=== PATIENT | male | born 1960 | race Caucasian/White ===

== ENCOUNTER 2020-09-14 08:10 | Emergency (ER) | payer MEDICARE, MEDICAID, SELFPAY ==
--- NOTE | ~2020-09-14 | CT_ITS ---
EXAMINATION: CT abdomen pelvis w con DATE: 09/14/2020 09:24 INDICATION: Abdominal pain TECHNIQUE: Computed tomography (CT) of the abdomen and pelvis was performed with 100 mL Omnipaque-350 intravenous contrast. Automated exposure control and iterative reconstruction technique were employe d. The dose-length product was 327.48 mGy-cm. COMPARISON: 10/12/2018 FINDINGS: Dependent atelectasis in the bilateral lower lobes and mild discoid atelectasis in the right middle l obe. Heart size is normal. No pericardial or pleural effusion. Small amount of fluid and debris in th e distal esophagus which could be related to reflux. Diffuse hepatic steatosis with focal sparing jessica ng the gallbladder fossa. Gallbladder, spleen, pancreas, bilateral adrenal glands and kidneys are nor mal. There is asymmetric wall thickening at the gastric antrum which could be related to peristalsis or gastritis. No abnormal bowel wall thickening or obstruction. There is linear soft tissue density m aterial within the distal small bowel likely representing incompletely digested material with similar appearance as seen in the stomach. The appendix is not visualized. No pericecal inflammatory change to suggest acute appendicitis. Decompressed bladder is normal. Prostatic calcifications. No interval change in a lenticular soft tissue density with peripheral calcification measuring approximately 3.4 x 0.8 cm along the posterolateral margin of the spleen which is likely sequela of old trauma. No free intraperitoneal gas or fluid. No pathologically enlarged abdominal or pelvic lymphadenopathy. Mild s cattered degenerative skeletal changes. IMPRESSION: 1. Mild wall thickening at the gastric antrum which could be related to gastritis or peristalsis. 2. Greater than typical amount of likely incompletely digested material within the distal small bowel with similar appearance to material within the stomach. Correlate with clinical history. Differentia l would include less likely parasitic infection. Reviewed, dictated and finalized at location A. IMPRESSION: 1. Mild wall thickening at the gastric antrum which could be related to gastrit is or peristalsis. 2. Greater than typical amount of likely incompletely digested material within the distal small bowel with similar appearance to material within the stomach. Correlate with clinical history. Differential would include less likely parasit ic infection.
[2020-09-14 08:21] VITALS: BP 141/84; PULSE 72; RESP 18; TEMP 36; O2SAT 99
--- NOTE | 2020-09-14 08:44 | ED.ABDPAIN ---
HPI - Abdominal Pain General Chief Complaint: Abdominal Pain Stated Complaint: abd pain Time Seen by Provider: 09/14/20 08:29 Source: patient Mode of arrival: ambulatory Limitations: no limitations History of Present Illness HPI narrative: Patient is a 59-year-old male complaining of mid abdominal pain, 4 out of 10, dull ache, nonradiating started today. Patient denies any nausea, vomiting, diarrhea or fever. Patient denies any chest pain or shortness of breath. Related Data Home Medications Medication Instructions Recorded Confirmed amlodipine 5 mg tablet mg PO 11/05/19 aspirin 81 mg chewable tablet 81 mg PO DAILY 11/05/19 ascorbic acid (vitamin C) mg PO 09/14/20 cetirizine mg 09/14/20 cholecalciferol (vitamin D3) 25 mcg PO DAILY 09/14/20 [Vitamin D3] gabapentin 09/14/20 ginkgo biloba 60 mg PO DAILY 09/14/20 losartan 09/14/20 meclizine mg PO 09/14/20 meloxicam 09/14/20 trazodone 100 mg PO HS PRN 09/14/20 Allergies Allergy/AdvReac Type Severity Reaction Status Date / Time No Known Allergies Allergy Verified 09/14/20 08:26 Review of Systems Review of Systems: All systems reviewed & are unremarkable except as noted in HPI and below Constitutional: Constitutional: Denies body ache(s), Denies chills, Denies excessive sweating, Denies fatigue, Denies fever(s), Denies headache(s), Denies lethargy, Denies malaise, Denies weakness and Denies weight loss Eyes: Eyes: Denies blurry vision, Denies change in vision and Denies loss of vision ENT: Denies dizziness, Denies ear discharge, Denies headache(s), Denies lip swelling, Denies epistaxis, Denies nasal congestion, Denies neck pain, Denies throat swelling and Denies tongue swelling Cardiovascular: Cardiovascular: Denies chest pain, Denies chest pain at rest, Denies chest pain with activity, Denies diaphoresis, Denies rapid heart rate, Denies edema, Denies irregular heart rhythm, Denies lightheadedness, Denies palpitations, Denies dyspnea and Denies dyspnea on exertion Respiratory: Respiratory: Denies chest congestion, Denies cough, Denies hemoptysis, Denies dyspnea and Denies dyspnea on exertion Gastrointestinal: Gastrointestinal: Denies melena, Denies hematochezia, Denies diarrhea, Denies nausea, Denies vomiting and Denies hematemesis Musculoskeletal: Musculoskeletal: Denies abnormal gait, Denies deformity, Denies joint swelling, Denies limited range of motion, Denies neck pain and Denies numbness Neurologic: Denies Abnormal speech present, Denies abnormal gait, Denies confusion, Denies dizziness, Denies headache(s), Denies focal weakness, Denies loss of vision, Denies numbness, Denies Other visual disturbances, Denies Sensory deficit (Neuro) and Denies weakness Psychiatric: Psychiatric: Denies confusion, Denies depression, Denies auditory hallucinations, Denies homicidal ideation and Denies suicidal ideation Endocrine: Endocrine: Denies cold intolerance, Denies excessive sweating, Denies fatigue, Denies heat intolerance and Denies palpitations Hematologic/Lymphatic: Hematologic/Lymphatic: Denies easy bleeding and Denies easy bruising Allergic/Immunologic: Allergic/Immunologic: Denies lip swelling, Denies throat swelling and Denies tongue swelling PMFSH Family History Family History (System 10/29/19 @ 15:15 by Wanda Cruz) Sibling Family history of thyroid disease Mother Family history of osteoporosis Hypertension Family history of chronic obstructive pulmonary disease Father Hypertension Cerebrovascular accident Social History Social History (System 10/29/19 @ 15:15 by Wanda Cruz) Gender identity (if verbalized by the patient): Male Exam Const: General: cooperative, healthy appearing, comfortable, no acute distress, well developed, alert and awake; No confusion Orientation/consciousness: oriented to person, oriented to place, oriented to time, patient oriented x3 and No confusion Limitations: no limitations HENMT:
[2020-09-14 08:53] LABS: Basophils Absolute Auto 0.1 K/mm3 (0.0-0.1); Basophils Percent Auto 0.5 % (0.2-1.2); Eosinophils Absolute Auto 0.5 K/mm3 (0-0.3); Eosinophils Percent Auto 4.6 % (0-4.4); Hematocrit 49.1 % (42.0-52.0); Hemoglobin 16.7 g/dL (14.0-18.0); Immature Granulocyte Absolute 0.02 K/mm3 (0.00-0.031); Immature Granulocyte Percent A 0.2 % (0-0.5); Lymphocytes Absolute Auto 2.32 K/mm3 (0.9-3.2); Lymphocytes Percent Auto 21.3 % (18.3-44.2); Mean Corpuscular Hemoglobin 30.5 pg (26-34); Mean Corpuscular Volume 89.8 fl (80-100); Monocytes Absolute Auto 0.8 K/mm3 (0.1-0.6); Neutrophils Absolute Auto 7.2 K/mm3 (1.3-6.7); Neutrophils Percent Auto 66.4 % (45.5-73.1); Platelet Count Result 285 k/mm3 (150-375); Red Blood Count 5.47 M/mm3 (4.6-6.20); Red Cell Distribution Width 12.7 % (11.5-14.5); White Blood Count 10.9 K/mm3 (4.5-10.0)
[2020-09-14 09:00] LABS: Add Urine Microscopic? YES; Appearance Urine Cloudy (Clear); Bacteria Urine Trace /hpf; Bilirubin Urine Negative (Negative); Blood Urine Negative (Negative); Color Urine Yellow (Yellow); Glucose Urine UA Negative (Negative); Ketones Urine Negative (Negative); Leukocyte Esterase Ur Negative LEU/UL (Negative); Mucus Urine Heavy /lpf; Nitrate Urine Negative (Negative); Protein Urine 2+ mg/dL (Negative); RBC Urine 0-2 /hpf (0-2); Specific Grav Ur 1.025 (1.001-1.035); Squamous Epithelial Cell Urine Rare /hpf (Few); WBC Urine 0-3 /hpf
[2020-09-14 09:04] LABS: Alanine Aminotransferase 32 U/L (4-50); Albumin Level 4.8 g/dL (3.5-5.1); Alkaline Phosphatase 104 U/L (38-126); Anion Gap 8 mmol/L (8-16); Aspartate Amino Transferase 34 U/L (17-59); Bilirubin,Total 0.7 mg/dL (0.2-1.3); Blood Urea Nitrogen 15 mg/dL (9-20); Calcium 9.8 mg/dL (8.4-10.2); Carbon Dioxide 33 mmol/L (22-30); Chloride 103 mmol/L (98-107); Estimated CRCL calculation 89 ml/min; Estimated Glomerular Filt Rate > 60; Glucose 111 mg/dL (75-110); Lipase 41 U/L (23-300); Potassium 3.8 mmol/L (3.4-5.0); Sodium 144 mmol/L (137-145)
[2020-09-14 09:20] VITALS: BP 138/80; PULSE 68; RESP 20; O2SAT 100
[2020-09-14 10:34] VITALS: BP 126/79; PULSE 66; RESP 18; O2SAT 96
--- NOTE | 2020-09-14 11:04 | ECG_ITS ---
Measurements Intervals [place] Rate: 63 P: 58 MI: 156 QRS: -8 QRSD: 96 T: 30 QT: 397 QTc: 407 Interpretive Statements SINUS RHYTHM INCOMPLETE RIGHT BUNDLE BRANCH BLOCK BASELINE ARTIFACT- I, III, AVL BORDERLINE ECG Electronically Signed On 09-14-2020 11:29:16 CDT by Isidro Echavarria D.O.
[2020-09-14] MEDS: FAMOTIDINE 20 MG TABLET 40 MG PO (11:48)
[2020-09-14 11:51] VITALS: BP 125/87; PULSE 68; RESP 18; O2SAT 98
== END 2020-09-14 11:52 | disposition home or self-care (01) ==
PROVIDERS: Emergency Provider Emergency Medicine; PCP Internal Medicine
DX: K29.00 Acute gastritis without bleeding (principal); Z79.82 Long term (current) use of aspirin; I45.10 Unspecified right bundle-branch block
CPT/HCPCS: 36415; 74177; 80053; 81001; 83690; 85025; 93005; 99284; A9270; Q9967

== ENCOUNTER 2023-02-11 17:00 | Emergency (ER) | payer MEDICARE, MEDICAID, SELFPAY ==
[2023-02-11 17:12] VITALS: BP 127/78; PULSE 68; RESP 16; TEMP 37.1; O2SAT 97
[2023-02-11 17:46] LABS: Basophils Percent Auto 0.6 % (0.2-1.2); Eosinophils Absolute Auto 0.4 K/mm3 (0-0.3); Hematocrit 46.1 % (42.0-52.0); Hemoglobin 15.8 g/dL (14.0-18.0); Immature Granulocyte Absolute 0.02 K/mm3 (0.00-0.031); Immature Granulocyte Percent A 0.3 % (0-0.5); Lymphocytes Absolute Auto 2.33 K/mm3 (0.9-3.2); Lymphocytes Percent Auto 35.7 % (18.3-44.2); Mean Corpuscular HGB Conc 34.3 g/dl (32-36); Mean Corpuscular Hemoglobin 30.2 pg (26-34); Mean Platelet Volume 8.7 fl (7.4-10.4); Monocytes Absolute Auto 0.6 K/mm3 (0.1-0.6); Monocytes Percent Auto 9.2 % (2.6-8.5); Neutrophils Absolute Auto 3.2 K/mm3 (1.3-6.7); Neutrophils Percent Auto 48.2 % (45.5-73.1); Platelet Count Result 197 k/mm3 (150-375); Red Blood Count 5.24 M/mm3 (4.6-6.20); Red Cell Distribution Width 12.7 % (11.5-14.5); White Blood Count 6.5 K/mm3 (4.5-10.0)
[2023-02-11 18:11] LABS: Alanine Aminotransferase 25 U/L (6-50); Albumin Level 4.6 g/dL (3.5-5.1); Alkaline Phosphatase 96 U/L (38-126); Anion Gap 6 mmol/L (8-16); Aspartate Amino Transferase 23 U/L (17-59); Bilirubin,Total 0.4 mg/dL (0.2-1.3); Blood Urea Nitrogen 12 mg/dL (9-20); Calcium 9.1 mg/dL (8.4-10.2); Carbon Dioxide 28 mmol/L (22-30); Chloride 107 mmol/L (98-107); Estimated CRCL calculation 111 ml/min; Estimated Glomerular Filt Rate > 60; Glucose 96 mg/dL (65-110); Sodium 141 mmol/L (137-145)
--- NOTE | 2023-02-11 18:35 | ED.HA ---
HPI - Headache General Chief Complaint: Headache Stated Complaint: ESTEBAN after lumbar puncture on 02/09 Time Seen by Provider: 02/11/23 18:16 Source: patient and family Mode of arrival: ambulatory Limitations: no limitations History of Present Illness HPI Narrative: 62-year-old was brought in by family with a complaint occipital headache and neck pain for the past 2 days. Patient family reports that he had spinal tap done at [facility] 2 days ago for memory loss ,since then been having headaches. Family reports that they called the facility and they have no openings to evaluate him. He denies any fever or chills. No history of nausea or vomiting. MD elicited complaint: headache Pertinent past history: other (Recent spinal tap done 2 days ago) Onset (ago): day(s) (2) Onset description: gradually Location: occipital Severity: moderate Quality & Timing: aching Exacerbating factors: none Relieving factors: nothing Context: other (spinal tap) Associated symptoms: none Treatments prior to arrival: none Related Data Home Medications Medication Instructions Recorded Confirmed amlodipine 5 mg tablet mg PO 11/05/19 aspirin 81 mg chewable tablet 81 mg PO DAILY 11/05/19 ascorbic acid (vitamin C) 500 mg mg PO 09/14/20 capsule cetirizine 10 mg tablet mg 09/14/20 cholecalciferol (vitamin D3) 25 25 mcg PO DAILY 09/14/20 mcg (1,000 unit) capsule (Vitamin D3) gabapentin 300 mg capsule 09/14/20 ginkgo biloba 60 mg capsule 60 mg PO DAILY 09/14/20 losartan 50 mg tablet 09/14/20 meclizine 25 mg capsule mg PO 09/14/20 meloxicam 15 mg tablet 09/14/20 trazodone 100 mg tablet 100 mg PO HS PRN Sleep 09/14/20 Allergies Allergy/AdvReac Type Severity Reaction Status Date / Time No Known Allergies Allergy Verified 02/11/23 17:01 Review of Systems Review of Systems: All systems reviewed & are unremarkable except as noted in HPI and below Constitutional: Constitutional: Reports no additional constitutional complaints Eyes: Eyes: Reports no additional eye complaints ENT: Reports system reviewed and no additional complaints, except as documented Cardiovascular: Cardiovascular: Reports no additional cardiovascular complaints Respiratory: Respiratory: Reports no additional respiratory complaints Musculoskeletal: Musculoskeletal: Reports no additional musculoskeletal complaints Integumentary/Breasts: Skin/Breast: Reports system reviewed and no additional complaints, except as docu Neurologic: Reports system reviewed and no additional complaints, except as documented Psychiatric: Psychiatric: Reports no additional psychiatric complaints Endocrine: Endocrine: Reports no additional endocrine complaints PMFSH Family History Family History Sibling Family history of thyroid disease Mother Family history of osteoporosis Hypertension Family history of chronic obstructive pulmonary disease Father Hypertension Cerebrovascular accident Social History Social History Gender identity (if verbalized by the patient): Male Course Course Emergency Course: GENERAL: Well-appearing, well-nourished, and in no acute distress. HEAD: Normocephalic, atraumatic. EYES: PERRLA and EOMI. NECK: Supple. CHEST: Clear to auscultation. No respiratory distress. HEART: Regular rate and rhythm. No murmur heard. Normal peripheral pulses. ABDOMEN: Soft, nontender, nondistended, normal active bowel sounds. EXTREMITIES: Normal range of motion. No edema. SKIN: Warm, dry, no rash. NEURO: No focal deficits. Alert and oriented x3. PSYCH: Normal mood and affect. Vital Signs Vital signs: Vital Signs Temperature 37.1 C 02/11/23 17:12 Pulse Rate 68 02/11/23 17:12 Respiratory Rate 16 02/11/23 17:12 Blood Pressure 127/78 02/11/23 17:12 Pulse Oximetry 97 02/11/23 17:12 Oxygen Delivery Room Air 02/11
[2023-02-11] MEDS: SODIUM CHLORIDE 0.9% IV 1,000 ML 999 ML IV CONT (19:06)
[2023-02-11] MEDS: KETOROLAC 15 MG/ML VIAL (*BKC) IV PUSH (19:06)
[2023-02-11] MEDS: diphenhydrAMINE HCl INJ 50 MG/ML VIAL IV PUSH (19:21)
[2023-02-11] MEDS: CAFFEINE 200 MG TABLET PO (19:21)
[2023-02-11] MEDS: PROCHLORPERAZINE EDISYLATE 10 MG/2 ML VIAL IV PUSH (19:21)
[2023-02-11 19:28] VITALS: BP 144/84; PULSE 72; RESP 15; O2SAT 99
--- NOTE | 2023-02-11 19:29 | PC.NURSE ---
1904 Assumed pt care from FAYE Geronimo and FAYE Spears
[2023-02-11 19:31] VITALS: BP 149/93; PULSE 69; RESP 15; O2SAT 99
[2023-02-11 19:46] VITALS: BP 158/89; PULSE 72; RESP 16; O2SAT 98
[2023-02-11 20:01] VITALS: BP 150/83; PULSE 65; RESP 14; O2SAT 99
[2023-02-11 21:00] VITALS: BP 135/80; PULSE 60; RESP 12; O2SAT 97
== END 2023-02-11 21:04 | disposition home or self-care (01) ==
PROVIDERS: Family Medicine; Emergency Provider Emergency Medicine; PCP Nurse Practitioner
DX: T88.59XA Other complications of anesthesia, initial encounter (principal); G44.40 Drug-induced headache, not elsewhere classified, not intractable; Y84.8 Other medical procedures as the cause of abnormal reaction of the patient, or of later complication, without mention of misadventure at the time of the procedure; Z79.82 Long term (current) use of aspirin
CPT/HCPCS: 36415; 80053; 85025; 96360; 96361; 96374; 96375; 99284; A9270; J0780; J1200; J1885; J7030

== ENCOUNTER 2023-04-12 10:47 | Outpatient (CLI) | payer MEDICARE, MEDICAID, SELFPAY ==
--- NOTE | ~2023-04-12 | XR_ITS ---
EXAMINATION: XR chest 2V 04/12/2023 11:06 INDICATION: Chronic cough PROCEDURE: 2 view chest COMPARISON: 05/22/2028 FINDINGS: The lungs are clear. The cardiomediastinal silhouette is within normal limits. There are no pleural effusions. There is no pneumothorax suspected. IMPRESSION: 1: NO ACUTE CARDIOPULMONARY DISEASE. Reviewed, dictated and finalized at location L.
== END 2023-04-12 10:48 | disposition home or self-care (01) ==
LOC: ANHIMG 10:55
PROVIDERS: PCP Nurse Practitioner; Visit Provider Nurse Practitioner
DX: R05.3 Chronic cough (principal)
CPT/HCPCS: 71046

== ENCOUNTER 2023-06-20 18:02 | Emergency (ER) | payer MEDICARE, MEDICAID, SELFPAY ==
[2023-06-20] VITALS (13 sets, daily range): BP systolic 134–147; BP diastolic 81–90; PULSE 48–64; RESP 11–18; TEMP 36.5–37.1; O2SAT 97–100
--- NOTE | ~2023-06-20 | XR_ITS ---
EXAMINATION: XR chest 2V Exam Date/Time: 06/20/2023 18:22 CDT HISTORY: cp, COUGH Comparison: 04/12/2023. RESULT: Lines, tubes, and devices: None. Lungs and pleura: Clear. Cardiomediastinal silhouette: Stable. Other: No acute osseous or upper abdominal finding. IMPRESSION: No acute cardiopulmonary process. Reviewed, dictated and finalized at location K.
--- NOTE | 2023-06-20 18:03 | ECG_ITS ---
Measurements Intervals [place] Rate: 61 P: 54 MI: 161 QRS: 7 QRSD: 97 T: 58 QT: 398 QTc: 402 Interpretive Statements SINUS RHYTHM INCOMPLETE RIGHT BUNDLE BRANCH BLOCK BASELINE ARTIFACT- I, III, AVL BORDERLINE ECG NO PREVIOUS ECG AVAILABLE FOR COMPARISON Electronically Signed On 06-20-2023 21:21:39 CDT by Isidro Ehcavarria D.O.
[2023-06-20 18:19] LABS: Basophils Percent Auto 0.3 % (0.2-1.2); Eosinophils Absolute Auto 0.5 K/mm3 (0-0.3); Eosinophils Percent Auto 8.7 % (0-4.4); Hematocrit 43.8 % (42.0-52.0); Hemoglobin 15.2 g/dL (14.0-18.0); Immature Granulocyte Absolute 0.02 K/mm3 (0.00-0.031); Immature Granulocyte Percent A 0.3 % (0-0.5); Lymphocytes Absolute Auto 2.32 K/mm3 (0.9-3.2); Lymphocytes Percent Auto 37.4 % (18.3-44.2); Mean Corpuscular HGB Conc 34.7 g/dl (32-36); Mean Corpuscular Hemoglobin 30.3 pg (26-34); Mean Corpuscular Volume 87.3 fl (80-100); Mean Platelet Volume 8.9 fl (7.4-10.4); Monocytes Absolute Auto 0.6 K/mm3 (0.1-0.6); Monocytes Percent Auto 10.3 % (2.6-8.5); Neutrophils Absolute Auto 2.7 K/mm3 (1.3-6.7); Platelet Count Result 179 k/mm3 (150-375); Red Blood Count 5.02 M/mm3 (4.6-6.20); Red Cell Distribution Width 12.2 % (11.5-14.5); White Blood Count 6.2 K/mm3 (4.5-10.0)
[2023-06-20 18:29] LABS: Alanine Aminotransferase 24 U/L (6-50); Albumin Level 4.5 g/dL (3.5-5.1); Alkaline Phosphatase 99 U/L (38-126); Anion Gap 8 mmol/L (8-16); Aspartate Amino Transferase 28 U/L (17-59); Bilirubin,Total 0.6 mg/dL (0.2-1.3); Blood Urea Nitrogen 9 mg/dL (9-20); Calcium 8.8 mg/dL (8.4-10.2); Carbon Dioxide 25 mmol/L (22-30); Chloride 106 mmol/L (98-107); Estimated CRCL calculation 97 ml/min; Estimated Glomerular Filt Rate > 60; Glucose 98 mg/dL (65-110); Lipase 43 U/L (23-300); Potassium 3.6 mmol/L (3.4-5.0); Sodium 139 mmol/L (137-145)
[2023-06-20 18:32] LABS: Prothrombin Time 13.3 Seconds (11.1-14.7)
[2023-06-20 18:33] LABS: Partial Thromboplastin Time 29.8 SECONDS (22.3-36.8)
[2023-06-20 18:41] LABS: Troponin I < 0.012 ng/mL (0.000-0.034)
[2023-06-20] MEDS: KETOROLAC 30 MG/ML VIAL (*BKC) 15 MG IV PUSH (20:17)
[2023-06-20] MEDS: ASPIRIN 81 MG CHEWABLE TABLET 324 MG PO (20:17)
--- NOTE | 2023-06-20 20:45 | ED.GENADULT ---
HPI - General Adult General Chief complaint: Chest Pain Stated complaint: CHEST PAIN X5 DAYS Time Seen by Provider: 06/20/23 20:01 History of Present Illness HPI narrative: Patient is a 62-year-old gentleman who presents emerged department with chief complaint of chest pain. Patient reports that he has been having discomfort for the last several days reports that it starts in his back and then goes into his chest. Patient reports that the pain is a sharp but also squeezing type pain patient reports no new trauma reports that he does have history of chronic back pain reports no prior history of cardiac disease but does have a history of hypertension and high cholesterol. Related Data Home Medications Medication Instructions Recorded Confirmed amlodipine 5 mg tablet mg PO 11/05/19 aspirin 81 mg chewable tablet 81 mg PO DAILY 11/05/19 ascorbic acid (vitamin C) 500 mg mg PO 09/14/20 capsule cetirizine 10 mg tablet mg 09/14/20 cholecalciferol (vitamin D3) 25 25 mcg PO DAILY 09/14/20 mcg (1,000 unit) capsule (Vitamin D3) gabapentin 300 mg capsule 09/14/20 ginkgo biloba 60 mg capsule 60 mg PO DAILY 09/14/20 losartan 50 mg tablet 09/14/20 meclizine 25 mg capsule mg PO 09/14/20 meloxicam 15 mg tablet 09/14/20 trazodone 100 mg tablet 100 mg PO HS PRN Sleep 09/14/20 Allergies Allergy/AdvReac Type Severity Reaction Status Date / Time No Known Allergies Allergy Verified 02/11/23 17:01 Review of Systems Review of Systems: A 10 system review of systems was completed on the patient and is negative except for what is stated in the HPI. Nursing and ancillary documentation was reviewed. [facility] Family History Family History Sibling Family history of thyroid disease Mother Family history of osteoporosis Hypertension Family history of chronic obstructive pulmonary disease Father Hypertension Cerebrovascular accident Social History Social History Gender identity (if verbalized by the patient): Male Exam Narrative: GENERAL: Well-appearing, well-nourished, and in no acute distress. HEAD: Normocephalic, atraumatic. EYES: PERRLA and EOMI. ENT: Nares clear, no rhinorrhea or epistaxis. Mucous membranes moist. NECK: Supple. CHEST: Clear to auscultation. No respiratory distress. HEART: Regular rate and rhythm. No murmur heard. Normal peripheral pulses. ABDOMEN: Soft, nontender, nondistended, normal active bowel sounds. EXTREMITIES: Normal range of motion. No edema. SKIN: Warm, dry, no rash. NEURO: No focal deficits. Alert and oriented x3. PSYCH: Normal mood and affect. Course Vital Signs Vital signs: Vital Signs Temperature 37.1 C 06/20/23 18:05 Pulse Rate 64 06/20/23 18:05 Respiratory Rate 18 06/20/23 18:05 Blood Pressure 144/90 H 06/20/23 18:05 Pulse Oximetry 99 06/20/23 18:05 Temperature 36.5 C 06/20/23 20:12 Pulse Rate 54 L 06/20/23 20:15 Respiratory Rate 17 06/20/23 20:12 Blood Pressure 147/83 H 06/20/23 20:12 Pulse Oximetry 99 06/20/23 20:12 Oxygen Delivery Room Air 06/20/23 20:12 Medical Decision Making [facility] Narrative Medical decision making narrative: Differential diagnosis includes ACS, musculoskeletal chest pain, electrolyte abnormality, pneumonia, pneumothorax Laboratory studies were obtained and the patient which showed a normal CBC electrolytes are within normal limits troponin was negative with 0-hour and 3-hour liver enzymes are normal lipase was normal chest x-ray showed no focal infiltrate EKG was sinus rhythm rate of 61 with incomplete right bundle branch block no ST elevation or ST depression Patient symptoms been ongoing for several days this time the likelihood of ACS is extremely low. Patient is feeling better after receiving Toradol in the emergency department. Vital Signs Vital Signs:
[2023-06-20 21:45] LABS: Troponin I < 0.012 ng/mL (0.000-0.034)
== END 2023-06-20 22:24 | disposition home or self-care (01) ==
PROVIDERS: Emergency Medicine; Emergency Provider Emergency Medicine; PCP Nurse Practitioner
DX: R07.89 Other chest pain (principal); I10 Essential (primary) hypertension; Z79.82 Long term (current) use of aspirin; I45.10 Unspecified right bundle-branch block
CPT/HCPCS: 36415; 71046; 80053; 83690; 84484; 85025; 85610; 85730; 93005; 96374; 99284; A9270; J1885

== ENCOUNTER 2023-11-22 17:12 | Outpatient (CLI) | payer MEDICARE, MEDICAID, SELFPAY ==
--- NOTE | ~2023-11-22 | XR_ITS ---
XR knee LT 3V DATE: 11/22/2023 17:42 INDICATION: Left knee pain TECHNIQUE: 3 views COMPARISON: None FINDINGS: There is mild periarticular spurring of the patella. No fracture or dislocation or joint ef fusion, periosteal reaction or bone destruction, radiopaque intra-articular loose body or chondrocalc inosis. Joint spaces are well preserved. IMPRESSION: Mild patellofemoral osteoarthritis Reviewed, dictated and finalized at location L. EL LINER
--- NOTE | ~2023-11-22 | XR_ITS ---
XR lumbar spine 2-3V DATE: 11/22/2023 17:42 INDICATION: Chronic back pain, radiculopathy. TECHNIQUE: AP, lateral, coned lateral lumbosacral views COMPARISON: None FINDINGS: Mild degenerative spurring at T11-T12 and L1-2. The lumbar pedicles are intact. No fracture or bone destruction, spondylolisthesis. Lumbar and lumbosacral interspaces appear relatively well pr eserved. The sacroiliac joints are intact. IMPRESSION: Mild degenerative change at the lower thoracic and upper lumbar spine Reviewed, dictated and finalized at location L. [employer] TECHNICIAN IMPRESSION: Mild degenerative change at the lower thoracic and upper lumbar spi ne
--- NOTE | ~2023-11-22 | XR_ITS ---
XR_CERV2-3V_CR DATE: 11/22/2023 17:42 INDICATION: Chronic neck pain, radiculopathy. TECHNIQUE: AP, open-mouth, lateral, swimmer views COMPARISON: None FINDINGS: C1 and C2 are normally aligned and the odontoid process is intact. No fracture or dislocati on or locked facet, prevertebral soft tissue swelling. Cervical interspaces are well preserved. IMPRESSION: Negative Reviewed, dictated and finalized at Location A. Reviewed, dictated and finalized at location L. [employer] OFFICER IMPRESSION: Negative
== END 2023-11-22 17:13 | disposition home or self-care (01) ==
LOC: ANHIMG 17:14
PROVIDERS: PCP Nurse Practitioner; Visit Provider Pain Medicine Interventional Pain Medicine
DX: M47.22 Other spondylosis with radiculopathy, cervical region (principal); M47.23 Other spondylosis with radiculopathy, cervicothoracic region; M17.12 Unilateral primary osteoarthritis, left knee
CPT/HCPCS: 72040; 72100; 73562

== ENCOUNTER 2024-01-16 16:50 | Emergency (ER) | payer MEDICARE, MEDICAID, SELFPAY ==
[2024-01-16 17:15] VITALS: BP 131/64; PULSE 90; RESP 16; TEMP 36.8; O2SAT 97
--- NOTE | 2024-01-16 19:59 | ED.GENADULT ---
HPI - General Adult General Chief complaint: Back Pain/Injury Stated complaint: back pain Time Seen by Provider: 01/16/24 19:34 Source: patient Mode of arrival: ambulatory Limitations: no limitations History of Present Illness HPI narrative: This is a 63-year-old male who presents to the ED with chief complaint of right lower back pain for the past 2 weeks. Reports that he has had chronic low back pain treated by pain management with last injection 4 months ago. Reports this gave about 2 days of improvement but feels it has never really subsided fully. Denies fevers, chills, nausea, vomiting, numbness, weakness, loss of bowel or bladder control. Related Data Home Medications Medication Instructions Recorded Confirmed amlodipine 5 mg tablet mg PO 11/05/19 aspirin 81 mg chewable tablet 81 mg PO DAILY 11/05/19 ascorbic acid (vitamin C) 500 mg mg PO 09/14/20 capsule cetirizine 10 mg tablet mg 09/14/20 cholecalciferol (vitamin D3) 25 25 mcg PO DAILY 09/14/20 mcg (1,000 unit) capsule (Vitamin D3) gabapentin 300 mg capsule 09/14/20 ginkgo biloba 60 mg capsule 60 mg PO DAILY 09/14/20 losartan 50 mg tablet 09/14/20 meclizine 25 mg capsule mg PO 09/14/20 meloxicam 15 mg tablet 09/14/20 trazodone 100 mg tablet 100 mg PO HS PRN Sleep 09/14/20 Allergies Allergy/AdvReac Type Severity Reaction Status Date / Time No Known Allergies Allergy Verified 01/16/24 19:27 Review of Systems Review of Systems: All systems as dictated in HPI [facility] Family History Family History Sibling Family history of thyroid disease Mother Family history of osteoporosis Hypertension Family history of chronic obstructive pulmonary disease Father Hypertension Cerebrovascular accident Social History Social History Gender identity (if verbalized by the patient): Male Exam Narrative: GENERAL: Well-appearing, well-nourished, and in no acute distress. HEAD: Normocephalic, atraumatic. EYES: PERRLA and EOMI. ENT: Nares clear, no rhinorrhea or epistaxis. Mucous membranes moist. Oropharynx without tonsillar hypertrophy exudate or other lesions. NECK: Supple. No adenopathy or masses. CHEST: No respiratory distress. Clear to auscultation. No wheezes rales or rhonchi HEART: Regular rate and rhythm. No murmur heard. Normal peripheral pulses. ABDOMEN: Soft, nontender, nondistended, normal active bowel sounds. MSK: Normal range of motion. No edema. No midline spinal tenderness. Negative straight leg raise bilaterally. 5/5 strength and sensation in the lower extremities. Ambulatory without difficulty SKIN: Warm, dry, no rash. NEURO: Alert and oriented x3. No focal deficits. PSYCH: Normal mood and affect. Course Vital Signs Vital signs: Vital Signs Temperature 98.2 F 01/16/24 17:15 Pulse Rate 90 01/16/24 17:15 Respiratory Rate 16 01/16/24 17:15 Blood Pressure 131/64 01/16/24 17:15 Pulse Oximetry 97 01/16/24 17:15 Temperature 98.2 F 01/16/24 17:15 Pulse Rate 90 01/16/24 17:15 Respiratory Rate 16 01/16/24 17:15 Blood Pressure 131/64 01/16/24 17:15 Pulse Oximetry 97 01/16/24 17:15 Medical Decision Making MDM Narrative Medical decision making narrative: This patient presents with back pain most consistent with lumbar strain. Differential diagnoses includes lumbago versus musculoskeletal spasm / strain versus sciatica. No back pain red flags on history or physical. Presentation not consistent with malignancy (lack of history of malignancy, lack of B symptoms), fracture (no trauma, no bony tenderness to palpation), cauda equina (no bowel or urinary incontinence/retention, no saddle anesthesia, no distal weakness), AAA, viscus perforation , pulmonary embolism, renal colic, pyelonephritis (afebrile, no CVAT, no urinary symptoms). Given the clinical pi
[2024-01-16] MEDS: ORPHENADRINE CITRATE 100 MG TABLET.ER PO (20:04)
== END 2024-01-16 20:32 | disposition home or self-care (01) ==
LOC: ANHED 20:07
PROVIDERS: Emergency Provider Physician Assistant; PCP Nurse Practitioner
DX: S39.012A Strain of muscle, fascia and tendon of lower back, initial encounter (principal); Z79.82 Long term (current) use of aspirin; X58.XXXA Exposure to other specified factors, initial encounter
CPT/HCPCS: 99283; A9270

== ENCOUNTER 2024-05-08 17:07 | Emergency (ER) | payer MEDICARE, MEDICAID, SELFPAY ==
--- NOTE | ~2024-05-08 | XR_ITS ---
EXAM: XR lumbar spine 2-3V DATE: 05/08/2024 18:36 HISTORY: left leg pain, RADIATES FROM HIP . COMPARISON: 11/22/2023. FINDINGS: 5 nonrib-bearing lumbar-type vertebral bodies. Pedicles intact. Normal vertebral body alig nment. Vertebral body heights preserved. Mild multilevel degenerative disc disease. Mild lower lumbar facet arthropathy. No fracture or dislocation. IMPRESSION: No acute fracture or traumatic malalignment detected in the lumbar spine. Reviewed, dictated and finalized at location K.
--- NOTE | ~2024-05-08 | XR_ITS ---
XR knee LT min 4V Ordering provider: Gladys Webb PA-C History: . left posterior knee pain, NKI . Comparison: November 22, 2023 FINDINGS: BONES: No acute fracture or dislocation. JOINT SPACES: Normal. SOFT TISSUES: Normal. IMPRESSION: No acute osseous abnormality left knee. Reviewed, dictated and finalized at location A.
[2024-05-08 17:09] VITALS: BP 128/72; PULSE 63; RESP 20; TEMP 36.6; O2SAT 99
--- NOTE | 2024-05-08 18:21 | ED.LOWEXIN ---
HPI - Extremity Injury (Lower) General Chief Complaint: Extremity Injury, Lower Stated Complaint: left leg pain Time Seen by Provider: 05/08/24 18:11 Source: patient Mode of arrival: ambulatory Limitations: no limitations History of Present Illness HPI Narrative: This is a 63 year old male that presents to the ER for left lower extremity pain. Ongoing over the last couple of days. No known injury or trauma. Reports pain is worse with ambulation. He took his prescribed pain medication that he takes for his back with little relief. Reports pain in the left posterior thigh. Denies fever, erythema, edema, decreased ROM or numbness. Related Data Home Medications Medication Instructions Recorded Confirmed amlodipine 5 mg tablet mg PO 11/05/19 aspirin 81 mg chewable tablet 81 mg PO DAILY 11/05/19 ascorbic acid (vitamin C) 500 mg mg PO 09/14/20 capsule cetirizine 10 mg tablet mg 09/14/20 cholecalciferol (vitamin D3) 25 25 mcg PO DAILY 09/14/20 mcg (1,000 unit) capsule (Vitamin D3) gabapentin 300 mg capsule 09/14/20 ginkgo biloba 60 mg capsule 60 mg PO DAILY 09/14/20 losartan 50 mg tablet 09/14/20 meclizine 25 mg capsule mg PO 09/14/20 meloxicam 15 mg tablet 09/14/20 trazodone 100 mg tablet 100 mg PO HS PRN Sleep 09/14/20 Allergies Allergy/AdvReac Type Severity Reaction Status Date / Time No Known Allergies Allergy Verified 05/08/24 17:12 Review of Systems Review of Systems: CONSTITUTIONAL: Denies fever SKIN: Denies rash MUSCULOSKELETAL: Reports back pain, joint pain, and myalgia. NEUROLOGIC: Denies numbness, or weakness. All systems reviewed & are unremarkable except as noted in HPI and below PMFSH Past Medical History Medical History (Updated 05/08/24 @ 19:49 by Gladys Webb PA-C) Hyperlipidemia Hypertension Family History Family History Sibling Family history of thyroid disease Mother Family history of osteoporosis Hypertension Family history of chronic obstructive pulmonary disease Father Hypertension Cerebrovascular accident Social History Social History (Updated 05/08/24 @ 18:26 by Gladys Webb PA-C) Smoking status: Current every day smoker Gender identity (if verbalized by the patient): Male Exam Narrative: GENERAL: Well-appearing, well-nourished, and in no acute distress. HEAD: Normocephalic, atraumatic. EYES: EOMI. EXTREMITIES: Normal range of motion. No edema or erythema. Normal DP pulse. Normal sensation. Tender to palpation of the left hamstring medially SKIN: Warm, dry, no rash. NEURO: No focal deficits. Alert and oriented x3. PSYCH: Normal mood and affect Course Course Emergency Course: patient updated on his workup and agrees with plan of care Vital Signs Vital signs: Vital Signs Temperature 97.9 F 05/08/24 17:09 Pulse Rate 63 05/08/24 17:09 Respiratory Rate 20 05/08/24 17:09 Blood Pressure 128/72 05/08/24 17:09 Pulse Oximetry 99 05/08/24 17:09 Oxygen Delivery Room Air 05/08/24 17:09 Temperature 97.9 F 05/08/24 17:09 Pulse Rate 63 05/08/24 17:09 Respiratory Rate 20 05/08/24 17:09 Blood Pressure 128/72 05/08/24 17:09 Pulse Oximetry 99 05/08/24 17:09 Oxygen Delivery Room Air 05/08/24 17:09 MDM - Extremity Injury (Lower) MDM Narrative Medical decision making narrative: Patient presents to the emergency department for left posterior thigh pain. No recent injury or trauma. Does report history of lumbar radiculopathy for which he takes pain medication chronically. patient is neurovascularly intact. No edema or erythema of the leg. He is afebrile and nontoxic appearing. His vitals are stable. Cbc without leukocytosis. Metabolic panel without concerning findings. Dimer is not elevated. Lumbar spine x-rays without acute findings. Left knee x-ray is also without acute findings. Patient was updated on his workup
[2024-05-08] MEDS: ACETAMINOPHEN 500 MG TABLET 1000 MG PO (18:23)
[2024-05-08] MEDS: diazePAM INJ (*CRX) 10 MG/2 ML SYRINGE 5 MG IM (18:24)
[2024-05-08 18:47] LABS: Basophils Percent Auto 0.5 % (0.2-1.2); Eosinophils Absolute Auto 0.2 K/mm3 (0-0.3); Eosinophils Percent Auto 2.7 % (0-4.4); Hematocrit 45.9 % (42.0-52.0); Hemoglobin 15.3 g/dL (14.0-18.0); Immature Granulocyte Absolute 0.01 K/mm3 (0.00-0.031); Immature Granulocyte Percent A 0.2 % (0-0.5); Lymphocytes Absolute Auto 1.95 K/mm3 (0.9-3.2); Lymphocytes Percent Auto 32.6 % (18.3-44.2); Mean Corpuscular HGB Conc 33.3 g/dl (32-36); Mean Corpuscular Volume 92.9 fl (80-100); Mean Platelet Volume 8.9 fl (7.4-10.4); Monocytes Absolute Auto 0.6 K/mm3 (0.1-0.6); Monocytes Percent Auto 9.7 % (2.6-8.5); Neutrophils Absolute Auto 3.3 K/mm3 (1.3-6.7); Neutrophils Percent Auto 54.3 % (45.5-73.1); Platelet Count Result 163 k/mm3 (150-375); Red Blood Count 4.94 M/mm3 (4.6-6.20); Red Cell Distribution Width 12.3 % (11.5-14.5)
[2024-05-08 18:56] LABS: Anion Gap 6 mmol/L (4-12); Blood Urea Nitrogen 11 mg/dL (9-20); Calcium 9.2 mg/dL (8.4-10.2); Carbon Dioxide 29 mmol/L (22-30); Chloride 106 mmol/L (98-107); Estimated CRCL calculation 69 ml/min; Estimated Glomerular Filt Rate > 60; Glucose 95 mg/dL (65-110); Potassium 3.6 mmol/L (3.4-5.0); Sodium 141 mmol/L (137-145)
[2024-05-08 19:04] LABS: D Dimer 0.33 ug/mL (<0.48)
== END 2024-05-08 19:59 | disposition home or self-care (01) ==
PROVIDERS: Emergency Provider Physician Assistant; PCP Nurse Practitioner
DX: M79.652 Pain in left thigh (principal); E78.5 Hyperlipidemia, unspecified; I10 Essential (primary) hypertension; F17.200 Nicotine dependence, unspecified, uncomplicated; Z79.899 Other long term (current) drug therapy; Z79.82 Long term (current) use of aspirin
CPT/HCPCS: 36415; 72100; 73564; 80048; 85025; 85380; 96372; 99284; A9270; J3360

== ENCOUNTER 2024-05-17 23:34 | Emergency (ER) | payer MEDICARE, MEDICAID, SELFPAY ==
--- NOTE | ~2024-05-17 | CT_ITS ---
CT of the Abdomen and Pelvis: Indication: Abdominal pain, GI bleed Technique: 2.5 mm axial scans were obtained through the abdomen and pelvis following intravenous adm inistration of 100 cc of Omnipaque 350. Dose reduction technique was used on this scan by utilizing a utomated exposure control and iterative reconstruction technique. The dose-length product (DLP) was 3 72.67 mGy-cm. COMPARISON: 09/14/2020 Findings: Scans through the lung bases are unremarkable. The liver, spleen, pancreas, gallbladder, adrenals and right kidney are within normal limits. 4 mm no nobstructing left renal stone present. No evidence of aortic aneurysm. No lymphadenopathy. No bowel obstruction or bowel wall thickening. There is no evidence to suggest acute appendicitis. Images through the pelvis were performed. Urinary bladder unremarkable. No pelvic mass seen. No ascit es. Impression: No acute abnormality seen. 4 mm nonobstructing left renal stone. Reviewed, dictated and finalized at [facility]. Impression: No acute abnormality seen. 4 mm nonobstructing left renal stone.
[2024-05-17 23:37] VITALS: BP 126/72; PULSE 88; RESP 20; TEMP 36.9; O2SAT 97
[2024-05-18 02:04] VITALS: BP 107/74; PULSE 80; RESP 18; O2SAT 96
[2024-05-18 02:42] LABS: Basophils Percent Auto 0.3 % (0.2-1.2); Eosinophils Absolute Auto 0.2 K/mm3 (0-0.3); Eosinophils Percent Auto 1.7 % (0-4.4); Hematocrit 44.9 % (42.0-52.0); Hemoglobin 15.2 g/dL (14.0-18.0); Immature Granulocyte Absolute 0.02 K/mm3 (0.00-0.031); Immature Granulocyte Percent A 0.2 % (0-0.5); Lymphocytes Absolute Auto 0.97 K/mm3 (0.9-3.2); Lymphocytes Percent Auto 10.8 % (18.3-44.2); Mean Corpuscular HGB Conc 33.9 g/dl (32-36); Mean Corpuscular Hemoglobin 30.8 pg (26-34); Mean Corpuscular Volume 91.1 fl (80-100); Mean Platelet Volume 9.4 fl (7.4-10.4); Monocytes Absolute Auto 0.7 K/mm3 (0.1-0.6); Monocytes Percent Auto 8.2 % (2.6-8.5); Neutrophils Absolute Auto 7.1 K/mm3 (1.3-6.7); Neutrophils Percent Auto 78.8 % (45.5-73.1); Platelet Count Result 144 k/mm3 (150-375); Red Blood Count 4.93 M/mm3 (4.6-6.20); Red Cell Distribution Width 11.9 % (11.5-14.5)
[2024-05-18 02:52] LABS: Alanine Aminotransferase 19 U/L (6-50); Albumin Level 4.6 g/dL (3.5-5.1); Alkaline Phosphatase 74 U/L (38-126); Anion Gap 8 mmol/L (4-12); Aspartate Amino Transferase 24 U/L (17-59); Bilirubin,Total 0.6 mg/dL (0.2-1.3); Blood Urea Nitrogen 17 mg/dL (9-20); Carbon Dioxide 26 mmol/L (22-30); Chloride 108 mmol/L (98-107); Estimated CRCL calculation 84 ml/min; Estimated Glomerular Filt Rate > 60; Glucose 141 mg/dL (65-110); Lipase 46 U/L (23-300); Potassium 4.1 mmol/L (3.4-5.0); Sodium 142 mmol/L (137-145)
[2024-05-18] MEDS: SODIUM CHLORIDE 0.9% IV 1,000 ML 999 ML IV CONT (02:57)
[2024-05-18 04:09] LABS: Appearance Urine Clear (Clear); Bilirubin Urine Negative (Negative); Blood Urine Negative (Negative); Color Urine Yellow (Yellow); Glucose Urine UA Negative (Negative); Ketones Urine Negative (Negative); Leukocyte Esterase Ur Negative LEU/UL (Negative); Nitrate Urine Negative (Negative); Protein Urine Negative (Negative)
[2024-05-18 04:10] LABS: Add Urine Microscopic? NO
[2024-05-18 04:20] VITALS: BP 120/67; PULSE 71; O2SAT 96
--- NOTE | 2024-05-18 04:29 | ED.GENADULT ---
HPI - General Adult General Chief complaint: Abdominal Pain Stated complaint: abd pain Time Seen by Provider: 05/18/24 02:27 History of Present Illness HPI narrative: Patient is 63-year-old gentleman who presents emergency department with chief complaint of abdominal pain. Patient reports he has been having pain around his umbilicus for about 30 minutes prior to arrival the patient states he had a burning sensation in his abdomen the patient reports that symptoms are not improved by anything nor they worsened by anything. Related Data Home Medications Medication Instructions Recorded Confirmed amlodipine 5 mg tablet mg PO 11/05/19 aspirin 81 mg chewable tablet 81 mg PO DAILY 11/05/19 ascorbic acid (vitamin C) 500 mg mg PO 09/14/20 capsule cetirizine 10 mg tablet mg 09/14/20 cholecalciferol (vitamin D3) 25 25 mcg PO DAILY 09/14/20 mcg (1,000 unit) capsule (Vitamin D3) gabapentin 300 mg capsule 09/14/20 ginkgo biloba 60 mg capsule 60 mg PO DAILY 09/14/20 losartan 50 mg tablet 09/14/20 meclizine 25 mg capsule mg PO 09/14/20 meloxicam 15 mg tablet 09/14/20 trazodone 100 mg tablet 100 mg PO HS PRN Sleep 09/14/20 Allergies Allergy/AdvReac Type Severity Reaction Status Date / Time No Known Allergies Allergy Verified 05/08/24 17:12 Review of Systems Review of Systems: A 10 system review of systems was completed on the patient and is negative except for what is stated in the HPI. Nursing and ancillary documentation was reviewed. PMFSH Past Medical History Medical History Hyperlipidemia Hypertension Family History Family History Sibling Family history of thyroid disease Mother Family history of osteoporosis Hypertension Family history of chronic obstructive pulmonary disease Father Hypertension Cerebrovascular accident Social History Social History Smoking status: Current every day smoker Gender identity (if verbalized by the patient): Male Exam Narrative: GENERAL: Well-appearing, well-nourished, and in no acute distress. HEAD: Normocephalic, atraumatic. EYES: PERRLA and EOMI. ENT: Nares clear, no rhinorrhea or epistaxis. Mucous membranes moist. NECK: Supple. CHEST: Clear to auscultation. No respiratory distress. HEART: Regular rate and rhythm. No murmur heard. Normal peripheral pulses. ABDOMEN: Soft, Tenderness to palpation around the periumbilical region, nondistended, normal active bowel sounds. EXTREMITIES: Normal range of motion. No edema. SKIN: Warm, dry, no rash. NEURO: No focal deficits. Alert and oriented x3. PSYCH: Normal mood and affect. Course Vital Signs Vital signs: Vital Signs Temperature 36.9 C 05/17/24 23:37 Pulse Rate 88 05/17/24 23:37 Respiratory Rate 20 05/17/24 23:37 Blood Pressure 126/72 05/17/24 23:37 Pulse Oximetry 97 05/17/24 23:37 Oxygen Delivery Room Air 05/17/24 23:37 Temperature 36.9 C 05/17/24 23:37 Pulse Rate 69 05/18/24 06:26 Respiratory Rate 17 05/18/24 06:26 Blood Pressure 120/81 05/18/24 06:26 Pulse Oximetry 97 05/18/24 06:26 Oxygen Delivery Room Air 05/17/24 23:37 Medical Decision Making MDM Narrative Medical decision making narrative: differential diagnosis includes bowel obstruction, diverticulitis, colitis, hemorrhoids, lower GI bleed laboratory studies were obtained on the patient showed a hemoglobin of 15.2 electrolytes are within normal limits liver enzymes within normal limits lactate was 2.0 urinalysis showed no evidence UTI CT scan of the abdomen pelvis showed no acute abnormality patient had a very small amount of stool that was only trace guaiac positive. It was discussed with the patient inpatient versus outpatient follow-up patient will be referred to GI a
[2024-05-18 06:26] VITALS: BP 120/81; PULSE 69; RESP 17; O2SAT 97
[2024-05-18 06:43] VITALS: BP 124/76; PULSE 81; RESP 15; O2SAT 98
== END 2024-05-18 06:44 | disposition home or self-care (01) ==
PROVIDERS: Emergency Provider Emergency Medicine; PCP Nurse Practitioner
DX: K92.2 Gastrointestinal hemorrhage, unspecified (principal); E78.5 Hyperlipidemia, unspecified; I10 Essential (primary) hypertension; F17.210 Nicotine dependence, cigarettes, uncomplicated
CPT/HCPCS: 36415; 74177; 80053; 81003; 83605; 83690; 85025; 86850; 86900; 86901; 96360; 99284; J7030; Q9967

== ENCOUNTER 2024-06-20 06:01 | Day surgery (SDC) | payer MEDICARE, MEDICAID, SELFPAY ==
[2024-06-01 11:06] VITALS: BMI 23.6
[2024-06-04 11:10] VITALS: BMI 25.0
--- NOTE | 2024-06-19 13:04 | P.PNAN_ITS ---
Anes - Initial Pre Proc Eval Procedure: Operation Date: 06/20/24 08:00 Proposed Procedures p Esophagogastroduodenoscopy - Pito Geller MD Date/Time: 06/19/24 13:04 Surgeon: Pito Geller MD Pre Op Diagnosis: Dysphagia unspec. Foreign body sensation, throat Patient Data Age: 63 Gender: M Height: 1.75 m Weight: 77 kg Allergies Allergy/AdvReac Type Severity Reaction Status Date / Time No Known Allergies Allergy Verified 06/20/24 06:36 Home Medications Medication Instructions Recorded Confirmed Type amlodipine 5 mg tablet 5 mg PO DAILY 11/05/19 06/20/24 History aspirin 81 mg chewable tablet 81 mg PO DAILY 11/05/19 06/20/24 History ascorbic acid (vitamin C) 500 mg 500 mg PO DAILY 09/14/20 06/20/24 History capsule cetirizine 10 mg tablet 10 mg PO DAILY 09/14/20 06/20/24 History cholecalciferol (vitamin D3) 25 25 mcg PO DAILY 09/14/20 06/20/24 History mcg (1,000 unit) capsule (Vitamin D3) losartan 50 mg tablet 50 mg PO DAILY 09/14/20 06/20/24 History Patient hx anesthesia problems: none Family hx anesthesia problems: none Results Review: All pre-operative results and documents have been reviewed as part of the pre- operative evaluation. [facility] Past Medical History Medical History (Updated 05/29/24 @ 14:10 by Nuria Hargrove, LIZZ) Acquired scoliosis Hyperlipidemia Hypertension Family History Family History Sibling Family history of thyroid disease Mother Family history of osteoporosis Hypertension Family history of chronic obstructive pulmonary disease Father Hypertension Cerebrovascular accident Social History Social History Smoking status: Former smoker Tobacco type: cigarettes Alcohol intake: never Substance use: never Substance use type: does not use Living arrangements: alone Gender identity (if verbalized by the patient): Male Spiritual care concerns: No Anes - Eval Final PreProcedure Day of Procedure 06/19/24 13:04 Patient weight: normal Heart: regular rate and rhythm Lungs: clear to auscultation and normal air movement Airway: Mallampati scale class II Neurological: alert and oriented Last oral intake: >/= 8 hours ASA classification: II Emergent: no Anesthetic plan: proceed Anesthesia type and monitoring: general GIVS and standard monitoring Results Review: All pre-operative results and documents have been reviewed as part of the pre- operative evaluation. Informed Consent: The patient's anesthetic plan and its attendant risks and benefits were discussed with the patient/family/POA. Questions were solicited and answers provided to the satisfaction of the patient/family/POA.
[2024-06-20 06:42] VITALS: BP 143/90; PULSE 97; RESP 14; TEMP 37.3; O2SAT 99; BMI 23.4
[2024-06-20] MEDS: LACTATED RINGERS 1,000 ML 150 ML IV CONT (06:52)
--- NOTE | 2024-06-20 07:24 | WPDHPUPDATE1 ---
History and Physical Update Update Date/Time: 06/20/24 07:24 History and Physical has been reviewed, including an updated exam of the patient. There are NO changes in the patient's condition. Risks, benefits, and alternatives have been discussed and questions answered. Patient agrees to proceed with procedure.
[2024-06-20 08:15] VITALS: BP 108/68; PULSE 73; RESP 15; O2SAT 95
[2024-06-20 08:25] VITALS: BP 105/71; PULSE 84; RESP 15; O2SAT 96
[2024-06-20 08:35] VITALS: BP 100/65; PULSE 74; RESP 15; O2SAT 97
--- NOTE | 2024-06-20 09:30 | WPDANESPN ---
Anes - Prog Note Post-Op Date/Time: 06/20/24 09:30 Cardiovascular status: normal Respiratory status: normal Airway patency: baseline Mental status: baseline Post-Op hydration status: normal Vital Signs: Last Vital Signs Temp 37.3 C 06/20/24 06:42 Pulse 74 06/20/24 08:35 Resp 15 06/20/24 08:35 BP 100/65 06/20/24 08:35 Pulse Ox 97 06/20/24 08:35 O2 Del Method Room Air 06/20/24 08:35 Pain Score (VAS): 0 I/O: Intake & Output 06/19/24 06/20/24 06/20/24 23:59 07:59 15:59 Intake Total 100 Balance 100 Post-procedural complaints: none Patient Feedback: Patient satisfied with anesthetic care. Other Findings: Patient vital signs back to baseline. Patient denies nausea and vomiting. Patient's pain under control. Patient OK for discharge.
== END 2024-06-20 08:50 | disposition home or self-care (01) ==
PROVIDERS: PCP Nurse Practitioner; Visit Provider Internal Medicine Gastroenterology
PROC: 0DJ08ZZ Inspection of Upper Intestinal Tract, Via Natural or Artificial Opening Endoscopic (ICD-10-PCS; CPT 43235; principal; 2024-06-20 08:00)
DX: R13.19 Other dysphagia (principal)
CPT/HCPCS: 43450

== ENCOUNTER 2024-07-18 09:03 | Outpatient (CLI) | payer MEDICARE, MEDICAID, SELFPAY ==
--- NOTE | ~2024-07-18 | MR_ITS ---
EXAMINATION: MR lumbar spine wo con DATE: 07/18/2024 09:51 INDICATION: Lumbar radiculopathy TECHNIQUE: Magnetic resonance imaging (MRI) of the lumbar spine was performed without intravenous con trast. Sequences included sagittal T2-weighted FSE, sagittal T2-weighted FS FSE, sagittal T1-weighted FSE, and axial T2-weighted FSE. COMPARISON: None FINDINGS: Alignment is normal. Vertebral body heights are normal. Normal marrow signal. Mild disc height loss and annular fissures at both L4-L5 and L5-S1. The conus medullaris terminates at T12-L1. There is nor mal signal in the caudal spinal cord. Paravertebral soft tissues are unremarkable. The following disc levels are specifically discussed: T12-L1: Disc is mildly bulging with tiny left paracentral annular fissure. There is mild bilateral fa cet joint osteoarthritis. There is no neural foraminal stenosis. There is no central canal stenosis. L1-L2: Disc is minimally bulging. There is mild bilateral facet joint osteoarthritis. There is no nick ral foraminal stenosis. There is no central canal stenosis. L2-L3: Disc is minimally bulging with superimposed small right paracentral disc protrusion. There is moderate bilateral facet joint osteoarthritis. There is moderate bilateral neural foraminal stenosis. There is mild right central canal stenosis. L3-L4: Disc is minimally bulging. There is moderate bilateral facet joint osteoarthritis. There is mi ld bilateral neural foraminal stenosis. There is no central canal stenosis. L4-L5: Disc is mildly bulging with right foraminal zone annular fissure. There is mild to moderate bi lateral facet joint osteoarthritis. There is mild bilateral mild neural foraminal stenosis. There is no central canal stenosis. L5-S1: Disc is mildly bulging with right foraminal zone annular fissure. There is mild to moderate bi lateral facet joint osteoarthritis. There is mild bilateral, right greater than left neural foraminal stenosis. There is no central canal stenosis. IMPRESSION: 1. Mild lumbar spondylosis. Reviewed, dictated and finalized at location A. IMPRESSION: 1. Mild lumbar spondylosis.
== END 2024-07-18 09:04 | disposition home or self-care (01) ==
PROVIDERS: PCP Nurse Practitioner; Visit Provider Physical Medicine & Rehabilitation Pain Medicine
DX: M47.816 Spondylosis without myelopathy or radiculopathy, lumbar region (principal)
CPT/HCPCS: 72148

== ENCOUNTER 2024-08-07 12:50 | Outpatient (CLI) | payer MEDICARE, MEDICAID, SELFPAY ==
--- NOTE | ~2024-08-07 | XR_ITS ---
[id number] Ordering provider: Jazmyn Rizzo MD History: . OSTEOARTHRITIS OF KNEE . Comparison: None. FINDINGS: BONES: No acute fracture or dislocation. JOINT SPACES: Normal. SOFT TISSUES: Normal. IMPRESSION: No acute osseous abnormality left knee. Reviewed, dictated and finalized at location A.
== END 2024-08-07 12:51 | disposition home or self-care (01) ==
PROVIDERS: PCP Nurse Practitioner; Visit Provider Physical Medicine & Rehabilitation Pain Medicine
DX: M17.9 Osteoarthritis of knee, unspecified (principal)
CPT/HCPCS: 73560

== ENCOUNTER 2024-10-08 12:48 | Outpatient (CLI) | payer MEDICARE, MEDICAID, SELFPAY ==
--- NOTE | ~2024-10-08 | XR_ITS ---
XR shoulder LT min 2V Ordering provider: Jazmyn Rizzo MD History: . lateral shoulder pain x 2wks, no injury . Comparison: None. FINDINGS: BONES: No acute fracture or dislocation. JOINT SPACES: The acromioclavicular joint is normal. The glenohumeral joint is normal. SOFT TISSUES: Normal. IMPRESSION: No acute osseous abnormality left shoulder. Reviewed, dictated and finalized at location A. ACE FITTER
== END 2024-10-08 12:49 | disposition home or self-care (01) ==
PROVIDERS: PCP Nurse Practitioner; Visit Provider Physical Medicine & Rehabilitation Pain Medicine
DX: M25.512 Pain in left shoulder (principal)
CPT/HCPCS: 73030

== ENCOUNTER 2025-01-02 15:49 | Outpatient (CLI) | payer MEDICARE, MEDICAID, SELFPAY ==
--- NOTE | ~2025-01-02 | US_ITS ---
EXAMINATION: US retroperitoneal comp DATE: 01/02/2025 16:28 INDICATION: Calcium renal stone TECHNIQUE: Multiple ultrasound grayscale images of the kidneys were obtained. COMPARISON: None. FINDINGS: The right kidney measures 9.8 x 5.2 x 5.0 cm. The left kidney measures 10.4 x 5.3 x 5.2 cm. The kidne ys demonstrate normal echogenicity. 2 mm echogenic focus without posterior acoustic shadowing equivoc al for small renal stone. There is no hydronephrosis in either kidney. No stones identified. The monty dder appears normal but is partially decompressed which limits evaluation. IMPRESSION: 1. Possible 2 mm left renal stone. Otherwise normal kidneys with no hydronephrosis. Reviewed, dictated and finalized at location A. D NUTRITION ASSISTANT IMPRESSION: 1. Possible 2 mm left renal stone. Otherwise normal kidneys with no hydronephr osis.
--- NOTE | ~2025-01-02 | XR_ITS ---
Exam: Abdomen 1V HISTORY: calcium renal calculus COMPARISON: Reference is made to a CT examination of the abdomen and pelvis dated 05/18/2024, which de monstrated a 6 mm calculus lower pole of the left kidney. TECHNIQUE: Supine images of the abdomen FINDINGS: Bowel gas pattern is non-obstructive. There is no free air or deep sulci. No calcified stones are identified projecting over the expected regions of the bilateral kidneys or a long the expected region of the bilateral ureters. Lung bases are unremarkable. IMPRESSION: Nonspecific, nonobstructive bowel gas pattern. No calcified stones visualized on plain film evaluation. Reviewed, dictated and finalized at location A. S CUTTER
--- OUTSIDE RECORDS SUMMARY | 2025-01-02 15:56 | XMS_ITS | Encounter Summary ---
Author Organization [facility] Address [address] [place] [address] Care Team Providers Care Dancer Or Choreographer Name Role Phone Cierra Barnes NP Primary Care Provider [phone] Chana Mann RN Unavailable [phone] Encounter Details Date Type Department Care Team (Late st Contact Info) Description 03/08/2023 Stack[employer] Message Enc [facility] Family Medicine [facility] [address] [place] [id number] Cierra Barnes NP [address] [place] [id number] tejas mustafa Social History Tobacco Use Types Packs/Day Years Used Date Smoking Tobacco: Former Cigarettes 0.5 2 2 020 - 2021 Cigars Passive Smoke Exposure: Past Smokeless Tobacco: Never Comments:Once in a while smo kes cigars Alcohol Use Standard Drinks/Week Comments Not Currently 0 (1 standard drink = 0.6 oz pur e alcohol) AUDIT-C Answer Date Recorded Frequency of Alcohol Consumption Never 10/06/2018 Average Number of Drinks Not on file 018 Frequency of Binge Drinking Not on file 09/21 PHQ-2 Answer Date Recorded Patient Health Questionnaire-2 Score 0 03/03/2023 Sex and Gender Information Value Date Recorded Sex Assigned at Male 06/29/2019 11:55 AM CDT Legal Sex Male 5:32 PM CDT Gender Identity Male 06/29/2019 11:55 AM CDT Sexual Orientation Straight 08/03/2019 9: 19 AM CDT COVID-19 Exposure Response Date Recorded In the last 10 days, have yo u been in contact with someone who was confirmed or suspected to have Coronavirus/COVID-19? No / Unsure 03/03/2023 12:37 PM CDT documented as of this encounter Plan of Treatment Upcoming Encounters Date Type Department Care Team (Late st Contact Info) Description 05/16/2025 1:20 PM CDT Office Visit [facility] Family Medicine - [place] [address] [place] [address] Cierra Barnes NP [address] [place], [place] [id number] documented as of this encounter Visit Diagnoses Not on filedocumented in this encounter Additional Health Concerns Assessment Noted Time PHQ-9 Depression Total Score: 13 021 12:48 PM CDT documented as of this encounter Care Teams Dancer Or Choreographer Relationship Specialty Start Date End Date Cierra Barnes NP [address] [place], [place] [id number] PCP - General NURSE PRACTITIONER 02/16/23 Chana Mann, RN [address] [place] [address] Bung Driver (Ambulatory) REGISTERED NURSE 10/23/24 11/07/24 documented as of this encounter
--- OUTSIDE RECORDS SUMMARY | 2025-01-02 15:56 | XMS_ITS | Encounter Summary ---
Author Organization [facility] Address [address] [place] [address] Care Team Providers Care Performance Instructor Name Role Phone Cierra Barnes NP Primary Care Provider [phone] Encounter Details Date Type Department Care Team (Late st Contact Info) Description 12/28/2024 Microsta[employer] Message Enc [facility] Family Medicine [facility] [address] [place] [id number] Cierra Barnes, COLLEGE ARCHIVIST [address] [place] [id number] ashwin matthews Social History Tobacco Use Types Packs/Day Years Used Date Smoking Tobacco: Former Cigars Passive Smoke Exposure: Past Smokeless Tobacco: Never Comments:Stop Alcohol Use Standard Drinks/Week Comments Not Currently 0 (1 standard drink = 0.6 oz pur e alcohol) AUDIT-C Answer Date Recorded Frequency of Alcohol Consumption Never 10/06/2018 Average Number of Drinks Not on file 018 Frequency of Binge Drinking Not on file 09/21 PHQ-2 Answer Date Recorded Patient Health Questionnaire-2 Score 0 05/01/2024 Sex and Gender Information Value Date Recorded Sex Assigned at Male 06/29/2019 11:55 AM CDT Legal Sex Male 5:32 PM CDT Gender Identity Male 06/29/2019 11:55 AM CDT Sexual Orientation Straight 08/03/2019 9: 19 AM CDT documented as of this encounter Plan of Treatment Upcoming Encounters Date Type Department Care Team (Late st Contact Info) Description 05/16/2025 1:20 PM CDT Office Visit [facility] Family Medicine - [place] [address] [place] [address] Cierra Barnes NP [address] [place] [address] documented as of this encounter Visit Diagnoses Not on filedocumented in this encounter Additional Health Concerns Assessment Noted Time PHQ-9 Depression Total Score: 13 021 12:48 PM CDT documented as of this encounter Care Teams Performance Instructor Relationship Specialty Start Date End Date Cierra Barnes NP [address] [place] [address] PCP - General NURSE PRACTITIONER 02/16/23 documented as of this encounter
--- OUTSIDE RECORDS SUMMARY | 2025-01-02 15:56 | XMS_ITS | Encounter Summary ---
Author Organization [facility] Address [address] [place] [address] Care Team Providers Care Child Care Associate Teacher Name Role Phone Rosalba Mancilla APNP Unavailable [phone] Kayli Berry MD Primary Care Provider [phone] Cierra Barnes NP Primary Care Provider [phone] Chana Mann RN Unavailable [phone] Encounter Details Date Type Department Care Team (Late st Contact Info) Description 07/23/2020 [employer] Message Enc [facility] Family & Internal Medicine [address] [id number] [facility], [facility] Provider Lab Results Social History Tobacco Use Types Packs/Day Years Used Date Smoking Tobacco: Some Days Cigarettes Cigars Smokeless Tobacco: Never Alcohol Use Standard Drinks/Week Comments No 0 (1 standard drink = 0.6 oz pur e alcohol) AUDIT-C Answer Date Recorded Frequency of Alcohol Consumption Never 10/06/2018 Average Number of Drinks Not on file 018 Frequency of Binge Drinking Not on file 09/21 PHQ-2 Answer Date Recorded PHQ-2 Score 0 07/21/2020 Sex and Gender Information Value Date Recorded Sex Assigned at Male 06/29/2019 11:55 AM CDT Legal Sex Male 5:32 PM CDT Gender Identity Male 06/29/2019 11:55 AM CDT Sexual Orientation Straight 08/03/2019 9: 19 AM CDT COVID-19 Exposure Response Date Recorded In the last month, have you been in contact with someone who was confirmed or suspected to have Coronavirus / COVID-19? No / Unsure 07/25/2020 3:18 PM CDT documented as of this encounter Plan of Treatment Upcoming Encounters Date Type Department Care Team (Late st Contact Info) Description 05/16/2025 1:20 PM CDT Office Visit [facility] Family Medicine - [place] [address] [place], [place] [address] Cierra Barnes NP [address] [place], [place] [address] documented as of this encounter Visit Diagnoses Not on filedocumented in this encounter Additional Health Concerns Infection Onset Date Last Indicated Resolved Time COVID-19 Rule Out 12/09/2020 12/09/2020 12/10/2020 12:16 PM STAFFING RN COVID-19 Rule Out 12/27/2020 12/27/2020 12/28/2020 4:56 PM STAFFING RN COVID-19 Rule Out 03/03/2021 03/03/2021 03/03/2021 3:11 PM CDT documented as of this encounter Care Teams Child Care Associate Teacher Relationship Specialty Start Date End Date Rosalba Mancilla APNP [address] [place] [id number] PCP - Med Group - MSSP Attributed Provider 08/21/17 11/20/22 Kayli Berry MD [address] [place] [id number] PCP - General INTERNAL MEDICINE 07/21/20 01/18/22 Cierra Barnes NP [address] [place] [address] PCP - General NURSE PRACTITIONER 02/16/23 Chana Mann RN [address] [place] [address] Residence Counselor (Ambulatory) REGISTERED NURSE 10/23/24 11/07/24 documented as of this encounter
--- OUTSIDE RECORDS SUMMARY | 2025-01-02 15:56 | XMS_ITS | Encounter Summary ---
Author Organization [facility] Address [address] [place] [address] Care Team Providers Care Compliance Auditor Name Role Phone Cierra Barnes NP Primary Care Provider [phone] Chana Mann RN Unavailable [phone] Encounter Details Date Type Department Care Team (Late st Contact Info) Description 04/19/2023 [employer] Message Enc [facility] Family Medicine - [place] [address] [facility] [address] [place] [phone] Cierra Barnes NP [address] [place] [address] tejas mustafa Social History Tobacco Use Types Packs/Day Years Used Date Smoking Tobacco: Former Cigarettes 0.5 2 0 11/21/2019 - 11/21/2021 Cigars Passive Smoke Exposure: Past Smokeless Tobacco: [...] suspected to have Coronavirus/COVID-19? No / Unsure 04/04/2023 9:28 AM CDT documented as of this encounter Plan of Treatment Upcoming Encounters Date Type Department Care Team (Late st Contact Info) Description 05/16/2025 1:20 PM CDT Office Visit [facility] Family Medicine - [place] [address] [facility] [address] [place] [address] Cierra Barnes NP [address] [place], [place] [id number] documented as of this encounter Visit Diagnoses Not on filedocumented in this encounter Additional Health Concerns Assessment Noted Time PHQ-9 Depression Total Score: 13 021 12:48 PM CDT documented as of this encounter Care Teams Compliance Auditor Relationship Specialty Start Date End Date Cierra Barnes NP [address] [place], [place] [id number] PCP - General NURSE PRACTITIONER 02/16/23 Chana Mann RN [address] [place] [address] Blasting Coal Miner (Ambulatory) REGISTERED NURSE 10/23/24 11/07/24 documented as of this encounter
--- OUTSIDE RECORDS SUMMARY | 2025-01-02 15:56 | XMS_ITS | Referral Summary ---
Author Organization [facility] [employer] Address [address] [place] [address] Care Team Providers Care Hydraulic Lift Driver Name Role Phone Chioma Arias BERTO Primary Care Provider [phone] Source Comments [facility] [employer],non-owned Affiliates and Associated Physician Practices is amultiple site organization consisting of ambulatory clinics and hospital sitesin [place], [place], [place] and [place]. This disclosure is being madepursuant to the Care Everywhere program and may not contain all information available regarding this patient. Last updated 18.[facility] [employer] Allergies No known active allergies Medications * Be aware that medications may not be up to date on this document. Alwaysverify current medications with the patient. Medication Sig Dispensed Refills Start Date End Date Status naproxen (Naprosyn) 500 MG tablet Take 1 (one) tablet by mouth 2 times daily 60 tablet 09/13/2022 Active Social History Tobacco Use Types Packs/Day Years Used Date Smoking Tobacco: Never Smokeless Tobacco: Never Tobacco Cessation:Counseling Given: Not Answered Alcohol Use Standard Drinks/Week Comments Never 0 (1 standard drink = 0.6 oz pur e alcohol) AUDIT-C Answer Date Recorded Q1: How often do you have a drink containing alc ohol? Never 09/12/2022 Average Number of Drinks Not on file 022 Frequency of Binge Drinking Not on file 08/22 Sex and Gender Information Value Date Recorded Sex Assigned at Male 09/12/2022 10:54 PM CDT Gender Identity Male 09/12/2022 10:54 PM CDT Sexual Orientation Not on file Last Filed Vital Signs Vital Sign Reading Time Taken Comments Blood Pressure 115/64 09/12/2022 7:39 PM CDT Pulse 88 09/12/2022 7:39 PM CDT Temperature 36.4 C (97.5 F) 09/12/2022 7:39 PM CDT Respiratory Rate 18 09/12/2022 7:39 PM CDT Oxygen Saturation 99% 09/12/2022 7:39 PM CDT Inhaled Oxygen Concentration - - Weight 75.3 kg (166 lb) 09/23/2022 1:57 PM CDT Height 175.3 cm (5' 9 ) 09/23/2022 1:57 PM CDT Body Mass Index 24.51 09/23/2022 1:57 PM CDT Plan of Treatment Not on file Care Teams Hydraulic Lift Driver Relationship Specialty Start Date End Date Chioma Arias APRN-CHRISTINA [address] [phone] PCP - General Nurse Practitioner Family 09/12/22
--- OUTSIDE RECORDS SUMMARY | 2025-01-02 15:56 | XMS_ITS | Encounter Summary ---
Author Organization [facility] Address [address] [place] [address] Care Team Providers Care Wholesale Account Manager Name Role Phone Cierra Barnes NP Primary Care Provider [phone] Chana Mann RN Unavailable [phone] Encounter Details Date Type Department Care Team (Late st Contact Info) Description 04/12/2023 [employer] Message Enc [facility] Family Medicine - [place] [address] [facility] [address] [place] [address] Cierra Barnes NP [address] [place] [address] tejas mustafa Social History Tobacco Use Types [...] Description 05/16/2025 1:20 PM CDT Office Visit [facility] Family Medicine - [place] [address] [facility] [address] [place] [address] Cierra Barnes NP [address] [place], [place] [address] documented as of this encounter Visit Diagnoses Not on filedocumented in this encounter Additional Health Concerns Assessment Noted Time PHQ-9 Depression Total Score: 13 021 12:48 PM CDT documented as of this encounter Care Teams Wholesale Account Manager Relationship Specialty Start Date End Date Cierra Barnes NP [address] [place], [place] [phone] PCP - General NURSE PRACTITIONER 02/16/23 Chana Mann RN [address] [place] [address] Bonding Machine Setter (Ambulatory) REGISTERED NURSE 10/23/24 11/07/24 documented as of this encounter
--- OUTSIDE RECORDS SUMMARY | 2025-01-02 15:56 | XMS_ITS | Clinical Summary ---
Author Organization [facility] [employer] Address [address] [place] [address] Care Team Providers Care Analysis Engineer Name Role Phone Chioma Arias BERTO Primary Care Provider [phone] Source Comments [facility] [employer],non-owned Affiliates and Associated Physician Practices is amultiple site organization consisting of ambulatory clinics and hospital sitesin [place], [place], [place] and [place]. This disclosure is being madepursuant to the Care Everywhere program and may not contain all information available regarding this patient. Last updated 18.[facility] [employer] Allergies No known active allergies Medications * [...] 09/23/2022 1:57 PM CDT Plan of Treatment Health Maintenance Due Date Last Done Comments COLOGUARD (AGES 45-75) - COLON CA SCREENING 1962 COLON MONITORING 1962 COLONOSCOPY - COLON CA SCREENING 1962 CT COLONOGRAPHY - COLON CA SCREENING 1962 Colorectal Cancer Screening 1962 FIT - COLON CA SCREENING 1962 FLEX SIG - COLON CA SCREENING 1962 LIPID TESTING 1962 HIV SCREENING 1977 HEPATITIS C SCREENING 12/01/1980 DTAP/TDAP/TD VACCINES (1 - Tdap) 1981 PNEUMOCOCCAL VACCINE 50+ (1 of 1 - PCV) 2012 ZOSTER VACCINE (1 of 2) 2012 COVID-19 VACCINE (3 - season) 2024 04/08/2021, 03/03/2021 INFLUENZA VACCINE (#1) 2024 2, 10/01/2021, 08/25/2020, Additional history exists DEPRESSION SCREENING 11/21/2024 Respiratory Syncytial Virus (RSV) Vaccine Pt: or over 60 yrs (1 - 1-dose 75+ series) 2037 HEPATITIS B VACCINE Aged Out No longe r eligible based on patient's age to complete this topic HIB VACCINE Aged Out No longer eligi ble based on patient's age to complete this topic HPV VACCINE Aged Out No longer eligi ble based on patient's age to complete this topic MENINGOCOCCAL (Group B) VACCINE Aged Out No longer eligible based on patient's age to complete this topic MENINGOCOCCAL VACCINE Aged Out No theresa delma eligible based on patient's age to complete this topic Care Teams Analysis Engineer Relationship Specialty Start Date End Date Chioma Arias APRN-CHRISTINA [address] [phone] PCP - General Nurse Practitioner Family 09/12/22
--- OUTSIDE RECORDS SUMMARY | 2025-01-02 15:56 | XMS_ITS | Encounter Summary ---
Author Organization [facility] Address [address] [place] [address] Care Team Providers Care Mark Up Designer Name Role Phone Ghada Enamorado PATIENT COORDINATOR FRONT DESK Primary Care Provider Ghada Joseph NP Primary Care Provider Rosalba CallesNP Unavailable [phone] Kayli Berry MD Primary Care Provider [phone] Cierra Barnes NP Primary Care Provider [phone] Chana Mann RN Unavailable [phone] Encounter Details Date Type Department Care Team (Late st Contact Info) Description 01/26/2019 MyChart Message Enc [employer] [facility] [address] [place] [phone] Nitin, [facility] Provider Lab Work Social History Tobacco Use Types Packs/Day Years Used Date Smoking Tobacco: Former Cigarettes Cigars Smokeless Tobacco: Never Alcohol Use Standard Drinks/Week Comments No 0 (1 standard drink = 0.6 oz pur e alcohol) AUDIT-C Answer Date Recorded Frequency of Alcohol Consumption Never 10/06/2018 Average Number of Drinks Not on file 018 Frequency of Binge Drinking Not on file 09/21 Sex and Gender Information Value Date Recorded Sex Assigned at Male 06/29/2019 11:55 AM CDT Legal Sex Male 5:32 PM CDT Gender Identity Male 06/29/2019 11:55 AM CDT Sexual Orientation Straight 08/03/2019 9: 19 AM CDT documented as of this encounter Plan of Treatment Upcoming Encounters Date Type Department Care Team (Late st Contact Info) Description 05/16/2025 1:20 PM CDT Office Visit [facility] Family Medicine - [place] [address] [facility] [address] [place] [address] Cierra Barnes, PATIENT COORDINATOR FRONT DESK [address] [place], [place] [address] documented as of this encounter Visit Diagnoses Not on filedocumented in this encounter Additional Health Concerns Infection Onset Date Last Indicated Resolved Time COVID-19 Rule Out 12/09/2020 12/09/2020 12/10/2020 12:16 PM PRINTED CIRCUIT BOARD PANELS DEVELOPER COVID-19 Rule Out 12/27/2020 12/27/2020 12/28/2020 4:56 PM PRINTED CIRCUIT BOARD PANELS DEVELOPER COVID-19 Rule Out 03/03/2021 03/03/2021 03/03/2021 3:11 PM CDT documented as of this encounter Care Teams Mark Up Designer Relationship Specialty Start Date End Date Ghada Enamorado NP PCP - General Nurse Practitioner Family 07/05/19 07/08/19 Ghada Enamorado NP PCP - General Nurse Practitioner Family 07/09/19 07/20/20 Rosalba Mancilla APNP [address] [place] [address] PCP - Med Group - [facility] Attributed Provider 08/21/17 11/20/22 Kayli Berry MD [address] [place] [address] PCP - General INTERNAL MEDICINE 07/21/20 01/18/22 Cierra Barnes, NEO [address] [place] [address] PCP - General NURSE PRACTITIONER 02/16/23 Chana Mann, RN [address] [place] [address] Landcare Facilitator (Ambulatory) REGISTERED NURSE 10/23/24 11/07/24 documented as of this encounter
--- OUTSIDE RECORDS SUMMARY | 2025-01-02 15:56 | XMS_ITS | Encounter Summary ---
Author Organization [facility] Address [address] [place] [address] Care Team Providers Care Animal Control Officer Name Role Phone Cierra Barnes NP Primary Care Provider [phone] Encounter Details Date Type Department Care Team (Late st Contact Info) Description 11/30/2024 [employer] Message Enc [facility] Family Medicine [facility] [address] [facility] [address] [place] [address] Cierra Barnes NP [address] [place] [address] [place] [address] Tejas Matthews Social History Tobacco Use Types Packs/Day Years [...] AM CDT documented as of this encounter Progress Notes * Cierra Barnes NP - 11/30/2024 12:52 PM CST Yes that is fine [employer] * Annelise Son MA - 11/30/2024 12:26 PM CST Ok to order blood pressure monitor? [employer] documented in this encounter Plan of Treatment Upcoming Encounters Date Type Department Care Team (Late st Contact Info) Description 05/16/2025 1:20 PM CDT Office Visit [facility] Family Medicine - [place] [address] [facility] [address] [place] [address] Cierra Barnes NP [address] [place] [address] documented as of this encounter Visit Diagnoses Not on filedocumented in this encounter Additional Health Concerns Assessment Noted Time PHQ-9 Depression Total Score: 13 021 12:48 PM CDT documented as of this encounter Care Teams Animal Control Officer Relationship Specialty Start Date End Date Cierra Barnes NP [address] [place] [address] PCP - General NURSE PRACTITIONER 02/16/23 documented as of this encounter
--- OUTSIDE RECORDS SUMMARY | 2025-01-02 15:56 | XMS_ITS | Patient Health Record ---
Author Organization [facility] Address [address] [place] [address] Care Team Providers Care Hub Cutter Apprentice Name Role Phone Cierra Barnes Primary Care Provider Unavailab ceballos MirianMerlyn melgar Unavailable [phone] Allergies No Known Allergies Results Component Value Reference Range Notes C1 INHIBITOR, FUNCTIONAL Reviewed date:12/10/2024 09:57:26 AM Interpretation:Normal Performing Lab:AMD, [facility], [address], [place], [place], Michael Patterson M.D.,PhD Notes/Report: NON-FASTING; NON-FASTING C1 ESTERASE INHIBITOR, FUNCTIONAL 98 >=68 % Reference Range: > or = 68%: Normal 41-67%: Equivocal < or = 40%: Abnormal Less than 40% of the reference functional activity indicates a likely diagnosis of hereditary angioedema or acquired C1 Inhibitor deficiency. For additional information, please refer to: http://education.eegoes/faq/FAQ54 (This link is being provided for informational/ educational purposes only.) C1 INHIBITOR, PROTEIN Reviewed date:12/10/2024 09:57:02 AM Interpretation:Normal Performing Lab:AMD, [facility] [employer] [facility], [address], [place], [place], Michael Patterson M.D.,PhD Notes/Report: NON-FASTING; NON-FASTING C1 ESTERASE INHIBITOR, PROTEIN 30 21-39 mg/dL A normal C1 esterase inhibitor protein level does not rule out the possibility of a functional C1 esterase inhibitor deficiency. Consider further testing of C1 esterase inhibitor functional activity, if clinically indicated. COMPLEMENT COMPONENT C4C Reviewed date:12/10/2024 09:57:38 AM Interpretation:Normal Performing Lab:FRANK [facility], [address], [place], [address] Nathan Nuñez MD Notes/Report: NON-FASTING; NON-FASTING COMPLEMENT COMPONENT C4C 28 15-53 mg/dL COMPLEMENT, TOTAL (CH50) Reviewed date:12/10/2024 09:57:13 AM Interpretation:Normal Performing Lab:[facility]ANK [facility], [address], [place], [address] Nathan Nuñez MD Notes/Report: NON-FASTING; NON-FASTING COMPLEMENT, TOTAL (CH50) 57 31-60 U/mL TRYPTASE Reviewed date:10/02/2024 05:09:14 PM Interpretation:Normal Performing Lab:YAN [facility], [address] [facility] , [place], [address] Michael Patterson M.D.,PhD Notes/Report: NON-FASTING TRYPTASE 1.2 <11.0 mcg/L The Tryptase test, fluorescent enzyme immunoassay (FEIA), measures both the Alpha and Beta forms of Tryptase. Measuring both forms of Tryptase increases sensitivity for the diagnosis of mastocytosis, and mast cell degranulation as a cause of anaphylaxis. ANTINUCLEAR ANTIBODIES TITER AND PATTERN Reviewed date:08/21/2024 02:40:20 PM Interpretation:Abnormal Performing Lab:FRANK [facility], [address], [place], [address] Nathan Nuñez MD Notes/Report: NON-FASTING; NON-FASTING; NON-FASTING; NON-FASTING FASTING:YES FASTING: YES BINU TITER 1:40 A low level BINU titer may be present in pre-clinical autoimmune diseases and normal individuals. Reference Range <1:40 Negative 1:40-1:80 Low Antibody Level >1:80 Elevated Antibody Level BINU PATTERN Mitotic, NuMA-like Nuclear-Mitotic Apparatus-like pattern. Nuclear speckled staining with spindle fibers. Pattern associated with Sjogren's syndrome, systemic lupus erythematosus (SLE) and possibly other connective tissue disorders. AC-26: NuMA-like International Consensus on BINU Patterns (https://doi.org/10.1515 /bnfl-5617-2429) BINU IFA SCREEN W/REFL TO TIT ER/PATTERN,IFA(REFL) Reviewed date:08/21/2024 02:41:50 PM Interpretation:Abnormal Performing Lab:[facility], [address] [place], [address] Nathan Nuñez MD Notes/Report: NON-FASTING; NON-FASTING; NON-FASTING; NON-FASTING FASTING:YES FASTING: YES BINU SCREEN, IFA POSITIVE NEGATIVE BINU IFA is a first line screen for detecting the presence of up to approximately 150 autoantibodies in various autoimmune diseases. A positive BINU IFA result is suggestive of autoimmune disease and reflexes to titer and pattern. Further laboratory testing may be considered if clinically indicated. For additional information, please refer to http://education.ProspX/faq/WJY045 (This link is being provided for informational/ educational purposes only.) SM AND SM/PIANO ASSEMBLER ANTIBODIES Reviewed date:08/21/2024 02:38:13 PM Interpretation:Normal Performing Lab:FRANK [facility], [address] [place], [address] Nathan Nuñez MD Notes/Report: NON-FASTING; NON-FASTING; NON-FASTING; NON-FASTING FASTING:YES FASTING: YES SM ANTIBODY <1.0 NEG <1.0 NEG AI SM/PIANO ASSEMBLER ANTIBODY <1.0 NEG <1.0 NEG AI CBC (INCLUDES DIFF/PLT) Reviewed date:08/21/2024 02:37:13 PM Interpretation:Abnormal Performing Lab:, [facility], [address], [place], [address] Nathan Nuñez Notes/Report: NON-FASTING; NON-FASTING; NON-FASTING; NON-FASTING FASTING:YES FASTING: YES WHITE BLOOD CELL COUNT 9.6 3.8-10.8 Thousand/uL RED BLOOD CELL COUNT 5.20 4.20-5.80 Million/uL HEMOGLOBIN 15.7 13.2-17.1 g/dL HEMATOCRIT 49.6 38.5-50.0 % MCV 95.4 80.0-100.0 fL MCH 30.2 27.0-33.0 pg MCHC 31.7 32.0-36.0 g/dL RDW 13.2 11.0-15.0 % PLATELET COUNT 189 140-400 Thousand/uL MPV 9.6 7.5-12.5 fL ABSOLUTE NEUTROPHILS 7085 0200-7226 cells/uL ABSOLUTE LYMPHOCYTES 1649 653-1383 cells/uL ABSOLUTE MONOCYTES 739 200-950 cells/uL ABSOLUTE EOSINOPHILS 58 15-500 cells/uL ABSOLUTE BASOPHILS 48 0-200 cells/uL NEUTROPHILS 73.8 LYMPHOCYTES 17.4 MONOCYTES 7.7 EOSINOPHILS 0.6 BASOPHILS 0.5 TSH W/REFLEX TO FT4 Reviewed date:08/21/2024 02:37:31 PM Interpretation:Normal Performing Lab:[facility], [address] [place], [address] [facility] Notes/Report: NON-FASTING; NON-FASTING; NON-FASTING; NON-FASTING FASTING:YES FASTING: YES TSH W/REFLEX TO FT4 2.49 0.40-4.50 mIU/L TRYPTASE Reviewed date:08/21/2024 02:37:21 PM Interpretation:Normal Performing Lab:Kailey [facility], [address], [place], [address] Michael Patterson M.D.,PhD Notes/Report: NON-FASTING; NON-FASTING; NON-FASTING; NON-FASTING FASTING:YES FASTING: YES TRYPTASE 1.4 <11.0 mcg/L The Tryptase test, fluorescent enzyme immunoassay (FEIA), measures both the Alpha and Beta forms of Tryptase. Measuring both forms of Tryptase increases sensitivity for the diagnosis of mastocytosis, and mast cell degranulation as a cause of anaphylaxis. COMPREHENSIVE METABOLIC PANE L Reviewed date:08/21/2024 02:36:49 PM Interpretation:Normal Performing Lab:[facility], [address] [place], [address] [facility] Notes/Report: NON-FASTING; NON-FASTING; NON-FASTING; NON-FASTING FASTING:YES FASTING: YES GLUCOSE 90 65-99 mg/dL Fasting reference interval UREA NITROGEN (BUN) 8 7-25 mg/dL CREATININE 0.75 0.70-1.35 mg/dL EGFR 103 > OR = 60 mL/min/1.73m2 BUN/CREATININE RATIO SEE NOTE: 05-12 (calc) Not Reported: BUN and Creatinine are within reference range. SODIUM 141 135-146 mmol/L POTASSIUM 3.8 3.5-5.3 mmol/L CHLORIDE 105 98-110 mmol/L CARBON DIOXIDE 30 20-32 mmol/L CALCIUM 9.7 8.6-10.3 mg/dL PROTEIN, TOTAL 7.1 6.1-8.1 g/dL ALBUMIN 4.8 3.6-5.1 g/dL GLOBULIN 2.3 1.9-3.7 g/dL (calc) ALBUMIN/GLOBULIN RATIO 2.1 1.0-2.5 (calc) BILIRUBIN, TOTAL 0.5 0.2-1.2 mg/dL ALKALINE PHOSPHATASE 90 35-144 U/L AST 18 10-35 U/L ALT 17 9-46 U/L Reason For Referral No Information Medications Medication SIG (Take, Route, Frequency, Duration) Notes Start Date End Date Status Cetirizine HCl 10 MG 1 tablet Orally Twi ce a day for 30 days Active Albuterol Sulfate HFA 108 (90 Base) MCG/ACT 1 puff as needed Inhalation every 4 hrs Active Vanicream - as directed Externally Active Famotidine 20 MG 1 tablet Orally Twic e a day for 30 days Active Montelukast Sodium 10 MG 1 tablet Orally Once a day for 30 days Active Vitamin B12 1000 MCG 1 tablet Orally Onc e a day Active EPINEPHrine 0.3 MG/0.3ML as directed Inj ection as directed for 30 days Active Iron (Ferrous Sulfate) 325 (65 Fe) MG 1 tablet Orally Three times a Week Active Aspirin 81 MG 1 tablet Orally Once a day Active amLODIPine Besylate 5 MG 1 tablet Orally Once a day Active Losartan Potassium 25 MG 1 tablet Orally Once a day Active Calcitriol 0.25 MCG 1 capsule Orally [address] ee times a Week Active Acetaminophen 500 MG 1 capsule as needed Orally every 6 hrs Active Donepezil HCl 10 MG 1 tablet at bedtime Orally Once a day Active Memantine HCl 10 MG 1 tablet Orally Once a day Active Vitamin C 500 MG as directed Orally Active Immunizations Vaccine Route Administration Date Status Comme nts Influenza Unknown 01/02/2023 [facility] NOC Tdap Unknown 05/22/2018 [facility] tok Social History Tobacco Use: Social History Observation Description Date Details (start date - stop date) Former Smoker NA - NA Tobacco Control (Standard) Question Answer Notes Tobacco use: Former smoker How long has it been since you last smoked? 1-5 years Problems Problem Type SNOMED Code ICD Code Onset Dates Problem Status W/U Status Risk Notes Problem Chronic allergic conjunctivitis (44250340) Other chronic allergic conjunctivitis (H10.45) Active confirmed Problem Essential hypertension (88878855) Essential (primary) hypertension (I10) Active confirmed Problem Allergic rhinitis caused by pollen (disorder) (24020413) Allergic rhinitis due to pollen (J30.1) Active confirmed Problem Allergic rhinitis (32700002) Other allergic rhinitis (J30.89) Active confirmed Problem Pruritus (863981599) Pruritus, unspecified (L29.9) Active confirmed Problem Allergic rhinitis caused by animal hair and dander (271272278142518) Allergic rhinitis due to animal (cat) (dog) hair and dander (J30.81) Active confirmed Vital Signs Blood pressure diastolic 89 mm Hg 12/04/2024 Oximetry 97 % 12/04/2024 Height 69 in 12/04/2024 Blood pressure systolic 170 mm Hg 12/04/2024 Weight 161 lbs 12/04/2024 BMI 23.77 kg/m2 12/04/2024 Encounters Encounter Location Date Provider Diagnosis [facility] [address] [place] [address] 08/06/2024 Merlyn Hodgse Allergic rhinitis du e to pollen J30.1 ; Pruritus, unspecified L29.9 ; Allergic rhinitis due to animal (cat) (dog) hair and dander J30.81 ; Other allergic rhinitis J30.89 ; Shortness of breath R06.02 and Essential (primary) hypertension I10 [facility] [address] [place] [address] 09/11/2024 Merlyn Hodges Pruritus, unspecifie d L29.9 ; Localized swelling, mass and lump, head R22.0 ; Allergic rhinitis due to pollen J30.1 ; Allergic rhinitis due to animal (cat) (dog) hair and dander J30.81 ; Other allergic rhinitis J30.89 ; Shortness of breath R06.02 and Essential (primary) hypertension I10 [facility] [address] [place] [address] 12/04/2024 Merlyn Hodges Pruritus, unspecifie d L29.9 ; Localized swelling, mass and lump, head R22.0 ; Allergic rhinitis due to pollen J30.1 ; Allergic rhinitis due to animal (cat) (dog) hair and dander J30.81 ; Other allergic rhinitis J30.89 ; Shortness of breath R06.02 and Essential (primary) hypertension I10 [facility] [address] [place] [address] 08/07/2024 Merlyn Hodges [facility] [address] [place] [address] 12/02/2024 Merlyn Hodges Assessments Encounter Date Diagnosis (ICD Code) Assessment Notes Treatment Notes Treatment Clinical Notes Section Notes 08/06/2024 Allergic rhinitis due to pollen (ICD-10 - J30.1) Frankie presents with complaints of upper airway symptoms concerning for uncontrolled atopic disease. He has two dogs in his home. - ImmunoCaps ordered by PCP show positive results to multiple seasonal and perennial allergens. - Discussed SPT to full aeroallergen testing, which we performed however histamine controls did not show significant wheal or flare, indicating pharmaceutical blockade of the receptor. - Plan to discussed avoidance measures and medicaiton reigmen next visit, unable to discuss today due to time constraints. - Consider SPT in the future, plan to discuss next visit 08/06/2024 Pruritus, unspecified (ICD-10 - L29.9) Frankie presents with complaints of pruritus that has been ongoing for many years. The location of the pruritus varies between his face, trunk and extremities. He takes daily Zyrtec which he finds minimally beneficial. He denies skin changes or other associated symptoms. - Consider dry skin vs atopic disease vs other. - Will order laboratory work as above for evaluation of underlying systemic diseases. - Consider obtaining a CT scan of the chest, abdomen, and pelvis, or an abdominal ultrasound to rule out malignancy. Of note, the patient is not currently reporting B symptoms suggestive of malignancy. - Skin care education was provided. He was encouraged to soak in the bathtub daily for 20 minutes in lukewarm water, followed immediately by Vanicream application to his whole body. Avoid products with fragrance, dyes and preservatives. He was educated on the use of free and clear laundry detergent, advised to avoid all fabric softeners and dryer sheets. - Increase Zyrtec to BID, consider adding Pepcid and LTRA, however work on skin care regimen first. - Follow-up in 4 weeks for laboratory review and interval evaluation and management . 09/11/2024 Pruritus, unspecified (ICD-10 - L29.9) Frankie presents with complaints of pruritus that has been ongoing for many years. The location of the pruritus varies between his face, trunk and extremities. He takes daily Zyrtec which he finds minimally beneficial. He denies skin changes or other associated symptoms. - Consider dry skin vs atopic disease vs other. - Last visit ordered various laboratory orders, that returned unremarkable except a positive BINU screening. Recommend consult with Rheumatology, appreciate PCP arranging. Labs faxed to PCP on file. - Consider obtaining a CT scan of the chest, abdomen, and pelvis, or an abdominal ultrasound to rule out malignancy. Of note, the patient is not currently reporting B symptoms suggestive of malignancy. - Skin care education was provided. He was encouraged to soak in the bathtub daily for 20 minutes in lukewarm water, followed immediately by Vanicream application to his whole body. Avoid products with fragrance, dyes and preservatives. He was educated on the use of free and clear laundry detergent, advised to avoid all fabric softeners and dryer sheets. - Increase Zyrtec to BID, will also add Pepcid and LTRA. BBW discussed. - Follow-up in 4 weeks for further evaluation and management 09/11/2024 Localized swelling, mass and lump, head (ICD-10 - R22.0) Today Tejas reports a handful of episodes of knot in my throat with pruritus. He did not previously report this. He states this occurs once in a blue guardado. He states he previously discussed this with his PCP, who thought it was related to his thyroid. No family history of swelling, no photos to review. - Consider angioedema work-up, however Tejas would like to wait one month for further labs. - Instructed Tejas to carry an AIE as a precaution, thoroughly discussed indications of use. If Tejas experiences this sensation he is to go immediately to the ER for evaluation, he voiced understanding 12/04/2024 Pruritus, unspecified (ICD-10 - L29.9) Frankie presents with complaints of pruritus that has been ongoing for many years. The location of the pruritus varies between his face, trunk and extremities. He denies skin changes or other associated symptoms. - Consider dry skin vs atopic disease vs other. - We previously ordered various laboratory orders, that returned unremarkable except a positive BINU screening. Recommend consult with Rheumatology, appreciate PCP arranging. Labs faxed to PCP on file. Tejas reports he has not discussed this with his PCP. As his pruritus has been resistant to skin care regimen and high-dose antihistamines, highly recommend consult with Rheumatology. Tejas voiced understanding. He was given written instructions to discuss with his PCP, he reports visit scheduled for later this week. Discussed having a caregiver come with Tejas for his next visit due to his history of memory loss. - Consider obtaining a CT scan of the chest, abdomen, and pelvis, or an abdominal ultrasound to rule out malignancy. Of note, the patient is not currently reporting B symptoms suggestive of malignancy. - Skin care education was provided. He was encouraged to soak in the bathtub daily for 20 minutes in lukewarm water, followed immediately by Vanicream application to his whole body. Avoid products with fragrance, dyes and preservatives. He was educated on the use of free and clear laundry detergent, advised to avoid all fabric softeners and dryer sheets. - Continue Zyrtec BID, will hold Pepcid and LTRA as Tejas denies benefit. - Consider consult with dermatology, which Tejas is interested in. Appreciate PCP arranging. - Follow-up in 4 weeks for further evaluation and management 12/04/2024 Localized swelling, mass and lump, head (ICD-10 - R22.0) Last visit Tejas reported a handful of episodes of knot in my throat with pruritus. He did not previously report this. He states this occurs once in a blue guardado. He states he previously discussed this with his PCP, who thought it was related to his thyroid. No family history of swelling, no photos to review. - Consider angioedema work-up, which was ordered today. Tejas was not interested in additional blood work last visit. - Instructed Tejas to carry an AIE as a precaution, we again thoroughly discussed indications of use as Tejas reports using his AIE due to knot that resolved within minutes. Reinforced that If Tejas experiences this sensation he is to go immediately to the ER for evaluation, he again voiced understanding. - Consider consult with ENT pending laboratory review 12/04/2024 Allergic rhinitis due to pollen (ICD-10 - J30.1) Frankie presents with complaints of upper airway symptoms concerning for uncontrolled atopic disease. He has two dogs in his home. - ImmunoCaps ordered by PCP show positive results to multiple seasonal and perennial allergens. - Discussed SPT to full aeroallergen testing previously, which we performed however histamine controls did not show significant wheal or flare, indicating pharmaceutical blockade of the receptor. - Consider repeat SPT in the future, plan to discuss next visit, unable to hold antihistamines at this time 09/11/2024 Allergic rhinitis due to pollen (ICD-10 - J30.1) Frankie presents with complaints of upper airway symptoms concerning for uncontrolled atopic disease. He has two dogs in his home. - ImmunoCaps ordered by PCP show positive results to multiple seasonal and perennial allergens. - Discussed SPT to full aeroallergen testing last visit, which we performed however histamine controls did not show significant wheal or flare, indicating pharmaceutical blockade of the receptor. - Consider repeat SPT in the future, plan to discuss next visit, unable to hold antihistamines at this time 08/06/2024 Allergic rhinitis due to animal (cat) (dog) hair and dander (ICD-10 - J30.81) Follow allergen avoidance, meds and consider SCIT as an adjunctive treatment to current regimen 08/06/2024 Other allergic rhinitis (ICD-10 - J30.89) Follow allergen avoidance, meds and consider SCIT as an adjunctive treatment to current regimen 09/11/2024 Allergic rhinitis due to animal (cat) (dog) hair and dander (ICD-10 - J30.81) Follow allergen avoidance, meds and consider SCIT as an adjunctive treatment to current regimen 12/04/2024 Allergic rhinitis due to animal (cat) (dog) hair and dander (ICD-10 - J30.81) Follow allergen avoidance, meds and consider SCIT as an adjunctive treatment to current regimen 12/04/2024 Other allergic rhinitis (ICD-10 - J30.89) Follow allergen avoidance, meds and consider SCIT as an adjunctive treatment to current regimen 09/11/2024 Other allergic rhinitis (ICD-10 - J30.89) Follow allergen avoidance, meds and consider SCIT as an adjunctive treatment to current regimen 08/06/2024 Shortness of breath (ICD-10 - R06.02) Frankie reports occasional shortness of breath, primarily occurring with activity. He discussed this with his PCP, who ordered a PFT. Frankie states this was normal, however no records to review. He was started on an ICS, however he admits to using as-needed. - Deferred spirometry due to recent PFT, records requested. - Continue GEORGE as-needed. After further discussion with Frankie it is not clear if he has been using albuterol or ICS. - Consider daily ICS or ICS/LABA pending review of PFT 08/06/2024 Essential (primary) hypertension (ICD-10 - I10) BP elevated today without symptoms of urgency or emergency. Continue serial checks and follow-up with PCP 09/11/2024 Shortness of breath (ICD-10 - R06.02) Frankie reports occasional shortness of breath, primarily occurring with activity. He discussed this with his PCP, who ordered a PFT. Frankie states this was normal, however no records to review. He was started on an ICS, however he admits to using as-needed. - Deferred spirometry due to recent PFT, records requested again. - Continue GEORGE as-needed. After further discussion with Frankie it is not clear if he has been using albuterol or ICS. - Consider daily ICS or ICS/LABA pending review of PFT 12/04/2024 Shortness of breath (ICD-10 - R06.02) Frankie reports occasional shortness of breath, primarily occurring with activity. He discussed this with his PCP, who ordered a PFT. Frankie states this was normal, however no records to review. He was started on an ICS, however he admits to using as-needed. - Deferred spirometry due to recent PFT, records requested again. - Continue GEORGE as-needed. After further discussion with Frankie it is not clear if he has been using albuterol or ICS. - Consider daily ICS or ICS/LABA pending review of PFT 12/04/2024 Essential (primary) hypertension (ICD-10 - I10) BP elevated today without symptoms of urgency or emergency. Continue serial checks and follow-up with PCP 09/11/2024 Essential (primary) hypertension (ICD-10 - I10) BP elevated today without symptoms of urgency or emergency. Continue serial checks and follow-up with PCP 10/09/2024 Other 08/06/2024 Other 09/11/2024 Other 12/04/2024 Other Plan Of Treatment No Information Insurance Providers Payer Name Payer Address Payer Phone Subscriber Number Group Number Insured Name Patient Relationship to Insured Coverage Start Date Coverage End Date [employer] [address] [place] [phone] [id number] Tejas [place]ks[place] Self - patient is the insured 0 Medical (General) History Medical History History ICD Code Seasonal allergies Hypertension Vitamin D deficiency Asthma memory loss Cholesterol Kidney stones Surgical History Surgery Date(Month/Year) Hand laceration repair 02/21/2021 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
--- OUTSIDE RECORDS SUMMARY | 2025-01-02 15:56 | XMS_ITS | Encounter Summary ---
Author Organization [facility] Address [address] [place] [address] Care Team Providers Care Design Project Manager Name Role Phone Cierra Barnes NP Primary Care Provider [phone] Chana Mann RN Unavailable [phone] Encounter Details Date Type Department Care Team (Late st Contact Info) Description 07/13/2024 MetaFLOt Message Enc [facility] Family Medicine - [place] [address] [facility] [address] [place] [address] Cierra Barnes NP [address] [place] [address] TEJAS HIRSCH Social History Tobacco Use Types Packs/Day Years [...] Description 05/16/2025 1:20 PM CDT Office Visit [facility] Family Medicine - [place] [address] [facility] [address] [place] [address] Cierra Barnes NP [address] [place], [place] [address] documented as of this encounter Visit Diagnoses Not on filedocumented in this encounter Additional Health Concerns Assessment Noted Time PHQ-9 Depression Total Score: 13 021 12:48 PM CDT documented as of this encounter Care Teams Design Project Manager Relationship Specialty Start Date End Date Cierra Barnes NP [address] [place] [address] PCP - General NURSE PRACTITIONER 02/16/23 [place] [address] [place] [address] Associate Professor Computer Science (Ambulatory) REGISTERED NURSE 10/23/24 11/07/24 documented as of this encounter
--- OUTSIDE RECORDS SUMMARY | 2025-01-02 15:56 | XMS_ITS | Encounter Summary ---
Author Organization [facility] Address [address] [place] [address] Care Team Providers Care Eyewear Manufacturing Supervisor Name Role Phone Cierra Barnes NP Primary Care Provider [phone] Chana Mann RN Unavailable [phone] Encounter Details Date Type Department Care Team (Late st Contact Info) Description 09/20/2023 Vertra Message Enc [facility] Medical [facility] Family Medicine - [place] [address] [facility] [address] [place] [address] [id number] Cierra Barnes NP [address] [place] [address] tejas mustafa Social History Tobacco Use Types [...] Description 05/16/2025 1:20 PM CDT Office Visit [facility] Family Medicine - [place] [address] [facility] [address] [place] [address] Cierra Barnes NP [address] [place] [address] [place] [address] documented as of this encounter Visit Diagnoses Not on filedocumented in this encounter Additional Health Concerns Assessment Noted Time PHQ-9 Depression Total Score: 13 021 12:48 PM CDT documented as of this encounter Care Teams Eyewear Manufacturing Supervisor Relationship Specialty Start Date End Date Cierra Barnes NP [address] [place] [address] PCP - General NURSE PRACTITIONER 02/16/23 Chana Mann, RN [address] [place] [address] Water Aerobics Instructor (Ambulatory) REGISTERED NURSE 10/23/24 11/07/24 documented as of this encounter
--- OUTSIDE RECORDS SUMMARY | 2025-01-02 15:56 | XMS_ITS | Encounter Summary ---
Author Organization [facility] Address [address] [place] [address] Care Team Providers Care Case Consultant Name Role Phone Rosalba Mancilla APNP Unavailable [phone] Kayli Berry MD Primary Care Provider [phone] Cierra Barnes NP Primary Care Provider [phone] Chana Mann RN Unavailable [phone] Encounter Details Date Type Department Care Team (Late st Contact Info) Description 12/24/[address] [facility] [address] [place], [place] [phone] Martínez Franco MD [address] [place], [place] [id number] Social History Tobacco Use Types Packs/Day Years [...] have Coronavirus / COVID-19? No / Unsure 12/27/2020 7:45 AM SERVICE PERSON documented as of this encounter Plan of Treatment Upcoming Encounters Date Type Department Care Team (Late st Contact Info) Description 05/16/2025 1:20 PM CDT Office Visit [facility] Medical [facility] Family Medicine - [place] [address] [facility] [address] [place] [address] Cierra Barnes, NEO [address] [place] [address] [place], [place] [address] documented as of this encounter Results * PRE-SURGICAL/PRE-PROCEDURE CORONAVIRUS (COVID 19) (12/27/2020 7:59 AM SERVICE PERSON) CORONAVIRUS SARS COV 2 PCR (RESP) NOT DETECTED NOT DETECTED 12/28/2020 4:56 PM SERVICE PERSON [facility] Comment: A Not Detected (negative) test result for this test means that SARS- CoV-2 RNA was not present in the specimen above the limit of detection. A negative result does not rule out the possibility of COVID-19 and should not be used as the sole basis for treatment or patient management decisions. If COVID-19 is still suspected, based on exposure history together with other clinical findings, re-testing should be considered in consultation with public health authorities. Laboratory test results should always be considered in the context of clinical observations and epidemiological data in making a final diagnosis and patient management decisions. Please review the Fact Sheets and FDA authorized labeling available for health care providers and patients using the following websites: https://www.[employer].com/home/Covid-19/HCP/NAAT/fact-sheet2 https://www.[employer].com/home/Covid-19/Patients/NAAT/ fact-sheet2 This test has been authorized by the FDA under an Emergency Use Authorization (EUA) for use by authorized laboratories. Due to the current public health emergency, [facility] is receiving a high volume of samples from a wide variety of swabs and media for COVID-19 testing. In order to serve patients during this public health crisis, samples from appropriate clinical sources are being tested. Negative test results derived from specimens received in non-commercially manufactured viral collection and transport media, or in media and sample collection kits not yet authorized by FDA for COVID-19 testing should be cautiously evaluated and the patient potentially subjected to extra precautions such as additional clinical monitoring, including collection of an additional specimen. Methodology: Nucleic Acid Amplification Test (NAAT) includes RT-PCR or TMA Additional information about COVID-19 can be found at the [facility] website: www.[employer]/Covid19. Test performed at [facility] [address] [place] [address] Director: CASSY RIOS DO,MPH FIRST TEST NO 12/27/2020 7:46 AM [facility] EMPLOYED IN HEALTHCARE NO 12/27/2020 7:46 AM [facility] SYMPTOMATIC DEFINED BY CDC UNKNOWN 12/27/2020 7:46 AM [facility] DATE OF SYMPTOM ONSET UNKNOWN 12/27/2020 9:23 AM [facility] HOSPITALIZATION STATUS NO 12/27/2020 7:46 AM [facility] PATIENT IN ICU NO 12/27/2020 7:46 AM [facility] RESIDENT OF [facility] NO 12/27/2020 7:46 AM [facility] UNKNOWN 12/27/2020 9:23 AM [facility] PATIENT'S RACE WHITE OR 12/27/2020 7:46 AM [facility] ETHNICITY NONHISPANIC 12/27/2020 7:46 AM [facility] SOURCE (QST) NASOPHARYNGEAL SWAB 12/27/2020 7:46 AM [facility] NASOPHARYNGEAL SWAB / Unknown 12/27/2020 7:59 AM SERVICE PERSON us Martínez Franco MD MICROBIOLOGY - GENERAL ORDERABL ES Final Result [facility] [address] [place] [address], [place] [phone] [facility] [address] [place] [address], documented in this encounter Visit Diagnoses Diagnosis Preop testing- Primary Preoperative examination, unspecified documented in this encounter Additional Health Concerns Infection Onset Date Last Indicated Resolved Time COVID-19 Rule Out 12/27/2020 12/27/2020 12/28/2020 4:56 PM SERVICE PERSON COVID-19 Rule Out 03/03/2021 03/03/2021 03/03/2021 3:11 PM CDT documented as of this encounter Care Teams Case Consultant Relationship Specialty Start Date End Date Rosalba Mancilla APNP [address] [place] [address] PCP - Med Group - [facility] Attributed Provider 08/21/17 11/20/22 Kayli Berry MD [address] [place] [address] PCP - General INTERNAL MEDICINE 07/21/20 01/18/22 Cierra Barnes NP [address] [place] [address] PCP - General NURSE PRACTITIONER 02/16/23 Chana Mann, RN [address] [place], [place] [address] Customs Patrol Officer (Ambulatory) REGISTERED NURSE 10/23/24 11/07/24 documented as of this encounter
--- OUTSIDE RECORDS SUMMARY | 2025-01-02 15:56 | XMS_ITS | Referral Summary ---
Author Organization [address] Address [address] [place] [address] Care Team Providers Care Clinical Appeals Auditor Name Role Phone Cierra Barnes MD Primary Care Provider [phone] Allergies No known active allergies Medications albuterol HFA (PROVENTIL HFA,VENTOLIN HFA,PROAIR HFA) 90 mcg/actuation inhaler TAKE 2 PUFFS BY MOUTH EVERY 4 HOURS NEEDED 03/10/2021 Active rosuvastatin (CRESTOR) 20 mg tablet TAKE 1 TABLET BY MOUTH NIGHTLY AT BEDTIME 04/06/2021 Active vitamin E 90 mg (200 unit) capsule Take 1 capsule (200 Units total) by mouth daily 11/25/2022 Active calcitRIOL (ROCALTROL) 0.25 mcg capsule TAKE 1 CAPSULE BY MOUTH EVERY OTHER DAY 10/19/2022 Active aspirin 325 mg tablet Take 1 tablet (325 mg total) by mouth daily 11/23/2022 Active cetirizine (ZyrTEC) 10 mg tablet Take 1 tablet (10 mg total) by mouth daily Active losartan (COZAAR) 25 mg tablet Take 1 tablet (25 mg total) by mouth daily 11/12/2022 Active amLODIPine (NORVASC) 5 mg tablet Take 1 tablet (5 mg total) by mouth daily 11/12/2022 Active tamsulosin (FLOMAX) 0.4 mg extended release capsule Take 1 capsule (0.4 mg total) by mouth nightly 12/23/2022 Active vitamin B-12 1,000 mcg tablet Take 1 tablet (1,000 mcg total) by mouth once a week 02/02/2023 Active donepeziL (ARICEPT) 10 mg tablet Take half tablet by mouth once a day for two weeks, then one tablet once a day 30 tablet 5 07/20/2024 Active Active Problems Problem Noted Date Diagnosed Date Memory loss 01/06/2023 Dizziness and giddiness 05/26/2021 Neck mass 05/26/2021 Social History Tobacco Use Types Packs/Day Years Used Date Smoking Tobacco: Some Days Cigars Smokeless Tobacco: Never Tobacco Cessation:Ready to Q uit: Not Asked; Counseling Given: Not Answered Personal Safety Answer Date Recorded Getting School Help Needed Not on file 02/21 Sex and Gender Information Value Date Recorded Sex Assigned at Not on file Legal Sex Male 7:38 PM JEWEL BEARING MAKER Gender Identity Not on file Sexual Orientation Not on file Last Filed Vital Signs Vital Sign Reading Time Taken Comments Blood Pressure 113/69 07/20/2024 11:55 AM CDT Pulse 72 07/20/2024 11:55 AM CDT Temperature 37.6 C (99.6 F) 02/14/2023 6:06 PM CDT Respiratory Rate 18 11/07/2023 1:07 PM JEWEL BEARING MAKER Oxygen Saturation 94% 07/20/2024 11:55 AM CDT Inhaled Oxygen Concentration - - Weight 75.3 kg (166 lb) 07/20/2024 11:55 AM CDT Height 175.3 cm (5' 9 ) 07/20/2024 11:55 AM CDT Body Mass Index 24.51 07/20/2024 11:55 AM CDT Plan of Treatment Not on file Insurance * Guarantor: Tejas Matthews Account Type Relation to Patient Date of Phone Billing Address Personal/Family Self 1960 [address] [address] [facility] IDPA IDSC IDPA Advance Directives For more information, please contact: [phone] * Full Code (Latest Code Status on File) Date Activated Date Inactivated Comments 02/09/2023 7:52 AM 02/10/2023 4:37 AM Care Teams Clinical Appeals Auditor Relationship Specialty Start Date End Date Cierra Barnes MD [address] [place] [address] PCP - General Nurse Practitioner 07/20/24
--- OUTSIDE RECORDS SUMMARY | 2025-01-02 15:56 | XMS_ITS | Encounter Summary ---
Author Organization [facility] Address [address] [place] [address] Care Team Providers Care Herb Digger Name Role Phone Rosalba Mancilla Rito APNP Unavailable [phone] Kayli Berry MD Primary Care Provider [phone] Cierra Barnes NP Primary Care Provider [phone] Chana Mann RN Unavailable [phone] Encounter Details Date Type Department Care Team (Late st Contact Info) Description 04/28/2021 backstitcht Message Enc [facility] [address] [facility] [address] [place], [place] [id number] [place] [address] [place] [address] RE: Question Social History Tobacco Use Types Packs/Day Years Used Date Smoking Tobacco: Some Days Cigarettes Cigars Smokeless Tobacco: Never Comments:Once in a while smo kes cigars Alcohol Use Standard Drinks/Week Comments No 0 (1 standard drink = 0.6 oz pur e alcohol) AUDIT-C Answer Date Recorded Frequency of Alcohol Consumption Never 10/06/2018 Average Number of Drinks Not on file 018 Frequency of Binge Drinking Not on file 09/21 PHQ-2 Answer Date Recorded PHQ-2 Score - If the patient scores above 3, please move on to questions 3-9 0 03/17/2021 Sex and Gender Information Value Date Recorded [...] have Coronavirus / COVID-19? No / Unsure 04/28/2021 3:56 PM CDT documented as of this encounter Plan of Treatment Upcoming Encounters Date Type Department Care Team (Late st Contact Info) Description 05/16/2025 1:20 PM CDT Office Visit [facility] Medical Group Family Medicine - [place] [address] [facility] [address] [place], [place] [address] Cierra Barnes NP [address] [place] [address] [place] [address] documented as of this encounter Visit Diagnoses Not on filedocumented in this encounter Care Teams Herb Digger Relationship Specialty Start Date End Date Rosalba Mancilla APNP [address] [place] [address] PCP - Med Group - [facility] Attributed Provider 08/21/17 11/20/22 Kayli Berry MD [address] [place] [address] PCP - General INTERNAL MEDICINE 07/21/20 01/18/22 Cierra Barnes NP [address] [place], [place] [address] PCP - General NURSE PRACTITIONER 02/16/23 Chana Mann, RN [address] [place] [address] Activities Volunteer (Ambulatory) REGISTERED NURSE 10/23/24 11/07/24 documented as of this encounter
--- OUTSIDE RECORDS SUMMARY | 2025-01-02 15:56 | XMS_ITS | Encounter Summary ---
Author Organization [facility] Address [address] [place] [address] Care Team Providers Care Visitor Service Assistant Name Role Phone Ghada Enamorado CASH MANAGER Primary Care Provider Ghada Joseph NP Primary Care Provider Rosalba CallesNP Unavailable [phone] Kayli Berry MD Primary Care Provider [phone] Cierra Barnes NP Primary Care Provider [phone] Chana Mann RN Unavailable [phone] Encounter Details Date Type Department Care Team (Late st Contact Info) Description 05/10/2019 Echo it Message Enc [facility] [address] [place] [address] [facility] Provider RE:XR results Social History Tobacco Use Types Packs/Day Years [...] Description 05/16/2025 1:20 PM CDT Office Visit [facility] Medical [facility] Family Medicine - [place] [address] [facility] [address] [place] [address] Cierra Barnes, CASH MANAGER [address] [place], [place] [address] documented as of this encounter Visit Diagnoses Not on filedocumented in this encounter Additional Health Concerns Infection Onset Date Last Indicated Resolved Time COVID-19 Rule Out 12/09/2020 12/09/2020 12/10/2020 12:16 PM PROFILE STITCHING MACHINE OPERATOR COVID-19 Rule Out 12/27/2020 12/27/2020 12/28/2020 4:56 PM PROFILE STITCHING MACHINE OPERATOR COVID-19 Rule Out 03/03/2021 03/03/2021 03/03/2021 3:11 PM CDT documented as of this encounter Care Teams Visitor Service Assistant Relationship Specialty Start Date End Date Ghada Enamorado NP PCP - General Nurse Practitioner Family 07/05/19 07/08/19 Ghada Enamorado NP PCP - General Nurse Practitioner Family 07/09/19 07/20/20 Rosalba Mancilla APNP [address] [place] [address] PCP - Med Group - MSSP Attributed Provider 08/21/17 11/20/22 Kayli Berry MD [address] [place] [address] PCP - General INTERNAL MEDICINE 07/21/20 01/18/22 Cierra Barnes, NEO [address] [place] [address] PCP - General NURSE PRACTITIONER 02/16/23 Chana Mann, RN [address] [place] [address] Monorail Hooker (Ambulatory) REGISTERED NURSE 10/23/24 11/07/24 documented as of this encounter
--- OUTSIDE RECORDS SUMMARY | 2025-01-02 15:56 | XMS_ITS | Encounter Summary ---
Author Organization [facility] Address [address] [place] [address] Care Team Providers Care Forming Operator Name Role Phone Ken Sosa MD Primary Care Provider Miriam Goyal Primary Care Provider [phone] Ghada Enamorado NP Primary Care Provider Ghada Joseph RACK MAKER Primary Care Provider Rosalba Calles APNP Unavailable [phone] Kayli Berry MD Primary Care Provider [phone] Cierra Barnes RACK MAKER Primary Care Provider + [phone] Chana Mann RN Unavailable [phone] Encounter Details Date Type Department Care Team (Latest Contact Info) Description 07/18/2018 Abstract [facility] Miriam Adame FNP [address] [place] [address] Social History Tobacco Use Types Packs/Day Years Used Date Smoking Tobacco: Never Assessed Sex and Gender Information Value Date Recorded Sex Assigned at Male 06/29/2019 11:55 AM CDT Legal Sex Male 5:32 PM CDT Gender Identity Male 06/29/2019 11:55 AM CDT Sexual Orientation Straight 08/03/2019 9: 19 AM CDT documented as of this encounter Plan of Treatment Upcoming Encounters Date Type Department Care Team (Late st Contact Info) Description 05/16/2025 1:20 PM CDT Office Visit [facility] Medical [facility] Family Medicine - [place] [address] [facility] [address] [place] [address] Cierra Barnes NP [address] [place] [address] documented as of this encounter Visit Diagnoses Not on filedocumented in this encounter Additional Health Concerns Infection Onset Date Last Indicated Resolved Time COVID-19 Rule Out 12/09/2020 12/09/2020 12/10/2020 12:16 PM SOFTWARE CONFIGURATION SPECIALIST COVID-19 Rule Out 12/27/2020 12/27/2020 12/28/2020 4:56 PM SOFTWARE CONFIGURATION SPECIALIST COVID-19 Rule Out 03/03/2021 03/03/2021 03/03/2021 3:11 PM CDT documented as of this encounter Care Teams Forming Operator Relationship Specialty Start Date End Date Ken Sosa MD PCP - General 07/20/16 10/04/18 Miriam Adame FNP [address] [place] [address] PCP - General FAMILY PRACTICE 10/05/18 01/16/19 Ghada Enamorado NP [address] [place] [address] PCP - General Nurse Practitioner Family 07/05/19 07/08/19 Ghada Enamorado NP [address] [place] [address] PCP - General Nurse Practitioner Family 07/09/19 07/20/20 Rosalba Mancilla APNP [address] [place] [address] PCP - Med Group - [facility] Attributed Provider 08/21/17 11/20/22 Kayli Berry MD [address] [place] [address] PCP - General INTERNAL MEDICINE 07/21/20 01/18/22 Cierra Barnes NP [address] [place] [address] PCP - General NURSE PRACTITIONER 02/16/23 Chana Mann RN [address] [place] [address] Manager Party (Ambulatory) REGISTERED NURSE 10/23/24 11/07/24 documented as of this encounter
--- OUTSIDE RECORDS SUMMARY | 2025-01-02 15:56 | XMS_ITS | Encounter Summary ---
Author Organization [facility] Address [address] [place] [address] Care Team Providers Care Senior Manager Asset Protection Name Role Phone Cierra Barnes NP Primary Care Provider [phone] Chana Mann RN Unavailable [phone] Reason for Visit * Reason Onset Date Comments Pre-visit Gap Closure 02/23/2023 Encounter Details Date Type Department Care Team (Late st Contact Info) Description 02/23/2023 Patient Outreach [facility] Medical Group Family Medicine - [place] [address] [facility] [place] [address] Bret Bhandari MA Pre-visit Gap Closure Social History Tobacco Use Types Packs/Day Years [...] 3, please move on to questions 3-9 6 06/01/2021 Sex and Gender Information Value Date Recorded Sex Assigned at Male 06/29/2019 11:55 AM CDT Legal Sex Male 5:32 PM CDT Gender Identity Male 06/29/2019 11:55 AM CDT Sexual Orientation Straight 08/03/2019 9: 19 AM CDT documented as of this encounter Plan of Treatment Upcoming Encounters Date Type Department Care Team (Late st Contact Info) Description 05/16/2025 1:20 PM CDT Office Visit [facility] Medical Group Family Medicine - [place] [address] [facility] [address] [place] [address] Cierra Barnes NP [address] [place] [address] [place], [place] [address] documented as of this encounter Visit Diagnoses Not on filedocumented in this encounter Additional Health Concerns Assessment Noted Time PHQ-9 Depression Total Score: 13 021 12:48 PM CDT documented as of this encounter Care Teams Senior Manager Asset Protection Relationship Specialty Start Date End Date Cierra Barnes NP [address] [place] [address] [place] [address] PCP - General NURSE PRACTITIONER 02/16/23 Chana Mann, RN [address] [place] [address] Plate Painter (Ambulatory) REGISTERED NURSE 10/23/24 11/07/24 documented as of this encounter
--- OUTSIDE RECORDS SUMMARY | 2025-01-02 15:56 | XMS_ITS | Encounter Summary ---
Author Organization [facility] Address [address] [place] [address] Care Team Providers Care Radiology Interventional Physician Name Role Phone Rosalba Mancilla APNP Unavailable [phone] Kayli Berry MD Primary Care Provider [phone] Cierra Barnes NP Primary Care Provider + [phone] Chana Mann RN Unavailable [phone] Encounter Details Date Type Department Care Team (Late st Contact Info) Description 12/03/[address] [facility] [address] [place], [place] [id number] Lisa Aquino MD [address] [facility] [address] [place] [address] Social History Tobacco Use Types Packs/Day Years [...] have Coronavirus / COVID-19? No / Unsure 12/04/2020 12:47 PM LOAN SERVICING REPRESENTATIVE documented as of this encounter Plan of Treatment Upcoming Encounters Date Type Department Care Team (Late st Contact Info) Description 05/16/2025 1:20 PM CDT Office Visit [facility] Family Medicine - [place] [address] [facility] [address] [place] [address] Cierra Barnes, NEO [address] [place], [place] [address] documented as of this encounter Results * PRE-SURGICAL/PRE-PROCEDURE CORONAVIRUS (COVID 19) (12/09/2020 1:03 PM LOAN SERVICING REPRESENTATIVE) CORONAVIRUS SARS COV 2 PCR (RESP) NOT DETECTED NOT DETECTED 12/10/2020 12:16 PM LOAN SERVICING REPRESENTATIVE [facility] Comment: A Not Detected (negative) test result [...] providers and patients using the following websites: https://www.[employer].com/home/Covid-19/HCP/NAAT/fact-sheet2 https://www.[employer]/home/Covid-19/Patients/NAAT/ fact-sheet2 This test has been authorized by the FDA under an Emergency Use Authorization (EUA) for use by authorized laboratories. Due to the current public health emergency, [employer] is receiving a high volume of samples [...] about COVID-19 can be found at the [employer] website: www.[employer].Posterous/Covid19. Test performed at [facility] [address] [place] [address] Director: CASSY RIOS DO,MPH FIRST TEST YES 12/09/2020 12:53 PM [facility] EMPLOYED IN HEALTHCARE NO 12/09/2020 12:53 PM [facility] SYMPTOMATIC DEFINED BY CDC NO 12/09/2020 12:53 PM [facility] DATE OF SYMPTOM ONSET NON-APPLICABLE 12/09/2020 1:09 PM [facility] HOSPITALIZATION STATUS NO 12/09/2020 12:53 PM [facility] PATIENT IN ICU NO 12/09/2020 12:53 PM [facility] RESIDENT OF [facility] CARE NO 12/09/2020 12:53 PM [facility] NO 12/09/2020 1:09 PM [facility] PATIENT'S RACE WHITE OR 12/09/2020 12:53 PM [facility] ETHNICITY NONHISPANIC 12/09/2020 12:53 PM [facility] SOURCE (QST) NASOPHARYNGEAL SWAB 12/09/2020 12:53 PM [facility] NASOPHARYNGEAL SWAB / Unknown 12/09/2020 1:03 PM LOAN SERVICING REPRESENTATIVE us Lisa Aquino MD MICROBIOLOGY - GENERAL ORDER ZIYAD Final Result [facility] [address] [place] [address], [place] [phone] [facility] [facility] [address] [place] [address], documented in this encounter Visit Diagnoses Diagnosis Preop testing- Primary Preoperative examination, unspecified documented in this encounter Additional Health Concerns Infection Onset Date Last Indicated Resolved Time COVID-19 Rule Out 12/09/2020 12/09/2020 12/10/2020 12:16 PM LOAN SERVICING REPRESENTATIVE COVID-19 Rule Out 12/27/2020 12/27/2020 12/28/2020 4:56 PM LOAN SERVICING REPRESENTATIVE COVID-19 Rule Out 03/03/2021 03/03/2021 03/03/2021 3:11 PM CDT documented as of this encounter Care Teams Radiology Interventional Physician Relationship Specialty Start Date End Date Rosalba Mancilla APNP [address] [place] [address] PCP - Med Group - MSS[facility] Attributed Provider 08/21/17 11/20/22 Kayli Berry MD [address] [place] [address] PCP - General INTERNAL MEDICINE 07/21/20 01/18/22 Cierra Barnes NP [address] [place] [address] PCP - General NURSE PRACTITIONER 02/16/23 Chana Mann, RN [address] [place] [address] Systems Test Analyst (Ambulatory) REGISTERED NURSE 10/23/24 11/07/24 documented as of this encounter
--- OUTSIDE RECORDS SUMMARY | 2025-01-02 15:56 | XMS_ITS | Encounter Summary ---
Author Organization [facility] Address [address] [place] [address] Care Team Providers Care Bottler Name Role Phone Cierra Barnes NP Primary Care Provider [phone] Chana Mann RN Unavailable [phone] Encounter Details Date Type Department Care Team (Late st Contact Info) Description 08/03/2024 Zuldit Message Enc [facility] Family Medicine - [place] [address] [facility] [address] [place] [phone] Cierra Barnes NP [address] [place] [address] tejas mustafa Social History Tobacco Use Types [...] as of this encounter Progress Notes * Dilcia Alvarez MD - 08/06/2024 8:24 AM CDT Noted. documented in this encounter Plan of Treatment Upcoming Encounters Date Type Department Care Team (Late st Contact Info) Description 05/16/2025 1:20 PM CDT Office Visit [facility] Family Medicine - [place] [address] [facility] [address] [place] [address] Cierra Barnes NP [address] [place], [place] [address] documented as of this encounter Visit Diagnoses Not on filedocumented in this encounter Additional Health Concerns Assessment Noted Time PHQ-9 Depression Total Score: 13 021 12:48 PM CDT documented as of this encounter Care Teams Bottler Relationship Specialty Start Date End Date Cierra Barnes NP [address] [place], [place] [address] PCP - General NURSE PRACTITIONER 02/16/23 Chana Mann, RN [address] [place] [address] Retail Buyer (Ambulatory) REGISTERED NURSE 10/23/24 11/07/24 documented as of this encounter
--- OUTSIDE RECORDS SUMMARY | 2025-01-02 15:56 | XMS_ITS | Encounter Summary ---
Author Organization [facility] Address [address] [place] [address] Care Team Providers Care Production Control Supervisor Name Role Phone Ghada Enamorado JIGGER CROWN POUNCING MACHINE OPERATOR Primary Care Provider Rosalba Calles APNP Unavailable [phone] Kayli Berry MD Primary Care Provider [phone] Cierra Barnes NP Primary Care Provider [phone] Chana Mann RN Unavailable [phone] Encounter Details Date Type Department Care Team (Late st Contact Info) Description 12/27/2019 MyChart Message Enc [facility] Family & Internal Medicine [address] [address] Anali Paniagua MD RE: Test Results Social History Tobacco Use Types Packs/Day [...] PHQ-2 Answer Date Recorded PHQ-2 Score 0 11/01/2019 Sex and Gender Information Value Date Recorded Sex Assigned at Male 06/29/2019 11:55 AM CDT Legal Sex Male 5:32 PM CDT Gender Identity Male 06/29/2019 11:55 AM CDT Sexual Orientation Straight 08/03/2019 9: 19 AM CDT documented as of this encounter Plan of Treatment Upcoming Encounters Date Type Department Care Team (Late st Contact Info) Description 05/16/2025 1:20 PM CDT Office Visit [facility] Family Medicine - [place] [address] [facility] [address] [place] [address] Cierra Barnes NP [address] [place] [address] [place], [place] [address] documented as of this encounter Visit Diagnoses Not on filedocumented in this encounter Additional Health Concerns Infection Onset Date Last Indicated Resolved Time COVID-19 Rule Out 12/09/2020 12/09/2020 12/10/2020 12:16 PM PNEUMATIC SYSTEMS OPERATOR COVID-19 Rule Out 12/27/2020 12/27/2020 12/28/2020 4:56 PM PNEUMATIC SYSTEMS OPERATOR COVID-19 Rule Out 03/03/2021 03/03/2021 03/03/2021 3:11 PM CDT documented as of this encounter Care Teams Production Control Supervisor Relationship Specialty Start Date End Date Ghada Enamorado NP PCP - General Nurse Practitioner Family 07/09/19 07/20/20 Rosalba Mancilla APNP [address] [place] [address] PCP - Med Group - MSSP Attributed Provider 08/21/17 11/20/22 Kayli Berry MD [address] [place] [address] PCP - General INTERNAL MEDICINE 07/21/20 01/18/22 Cierra Barnes NP [address] [place] [address] PCP - General NURSE PRACTITIONER 02/16/23 Chana Mann RN [address] [place] [address] Pathology Technician (Ambulatory) REGISTERED NURSE 10/23/24 11/07/24 documented as of this encounter
--- OUTSIDE RECORDS SUMMARY | 2025-01-02 15:56 | XMS_ITS | Encounter Summary ---
Author Organization [facility] Address [address] [place] [address] Care Team Providers Care Head Athletic Trainer/Strength Coach Name Role Phone Cierra Barnes NP Primary Care Provider [phone] Chana Mann RN Unavailable [phone] Encounter Details Date Type Department Care Team (Late st Contact Info) Description 08/03/2024 Hi-Lo [employer]get Message Enc [facility] Medical [facility] Family Medicine - [place] [address] [facility] [address] [place] [phone] Cierra Barnes NP [address] [place] [address] [place] [address] tejas mustafa Social History Tobacco Use Types [...] Notes * Dilcia Alvarez MD - 08/06/2024 8:25 AM CDT Noted. documented in this encounter Plan of Treatment Upcoming Encounters Date Type Department Care Team (Late st Contact Info) Description 05/16/2025 1:20 PM CDT Office Visit [facility] Medical Group Family Medicine - [place] [address] [facility] [address] [place] [address] Cierra Barnes NP [address] [place] [address] [place], [place] [address] documented as of this encounter Visit Diagnoses Not on filedocumented in this encounter Additional Health Concerns Assessment Noted Time PHQ-9 Depression Total Score: 13 021 12:48 PM CDT documented as of this encounter Care Teams Head Athletic Trainer/Strength Coach Relationship Specialty Start Date End Date Cierra Barnes NP [address] [place] [address] [place], [place] [address] PCP - General NURSE PRACTITIONER 02/16/23 Chana Mann, RN [address] [place] [address] Geriatric Assistant (Ambulatory) REGISTERED NURSE 10/23/24 11/07/24 documented as of this encounter
--- OUTSIDE RECORDS SUMMARY | 2025-01-02 15:56 | XMS_ITS | Encounter Summary ---
Author Organization [facility] Address [address] [place] [address] Care Team Providers Care Jewelry Sorter Name Role Phone Cierra Barnes NP Primary Care Provider [phone] Chana Mann RN Unavailable [phone] Encounter Details Date Type Department Care Team (Late st Contact Info) Description 07/22/2024 [employer] Message Enc [facility] Family Medicine - [place] [address] [facility] [address] [place] [phone] Cierra Barnes NP [address] [place] [address] [place] [address] tejas mustafa Social History Tobacco Use Types [...] 1:20 PM CDT Office Visit [facility] Family Medicine - [place] [address] [facility] [address] [place] [address] Cierra Barnes NP [address] [place] [address] [place], [place] [address] documented as of this encounter Visit Diagnoses Not on filedocumented in this encounter Additional Health Concerns Assessment Noted Time PHQ-9 Depression Total Score: 13 021 12:48 PM CDT documented as of this encounter Care Teams Jewelry Sorter Relationship Specialty Start Date End Date Cierra Barnes NP [address] [place] [address] [place] [address] PCP - General NURSE PRACTITIONER 02/16/23 [place] [address] [place] [address] Nuclear Weapons Custodian (Ambulatory) REGISTERED NURSE 10/23/24 11/07/24 documented as of this encounter
--- OUTSIDE RECORDS SUMMARY | 2025-01-02 15:56 | XMS_ITS | Encounter Summary ---
Author Organization [facility] Address [address] [place] [address] Care Team Providers Care Supervisor Color Making Name Role Phone Ghada Enamorado WINDLASSER Primary Care Provider Rosalba Calles APNP Unavailable [phone] Kayli Berry MD Primary Care Provider [phone] Cierra Barnes NP Primary Care Provider [phone] Chana Mann RN Unavailable [phone] Encounter Details Date Type Department Care Team ([facility] Contact Info) Description 09/17/2019 Air Intelligence Message Enc [facility] [address] [place] [address] Mychart, [facility] Provider Lab results Social History Tobacco Use Types Packs/Day [...] Upcoming Encounters Date Type Department Care Team ([facility] st Contact Info) Description 05/16/2025 1:20 PM CDT Office Visit [facility] Medical Group Family Medicine - [place] [address] [facility] [address] [place], [place] [address] Cierra Barnes NP [address] [place] [address] documented as of this encounter Visit Diagnoses Not on filedocumented in this encounter Additional Health Concerns Infection Onset Date Last Indicated Resolved Time COVID-19 Rule Out 12/09/2020 12/09/2020 12/10/2020 12:16 PM TEACHERS' ASSISTANT COVID-19 Rule Out 12/27/2020 12/27/2020 12/28/2020 4:56 PM TEACHERS' ASSISTANT COVID-19 Rule Out 03/03/2021 03/03/2021 03/03/2021 3:11 PM CDT documented as of this encounter Care Teams Supervisor Color Making Relationship Specialty Start Date End Date Ghada Enamorado NP PCP - General Nurse Practitioner Family 07/09/19 07/20/20 Rosalba Mancilla APNP [address] [place] [address] PCP - Med Group - MSSP Attributed Provider 08/21/17 11/20/22 Kayli Berry MD [address] [place] [address] PCP - General INTERNAL MEDICINE 07/21/20 01/18/22 Cierra Barnes NP [address] [place], [place] [address] PCP - General NURSE PRACTITIONER 02/16/23 Chana Mann, RN [address] [place] [address] Carbon Setter (Ambulatory) REGISTERED NURSE 10/23/24 11/07/24 documented as of this encounter
--- OUTSIDE RECORDS SUMMARY | 2025-01-02 15:56 | XMS_ITS | Encounter Summary ---
Author Organization [facility] Address [address] [place] [address] Care Team Providers Care Instrument And Electrical Technician Name Role Phone Cierra Barnes NP Primary Care Provider [phone] Chana Mann RN Unavailable [phone] Encounter Details Date Type Department Care Team (Late st Contact Info) Description 09/15/2023 [email or web address] Message Enc [facility] Medical [facility] Family Medicine - [place] [address] [facility] [address] [place] [phone] Cierra Barnes NP [address] [place] [address] [place] [address] tejas musatfa Social History Tobacco Use Types Packs/Day Years [...] 1:20 PM CDT Office Visit [facility] Family Medicine - [place] [address] [facility] [address] [place] [address] Cierra Barnes NP [address] [place] [address] documented as of this encounter Visit Diagnoses Not on filedocumented in this encounter Additional Health Concerns Assessment Noted Time PHQ-9 Depression Total Score: 13 021 12:48 PM CDT documented as of this encounter Care Teams Instrument And Electrical Technician Relationship Specialty Start Date End Date Cierra Barnes NP [address] [place] [address] PCP - General NURSE PRACTITIONER 02/16/23 Chana Mann, RN [address] [place] [address] Lead Pressman [employer] Printing (Ambulatory) REGISTERED NURSE 10/23/24 11/07/24 documented as of this encounter
--- OUTSIDE RECORDS SUMMARY | 2025-01-02 15:56 | XMS_ITS ---
Author Organization [facility] Address [address] [place] [address] Care Team Providers Care Director Customer Name Role Phone Cierra Barnes Primary Care Provider Unavailab Merlyn Thakkar Unavailable [phone] Allergies No Known Allergies Results Component Value Reference Range Notes C1 INHIBITOR, FUNCTIONAL Reviewed date:12/10/2024 09:57:26 AM Interpretation:Normal Performing Lab:YAN, [facility], [address], [place], [place], Michael Patterson M.D.,PhD Notes/Report: NON-FASTING; NON-FASTING C1 ESTERASE INHIBITOR, FUNCTIONAL 98 >=68 % Reference Range: > or = 68%: Normal 41-67%: Equivocal < or = 40%: Abnormal Less than 40% of the reference functional activity indicates a likely diagnosis of hereditary angioedema or acquired C1 Inhibitor deficiency. For additional information, please refer to: http://education.Graphenea/faq/FAQ54 (This link is being provided for informational/ educational purposes only.) C1 INHIBITOR, PROTEIN Reviewed date:12/10/2024 09:57:02 AM Interpretation:Normal Performing Lab:YAN, [facility], [address], [place], [place], Michael Patterson M.D.,PhD Notes/Report: NON-FASTING; NON-FASTING C1 ESTERASE INHIBITOR, PROTEIN 30 21-39 mg/d L A normal C1 esterase inhibitor protein level does not rule out the possibility of a functional C1 esterase inhibitor deficiency. Consider further testing of C1 esterase inhibitor functional activity, if clinically indicated. COMPLEMENT COMPONENT C4C Reviewed date:12/10/2024 09:57:38 AM Interpretation:Normal Performing Lab:FRANK, [facility], [address] [place], [address] Nathan Nuñez MD Notes/Report: NON-FASTING; NON-FASTING COMPLEMENT COMPONENT C4C 28 15-53 mg/dL COMPLEMENT, TOTAL (CH50) Reviewed date:12/10/2024 09:57:13 AM Interpretation:Normal Performing Lab:FR[facility], [facility], [address], [place], [address] Nathan Nuñez MD Notes/Report: NON-FASTING; NON-FASTING COMPLEMENT, TOTAL (CH50) 57 31-60 U/mL REASON FOR VISIT Generalized pruritus ongoing for years. No history of rashes. Now following skincare regimen and taking Zyrtec BID, Pepcid BID and LTRA at night without benefit. Last visit reported a few episodes of knot in my throat. , ARC follow- up: ImmunoCaps ordered by PCP. Taking daily Zyrtec., Chronic lower airways symptoms concerning for possible asthma, occasional shortness of breath with activity. Started on ICS with PCP, recently underwent PFT. Medications Medication SIG (Take, Route, Frequency, Duration) Notes Start Date End Date Status Memantine HCl 10 MG 1 tablet Orally Once a day Active Vitamin B12 1000 MCG 1 tablet Orally Onc e a day Active Aspirin 81 MG 1 tablet Orally Once a day Active amLODIPine Besylate 5 MG 1 tablet Orally Once a day Active Losartan Potassium 25 MG 1 tablet Orally Once a day Active Acetaminophen 500 MG 1 capsule as needed Orally every 6 hrs Active Donepezil HCl 10 MG 1 tablet at bedtime Orally Once a day Active Famotidine 20 MG 1 tablet Orally Twic e a day for 30 days Active Montelukast Sodium 10 MG 1 tablet Orally Once a day for 30 days Active EPINEPHrine 0.3 MG/0.3ML as directed Inj ection as directed for 30 days Active Cetirizine HCl 10 MG 1 tablet Orally Twi ce a day for 30 days Active Calcitriol 0.25 MCG 1 capsule Orally Thr ee times a Week Active Albuterol Sulfate HFA 108 (90 Base) MCG/ACT 1 puff as needed Inhalation every 4 hrs Active Vitamin C 500 MG as directed Orally Active Iron (Ferrous Sulfate) 325 (65 Fe) MG 1 tablet Orally Three times a Week Active Vanicream - as directed Externally Active Social History Tobacco Use: Social History Observation Description Date Details (start date - stop date) Former Smoker NA - NA Tobacco Control (Standard) Question Answer Notes Tobacco use: Former smoker How long has it been since you last smoked? 1-5 years Vital Signs Blood pressure systolic 170 mm Hg 12/04/19 25 Blood pressure diastolic 89 mm Hg 025 Oximetry 97 % 12/04/2024 Height 69 in 12/04/2024 Weight 161 lbs 12/04/2024 BMI 23.77 kg/m2 12/04/2024 Encounters Encounter Location Date Provider Diagnosis [facility] [address] [place] [address] 12/04/2024 Merlyn Hodges Pruritus, unspecifie d L29.9 ; Localized swelling, mass and lump, head R22.0 ; Allergic rhinitis due to pollen J30.1 ; Allergic rhinitis due to animal (cat) (dog) hair and dander J30.81 ; Other allergic rhinitis J30.89 ; Shortness of breath R06.02 and Essential (primary) hypertension I10 Assessments Encounter Date Diagnosis (ICD Code) Assessment Notes Treatment Notes Treatment Clinical Notes Section Notes 12/04/2024 Pruritus, unspecified (ICD-10 - L29.9) Frankie [...] unable to hold antihistamines at this time 12/04/2024 Allergic rhinitis due to animal (cat) (dog) hair and dander (ICD-10 - J30.81) Follow allergen avoidance, meds and consider SCIT as an adjunctive treatment to current regimen 12/04/2024 Other allergic rhinitis (ICD-10 - J30.89) Follow allergen avoidance, meds and consider SCIT as an adjunctive treatment to current regimen 12/04/2024 Shortness of breath (ICD-10 - R06.02) [...] Continue serial checks and follow-up with PCP 12/04/2024 Other Plan Of Treatment Medication Medication Name Sig Start Date Stop Date Notes Famotidine 20 MG 1 tablet Orally Twic e a day for 30 days Montelukast Sodium 10 MG 1 tablet Orally Once a day for 30 days EPINEPHrine 0.3 MG/0.3ML as directed Inj ection as directed for 30 days Cetirizine HCl 10 MG 1 tablet Orally Twi ce a day for 30 days Albuterol Sulfate HFA 108 (9 0 Base) MCG/ACT 1 puff as needed Inhalation every 4 hrs Vanicream - as directed Externally Treatment Notes Assessment Notes Pruritus, unspecified Frankie presents with complaints of pruritus that [...] 4 weeks for further evaluation and management Localized swelling, mass and lump, head Last visit Tejas reported a handful of [...] Consider consult with ENT pending laboratory review Allergic rhinitis due to pollen Frankie presents with complaints of upper airway [...] unable to hold antihistamines at this time Allergic rhinitis due to ani mal (cat) (dog) hair and dander Follow allergen avoidance, meds and consider SCIT as an adjunctive treatment to current regimen Other allergic rhinitis Follow allergen avoidance, meds and consider SCIT as an adjunctive treatment to current regimen Shortness of breath Frankie reports occasional shortness of breath, primarily [...] ICS or ICS/LABA pending review of PFT Essential (primary) hypertension BP elev ated today without symptoms of urgency or emergency. Continue serial checks and follow-up with PCP Next Appt Details Follow Up: 4 Weeks, Reason: Evaluation and Management Progress Notes * Tejas HIRSCHDOB:1960 (63 yo M)Acc No.[id number]:12/04/2024 Progress Notes Patient: Tejas IRVING Provider: QIAN KennedyP-C :1960 A ge:63 Y S ex:Male Date:12/04/2024 Address:[address] [place] [address], [address] Pcp:Cierra Barnes Subjective: * Chief Complaints: * G eneralized pruritus ongoing for years. No history of rashes. Now following skincare regimen and taking Zyrtec BID, Pepcid BID and LTRA at night without benefit. Last visit reported a few episodes of knot in my throat. ARC follow-up: ImmunoCaps ordered by PCP. Taking daily Zyrtec.Chronic lower airways symptoms concerning for possible asthma, occasional shortness of breath with activity. Started on ICS with PCP, recently underwent PFT. * HPI: * Introduction: I had the pleasure of seeing Valeriy harsh Frankie Hirsch, a 63-year-old male withpast medical history significant for memory loss, hypertension, and hypercholesterolemia,who returns for follow-up evaluation. He returns in consultationwith his PCP, NEO Barnes. He is alone for today's visit. Frankie presented to his initial visit withcomplaints of generalized pruritus ongoing for a few years. He denies skinchanges, stating I just itch. He is now using Vanicream products with daily moisturization. He has also been taking Zyrtec BID, Pepcid BID and LTRA at night. Today reports these interventions have not been beneficial. Last visit he also reported having a few episodes of knot in my throat. He states this occurs once in a blue guardado. It occurred once in the last 4 weeks. He denies family history of swelling, no photos to review. Laboratory work ordered previously that showed positive BINU screening, otherwise unremarkable. He denies history of autoimmune condition, does report his sister has lupus. He was instructed to discuss this with his PCP, however Tejas has not done this yet. Frankie also reports upper airway symptoms concerning foruncontrolled atopic disease. His PCP recently ordered aeroallergen ImmunoCaps that showed positive resultsto various seasonal and perennial allergens. Frankie reports occasional nasalcongestion and drainage. He has two dogs in his home. He has never received allergenimmunotherapy. Additionally, Frankie reports occasional shortness of breath.Symptoms primarily occur with activity, such as climbing stairs. He wasrecently started on an ICS by his PCP, however Frankie admits to using thisas-needed. He recently had a PFT completed, results are not available forreview. He denies history of hospitalizations due to lower airway symptoms. Karisas a history of memory loss, managed by neurology per him. Today, he reports no fevers, chills, night sweats or other constitutional symptoms. * ROS: A LLERGY: runny nose Y es. s cratchy throat Y es. i tchy eyes Y es. e ar fullness N o. s inus congestion Y es. P ositive p er the HPI and history, otherwise unremarkable. S PECIAL SENSES: Positve for n one. c ataracts Y es. g laucoma?No. l oss of hearing Y es. i tching in ears Y es. r inging in ears N o.?loss of balance Y es. l oss of smell Y es. d ry eyes N o. e xcessive tearing N o. i tching eyes Y es. l oss of taste Y es. c onjunctivitis Y es. e ar infections N o. C ONSTITUTIONAL: weight gain N o. l oss of appetite Y es. f ever?No. w eakness Y es. w eight loss N o. f atigue Y es. n ight sweats?No. P ositive for n one. E NT: cold N o. c ough Y es. e pistaxis N o. h earing loss Y es. c hange in voice N o. s ore throat Y es. r inging in ears N o. s inus pain Y es. P ositive p er the HPI and history, otherwise unremarkable. R ESPIRATORY: shortness of breath Y es. c hest pain Y es. c hest congestion N o. c ough Y es. P ositive p er the HPI and history, otherwise unremakable. O PHTHALMOLOGY: diminished vision N o. e ye irritation Y es. d rainage from eyes N o. b lurring of vision N o. s easonal eye sx N o. P ositive for p er the HPI and history, otherwise unremarkable. i tching Y es. s ensitivity to light Y es. d ischarge N o. w atering Y es. s welling of the eyelids?No. r edness N o. E NDOCRINOLOGY: fatigue Y es. p olydipsia N o. p olyuria Y es. w eight loss N o. s leep disturbance Y es. c old intolerance N o. h eat intolerance N o. d iabetes N o. P ositive for n one. C ARDIOLOGY: chest pain Y es. p alpitations N o. l eg edema?No. d izziness N o. s hortness of breath Y es. P ositive for n one.? G ASTROENTEROLOGY: dysphagia Y es. a bdominal pain Y es. n ausea?No. v omiting N o. c onstipation Y es. d iarrhea N o. b lood in stool N o. i ndigestion Y es. h emorrhoids N o. P ositive for n one. ? U ROLOGY: difficulty urinating Y es. b lood in urine N o.?frequent urination Y es. u rinary incontinence N o. r ecurrent UTI N o. P ositive for n one. D ERMATOLOGY: rash N o. m ole Y es. l umps N o. d ry or sensitive skin N o. h billie (urticaria) N o. a cne N o. s kin cancer N o. P ositive for p er the HPI and history, otherwise unremakable. N EUROLOGY: headache Y es. t ingling numbness Y es. s eizures N o. i nsomnia N o. m navjot loss Y es. d izziness Y es. g ait abnormality Y es. P ositive for n one. H EMATOLOGY/LYMPH: Positive for n one. M USCULOSKELETAL: joint swelling N o. j oint pain Y es. l eg cramps Y es. j oint stiffness Y es. s ciatica N o. o steoporosis Y es. f racture N o. c arpal tunnel N o. g out N o. P ositive for n one. ? P SYCHOLOGY: high stress level N o. d epression N o. s leep disturbances N o. s uicidal ideation N o. e ating disorder N o. m ental or physical abuse N o. a nxiety N o. P ositive for n one. M IVONE REPRODUCTIVE: difficulty with erection N o. d iminished sexual drive?No. p enile discharge N o. i nfertility N o. F EMALE REPRODUCTIVE: heavy periods N o. h ot flashes N o. a bnormal vaginal discharge N o. s exually active N o. i nfertility N o. f requent yeat infections N o. p elvic pain N o. b reast pain N o. n ipple discharge N o. A re you ? N o. A re you planning on a future pregancy? N o. A ll other review of systems per the HPI and history, otherwise unremarkable. * Medical History: * Surgical History: H and laceration repair 02/21/2021Hand surgery for dupetryns contracture 07/22/2018Hand surgery for dupetryns contracture 07/22/2018Appendectomy 07/22/1972Kidney stone removal 11/06/24 * Hospitalization/Major Diagno stic Procedure: Chacha downs stone removal 07/22/2018 * Family History: F ather: , Yes. M other: , Yes. P aternal Grand Father: No. P aternal Grand Mother: No. M aternal Grand Father: No. M aternal Grand Mother: No. S iblings: Yes. C barbie: Yes. Dad - heart attack mom - stroke. * Social History: M arital Status What is your marital status? d ivorced A lcohol Screening Do you ever drink alcoholic beverages? N o S moking Have you ever smoked tobacco: f ormer smoker Additional Findings: Tobacco Non-User E x-cigarette smoker How old were you when you started smoking? 2 2 How old were you when you quit smoking? 6 0 How many cigarettes a day did you smoke? l ess than 5 Are you a : f ormer smoker R ecreational drug use Have you ever used recreational drugs? N o D etails on consumption of certain products? Do you regularly consume products with aspartame; Equal or NutraSweet? N o Do you regularly consume products with artificial coloring??Yes Have you ever noticed worsening of your rash with these food items? N o A re any of the following personal care products containing fragrance, dye or preservatives used regularly? Shampoo: Y es Conditioner: Y es Soap: Y es Laundry Detergent: Y es Fabric Softener: N o Deodorant: Y es Perfume, cologne, after shave: Y es Air freshners or other scented products: Y es Hair coloring dyes or rinses: N o Other: N o O ccupation Are you currenly employed? N o Have you had any job with high exposure to fumes, chemicals, dust or other noxious substances? N o Are you currently a student? N o E nvironmental History Living environment: a partment,with pets Where is the home located? [place] How long have you lived there? 2 -4 years How many people live in the home? 1 H ome description Basement: Y es Any water damage in basement? Y es Smokers in the home? N o Smokers outside the home? Y es Air Conditioning? Y es Central Air? Y es Forced air heating? Y es Gas or electric? e lectric Fireplace? N o Wood burning stove? N o Do you vacuum the home? Y es Air purification systems? N o Pillow and mattress dust-proof encasings? N o Do you use a humidifier? N o Do you own any pets? Y es What kind(s)? (click all that apply) d og,other indoor pet Where do your pets sleep? a nywhere in the house Fabric softeners used? N o Plants in the home? N o Is there carpeting in your bedroom? Y es Do you have [id number] carpeting? Y es What is the age of your mattress (years)? 1 What is the age of your pillow (years)? 1 Do you sleep with quilts or blankets or a duvet? Y es How many dogs? 2 How many other indoor pets? 1 T obacco Control (Standard) Tobacco use: F ormer smoker How long has it been since you last smoked? 1 -5 years * Medications: T akingVitamin B12 1000 MCG Tablet Extended Release 1 tablet Orally Once a day Iron (Ferrous Sulfate) 325 (65 Fe) MG Tablet 1 tablet Orally Three times a Week Vitamin C 500 MG Capsule as directed Orally Calcitriol 0.25 MCG Capsule 1 capsule Orally Three times a Week Acetaminophen 500 MG Capsule 1 capsule as needed Orally every 6 hrs Donepezil HCl 10 MG Tablet 1 tablet at bedtime Orally Once a day Memantine HCl 10 MG Tablet 1 tablet Orally Once a day Aspirin 81 MG Tablet Delayed Release 1 tablet Orally Once a day amLODIPine Besylate 5 MG Tablet 1 tablet Orally Once a day Losartan Potassium 25 MG Tablet 1 tablet Orally Once a day Vanicream - Ointment as directed Externally Cetirizine HCl 10 MG Tablet 1 tablet Orally Twice a day Albuterol Sulfate HFA 108 (90 Base) MCG/ACT Aerosol Solution 1 puff as needed Inhalation every 4 hrs Famotidine 20 MG Tablet 1 tablet Orally Twice a day Montelukast Sodium 10 MG Tablet 1 tablet Orally Once a day EPINEPHrine 0.3 MG/0.3ML Solution Auto-injector as directed Injection as directed Medication List reviewed and reconciled with the patientTaking Vitamin B12 1000 MCG Tablet Extended Release 1 tablet Orally Once a day Taking Iron (Ferrous Sulfate) 325 (65 Fe) MG Tablet 1 tablet Orally Three times a Week Taking Vitamin C 500 MG Capsule as directed Orally Taking Calcitriol 0.25 MCG Capsule 1 capsule Orally Three times a Week Taking Acetaminophen 500 MG Capsule 1 capsule as needed Orally every 6 hrs Taking Donepezil HCl 10 MG Tablet 1 tablet at bedtime Orally Once a day Taking Memantine HCl 10 MG Tablet 1 tablet Orally Once a day Taking Aspirin 81 MG Tablet Delayed Release 1 tablet Orally Once a day Taking amLODIPine Besylate 5 MG Tablet 1 tablet Orally Once a day Taking Losartan Potassium 25 MG Tablet 1 tablet Orally Once a day Taking Vanicream - Ointment as directed Externally Taking Cetirizine HCl 10 MG Tablet 1 tablet Orally Twice a day Taking Albuterol Sulfate HFA 108 (90 Base) MCG/ACT Aerosol Solution 1 puff as needed Inhalation every 4 hrs Taking Famotidine 20 MG Tablet 1 tablet Orally Twice a day Taking Montelukast Sodium 10 MG Tablet 1 tablet Orally Once a day Taking EPINEPHrine 0.3 MG/0.3ML Solution Auto-injector as directed Injection as directed Medication List reviewed and reconciled with the patient * Allergies: N .K.D.A.no[Allergies Verified] Objective: * Vitals: B P:170/89mm Hg, HR:61/min, Pulse Oximetry:97%, Ht: 69 in, Wt: 161 lbs, BMI:23.77Index. * Examination: G eneral examination: General appearance: p leasant, well-developed, well-nourished, male, i n no apparent distress, speaking in full sentences. HEENT: c onjunctiva are normal bilaterally. Oral cavity: n ormal, no lesions. Breasts : n ot performed. Heart: R RR, S1-S2, no murmurs, no rubs, no gallops. Lungs: c lear to auscultation in all lung malik, no wheezes, no crackles, no rhonchi. Neurologic exam: u nremarkable. Skin: n ormal, no visible rash, dermatographism, urticaria, angioedema. Back: n ormal. Extremities: n ormal ROM, no clubbing, no cyanosis, no edema. Genitalia: n ot performed. Assessment: * Assessment: 1. P ruritus, unspecified - L29.9 (Primary) 2 . L ocalized swelling, mass and lump, head - R22.0 3 . A llergic rhinitis due to pollen - J30.1 ?4. A llergic rhinitis due to animal (cat) (dog) hair and dander - J30.81 5 . Other allergic rhinitis - J30.89 6 . S hortness of breath - R06.02 ? 7 . E ssential (primary) hypertension - I10 Plan: * Treatment: 2. L ocalized swelling, mass and lump, head Refill EPINEPHrine Solution Auto-injector, 0.3 MG/0.3ML, as directed, Injection, as directed, 30 days, 1, Refills 0. L AB: C1 INHIBITOR, FUNCTIONAL L AB: C1 INHIBITOR, PROTEIN L AB: COMPLEMENT COMPONENT C4C L AB: COMPLEMENT, TOTAL (CH50) Notes: Last visit Tejas reported a handful of [...] Consider consult with ENT pending laboratory review 3. A llergic rhinitis due to pollen Notes: Frankie presents with complaints of upper airway [...] unable to hold antihistamines at this time 4. A llergic rhinitis due to animal (cat) (dog) hair and dander Notes: Follow allergen avoidance, meds and consider SCIT as an adjunctive treatment to current regimen 5. O ther allergic rhinitis Notes: Follow allergen avoidance, meds and consider SCIT as an adjunctive treatment to current regimen 6. S hortness of breath Continue Albuterol Sulfate HFA Aerosol Solution, 108 (90 Base) MCG/ACT, 1 puff as needed, Inhalation, every 4 hrs. Notes: Frankie reports occasional shortness of breath, primarily [...] ICS or ICS/LABA pending review of PFT 7. E ssential (primary) hypertension Notes: BP elevated today without symptoms of urgency or emergency. Continue serial checks and follow-up with PCP * Procedure Codes: G 8427 DOC MEDS VERIFIED W/PT OR RE * Preventive Medicine: Counseling: D iet a s tolerated. E xercise C onsider GEORGE use PRN, prior to exercise as per the asthma action plan. M edication instruction: W atch for side effects of prescribed medications, Injectable epinephrine education and instruction w/ discussion of signs and symptoms of anaphylaxis and reasons to seek urgent or emergent care. E ducation: G ENERAL EDUCATION: Our staff spent an additional 30 minutes in direct contact with the patient educating them on their current diagnoses and proper treatment and prevention of symptoms and the proper use of medications, SKIN CARE EDUCATION:, Skin care regimen reviewed with patient, Daily bathing to add moisture to skin, Apply moisturizing cream head-to-toe to lock in moisture within 2 minutes of exiting bath, Avoid fragrances, dyes, preservatives in personal care products. P atient education material sent to portal? Y es B P Management: LIFESTYLE RECOMMENDATION: H ypertension education REFERRAL TO ALTERNATIVE / PRIMARY CARE PROVIDER: Adonis adams to general practitioner * Follow Up: 4 Weeks (Reason: Evaluation and Management) * Billing Information: * Visit Code: 31770 Office Visit, Est Pt., Level 4. Modifiers: 25 * Procedure Codes: G8427 DOC MEDS VERIFIED W/PT OR RE. * [employer] Electronically co-signed by Michael Washburn MD, FAAAAI on 12/04/2024 at 02:15 PM [employer] Sign off status: Completed true * Provider: Genie Hodges DNP TIME MOTION ANALYST-C Date: 0 12/04/2024 Generated for Paul hernandez/Sowmya/Bharti on: 0 01/02/2025 03:55 PM [employer] History and Physical Notes * HPI (History of Present Illness) Category Sub-Category Detail Notes Category Not es *Introduction I had the pleasure o f seeing Tejas Hirsch, a 63-year-old male with past medical history significant for memory loss, hypertension, and hypercholesterolemia, who returns for follow-up evaluation. He returns in consultation with his PCP, NEO Barnes. He is alone for today's visit. Frankie presented to his initial visit with complaints of generalized pruritus ongoing for a few years. He denies skin changes, stating I just itch. He is now using Vanicream products with daily moisturization. He has also been taking Zyrtec BID, Pepcid BID and LTRA at night. Today reports these interventions have not been beneficial. Last visit he also reported having a few episodes of knot in my throat. He states this occurs once in a blue guardado. It occurred once in the last 4 weeks. He denies family history of swelling, no photos to review. Laboratory work ordered previously that showed positive BINU screening, otherwise unremarkable. He denies history of autoimmune condition, does report his sister has lupus. He was instructed to discuss this with his PCP, however Tejas has not done this yet. Frankie also reports upper airway symptoms concerning for uncontrolled atopic disease. His PCP recently ordered aeroallergen ImmunoCaps that showed positive results to various seasonal and perennial allergens. Frankie reports occasional nasal congestion and drainage. He has two dogs in his home. He has never received allergen immunotherapy. Additionally, Frankie reports occasional shortness of breath. Symptoms primarily occur with activity, such as climbing stairs. He was recently started on an ICS by his PCP, however Frankie admits to using this as-needed. He recently had a PFT completed, results are not available for review. He denies history of hospitalizations due to lower airway symptoms. Frankie has a history of memory loss, managed by neurology per him. Today, he reports no fevers, chills, night sweats or other constitutional symptoms Examination Category Sub-Category Detail Notes Category Not es General examination HEENT: conjunctiva are serg l bilaterally Heart: RRR, S1-S2, no murmu rs, no rubs, no gallops Lungs: clear to auscultatio n in all lung malik, no wheezes, no crackles, no rhonchi Extremities: normal ROM, no clubb ing, no cyanosis, no edema General appearance: pleasant, well-devel oped, well-nourished, male, in no apparent distress, speaking in full sentences Skin: normal, no visible r heather, dermatographism, urticaria, angioedema Neurologic exam: unremarkable Oral cavity: normal, no lesions Breasts : not performed Back: normal Genitalia: not performed
--- OUTSIDE RECORDS SUMMARY | 2025-01-02 15:56 | XMS_ITS | Clinical Summary ---
Author Organization [address] Address [address] [place] [address] Care Team Providers Care Kier Operator Name Role Phone Cierra Barnes MD Primary Care Provider [phone] Allergies No known active allergies Medications albuterol [...] Dizziness and giddiness 05/26/2021 Neck mass 05/26/2021 Surgical History Surgery Date Site/Laterality Comments HAND SURGERY COLONOSCOPY FL FLUORO GUIDED LUMBAR PUNCTURE 02/09/2023 Right Medical History Medical History Date Comments Allergic rhinitis Hypertension Family History Medical History Relation Name Comments Hypertension Mother Stroke Mother Relation Name Status Comments Mother Social History Tobacco Use Types Packs/Day Years Used Date Smoking Tobacco: Some Days Cigars Smokeless Tobacco: Never Tobacco Cessation:Ready to Q uit: Not Asked; Counseling Given: Not Answered Personal Safety Answer Date Recorded Getting School Help Needed Not on file 02/21 Sex and Gender Information Value Date Recorded Sex Assigned at Not on file 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 Gender Identity Not on file Sexual Orientation Not on file Obstetrics History Last Filed Vital Signs Vital Sign Reading Time Taken Comments Blood Pressure 113/69 07/20/2024 11:55 AM CDT Pulse 72 07/20/2024 11:55 AM CDT Temperature 37.6 C (99.6 F) 02/14/2023 6:06 PM CDT Respiratory Rate 18 11/07/2023 1:07 PM DRILL SHARPENER OPERATOR Oxygen Saturation 94% 07/20/2024 11:55 AM CDT Inhaled Oxygen Concentration - - Weight 75.3 kg (166 lb) 07/20/2024 11:55 AM CDT Height 175.3 cm (5' 9 ) 07/20/2024 11:55 AM CDT Body Mass Index 24.51 07/20/2024 11:55 AM CDT Plan of Treatment Health Maintenance Due Date Last Done Comments Colon Cancer Screening-Colonoscopy 1960 Depression Screening 1960 Hepatitis C Screening 1960 Prostate Cancer Screening-PSA 1960 Hepatitis B Screening 1980 Regular Well Visit/Exam 18-64 1980 Covid-19 Vaccine (5 - 2023-2 5 season) 2024 01/02/2023, 03/19/2022, 04/08/2021, Additional history exists Influenza Vaccine (#1) 2024 3, 01/02/2023, 10/01/2021, Additional history exists Pneumococcal vaccine <65 (3 of 3 - PPSV23 or PCV20) 2027 09/12/2019, 01/23/2019 DTaP/Tdap/Td Vaccine (2 - Td or Tdap) 05/22/2028 05/22/2018 Zoster Vaccine Completed 07/17/2019, 05/17/2019 Insurance IDPA [facility] Fylet IDAK * Guarantor: Tejas Matthews Account Type Relation to Patient Date of Phone Billing Address Personal/Family Self [id number] [place] [address] IDAK Advance Directives For more information, please contact: [phone] * Full Code (Latest Code Status on File) Date Activated Date Inactivated Comments 02/09/2023 7:52 AM 02/10/2023 4:37 AM Care Teams Kier Operator Relationship Specialty Start Date End Date Cierra Barnes MD [address] [address] PCP - General Nurse Practitioner 07/20/24
--- OUTSIDE RECORDS SUMMARY | 2025-01-02 15:56 | XMS_ITS | Encounter Summary ---
Author Organization [facility] Address [address] [place] [address] Care Team Providers Care Script Writer Name Role Phone Ghada Enamorado NP Primary Care Provider Ghada Joseph NP Primary Care Provider Rosalba CallesNP Unavailable [phone] Kayli Berry MD Primary Care Provider [phone] Cierra Barnes NP Primary Care Provider + [phone] Chana Mann RN Unavailable [phone] Encounter Details Date Type Department Care Team (Late st Contact Info) Description 05/27/2019 MyChart Message Enc [facility] Family & Internal Medicine [address] [address] Ghada Enamorado NP RE: Medication Questions Social History Tobacco Use Types Packs/Day Years [...] PM CDT Office Visit [facility] Family Medicine - [place] [address] [facility] [address] [place] [address] Cierra Barnes, NEO [address] [place] [address] documented as of this encounter Visit Diagnoses Not on filedocumented in this encounter Additional Health Concerns Infection Onset Date Last Indicated Resolved Time COVID-19 Rule Out 12/09/2020 12/09/2020 12/10/2020 12:16 PM ARTIFICIAL BREAST FABRICATOR COVID-19 Rule Out 12/27/2020 12/27/2020 12/28/2020 4:56 PM ARTIFICIAL BREAST FABRICATOR COVID-19 Rule Out 03/03/2021 03/03/2021 03/03/2021 3:11 PM CDT documented as of this encounter Care Teams Script Writer Relationship Specialty Start Date End Date Ghada Enamorado NP PCP - General Nurse Practitioner Family 07/05/19 07/08/19 Ghada Enamorado NP PCP - General Nurse Practitioner Family 07/09/19 07/20/20 Rosalba Mancilla APNP [address] [place] [address] PCP - Med Group - MSSP Attributed Provider 08/21/17 11/20/22 Kayli Berry MD [address] [place] [address] PCP - General INTERNAL MEDICINE 07/21/20 01/18/22 Cierra Barnes NP [address] [place] [address] PCP - General NURSE PRACTITIONER 02/16/23 Chana Mann, RN [address] [place] [address] Gas Engineer (Ambulatory) REGISTERED NURSE 10/23/24 11/07/24 documented as of this encounter
--- OUTSIDE RECORDS SUMMARY | 2025-01-02 15:56 | XMS_ITS | Patient Health Summary ---
Author Organization [facility] Address [address] [place] [address] Care Team Providers Care Tour Production Supervisor Name Role Phone Chioma Arias BERTO Primary Care Provider [phone] Note from [facility] [place],non-owned Affiliates and Associated Physician Practices is amultiple site organization consisting of ambulatory clinics and hospital sitesin [place], [place], [place] and [place]. This disclosure is being madepursuant to the Care Everywhere program and may not contain all information available regarding this patient. Last updated 18.[facility] Allergies No known active allergies Medications * Be aware that medications may not be up to date on this document. Alwaysverify current medications with the patient. * naproxen (Naprosyn) 500 MG tablet(Started 09/13/2022) Take 1 (one) tablet by mouth 2 times daily Social History Tobacco Use Types Packs/Day Years [...] Mass Index 24.51 09/23/2022 1:57 PM CDT Procedures * XR FINGERS LEFT 2VW OR MORE(Performed 10/08/2022) Performed for Open fracture of middle phalanx of left index finger with routine healing * XR FINGERS LEFT 2VW OR MORE(Performed 09/23/2022) Performed for Injury of flexor tendon of left hand, initial encounter, Flexor tendon laceration of finger with open wound, initial encounter * XR HAND LEFT 3VW OR MORE(Performed 09/13/2022) Performed for Laceration of left index finger without damage to nail, foreign body presence unspecified, subsequent encounter * XR HAND LEFT 2VW(Performed 09/12/2022) Performed for Laceration of left index finger without damage to nail, foreign body presence unspecified, subsequent encounter Results * XR FINGERS LEFT 2VW OR MORE (10/08/2022 9:54 AM ENTRANCE GUARD) Only the most recent of2 resultswithin the time period is included. Anatomical Region Laterality Modality Upper Extremity, Wrist / Hand Ra diographic Imaging 10/08/2022 9:55 AM ENTRANCE GUARD Impressions 10/08/2022 10:35 AM ENTRANCE GUARD IMPRESSION: Unchanged alignment of second digit phalangeal tuft and second digit middle phalanx fracture. > Dictated by Jamir Vargas MD (president practicing urologist) I, Madi Degroot MD have personally reviewed and interpreted this examination/study. > Interpreting Provider: Madi Degroot MD on 10/08/2022 10:35 AM Narrative 10/08/2022 10:35 AM ENTRANCE GUARD PROCEDURE: XR FINGERS LEFT 2VW OR MORE, DATE/TIME OF EXAM: 10/08/2022 9:54 AM, LOCATION [facility] INDICATION: S62.621D: Open fracture of middle phalanx of left index finger with routine healing ADDITIONAL CLINICAL INFORMATION: Ordering Provider Reason For Exam: fx f/u COMPARISON: Left finger radiograph 09/23/2022 FINDINGS: Redemonstration of second digit phalangeal tuft and second digit middle phalanx fractures. The osseous alignment is unchanged. Mild soft tissue swelling is noted. Procedure Note Madi Degroot MD - 10/08/2022 PROCEDURE: XR FINGERS LEFT 2VW OR MORE, DATE/TIME OF EXAM: 10/08/2022 9:54 AM, LOCATION [facility] INDICATION: S62.621D: Open fracture of middle phalanx of left index finger withroutine healing ADDITIONAL CLINICAL INFORMATION: Ordering Provider Reason For Exam: fx f/u COMPARISON: Left finger radiograph 09/23/2022 FINDINGS: Redemonstration of second digit phalangeal tuft and second digit middle phalanx fractures. The osseous alignment is unchanged. Mild soft tissue swelling is noted. IMPRESSION: Unchanged alignment of second digit phalangeal tuft and second digitmiddle phalanx fracture. > Dictated by Jamir Vargas MD (president practicing urologist) I, Madi Degroot MD have personally reviewed and interpreted this examination/study. > Interpreting Provider: Madi Degroot MD on 10/08/2022 10:35 AM Emelia Valdez PA-C DIAGNOSTIC IMAGING ORDERABLES * XR HAND LEFT 3VW OR MORE (09/13/2022 1:21 AM CDT) Anatomical Region Laterality Modality Wrist / Hand Radiographic Misti ging 09/13/2022 2:58 AM CDT Narrative 09/13/2022 8:41 AM CDT PROCEDURE: XR HAND LEFT 3VW OR MORE, DATE/TIME OF EXAM: 09/13/2022 1:21 AM, LOCATION [facility] INDICATION: S61.211D: Laceration of left index finger without damage to nail, foreign body presence unspecified, subsequent encounter ADDITIONAL CLINICAL INFORMATION: Ordering Provider Reason For Exam: index injury COMPARISON: 09/12/2022 FINDINGS/IMPRESSION: Splint obscures bony and soft tissue details. Redemonstrated small mildly displaced fracture at the shaft of the second digit middle phalanx. Minimally displaced tuft fracture of the second digit distal phalanx is better visualized on the prior x-ray. Report dictated by Arie Rivera MD (president practicing urologist). Alejandro Santiago have personally reviewed and interpreted this examination/study. > Interpreting Provider: Alejandro Anders on 09/13/2022 8:41 AM Procedure Note Alejandro Anders MD - 09/13/2022 PROCEDURE: XR HAND LEFT 3VW OR MORE, DATE/TIME OF EXAM: :21 AM, LOCATION [facility] INDICATION: S61.211D: Laceration of left index finger without damage to nail,foreign body presence unspecified, subsequent encounter ADDITIONAL CLINICAL INFORMATION: Ordering Provider Reason For Exam: index injury COMPARISON: 09/12/2022 FINDINGS/IMPRESSION: Splint obscures bony and soft tissue details. Redemonstrated small mildly displaced fracture at the shaft of thesecond digit middle phalanx. Minimally displaced tuft fracture of the second digit distal phalanx is better visualized on the prior x-ray. Report dictated by Arie Rivera MD (president practicing urologist). Alejandro Santiago have personally reviewed and interpreted this examination/study. > Interpreting Provider: Alejandro Anders on 09/13/2022 8:41 AM Dhiraj Brandt MD DIAGNOSTIC IMAGING ORDERABLES * XR HAND LEFT 2VW (09/12/2022 10:13 PM CDT) Anatomical Region Laterality Modality Wrist / Hand Radiographic Misti ging 09/12/2022 11:4 3 PM CDT Impressions 09/13/2022 8:20 AM CDT IMPRESSION: Mildly displaced fracture at the shaft of the second digit middle phalanx. Minimally displaced tuft fracture of the second digit distal phalanx. Report dictated by Arie Rivera MD (president practicing urologist). Alejandro Santiago have personally reviewed and interpreted this examination/study. > Interpreting Provider: Alejandro Anders on 09/13/2022 8:20 AM Narrative 09/13/2022 8:20 AM CDT PROCEDURE: XR HAND LEFT 2VW, DATE/TIME OF EXAM: 09/12/2022 10:13 PM, LOCATION [facility] INDICATION: S61.211D: Laceration of left index finger without damage to nail, foreign body presence unspecified, subsequent encounter ADDITIONAL CLINICAL INFORMATION: Ordering Provider Reason For Exam: r/o index fracture; r/o retained foreign body COMPARISON: None. FINDINGS: External dressing obscures bony and soft tissue details. There is a small mildly displaced fracture at the shaft of the second digit middle phalanx. In addition there is a minimally displaced tuft fracture of the second digit distal phalanx. The joint spaces are preserved. Bone density and texture are normal. Soft tissue swelling is present surrounding the second digit. Procedure Note Alejandro Anders MD - 09/13/2022 PROCEDURE: XR HAND LEFT 2VW, DATE/TIME OF EXAM: 09/12/2022 10:13 PM, LOCATION [facility] INDICATION: S61.211D: Laceration of left index finger without damage to nail,foreign body presence unspecified, subsequent encounter ADDITIONAL CLINICAL INFORMATION: Ordering Provider Reason For Exam: r/o index fracture; r/o retained foreign body COMPARISON: None. FINDINGS: External dressing obscures bony and soft tissue details. There is a small mildly displaced fracture at the shaft of the seconddigit middle phalanx. In addition there is a minimally displaced tuft fractureof the second digit distal phalanx. The joint spaces are preserved. Bone density and texture are normal. Soft tissue swelling is presentsurrounding the second digit. IMPRESSION: Mildly displaced fracture at the shaft of the second digit middle phalanx. Minimally displaced tuft fracture of the second digit distal phalanx. Report dictated by Arie Rivera MD (president practicing urologist). Alejandro Santiago have personally reviewed and interpreted this examination/study. > Interpreting Provider: Alejandro Anders on 09/13/2022 8:20 AM Andrea Foote PA-C DIAGNOSTIC IMAGING ORDERABLES Care Teams Tour Production Supervisor Relationship Specialty Start Date End Date Chioma Arias APRN-CHRISTINA [address] [phone] PCP - General Nurse Practitioner Family 09/12/22
--- OUTSIDE RECORDS SUMMARY | 2025-01-02 15:56 | XMS_ITS | Encounter Summary ---
Author Organization [facility] Address [address] [place] [address] Care Team Providers Care Master Coastal Waters Name Role Phone Rosalba Mancilla Rito APNP Unavailable [phone] Kayli Berry MD Primary Care Provider [phone] Cierra Barnes NP Primary Care Provider [phone] Chana Mann RN Unavailable [phone] Encounter Details Date Type Department Care Team (Late st Contact Info) Description 11/28/2020 Mamina Shkola Message Enc [facility] Family & Internal Medicine [address] [address] Nitin, [facility] Provider Results Social History Tobacco Use Types Packs/Day [...] have Coronavirus / COVID-19? No / Unsure 11/28/2020 2:25 PM LEAD COOK documented as of this encounter Plan of Treatment Upcoming Encounters Date Type Department Care Team (Late st Contact Info) Description 05/16/2025 1:20 PM CDT Office Visit [facility] Family Medicine - [place] [address] [facility] [address] [place], [place] [address] Cierra Barnes NP [address] [place], [place] [address] documented as of this encounter Visit Diagnoses Not on filedocumented in this encounter Additional Health Concerns Infection Onset Date Last Indicated Resolved Time COVID-19 Rule Out 12/09/2020 12/09/2020 12/10/2020 12:16 PM LEAD COOK COVID-19 Rule Out 12/27/2020 12/27/2020 12/28/2020 4:56 PM LEAD COOK COVID-19 Rule Out 03/03/2021 03/03/2021 03/03/2021 3:11 PM CDT documented as of this encounter Care Teams Master Coastal Waters Relationship Specialty Start Date End Date Rosalba Mancilla APNP [address] [place] [address] PCP - Med Group - MSSP Attributed Provider 08/21/17 11/20/22 Kayli Berry MD [address] [place] [address] PCP - General INTERNAL MEDICINE 07/21/20 01/18/22 Cierra Barnes NP [address] [place] [address] PCP - General NURSE PRACTITIONER 02/16/23 Chana Mann RN [address] [place] [address] Receptionist Telephone Operator (Ambulatory) REGISTERED NURSE 10/23/24 11/07/24 documented as of this encounter
--- OUTSIDE RECORDS SUMMARY | 2025-01-02 15:56 | XMS_ITS | Encounter Summary ---
Author Organization [facility] Address [address] [place] [address] Care Team Providers Care Cat Swamper Name Role Phone Rosalba Mancilla APNP Unavailable [phone] Kayli Berry MD Primary Care Provider [phone] Cierra Barnes NP Primary Care Provider + [phone] Chana Mann RN Unavailable [phone] Encounter Details Date Type Department Care Team (Late st Contact Info) Description 02/18/[address] [facility] [address] [place], [place] [id number] Lisa Aquino MD [address] [place] [address] Social History Tobacco Use Types Packs/Day Years Used Date Smoking Tobacco: Some Days Cigarettes Cigars Smokeless Tobacco: Never Comments:Once in a while Alcohol Use Standard Drinks/Week Comments No 0 [...] have Coronavirus / COVID-19? No / Unsure 02/18/2021 10:51 AM CDT documented as of this encounter Plan of Treatment Upcoming Encounters Date Type Department Care Team (Late st Contact Info) Description 05/16/2025 1:20 PM CDT Office Visit [facility] Family Medicine - [place] [address] [facility] [address] [place] [address] Cierra Barnes NP [address] [place], [place] [address] documented as of this encounter Visit Diagnoses Diagnosis Preop testing- Primary Preoperative examination, unspecified documented in this encounter Additional Health Concerns Infection Onset Date Last Indicated Resolved Time COVID-19 Rule Out 03/03/2021 03/03/2021 03/03/2021 3:11 PM CDT documented as of this encounter Care Teams Cat Swamper Relationship Specialty Start Date End Date Rosalba Mancilla APNP [address] [place] [address] PCP - Med Group - MSSP Attributed Provider 08/21/17 11/20/22 Kayli Berry MD [address] [place] [address] PCP - General INTERNAL MEDICINE 07/21/20 01/18/22 Cierra Barnes NP [address] [place], [place] [address] PCP - General NURSE PRACTITIONER 02/16/23 Chana Mann RN [address] [place] [address] Theatrical Rigger (Ambulatory) REGISTERED NURSE 10/23/24 11/07/24 documented as of this encounter
--- OUTSIDE RECORDS SUMMARY | 2025-01-02 15:56 | XMS_ITS | Encounter Summary ---
Author Organization [facility] Address [address] [place] [address] Care Team Providers Care Head Filter Tank Tender Helper Name Role Phone Chioma Arias NP Primary Care Provider [phone] Cierra Barnes MD Primary Care Provider [phone] Encounter Details Date Type Department Care Team (Late st Contact Info) Description 02/08/2023 Telephone [facility] [address] [place] [address] Shannon Rizzo, FAYE Social History Tobacco Use Types Packs/Day Years Used Date Smoking Tobacco: Some Days Cigars Smokeless Tobacco: Never Sex and Gender Information Value Date Recorded Sex Assigned at Not on file 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
--- OUTSIDE RECORDS SUMMARY | 2025-01-02 15:56 | XMS_ITS | Encounter Summary ---
Author Organization [facility] Address [address] [place] [address] Care Team Providers Care Radio Board Operator Name Role Phone Rosalba Mancilla APNP Unavailable [phone] Kayli Berry MD Primary Care Provider [phone] Cierra Barnes NP Primary Care Provider [phone] Chana Mann RN Unavailable [phone] Encounter Details Date Type Department Care Team (Late st Contact Info) Description 07/23/2020 [place] Message Enc [facility] Family & Internal Medicine [address] [address] Nitin, [facility] Provider Social History Tobacco Use Types Packs/Day Years [...] Description 05/16/2025 1:20 PM CDT Office Visit [facility] Family Medicine - [place] [address] [facility] [address] [place], [place] [address] Cierra Barnes NP [address] [place] [address] documented as of this encounter Visit Diagnoses Not on filedocumented in this encounter Additional Health Concerns Infection Onset Date Last Indicated Resolved Time COVID-19 Rule Out 12/09/2020 12/09/2020 12/10/2020 12:16 PM PHYSICIAN OFFICE ASSISTANT COVID-19 Rule Out 12/27/2020 12/27/2020 12/28/2020 4:56 PM PHYSICIAN OFFICE ASSISTANT COVID-19 Rule Out 03/03/2021 03/03/2021 03/03/2021 3:11 PM CDT documented as of this encounter Care Teams Radio Board Operator Relationship Specialty Start Date End Date Rosalba Mancilla APNP [address] [place] [address] PCP - Med Group - MSSP Attributed Provider 08/21/17 11/20/22 Kayli Berry MD [address] [place] [address] PCP - General INTERNAL MEDICINE 07/21/20 01/18/22 Cierra Barnes NP [address] [place] [address] PCP - General NURSE PRACTITIONER 02/16/23 Chana Mann RN [address] [place] [address] Career Developer (Ambulatory) REGISTERED NURSE 10/23/24 11/07/24 documented as of this encounter
--- OUTSIDE RECORDS SUMMARY | 2025-01-02 15:56 | XMS_ITS | Encounter Summary ---
Author Organization [facility] Address [address] [place] [address] Care Team Providers Care University Teacher Name Role Phone Ghada Enamorado WASTEWATER TREATMENT OPERATOR Primary Care Provider Ghada Joseph NP Primary Care Provider Rosalba CallesNP Unavailable [phone] Kayli Berry MD Primary Care Provider [phone] Cierra Barnes NP Primary Care Provider [phone] Chana Mann RN Unavailable [phone] Encounter Details Date Type Department Care Team (Late st Contact Info) Description 04/28/2019 Abstract [facility] CONVERSION [address] [place], [place] [id number] , Yeyo Angel MD Social History Tobacco Use Types Packs/Day Years [...] Description 05/16/2025 1:20 PM CDT Office Visit [facility] Family Medicine - [place] [address] [facility] [address] [place] [address] Cierra Barnes, NEO [address] [place] [address] documented as of this encounter Visit Diagnoses Not on filedocumented in this encounter Additional Health Concerns Infection Onset Date Last Indicated Resolved Time COVID-19 Rule Out 12/09/2020 12/09/2020 12/10/2020 12:16 PM CORONER/MEDICAL EXAMINER COVID-19 Rule Out 12/27/2020 12/27/2020 12/28/2020 4:56 PM CORONER/MEDICAL EXAMINER COVID-19 Rule Out 03/03/2021 03/03/2021 03/03/2021 3:11 PM CDT documented as of this encounter Care Teams University Teacher Relationship Specialty Start Date End Date Ghada Enamorado NP PCP - General Nurse Practitioner Family 07/05/19 07/08/19 Ghada Enamorado NP PCP - General Nurse Practitioner Family 07/09/19 07/20/20 Rosalba Mancilla APNP [address] [place] [address] PCP - Med Group - MSSP Attributed Provider 08/21/17 11/20/22 Kayli Berry MD [address] [place] [address] PCP - General INTERNAL MEDICINE 07/21/20 01/18/22 Cierra Barnes, NEO [address] [place] [address] PCP - General NURSE PRACTITIONER 02/16/23 Chana Mann, RN [address] [place] [address], [place] [address] Behavioral Therapist (Ambulatory) REGISTERED NURSE 10/23/24 11/07/24 documented as of this encounter
--- OUTSIDE RECORDS SUMMARY | 2025-01-02 15:56 | XMS_ITS ---
Author Organization [facility] Address [address] [place] [address] Care Team Providers Care Die Set Up Worker Name Role Phone Cierra Barnes Primary Care Provider Unavailab Merlyn Thakkar [phone] REASON FOR VISIT Allergy Benefits/OOP Information Encounters Encounter Location Date Provider Diagnosis [facility] [address] [place] [address] 12/02/2024 Merlyn Hodges Plan Of Treatment No Information Progress Notes * Tejas HIRSCHDOB:1960 (63 yo M)Acc No.[id number]:12/02/2024 Patient: Tejas IRVING :1960 A ge:63 Y S ex:Male Address:[address], [address], [place] [address] * true * Date: Generated for Printi ng/Faxing/eTransmitting on: 0 01/02/2025 03:55 PM LOSS PREVENTION OPERATIONS MANAGER
--- OUTSIDE RECORDS SUMMARY | 2025-01-02 15:57 | XMS_ITS | Clinical Summary ---
Author Organization [facility] Address [address] [place] [address] Care Team Providers Care Financial Systems Analyst Name Role Phone Cierra Barnes NP Primary Care Provider [phone] Allergies No known active allergies Medications vitamin B-12 (CYANOCOBALAMIN) (CYANOCOBALAMIN) 1000 mcg tabletIndications: B12 deficiency Take 1 tablet (1,000 mcg total) by mouth once a week. 90 tablet 1 03/03/20 23 Active vitamin D3 (CHOLECALCIFEROL) 25 mcg tabletIndications: Vitamin D deficiency Take 1 tablet (25 mcg total) by mouth daily. 90 tablet 1 04/04/20 23 Active vitamin C (ASCORBIC ACID) 500 MG tabletIndications: Vitamin C deficiency Take 1 tablet (500 mg total) by mouth daily. 90 tablet 1 02/08/20 24 Active acetaminophen-code ine (TYLENOL #4) 300-60 MG tablet Take 1 tablet by mouth daily. 04/14/20 24 Active memantine (NAMENDA) 10 MG tablet Take 1 tablet (10 mg total) by mouth 2 (two) times daily. 05/05/20 24 Active ondansetron (ZOFRAN-ODT) 4 MG disintegrating tabletIndications: Gastroenteritis,Ep igastric pain Take 1 tablet (4 mg total) by mouth every 8 (eight) hours as needed. 15 tablet 08/04/20 24 Active donepezil (ARICEPT) 10 MG Tab Take 1 tablet (10 mg total) by mouth nightly at bedtime. 07/20/20 24 Active polyethylene glycol (GLYCOLAX) packet Take 240 mLs (17 g total) by mouth daily as needed for Constipation. Dissolve powder in 240 mL water 10 each 10/23/20 24 Active aspirin (CVS ASPIRIN) 325 MG tabletIndications: Hypertension, unspecified type,Kidney stone Take 1 tablet (325 mg total) by mouth daily. Resume in 1 week 90 tablet 11/06/20 24 Active tamsulosin (FLOMAX) 0.4 MG CapIndications:Uri nary frequency,Kidney stone Take 1 capsule (0.4 mg total) by mouth nightly at bedtime. 90 capsule 11/06/20 24 Active HYDROcodone-acetam inophen (NORCO) 5-325 MG tabletIndications: Acute Pain < 7 Day Supply Take 1 tablet by mouth every 6 (six) hours as needed for Pain. Indications: Acute Pain < 7 Day Supply 21 tablet 11/06/20 24 Active Additional Information Patient not taking.Reported on 11/15/2024 amLODIPine (NORVASC) 5 MG tabletIndications: Hypertension, unspecified type Take 1 tablet by mouth once daily 90 tablet 1 11/30/19 25 Active rosuvastatin (CRESTOR) 20 MG tabletIndications: Hyperlipidemia, unspecified hyperlipidemia type TAKE 1 TABLET BY MOUTH NIGHTLY AT BEDTIME 90 tablet 1 11/30/19 25 Active Blood Pressure Monitoring DeviceIndications: Hypertension, unspecified type Use to monitor blood pressure daily 1 each 11/30/19 25 Active losartan (COZAAR) 25 MG tabletIndications: Hypertension, unspecified type Take 1 tablet by mouth once daily 90 tablet 1 12/03/19 25 Active albuterol sulfate HFA 108 (90 Base) MCG/ACT inhalerIndications :Shortness of breath on exertion Inhale 2 puffs into the lungs every 4 (four) hours as needed. 9 g 1 12/31/19 25 Active cetirizine (ZYRTEC) 10 MG tabletIndications: Seasonal allergies Take 1 tablet (10 mg total) by mouth daily. 90 tablet 1 12/31/19 25 Active cetirizine 10 MG tablet Take 1 tablet (10 mg total) by mouth daily. 025 Discontin ued(Reord er) albuterol sulfate HFA 108 (90 Base) MCG/ACT inhalerIndications :Shortness of breath on exertion INHALE 2 PUFFS BY MOUTH EVERY 4 HOURS NEEDED 9 g 1 09/21/20 24 025 Discontin ued(Reord er) Active Problems Problem Noted Date Diagnosed Date Kidney stone 10/22/2024 Epigastric abdominal pain 07/01/2021 Vertigo 03/25/2021 Gastric wall thickening 02/11/2021 Cervical pain 08/20/2020 Chronic left shoulder pain 07/25/2020 Chronic pain of left knee 09/26/2019 Assessment & Plan (04/16/2021 7:51 PM CDT): Has failed nonsteroidal anti-inflammatories, steroid injection and formal physical therapy. Recommend MRI. Follow-up after the MRI. Assessment & Plan (09/26/2019 10:32 AM CHAIRMAN AND CHIEF EXECUTIVE OFFICER): Exam unremarkable. No sensory deficits. No effusion. Will try changing meloxicam to naproxen and can take dose prior to going to bed as reports symptoms mostly in evening. Explained needs to stop meloxicam. If no improvement may be more restless leg symptoms given timing. BPPV (benign paroxysmal positional vertigo) 01/2018 Dupuytren's contracture 08/23/2018 Thyroiditis 08/23/2018 Assessment & Plan (01/04/2020 12:40 PM CHAIRMAN AND CHIEF EXECUTIVE OFFICER): Repeat TSH today Hand dermatitis 05/31/2018 Low TSH level 05/31/2018 Osteoarthritis of left knee 05/31/2018 Assessment & Plan (09/20/2021 12:48 PM CDT): We discussed the risks, benefits and alternatives. The only thing proven to slow the progression of osteoarthritis is weight loss. Every pound lost relieves 4 to 6 pounds of stress across the knee. We discussed unloading braces. Formal physical therapy to help with flexibility, mobility and strength. We discussed TENS units. Nonsteroidal anti-inflammatories as well as Tylenol and pain medication and their side effects. We discussed steroid versus Visco supplement injection. We discussed eventual total knee arthroplasty. After going over the risks, benefits and alternatives steroid is injected. Continue home exercises. Follow-up in 6 weeks if no significant improvement Assessment & Plan (05/18/2021 9:32 AM CDT): We discussed the risks, benefits and alternatives. The only thing proven to slow the progression of osteoarthritis is weight loss. Every pound lost relieves 4 to 6 pounds of stress across the knee. We discussed unloading braces. Formal physical therapy to help with flexibility, mobility and strength. We discussed TENS units. Nonsteroidal anti-inflammatories as well as Tylenol and pain medication and their side effects. We discussed steroid versus Visco supplement injection. We discussed eventual total knee arthroplasty. Steroid is injected today. Physician directed exercises are given. Follow-up in 6 weeks. Acute medial meniscal tear, left, subsequent enc ounter 05/31/2018 Overview (08/10/2021): 07/16/2021 diagnostic and operative arthroscopy left knee Assessment & Plan (09/20/2021 12:48 PM CDT): Continue progressive range of motion and strengthening. Follow-up in 6 weeks if no improvement. Assessment & Plan (08/10/2021 11:36 AM CDT): We discussed the risks, benefits and alternatives. Overall is better. Continue with progressive range of motion and strengthening. Follow-up in 1 month. Assessment & Plan (06/18/2021 12:40 PM CDT): We discussed the risks, benefits and alternatives. There are only 3 things to do for meniscal tears. Nothing, see if it gets better on its own. Conservative treatment of nonsteroidal anti-inflammatories, physical therapy, steroid injection, activity modification, TENS unit and bracing. Finally, diagnostic and operative arthroscopy with repair or partial meniscectomy. Patient has failed conservative therapy consisting of steroid injection on 05/12/2021 as well as physician directed exercises and nonsteroidal anti-inflammatories. Continues to complain of pain and discomfort over the medial meniscus. After going over the risks, benefits and alternatives patient wants to proceed with diagnostic and operative arthroscopy with partial medial meniscectomy scheduled for 07/16/2021 Assessment & Plan (05/18/2021 9:33 AM CDT): We discussed the risks, benefits and alternatives. There are only 3 things to do for meniscal tears. Nothing, see if it gets better on its own. Conservative treatment of nonsteroidal anti-inflammatories, physical therapy, steroid injection, activity modification, TENS unit and bracing. Finally, diagnostic and operative arthroscopy with repair or partial meniscectomy. Patient will begin conservative treatment first before considering diagnostic and operative arthroscopy. BMI 24.0-24.9, adult 05/22/2018 Dyspnea, unspecified 05/22/2018 Shortness of breath on exertion 05/22/2018 Low vitamin D level 05/22/2018 Assessment & Plan (04/16/2021 7:52 PM CDT): Continue vitamin D supplementation Allergic rhinitis 11/09/2017 Fatty liver 11/26/2016 Elevated liver enzymes 07/20/2016 Hypertension 07/16/2016 Assessment & Plan (01/04/2020 12:40 PM CHAIRMAN AND CHIEF EXECUTIVE OFFICER): Con't current regimen. Will get BMP. Insomnia 07/16/2016 Resolved Problems Problem Noted Date Diagnosed Date Resolved Date Nausea 07/01/2021 03/03/2023 Lymph node enlargement 06/26/201801/23 Wears glasses 07/16/2016 08/01/2020 Encounters Date Type Department Care Team Description 12/30/2024 MyChart Message Enc [address] [place] [address] Cierra Barnes NP joseph eckerthart 12/28/2024 MyChart Message Enc [facility] [address] [place] [address] Cierra Barnes NP joseoh eckerthart 12/13/2024 Orders Only [facility] [address] [place] [address] Cierra Barnes NP 12/11/2024 MyChart Message Enc [facility] [address] [place] [address] Cierra Barnes NP joseph eckerthart 11/30/2024 Orders Only [address] [place] [address] Cierra Barnes NP 11/30/2024 MyChart Message Enc [address] [place] [address] Cierra Barnes NP [facility] 11/15/2024 12:40 PM CHAIRMAN AND CHIEF EXECUTIVE OFFICER Office Visit [address] [place] [address] Cierra Barnes NP [facility] (Patient presents for hospital follow up from [facility], discharged 11/06/24, left ureteral stent removal and left lithotripsy, left ureteral stone) 11/15/2024 Travel 11/08/2024 Patient Outreach [address] [place] [address] Chana Mann RN Hospital Follow Up 11/07/[address] [place] [address] Cierra Barnes NP [facility] 11/06/2024 8:33 AM CHAIRMAN AND CHIEF EXECUTIVE OFFICER - 11/06/2024 10:07 AM CHAIRMAN AND CHIEF EXECUTIVE OFFICER Surgery [facility] [address] Baltazar Flaherty MD LEFT EXTRACOROPOREAL SHOCK WAVE LITHOTRIPSY 11/06/2024 8:33 AM CHAIRMAN AND CHIEF EXECUTIVE OFFICER Anesthesia Event [facility] [place] [address] Luis Sanchez MD Jarvis, Brittany L, SENIOR MARKETING DATA ANALYST 11/06/2024 6:19 AM CHAIRMAN AND CHIEF EXECUTIVE OFFICER - 11/06/2024 10:51 AM CHAIRMAN AND CHIEF EXECUTIVE OFFICER Hospital Encounter [facility] [place] [address] Baltazar Flaherty MD Discharge Disposition: Home or Self Care (Routine Discharge) 11/06/2024 Travel 11/05/2024 Patient Outreach [address] [place] [id number] Chana Mann PEDIATRIC NP F/U ([facility] 11/01/24) 11/01/2024 9:06 PM CHAIRMAN AND CHIEF EXECUTIVE OFFICER - 11/02/2024 3:54 AM CHAIRMAN AND CHIEF EXECUTIVE OFFICER Emergency [facility] [place] [address] Meño La MD,PHD Flank Pain (c); Urinary Symptoms Discharge Disposition: Home or Self Care (Routine Discharge) 11/01/2024 Travel 10/31/2024 11:00 AM CHAIRMAN AND CHIEF EXECUTIVE OFFICER Office Visit [address] [place] [address] Cierra Barnes NP TCM (Patient presents for TCM from [facility], discharged 10/23/24, Dx: left ureteral obstructive stone, hydronephrosis, hypokalemia) 10/30/2024 Prep for Procedure [facility] [place] [address] Baltazar Flaherty MD 10/30/2024 Travel 10/25/2024 Patient Outreach [address] [place] [address] Chana Mann RN ER F/U ([facility] 10/24/24) 10/24/2024 7:02 PM CHAIRMAN AND CHIEF EXECUTIVE OFFICER - 10/24/2024 10:45 PM CHAIRMAN AND CHIEF EXECUTIVE OFFICER Emergency [facility] [place] [address] Merissa Hernandez MD Urinary Retention Discharge Disposition: Home or Self Care (Routine Discharge) 10/24/2024 Travel 10/24/[address] [place] [id number] Cierra Barnes NP Surgical Clearance (/) 10/24/[address] [place] [address] Cierra Barnes NP TCM 10/24/[address] [place] [address] Cierra Barnes NP Follow Up Call; Referral 10/24/2024 Patient Outreach [address] [place] [address] Chana Mann, FAYE TCM (АНН[facility] (OBS) 10/22-10/23) 10/23/2024 9:50 AM CHAIRMAN AND CHIEF EXECUTIVE OFFICER - 10/23/2024 10:58 AM CHAIRMAN AND CHIEF EXECUTIVE OFFICER Surgery [facility] [place], [place] [address] Baltazar Flaherty MD CYSTOSCOPY, LEFT RETROGRADE PYELOGRAM, LEFT URETERAL STENT PLACEMENT 10/23/2024 9:49 AM CHAIRMAN AND CHIEF EXECUTIVE OFFICER Anesthesia Event [facility] [place], [place] [address] Miles Berry MD 10/23/2024 Patient Outreach [address] [place] [address] Chana Mann RN Hospital Follow Up (Admission notification to АННА.) 10/22/2024 9:18 PM CHAIRMAN AND CHIEF EXECUTIVE OFFICER - 10/23/2024 1:45 PM CHAIRMAN AND CHIEF EXECUTIVE OFFICER Emergency [facility] One Day Services [place], [place] [address] Michelle London PA Malcolm, Ashley Helen, MD Filipova, Hana, MD Constipation; Abdominal Pain Discharge Disposition: Home or Self Care (Routine Discharge) 10/22/2024 Travel 10/11/2024 Scan HEALTH INFO SRVCS Scanned, [facility] Procedure (SCAN) 10/08/2024 Scan MG HEALTH INFO SRVCS Scanned, [facility] Image (SCAN) 10/04/2024 Scan MG HEALTH INFO SRVCS Scanned, [facility] from Last 3 Months Immunizations Name Administration Dates Next Due Fluzone (IIV3, Trivalent, 0. 5 ML Prefilled Syringe) 08/16/2024 Fluzone 6 Months+ Quad (0.5 mL Prefilled Syringe) 09/19/2023,10/01/2021,08/25/2020,2018 Influenza Adult (Generic) 01/02/2023,08/23/2018, 11/26/2016 MODERNA COVID-19 (12+) MRNA, LNP-S, PF, 100 MCG/ 0.5 ML DOSE 04/08/2021,03/03/2021 PFIZER COVID-19 (NOLASCO CAP), MRNA, LNP-S, PF, 30 MCG/0.3 ML SHANNAN-SUCROSE, IM 03/19/2022 PFIZER COVID-19 BIVALENT (12 +) mRNA, LNP-S, PF, 30 MCG/0.3 ML DOSE 01/02/2023 Pneumococcal (Pneumovax 23) 01/23/2019 Pneumococcal (Prevnar 13) 09/12/2019 Shingrix 07/17/2019,05/17/2019 Tdap (Boostrix) 05/22/2018 Tdap (Generic) 05/22/2018 Family History Medical History Relation Comments COPD Brother 1 Pass from it Hypertension Brother 1 malgnant neoplasm Brother 1 Diabetes Cousin Heart Disease Father Heart attack Hypertension Father And me Stroke Father cva Father Cancer Maternal Aunt Diabetes Maternal Aunt COPD Mother Pass 2007 Heart Disease Mother Hypertension Mother Stroke Mother Thyroid Mother Vision loss Mother Was blind in one eye crack cocaine Mother Relation Status Comments Brother 1 (Age 71) Brother 2 Alive Brother 3 Alive Brother 4 Alive Brother 5 (Age 29) Cousin Alive Father (Age 92) Maternal Aunt Mother (Age 72) Social History Tobacco Use Types Packs/Day Years Used Date Smoking Tobacco: Former Cigars Passive Smoke Exposure: Past Smokeless Tobacco: Never Tobacco Cessation:Counseling Given: No Comments:Stop Alcohol Use Standard Drinks/Week Comments Not [...] Orientation Straight 08/03/2019 9: 19 AM CDT Last Filed Vital Signs Vital Sign Reading Time Taken Comments Blood Pressure 118/66 11/15/2024 12:39 PM CHAIRMAN AND CHIEF EXECUTIVE OFFICER Pulse 77 11/15/2024 12:39 PM CHAIRMAN AND CHIEF EXECUTIVE OFFICER Temperature 36.8 C (98.2 F) 11/15/2024 12:39 PM CHAIRMAN AND CHIEF EXECUTIVE OFFICER Respiratory Rate 18 11/15/2024 12:39 PM CHAIRMAN AND CHIEF EXECUTIVE OFFICER Oxygen Saturation 97% 11/15/2024 12:39 PM CHAIRMAN AND CHIEF EXECUTIVE OFFICER Inhaled Oxygen Concentration - - Weight 69.9 kg (154 lb) 11/15/2024 12:39 PM CHAIRMAN AND CHIEF EXECUTIVE OFFICER Height 175.3 cm (5' 9 ) 11/06/2024 7:15 AM CHAIRMAN AND CHIEF EXECUTIVE OFFICER Body Mass Index 22.74 11/06/2024 7:15 AM CHAIRMAN AND CHIEF EXECUTIVE OFFICER Plan of Treatment Upcoming Encounters Date Type Department Care Team (Late st Contact Info) Description 05/16/2025 1:20 PM CDT Office Visit [facility] - [place] [address] [place] [id number] Cierra Barnes NP [address] [place], [place] [address] Health Maintenance Due Date Last Done Comments RSV Immunization or 60+ Years (1 - Risk 60-74 years 1-dose series) 2022 COVID-19 Vaccine ( season) 2024 01/02/2023, 03/19/2022, 04/08/2021, Additional history exists PHQ-2 (Physician [place]) 11/21/2024 05/01/2024 Annual Physical 05/01/2025 05/01/2024, 03/03/2023 DTaP, Tdap and Td Vaccines (3 - Td or Tdap) 05/22/2028 05/22/2018, 05/22/2018 Colorectal Cancer Screening Colonoscopy (10 Years) 12/12/2030 12/12/2020, 12/12/2020 Zoster Vaccines Completed 07/17/2019, 05/17/2019 Pneumococcal Vaccine: Pediatrics (0 to 5 Years) and At-Risk Patients (6 to 64 Years) Aged Out 09/12/2019, 01/23/2019 No longer eligibl e based on patient's age to complete this topic Hepatitis C Completed 03/10/2023, 06/23, 07/20/2016 Influenza Adult Completed 08/16/2024, 08/23, 01/02/2023, Additional history exists Meningococcal B Vaccine Aged Out No l onger eligible based on patient's age to complete this topic Meningococcal Vaccine Aged Out No theresa delma eligible based on patient's age to complete this topic RSV Immunizations Under 20 Months Aged Out No longer eligible based on patient's age to complete this topic Medical Devices Explanted Type Area [employer] Head Device Identifier Shelf Expiration Date Model / Serial / Lot Stent Ureteral 6fr 26cm Pigtl Crv Taper Tip Bldr Mrk - [id number] Implanted:Qty : 1 on 10/23/2024 by Baltazar Flaherty MD at [facility] Explanted:Qty : 1 on 11/06/2024 by Baltazar Flaherty MD at [facility] Stent Left: Ureter [employer] [place]ANE[place] [id number] 06/27/2027 [id number] / / [id number] Procedures Procedure Name Priority Date/Time Associated Diagnosis Comments CYSTOSCOPY STENT INSERTION/REMOVAL/CHANGE 11/06/2024 8:33 AM CHAIRMAN AND CHIEF EXECUTIVE OFFICER R35.1, N20.0- NOCTURIA, CALCIUM RENAL CALCULUS Case Notes SCHED BY FAX 10/24/24 [facility] PHONE ASSESS FRAGMENTING OF KIDNEY STONE 11/06/2024 8:33 AM CHAIRMAN AND CHIEF EXECUTIVE OFFICER R35.1, N20.0- NOCTURIA, CALCIUM RENAL CALCULUS Case Notes SCHED BY FAX 10/24/24 [facility] PHONE ASSESS PARTIAL THROMBOPLASTIN TIME,PTT STAT 11/06/2024 7:30 AM CHAIRMAN AND CHIEF EXECUTIVE OFFICER Nocturia Calcium renal calculus PROTHROMBIN TIME, VENOUS STAT 024 7:30 AM CHAIRMAN AND CHIEF EXECUTIVE OFFICER Nocturia Calcium renal calculus URINE BACTERIA CULTURE STAT 2:20 AM CHAIRMAN AND CHIEF EXECUTIVE OFFICER HC URINALYSIS AUTO W/O MICRO STAT 11/02/2024 2:20 AM CHAIRMAN AND CHIEF EXECUTIVE OFFICER CT ABD+PEL W CON STAT 11/01/2024 10:07 PM CHAIRMAN AND CHIEF EXECUTIVE OFFICER LIPASE STAT 11/01/2024 9:30 PM CHAIRMAN AND CHIEF EXECUTIVE OFFICER COMPREHENSIVE METABOLIC PANEL STAT 11/01/2024 9:30 PM CHAIRMAN AND CHIEF EXECUTIVE OFFICER CBC W/DIFF AUTOMATED STAT 11/01/2024 9:30 PM CHAIRMAN AND CHIEF EXECUTIVE OFFICER BASIC METABOLIC PANEL STAT 10/24/2024 7:19 PM CHAIRMAN AND CHIEF EXECUTIVE OFFICER CBC W/DIFF AUTOMATED STAT 10/24/2024 7:19 PM CHAIRMAN AND CHIEF EXECUTIVE OFFICER HC URINALYSIS AUTO W/O MICRO STAT 10/24/2024 7:19 PM CHAIRMAN AND CHIEF EXECUTIVE OFFICER SURG XR RETROGRD UROGRAPHY Routine 10/23/2024 10:16 AM CHAIRMAN AND CHIEF EXECUTIVE OFFICER CYSTOURETHROSCOPY W/URETERAL CATHETERIZATION 10/23/2024 9:50 AM CHAIRMAN AND CHIEF EXECUTIVE OFFICER Kidney stone PROTHROMBIN TIME, VENOUS STAT 024 8:25 AM CHAIRMAN AND CHIEF EXECUTIVE OFFICER MAGNESIUM STAT 10/23/2024 5:54 AM CHAIRMAN AND CHIEF EXECUTIVE OFFICER BASIC METABOLIC PANEL STAT 10/23/2024 5:54 AM CHAIRMAN AND CHIEF EXECUTIVE OFFICER CBC W/DIFF AUTOMATED STAT 10/23/2024 5:54 AM CHAIRMAN AND CHIEF EXECUTIVE OFFICER CT ABD+PEL W CON STAT 10/22/2024 9:47 PM CHAIRMAN AND CHIEF EXECUTIVE OFFICER HC URINALYSIS AUTO W/O MICRO STAT 10/22/2024 9:27 PM CHAIRMAN AND CHIEF EXECUTIVE OFFICER LIPASE STAT 10/22/2024 9:27 PM CHAIRMAN AND CHIEF EXECUTIVE OFFICER COMPREHENSIVE METABOLIC PANEL STAT 10/22/2024 9:27 PM CHAIRMAN AND CHIEF EXECUTIVE OFFICER CBC W/DIFF AUTOMATED STAT 10/22/2024 9:27 PM CHAIRMAN AND CHIEF EXECUTIVE OFFICER PROCEDURE GENERIC (SCAN ORDER) 10/11/2024 IMAGE GENERIC 10/08/2024 HEPATITIS C ANTIBODY W/RFX TO HCV RNA Routine 03/10/2023 10:33 AM CDT COLONOSCOPY GENERIC (SCAN ORDER) Routine 12/12/2020 from Last 3 Months or Most Recently Relevant to Health Maintenance Results * PARTIAL THROMBOPLASTIN TIME,PTT (11/06/2024 7:30 AM CHAIRMAN AND CHIEF EXECUTIVE OFFICER) PTT 30.4 25.1 - 36.5 SEC 11/06/2024 8:08 AM CHAIRMAN AND CHIEF EXECUTIVE OFFICER [facility] 11/06/2024 7:30 AM CHAIRMAN AND CHIEF EXECUTIVE OFFICER Baltazar Flaherty MD LABORATORY Final Res ult [facility] [address] [place] [id number], * PROTIME/INR, VENOUS (11/06/2024 7:30 AM CHAIRMAN AND CHIEF EXECUTIVE OFFICER) Only the most recent of2 resultswithin the time period is included. PROTIME 11.3 10.2 - 12.9 SEC 11/06/2024 8:08 AM CHAIRMAN AND CHIEF EXECUTIVE OFFICER [facility] INR 1.0 11/06/2024 8:08 AM CHAIRMAN AND CHIEF EXECUTIVE OFFICER [facility] Comment: Recommended INR Therapeutic Goals: 2.0-3.0 Routine Therapy 2.5-3.5 Mechanical Prosthetic Valves (High Risk) 11/06/2024 7:30 AM CHAIRMAN AND CHIEF EXECUTIVE OFFICER Baltazar Flaherty MD LABORATORY Final Res ult [facility] [address] [place] [address], [place] [phone] * (ABNORMAL) URINALYSIS (11/02/2024 2:20 AM CHAIRMAN AND CHIEF EXECUTIVE OFFICER) Only the most recent of3 resultswithin the time period is included. SPECIMEN TYPE URINE SPEAR CATH 11/02/2024 2:24 AM CHAIRMAN AND CHIEF EXECUTIVE OFFICER [facility] COLOR (U) BROWN 11/02/2024 2:38 AM CHAIRMAN AND CHIEF EXECUTIVE OFFICER [facility] TRANSPARENCY TURBID 11/02/2024 2:38 AM CHAIRMAN AND CHIEF EXECUTIVE OFFICER [facility] SPECIFIC GRAVITY (U) >1.050(H) 1.001 - 1.030 11/02/2024 2:38 AM CHAIRMAN AND CHIEF EXECUTIVE OFFICER [facility] U PH 6.0 5.0 - 9.0 11/02/2024 2:38 AM [facility] LEUKOCYTES (U) 75(A) NEGATIVE 11/02/2024 2:38 AM CHAIRMAN AND CHIEF EXECUTIVE OFFICER [facility] NITRITES NEGATIVE NEGATIVE 11/02/2024 2:38 AM CHAIRMAN AND CHIEF EXECUTIVE OFFICER [facility] PROTEIN RANDOM (U) 200(H) <30 MG/DL 11/02/2024 2:38 AM CHAIRMAN AND CHIEF EXECUTIVE OFFICER [facility] GLUCOSE (U) NORMAL NORMAL MG/DL 11/02/2024 2:38 AM CHAIRMAN AND CHIEF EXECUTIVE OFFICER [facility] KETONES MG/DL (U) 10(A) NEGATIVE MG/DL 11/02/2024 2:38 AM CHAIRMAN AND CHIEF EXECUTIVE OFFICER [facility] UROBILINOGEN NORMAL NORMAL MG/DL 11/02/2024 2:38 AM CHAIRMAN AND CHIEF EXECUTIVE OFFICER [facility] BILIRUBIN (U) NEGATIVE NEGATIVE MG/DL 11/02/2024 2:38 AM CHAIRMAN AND CHIEF EXECUTIVE OFFICER [facility] BLOOD (U) 3+(A) NEGATIVE 11/02/2024 2:38 AM CHAIRMAN AND CHIEF EXECUTIVE OFFICER [facility] MUCUS FEW /LPF 11/02/2024 2:38 AM CHAIRMAN AND CHIEF EXECUTIVE OFFICER [facility] WBC/HPF >100(H) <6 /HPF 11/02/2024 2:38 AM CHAIRMAN AND CHIEF EXECUTIVE OFFICER [facility] RBC/HPF >100(H) <6 /HPF 11/02/2024 2:38 AM CHAIRMAN AND CHIEF EXECUTIVE OFFICER [facility] SQUAMOUS EPITHELIALS RARE /HPF 11/02/2024 2:38 AM CHAIRMAN AND CHIEF EXECUTIVE OFFICER [facility] URINE SPECIMEN OBTAINED VIA INDWELLING URINARY CATHETER / Unknown 11/02/2024 2:20 AM CHAIRMAN AND CHIEF EXECUTIVE OFFICER Michelle LEVINE URINE ORDERABLES Final Result [facility] [address] [place] [address], [place] [phone] * URINE BACTERIA CULTURE (11/02/2024 2:20 AM CHAIRMAN AND CHIEF EXECUTIVE OFFICER) SPEC DESCRIPTION URINE CLEAN CATCH 11/02/2024 2:07 AM CHAIRMAN AND CHIEF EXECUTIVE OFFICER [facility] SPECIAL REQUESTS NO SPECIAL REQUEST 11/02/2024 2:07 AM CHAIRMAN AND CHIEF EXECUTIVE OFFICER [facility] CULTURE RESULT NO GROWTH 2 DAYS 11/04/2024 7:18 AM CHAIRMAN AND CHIEF EXECUTIVE OFFICER [facility] URINE SPECIMEN OBTAINED BY CLEAN CATCH PROCEDURE / Unknown 11/02/2024 2:20 AM CHAIRMAN AND CHIEF EXECUTIVE OFFICER 11/02/2024 2:28 AM CHAIRMAN AND CHIEF EXECUTIVE OFFICER Michelle LEVINE MICROBIOLOGY - GENERAL ORDERA BLES Final Result [facility] [address] [place] [address], * CT ABD+PEL W CON (11/01/2024 10:07 PM CHAIRMAN AND CHIEF EXECUTIVE OFFICER) Only the most recent of2 resultswithin the time period is included. Anatomical Region Laterality Modality Abdomen Computed Tomogra phy 11/01/2024 10:0 9 PM CHAIRMAN AND CHIEF EXECUTIVE OFFICER Impressions 11/01/2024 10:14 PM CHAIRMAN AND CHIEF EXECUTIVE OFFICER IMPRESSION: 1. Interval placement of a left ureteral stent. There is mild left hydronephrosis, which appears to have slightly improved since the prior exam. A mid left ureteral stone remains in stable position. 2. Diverticulosis of the sigmoid colon without evidence of acute diverticulitis. Referred By: Interpreted By: Francis Jamison MD, 11/01/2024 10:09 PM Narrative 11/01/2024 10:14 PM CHAIRMAN AND CHIEF EXECUTIVE OFFICER [facility] [address] [place], [place] [address] INDICATION: Left-sided abdominal pain. Dysuria. COMPARISON: October 22, 2024. TECHNIQUE: Axial images were obtained through the abdomen and pelvis with intravenous contrast. Additional images were reconstructed in the coronal plane. DOSE OPTIMIZATION: This facility uses dose optimization techniques as appropriate to perform exams, including at least one of the following techniques: 1. Automated exposure control. 2. Adjustment of the mA and/or kV according to patient size (this includes techniques or standardized protocols for targeted exams where dose is matched to the indication/reason for exam, i.e. extremities or head). 3. Use of iterative reconstructive technique. FINDINGS: Lung bases: Clear. Liver: Normal. Gallbladder: Normal. Pancreas: Normal. Spleen: Normal. Adrenal glands: Normal. Kidneys: There has been interval placement of a left ureteral stent extending from the renal pelvis into the urinary bladder. The previously noted calculus in the mid left ureter is unchanged in position. There is mild left hydronephrosis, which may have minimally decreased. There is a tiny subcentimeter simple appearing cyst in the upper pole of the right kidney. No follow-up imaging is recommended per consensus recommendations based on imaging criteria. Abdominal wall: Normal. Stomach: Normal. Large and small bowel: There is diverticulosis of the sigmoid colon but there is no evidence of acute diverticulitis. The remainder of the large bowel and small bowel loops appear unremarkable given the absence of oral contrast. Appendix: Not visualized. Mesentery: There is a similar-appearing coarse calcification along the left posterolateral upper abdominal wall close to the spleen. This is of uncertain etiology but likely chronic in nature. Free fluid: None. Lymph nodes: No enlarged nodes. Vasculature: Normal. Urinary bladder: There is a Spear catheter within the urinary bladder which is nearly completely decompressed. Prostate: Normal. Visualized osseous structures: There is no bony destructive process. Procedure Note Francis Jamison MD - 11/01/[address] [address] INDICATION: Left-sided abdominal pain. Dysuria. COMPARISON: October 22, 2024. TECHNIQUE: Axial images were obtained through the abdomen and pelvis withintravenous contrast. Additional images were reconstructed in the coronalplane. DOSE OPTIMIZATION: This facility uses dose optimization techniques asappropriate to perform exams, including at least one of the followingtechniques: 1. Automated exposure control. 2. Adjustment of the mA and/or kV according to patient size (this includestechniques or standardized protocols for targeted exams where dose ismatched to the indication/reason for exam, i.e. extremities or head). 3. Use of iterative reconstructive technique. FINDINGS: Lung bases: Clear. Liver: Normal. Gallbladder: Normal. Pancreas: Normal. Spleen: Normal. Adrenal glands: Normal. Kidneys: There has been interval placement of a left ureteral stentextending from the renal pelvis into the urinary bladder. The previouslynoted calculus in the mid left ureter is unchanged in position. There ismild left hydronephrosis, which may have minimally decreased. There is atiny subcentimeter simple appearing cyst in the upper pole of the rightkidney. No follow-up imaging is recommended per consensus recommendationsbased on imaging criteria. Abdominal wall: Normal. Stomach: Normal. Large and small bowel: There is diverticulosis of the sigmoid colon butthere is no evidence of acute diverticulitis. The remainder of the largebowel and small bowel loops appear unremarkable given the absence of oralcontrast. Appendix: Not visualized. Mesentery: There is a similar-appearing coarse calcification along theleft posterolateral upper abdominal wall close to the spleen. This is ofuncertain etiology but likely chronic in nature. Free fluid: None. Lymph nodes: No enlarged nodes. Vasculature: Normal. Urinary bladder: There is a Spear catheter within the urinary bladderwhich is nearly completely decompressed. Prostate: Normal. Visualized osseous structures: There is no bony destructive process. IMPRESSION: 1. Interval placement of a left ureteral stent. There is mild lefthydronephrosis, which appears to have slightly improved since the priorexam. A mid left ureteral stone remains in stable position. 2. Diverticulosis of the sigmoid colon without evidence of acutediverticulitis. Referred By: Interpreted By: Francis Jamison MD, 11/01/2024 10:09 PM us Michelle LEVINE CT Final Result * COMPREHENSIVE METABOLIC PANEL (11/01/2024 9:30 PM CHAIRMAN AND CHIEF EXECUTIVE OFFICER) Only the most recent of2 resultswithin the time period is included. GLUCOSE 99 70 - 99 MG/DL 11/01/2024 10:02 PM [facility] BUN 16 7 - 18 MG/DL 11/01/2024 10:02 PM [facility] CREATININE S/P/B 0.85 0.7 - 1.3 MG/DL 11/01/2024 10:02 PM [facility] SODIUM S/P/B 136 136 - 145 MMOL/L 11/01/2024 10:02 PM [facility] POTASSIUM S/P/B 4.0 3.5 - 5.1 MMOL/L 11/01/2024 10:02 PM [facility] CHLORIDE S/P/B 104 97 - 115 MMOL/L 11/01/2024 10:02 PM [facility] CO2 29.3 21 - 32 MMOL/L 11/01/2024 10:02 PM [facility] CALCIUM S/P/B 9.5 8.5 - 10.1 MG/DL 11/01/2024 10:02 PM [facility] BILIRUBIN TOTAL S/P/B 0.5 0.2 - 1.2 MG/DL 11/01/2024 10:02 PM [facility] Comment: THIS ASSAY IS NOT RECOMMENDED FOR PATIENTS UNDERGOING TREATMENT WITH ELTROMBOPAG DUE TO THE POTENTIAL FOR FALSELY ELEVATED RESULTS. TOTAL PROTEIN S/P/B 7.3 6.4 - 8.2 G/DL 11/01/2024 10:02 PM [facility] ALBUMIN S/P/B 3.6 3.4 - 5.0 G/DL 11/01/2024 10:02 PM [facility] AST 23 15 - 37 U/L 11/01/2024 10:02 PM [facility] ALT 38 16 - 60 U/L 11/01/2024 10:02 PM [facility] ALKALINE PHOSPHATASE S/P/B 104 50 - 136 U/L 11/01/2024 10:02 PM [facility] ANION GAP 2.7 2 - 10 MMOL/L 11/01/2024 10:02 PM [facility] BUN CREATININE RATIO 18.9 6 - 26 11/01/2024 10:02 PM [facility] A/G RATIO 1.0 1.0 - 2.0 RATIO 11/01/2024 10:02 PM [facility] GFR ESTIMATE >90 >90 ML/MIN/1.7 3 M2 11/01/2024 10:02 PM CHAIRMAN AND CHIEF EXECUTIVE OFFICER [facility] Comment: NOTE: eGFR is not calculated for patients <18 years of age or gender unknown. This is an estimated GFR calculation using the new CKD EPI creatinine equation without race and so does not require a correction factor for race. This estimated GFR should not be used for calculating drug doses. 11/01/2024 9:30 PM CHAIRMAN AND CHIEF EXECUTIVE OFFICER Michelle [facility] Final Result [facility] [address] [place] [address], * CBC W/DIFF AUTOMATED (11/01/2024 9:30 PM CHAIRMAN AND CHIEF EXECUTIVE OFFICER) Only the most recent of4 resultswithin the time period is included. WBC 7.31 4.5 - 11.0 x10'3/uL 11/01/2024 9:52 PM CHAIRMAN AND CHIEF EXECUTIVE OFFICER [facility] RBC 4.91 4.70 - 6.10 x10'6/uL 11/01/2024 9:52 PM CHAIRMAN AND CHIEF EXECUTIVE OFFICER [facility] HGB 14.7 14.0 - 18.0 G/DL 11/01/2024 9:52 PM CHAIRMAN AND CHIEF EXECUTIVE OFFICER [facility] HCT 44.5 43.0 - 54.0 % 11/01/2024 9:52 PM CHAIRMAN AND CHIEF EXECUTIVE OFFICER [facility] MCV 90.6 80.0 - 94.0 FL 11/01/2024 9:52 PM CHAIRMAN AND CHIEF EXECUTIVE OFFICER [facility] MCH 29.9 27.0 - 31.0 PG 11/01/2024 9:52 PM CHAIRMAN AND CHIEF EXECUTIVE OFFICER [facility] MCHC 33.0 32.0 - 36.0 G/DL 11/01/2024 9:52 PM [facility] RDW 12.1 11.5 - 14.5 % 11/01/2024 9:52 PM CHAIRMAN AND CHIEF EXECUTIVE OFFICER [facility] PLT 204 130 - 400 x10'3/uL 11/01/2024 9:52 PM CHAIRMAN AND CHIEF EXECUTIVE OFFICER [facility] MPV 9.5 9.3 - 12.2 FL 11/01/2024 9:52 PM CHAIRMAN AND CHIEF EXECUTIVE OFFICER [facility] DIFFERENTIAL TYPE AUTOMATED DIFFERENTIAL 11/01/2024 9:52 PM CHAIRMAN AND CHIEF EXECUTIVE OFFICER [facility] NEUTROPHILS % 63.7 % 11/01/2024 9:52 PM CHAIRMAN AND CHIEF EXECUTIVE OFFICER [facility] LYMPHOCYTES % 23.4 % 11/01/2024 9:52 PM CHAIRMAN AND CHIEF EXECUTIVE OFFICER [facility] MONOCYTES % 10.5 % 11/01/2024 9:52 PM CHAIRMAN AND CHIEF EXECUTIVE OFFICER [facility] EOSINOPHILS 1.4 % 11/01/2024 9:52 PM CHAIRMAN AND CHIEF EXECUTIVE OFFICER [facility] BASOPHILS 0.5 % 11/01/2024 9:52 PM CHAIRMAN AND CHIEF EXECUTIVE OFFICER [facility] IMMATURE GRANS % 0.5 % 11/01/20 9:52 PM CHAIRMAN AND CHIEF EXECUTIVE OFFICER [facility] ABS. NEUTROPHILS 4.65 1.80 - 7.70 x10'3/uL 11/01/2024 9:52 PM CHAIRMAN AND CHIEF EXECUTIVE OFFICER [facility] ABS. LYMPHOCYTES 1.71 1.00 - 4.80 x10'3/uL 11/01/2024 9:52 PM CHAIRMAN AND CHIEF EXECUTIVE OFFICER [facility] ABS. MONOCYTES 0.77 0.30 - 0.82 x10'3/uL 11/01/2024 9:52 PM CHAIRMAN AND CHIEF EXECUTIVE OFFICER [facility] ABS. EOSINOPHILS 0.10 0.04 - 0.54 x10'3/uL 11/01/2024 9:52 PM CHAIRMAN AND CHIEF EXECUTIVE OFFICER [facility] ABS. BASOPHILS 0.04 0.01 - 0.08 x10'3/uL 11/01/2024 9:52 PM CHAIRMAN AND CHIEF EXECUTIVE OFFICER [facility] ABS. IMMATURE GRANULOCYTES 0.04 0.00 - 0.49 x10'3/uL 11/01/2024 9:52 PM CHAIRMAN AND CHIEF EXECUTIVE OFFICER [facility] 11/01/2024 9:30 PM CHAIRMAN AND CHIEF EXECUTIVE OFFICER Michelle [facility] Final Result [facility] [address] [place] [address], [place] [phone] * LIPASE (11/01/2024 9:30 PM CHAIRMAN AND CHIEF EXECUTIVE OFFICER) Only the most recent of2 resultswithin the time period is included. Pathologist [facility] LIPASE 22 13 - 75 UNITS/L 11/01/2024 10:02 PM CHAIRMAN AND CHIEF EXECUTIVE OFFICER [facility] 11/01/2024 9:30 PM CHAIRMAN AND CHIEF EXECUTIVE OFFICER Michelle [facility] Final Result Performing Organization Address City/[facility] Co de Phone Number [facility] [address] [place] [address], [place] [phone] * (ABNORMAL) BASIC METABOLIC PANEL (10/24/2024 7:19 PM CHAIRMAN AND CHIEF EXECUTIVE OFFICER) Only the most recent of2 resultswithin the time period is included. GLUCOSE 120(H) 70 - 99 MG/DL 10/24/2024 8:21 PM CHAIRMAN AND CHIEF EXECUTIVE OFFICER [facility] BUN 20(H) 7 - 18 MG/DL 10/24/2024 8:21 PM CHAIRMAN AND CHIEF EXECUTIVE OFFICER [facility] CREATININE S/P/B 1.15 0.7 - 1.3 MG/DL 10/24/2024 8:21 PM CHAIRMAN AND CHIEF EXECUTIVE OFFICER [facility] SODIUM S/P/B 140 136 - 145 MMOL/L 10/24/2024 8:21 PM [facility] POTASSIUM S/P/B 3.5 3.5 - 5.1 MMOL/L 10/24/2024 8:21 PM [facility] CHLORIDE S/P/B 106 97 - 115 MMOL/L 10/24/2024 8:21 PM [facility] CO2 27.6 21 - 32 MMOL/L 10/24/2024 8:21 PM [facility] CALCIUM S/P/B 10.4(H) 8.5 - 10.1 MG/DL 10/24/2024 8:21 PM [facility] ANION GAP 6.4 2 - 10 MMOL/L 10/24/2024 8:21 PM [facility] BUN CREATININE RATIO 17.4 6 - 26 10/24/2024 8:21 PM [facility] GFR ESTIMATE 72(L) >90 ML/MIN/1.7 3 M2 10/24/2024 8:21 PM [facility] Comment: NOTE: eGFR is not calculated for patients <18 years of age or gender unknown. This is an estimated GFR calculation using the new CKD EPI creatinine equation without race and so does not require a correction factor for race. This estimated GFR should not be used for calculating drug doses. 10/24/2024 7:19 PM CHAIRMAN AND CHIEF EXECUTIVE OFFICER Thao [facility] Final Result [facility] [address] [place] [address], * SURG XR RETROGRD UROGRAPHY (10/23/2024 10:16 AM CHAIRMAN AND CHIEF EXECUTIVE OFFICER) Anatomical Region Laterality Modality Abdomen Radiographic Misti ging 10/23/2024 11:1 7 AM CHAIRMAN AND CHIEF EXECUTIVE OFFICER Impressions 10/23/2024 11:18 AM CHAIRMAN AND CHIEF EXECUTIVE OFFICER IMPRESSION: 1. Limited intraoperative fluoroscopy to guide surgeon in a pyelogram. Radiologist not present for procedure. Referred By: Interpreted By: Dmitry Jefferson MD, 10/23/2024 11:17 AM Narrative 10/23/2024 11:18 AM CHAIRMAN AND CHIEF EXECUTIVE OFFICER [address] [address] EXAMINATION: Retrograde Urogram EXAM DATE: 10/23/2024 9:40 AM REASON FOR EXAM: Flank pain COMPARISON: None TECHNIQUE: Retrograde pyelogram by surgeon. Radiologist not present for the procedure. 3 images sent to the radiologist for interpretation.29.4 seconds of fluoroscopic time are documented. FINDINGS: Limited evaluation of the left renal collecting system demonstrates hydronephrosis and placement of ureteral stent. Procedure Note Dmitry Jefferson MD - 10/23/[address] [address] EXAMINATION: Retrograde Urogram EXAM DATE: 10/23/2024 9:40 AM REASON FOR EXAM: Flank pain COMPARISON: None TECHNIQUE: Retrograde pyelogram by surgeon. Radiologist not present forthe procedure. 3 images sent to the radiologist for interpretation.29.4seconds of fluoroscopic time are documented. FINDINGS: Limited evaluation of the left renal collecting system demonstrateshydronephrosis and placement of ureteral stent. IMPRESSION: 1. Limited intraoperative fluoroscopy to guide surgeon in a pyelogram.Radiologist not present for procedure. Referred By: Interpreted By: Dmitry Jefferson MD, 10/23/2024 11:17 AM us Baltazar Flaherty MD IMAGES ONLY Final Res ult * MAGNESIUM (10/23/2024 5:54 AM CHAIRMAN AND CHIEF EXECUTIVE OFFICER) MAGNESIUM 2.2 1.8 - 2.4 MG/DL 10/23/2024 6:38 AM CHAIRMAN AND CHIEF EXECUTIVE OFFICER [facility] 10/23/2024 5:54 AM CHAIRMAN AND CHIEF EXECUTIVE OFFICER Sabrina Colunga MD LABORATORY Final Re sult [facility] [address] [place] [address], * PROCEDURE GENERIC (SCAN ORDER) (10/11/2024) 10/11/2024 [facility] Scanned SCANNING Final Resu lt * IMAGE GENERIC (10/08/2024) Anatomical Region Laterality Modality Other 10/08/2024 [facility] Scanned SCANNING Final Resu lt * HEPATITIS C ANTIBODY W/RFX TO HCV RNA (03/10/2023 10:33 AM CDT) HEPATITIS C AB NON-REACT SABA NON-REACT SABA [facility] SIGNAL TO CUTOFF 0.06 <1.00 [facility] Comment: HCV antibody was non-reactive. There is no laboratory evidence of HCV infection. In most cases, no further action is required. However, if recent HCV exposure is suspected, a test for HCV RNA (test code 61685) is suggested. For additional information please refer to http://education.[employer].AllSchoolStuff.com/faq/AIG27f8 (This link is being provided for informational/ educational purposes only.) 03/10/2023 10:3 3 AM CDT 03/10/2023 10:35 AM CDT Narrative [facility] - 03/11/2023 3:39 PM CDT FASTING:YES FASTING: YES Resulting Agency Comment Performing Organization Information: Site ID: [place] Name: [facility] Address: [address] [address] Director: Nathan Nuñez MD us Cierra Barnes NP LABORATORY Final Res ult [facility] [place] [address] [address], * COLONOSCOPY (12/12/2020) us Documents Scanned SCANNING Final Result [facility] from Last 3 Months or Most Recently Relevant to Health Maintenance Insurance [employer] Advance Directives * Full Code (Latest Code Status on File) Date Activated Date Inactivated Comments 10/23/2024 12:12 AM 10/23/2024 4:25 PM Care Teams Financial Systems Analyst Relationship Specialty Start Date End Date Cierra Barnes NP [address] [place] [address] PCP - General NURSE PRACTITIONER 02/16/23
--- OUTSIDE RECORDS SUMMARY | 2025-01-02 15:57 | XMS_ITS ---
Author Organization [facility] Address [address] [place] [address] Care Team Providers Care Senior Health Physics Technician Name Role Phone Cierra Barnes Primary Care Provider Unavailab Merlyn Thakkar Unavailable [phone] REASON FOR VISIT ARC follow-up Encounters Encounter Location Date Provider Diagnosis [facility] [address] [place] [address] 10/29/2024 Merlyn Hodges Plan Of Treatment No Information Progress Notes * Tejas HIRSCHDOB:1960 (64 yo M)Acc No.[id number]:10/29/2024 Progress Notes Patient: Tejas IRVING Provider: QIAN Kennedy :1960 A ge:63 Y S ex:Male Date:10/29/2024 Address:[address], [place], [place] Pcp:Cierra Barnes Subjective: * Chief Complaints: * 1 . ARC follow-up. * Medical History: Objective: * Vitals: Assessment: Plan: * Treatment: * Billing Information: * Visit Code: * Procedure Codes: * Electronic signature of Merlyn Hodges DNP, FNP-C on 01/02/2025 at 03:56 PM SLIP MIXER Sign off status: Pending * Provider: QIAN Kennedy Date: 1 12/30/2023 Generated for Paul hernandez/Sowmya/Bharti on: 0 01/02/2025 03:56 PM SLIP MIXER
--- OUTSIDE RECORDS SUMMARY | 2025-01-02 15:57 | XMS_ITS | Continuity of Care Document ---
Author Organization [facility] Address [address] [place] [address] [address] [place] [address] Phone Care Team Providers Care Aboriginal Home School Liaison Officer Name Role Phone Aniyah REYNOSO, Roni Unavailable Unavaila ble Allergies, Adverse Reactions, Alerts Substance Reaction Status Criticality No Known allergies Procedures Procedure Date POSTOP FOLLOW-UP VISIT REVISION OF IRIS POSTOP FOLLOW-UP VISIT POSTOP FOLLOW-UP VISIT REVISION OF IRIS OFFICE/OUTPATIENT VISIT, [facility] Advance Directives Directive Yes / No Effective Date File Name Resuscitation Not Answered N/A N/A Life Support Not Answered N/A N/A Intubation Not Answered N/A N/A Antibiotics Not Answered N/A N/A IV Fluid Support Not Answered N/A N/A Tube Feed Not Answered N/A N/A Other Directive N/A N/A WARNING:The information contained in this section is historical and is provided for information only and does not constitute a legal document or any assurance that the information is still accurate. Please verify the information with the munoz of the legal document before using it for clinical purposes. Encounters Encounter Description Practice Location Reason(s) For Visit Diagnoses Date Provider Providers Copied on Encounter [facility], [address] [place] [address] [address], [place], [place], [id number], [place] tel:[phone] [facility] CONSULT ORQUIDEA MOTT No Information 1 Aniyah Tamayo. [address] [facility], [address], [place], [place], [id number], [place]. tel:[phone] [facility], [address] [place] [address] [address], [place], [place], [id number], tel:[phone] [facility] No Information 1 Krishnasamy Roni. [address], [place], [place], [id number], [place]. tel:[phone] [facility], [address] [place] [address], [id number], tel:[phone] [facility] CONSULT ORQUIDEA MOTT No Information 1 Krishnasamy Roni. [address], [place], [place], [id number], [place]. tel:[phone] [facility], [address] [place] [address], [id number], tel:[phone] [facility] [place] No Information 1 Krishmatthewamy Roni. [address], [place], [place], [id number], [place]. tel:[phone] OFFICE/OUTPA TIENT VISIT, [facility], [address] [place] [address], [id number], tel:[phone] OPH CONSULT ORQUIDEA MOTT angle check (chief complaint) Acute angle-closure glaucomaAnatom ical narrow angle borderline glaucomaHyperm etropia 1 Sameeraamy Roni. [address], [place], [place], [id number], [place]. tel:[phone] Family History Family Member Type Diagnosis Age At Onset No Information Payers Payer name Insurance type Covered libertarian ID Mukul moss(s) [facility] CI [id number] Social History Type Description Quantity Date Captured Comments Alcohol Use Details Unknown Caffeine Use Details Unknown Tobacco Use Status No Information Smoking Status No Information Sex Male Chief Complaint And Reason For Visit No Information Plan Of Treatment Date Type Action Status No Information History Of Present Illness Encounter Date Complaint History Of Prese nt Illness No Information Instructions Date Instruction Additional Infor kevin Hyperopia, OU -high rx with possible mild refractive amblyopia, ou. - Observe Related to Hyperopia Anatomical narrow an gle borderline glaucoma, OU - PI necessary. Discussed risks, benefits, and alternatives. 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
--- OUTSIDE RECORDS SUMMARY | 2025-01-02 15:57 | XMS_ITS | Clinical Summary ---
Author Organization [facility] Address [address] [place] [address] Phone Care Team Providers Care Pluck Separator Name Role Phone Unavailable Primary Care Provider Unavailabl e Allergies No known active allergies Medications No known medications Social History Tobacco Use Types Packs/Day Years Used Date Smoking Tobacco: Former Smokeless Tobacco: Never Alcohol Use Standard Drinks/Week Comments No 0 (1 standard drink = 0.6 oz pur e alcohol) Sex and Gender Information Value Date Recorded Sex Assigned at Not on file Legal Sex Male 2:44 PM CDT Gender Identity Not on file Sexual Orientation Not on file Last Filed Vital Signs Vital Sign Reading Time Taken Comments Blood Pressure 168/101 06/21/2015 3:08 PM CDT Pulse - - Temperature 36.8 C (98.3 F) 06/21/2015 3:08 PM CDT Respiratory Rate 16 06/21/2015 3:08 PM CDT Oxygen Saturation 97% 06/21/2015 3:08 PM CDT Inhaled Oxygen Concentration - - Weight 74.4 kg (164 lb) 06/21/2015 3:08 PM CDT Height 175.3 cm (5' 9 ) 06/21/2015 3:08 PM CDT Body Mass Index 24.22 06/21/2015 3:08 PM CDT Plan of Treatment Health Maintenance Due Date Last Done Comments DTAP/TDAP/TD VACCINES (1 - Tdap) 1981 COLORECTAL SCREENING 2007 Colorectal Cancer Screening 2007 FIT-DNA Q 3 years 2007 FIT/FOBT Q 1 year 2007 Flex Sig/CT Colonography Q 5 years 2007 ZOSTER VACCINE (1 of 2) 2012 INFLUENZA VACCINE (#1) 2024 RSV VACCINE (60+ or ) (1 - 1-dose 75+ series) 2037 Insurance MEDICARE PART A HOSPITAL ONLY AETNA O [facility]
== END 2025-01-02 15:50 | disposition home or self-care (01) ==
PROVIDERS: PCP Nurse Practitioner; Visit Provider Urology
DX: N20.0 Calculus of kidney (principal)
CPT/HCPCS: 74018; 76770

== ENCOUNTER 2025-04-03 08:56 | Outpatient (CLI) | payer MEDICARE, MEDICAID, SELFPAY ==
--- NOTE | ~2025-04-03 | XR_ITS ---
MODIFIED ESOPHAGRAM HISTORY: Dysphagia. TECHNIQUE: Modified barium esophagram was performed on 04/03/2025. I administered fluoroscopy and perf ormed the exam with speech pathologist. Patient was seated for lateral fluoroscopic imaging for sophy stion of thin liquids, pudding, solids and quantified amounts, followed by thin liquids in uncontroll ed amounts. This was recorded on tape. A single fluoroscopic spot image was also recorded. The DAP fo r this procedure was 1.0 Gycm2. The amount of fluoroscopy time used during this procedure was 1.5 min utes. FINDINGS: Oral stage: Patient is edentulous with no ability to officially masticate solids.. Pharyngeal stage: Reduced tongue base retraction. There is vallecular residue which cleared with dry swallows. There is flash laryngeal penetration without aspiration. There is cricopharyngeal dysfuncti on. Cervical/esophageal stage: Adequate function. IMPRESSION: Oral pharyngeal dysphagia with laryngeal penetration without aspiration. Please correlat e with speech pathologist findings and specific feeding recommendations. Reviewed, dictated and finalized at location A. IMPRESSION: Oral pharyngeal dysphagia with laryngeal penetration without aspira tion. Please correlate with speech pathologist findings and specific feeding r ecommendations.
--- OUTSIDE RECORDS SUMMARY | 2025-04-03 09:03 | XMS_ITS | Encounter Summary ---
Author Organization [facility] Address [address] [place] [address] Care Team Providers Care Ancient Art Curator Name Role Phone Ghada Enamorado NP Primary Care Provider Rosalba Calles APNP Unavailable [phone] Kayli Berry MD Primary Care Provider [phone] Chana Mann RN Unavailable [phone] Hamida De La TorreC Primary Care Provider [phone] Encounter Details Date Type Department Care Team ([facility] Contact Info) Description 09/17/2019 [employer] Message Enc [facility] DEPARTMENT [address] [place] [address] Mychart, [facility] Provider Lab results Social History Tobacco Use [...] Upcoming Encounters Date Type Department Care Team ([facility] st Contact Info) Description 05/16/2025 1:20 PM CDT Office Visit [facility] Medical Group Family Medicine - [place] [address] [facility] [address] [place] [address] Cierra Barnes, NEO [address] [place] [address] documented as of this encounter Visit Diagnoses Not on filedocumented in this encounter Additional Health Concerns Infection Onset Date Last Indicated Resolved Time COVID-19 Rule Out 12/09/2020 12/09/2020 12/10/2020 12:16 PM PEST CONTROL SPECIALIST COVID-19 Rule Out 12/27/2020 12/27/2020 12/28/2020 4:56 PM PEST CONTROL SPECIALIST COVID-19 Rule Out 03/03/2021 03/03/2021 03/03/2021 3:11 PM CDT documented as of this encounter Care Teams Ancient Art Curator Relationship Specialty Start Date End Date Ghada Enamorado NP PCP - General Nurse Practitioner Family 07/09/19 07/20/20 Rosalba Mancilla APNP [address] [place] [address] PCP - Med Group - MSSP Attributed Provider 08/21/17 11/20/22 Kayli Berry MD [address] [place] [address] PCP - General INTERNAL MEDICINE 07/21/20 01/18/22 Hamida De La Torre PADengC [address] [place] [phone] PCP - General PHYSICIAN FRUIT RANCHER 01/18/25 Chana Mann, RN [address] [place] [address] Weigher Bulker (Ambulatory) REGISTERED NURSE 10/23/24 11/07/24 documented as of this encounter
--- OUTSIDE RECORDS SUMMARY | 2025-04-03 09:03 | XMS_ITS | Encounter Summary ---
Author Organization [facility] Address [address] [place] [address] Care Team Providers Care Epic Kaleidoscope Analyst Name Role Phone Rosalba Mancilla APNP Unavailable [phone] Kayli Berry MD Primary Care Provider [phone] Chana Mann RN Unavailable [phone] Hamida De La Torre PA-C Primary Care Provider [phone] Encounter Details Date Type Department Care Team (Late st Contact Info) Description 07/23/2020 [employer] Message Enc [facility] Medical Group Family & Internal Medicine [address] [address] [facility] Provider Lab Results Social History Tobacco Use [...] [facility]IORAL HE[facility] Medical Group Family Medicine - [place] [address] [facility] [address] [place] [address] Cierra Barnes, SHRUB PLANTER [address] [place] [address] documented as of this encounter Visit Diagnoses Not on filedocumented in this encounter Additional Health Concerns Infection Onset Date Last Indicated Resolved Time COVID-19 Rule Out 12/09/2020 12/09/2020 12/10/2020 12:16 PM PUBLIC INTERVIEWER COVID-19 Rule Out 12/27/2020 12/27/2020 12/28/2020 4:56 PM PUBLIC INTERVIEWER COVID-19 Rule Out 03/03/2021 03/03/2021 03/03/2021 3:11 PM CDT documented as of this encounter Care Teams Epic Kaleidoscope Analyst Relationship Specialty Start Date End Date Rosalba Mancilla APNP [address] [place] [address] PCP - Med Group - MSSP Attributed Provider 08/21/17 11/20/22 Kayli Berry MD [address] [place] [address] PCP - General INTERNAL MEDICINE 07/21/20 01/18/22 Hamida De La Torre PA-C [address] [place] [phone] PCP - General PHYSICIAN POULTRY SERVICE TECHNICIAN 01/18/25 Chana Mann, RN [address] [place] [address] Combiner Operator (Ambulatory) REGISTERED NURSE 10/23/24 11/07/24 documented as of this encounter
--- OUTSIDE RECORDS SUMMARY | 2025-04-03 09:03 | XMS_ITS ---
Author Organization [facility] [place] ([address]) Address [address] [place] [address] Care Team Providers Care Line And Frame Poler Name Role Phone Hongaydin Cierra Primary Care Provider UnavailMerlyn Mike Unavailable [phone] Allergies No Known Allergies Results Component Value Reference Range Notes C1 INHIBITOR, FUNCTIONAL Reviewed date:12/10/2024 09:57:26 AM Interpretation:Normal Performing Lab:[facility], [facility], [address], [place], [place], Michael Patterson M.D.,PhD Notes/Report: NON-FASTING; NON-FASTING C1 ESTERASE INHIBITOR, FUNCTIONAL 98 >=68 % Reference Range: > or = 68%: Normal 41-67%: Equivocal < or = 40%: Abnormal Less than 40% of the reference functional activity indicates a likely diagnosis of hereditary angioedema or acquired C1 Inhibitor deficiency. For additional information, please refer to: http://education.[employer]/faq/FAQ54 (This link is being provided for informational/ educational purposes only.) C1 INHIBITOR, PROTEIN Reviewed date:12/10/2024 09:57:02 AM Interpretation:Normal Performing Lab:[facility], [facility], [address], [place], [place], Michael Patterson M.D.,PhD Notes/Report: NON-FASTING; NON-FASTING C1 ESTERASE INHIBITOR, PROTEIN 30 21-39 mg/d L A normal C1 esterase inhibitor protein level does not rule out the possibility of a functional C1 esterase inhibitor deficiency. Consider further testing of C1 esterase inhibitor functional activity, if clinically indicated. COMPLEMENT COMPONENT C4C Reviewed date:12/10/2024 09:57:38 AM Interpretation:Normal Performing Lab:[facility], [facility], [address] [place], [address] Nathan Nuñez MD Notes/Report: NON-FASTING; NON-FASTING COMPLEMENT COMPONENT C4C 28 15-53 mg/dL COMPLEMENT, TOTAL (CH50) Reviewed date:12/10/2024 09:57:13 AM Interpretation:Normal Performing Lab:[facility], [facility], [address] [place], [address] Nathan Nuñez MD Notes/Report: NON-FASTING; NON-FASTING COMPLEMENT, [...] Blood pressure diastolic 89 mm Hg 025 Height 69 in 12/04/2024 Weight 161 lbs 12/04/2024 BMI 23.77 kg/m2 12/04/2024 Oximetry 97 % 12/04/2024 Encounters Encounter Location Date Provider Diagnosis [facility] [address] [place] [address] 12/04/2024 Merlyn Hodges Pruritus, unspecifie d L29.9 [...] Notes * Tejas HIRSCHDOB:1960 (63 yo M)Acc No.[id number]:12/04/2024 Progress Notes Patient: Tejas IRVING Provider: QIAN Kennedy-C :1960 A ge:63 Y S ex:Male Date:12/04/2024 Address:[address] [place], [place] [id number] Pcp:Cierra Barnes Subjective: * Chief Complaints: * [...] I had the pleasure of seeing Valeriy house Frankie Hirsch, a 63-year-old male withpast medical [...] of hospitalizations due to lower airway symptoms. Mary Louehas a history of memory loss, managed by [...] n one. c ataracts Y es. g laucoma No. l oss of hearing Y es. i tching in ears Y es. r inging in ears N o. loss of balance Y es. l oss of smell Y es. d ry eyes N o. e xcessive tearing N o. i tching eyes Y es. l oss of taste Y es. c onjunctivitis Y es. e ar infections N o. C ONSTITUTIONAL: weight gain N o. l oss of appetite Y es. f ever No. w eakness Y es. w eight loss N o. f atigue Y es. n ight sweats No. P ositive for n one. E NT: [...] atering Y es. s welling of the eyelids No. r edness N o. E NDOCRINOLOGY: fatigue Y es. p olydipsia N o. p olyuria Y es. w eight loss N o. s leep disturbance Y es. c old intolerance N o. h eat intolerance N o. d iabetes N o. P ositive for n one. C ARDIOLOGY: chest pain Y es. p alpitations N o. l eg edema No. d izziness N o. s hortness of breath Y es. P ositive for n one. G ASTROENTEROLOGY: dysphagia Y es. a bdominal pain Y es. n ausea No. v omiting N o. c onstipation Y es. d iarrhea N o. b lood in stool N o. i ndigestion Y es. h emorrhoids N o. P ositive for n one. U ROLOGY: difficulty urinating Y es. b lood in urine N o. frequent urination Y es. u rinary incontinence N [...] N o. P ositive for n one. P SYCHOLOGY: high stress level N o. d epression N o. s leep disturbances N o. s uicidal ideation N o. e ating disorder N o. m ental or physical abuse N o. a nxiety N o. P ositive for n one. M IVONE REPRODUCTIVE: difficulty with erection N o. d iminished sexual drive No. p enile discharge N o. i nfertility [...] Do you regularly consume products with artificial coloring? Yes Have you ever noticed worsening of your [...] your bedroom? Y es Do you have [id number] carpeting? Y es What is the age [...] llergic rhinitis due to pollen - J30.1 4. A llergic rhinitis due to animal (cat) (dog) hair and dander - J30.81 5 . Other allergic rhinitis - J30.89 6 . S hortness of breath - R06.02 7 . E ssential (primary) hypertension - [...] REFERRAL TO ALTERNATIVE / PRIMARY CARE PROVIDER: R bryan to general practitioner * Follow Up: 4 Weeks (Reason: Evaluation and Management) * Billing Information: * Visit Code: 54760 Office Visit, Est Pt., Level 4. Modifiers: 25 * Procedure Codes: G8427 DOC MEDS VERIFIED W/PT OR RE. * CTOR GRAPHICS Electronically co-signed by Michael Washburn MD, FAAAAI on 12/04/2024 at 02:15 PM DIRECTOR GRAPHICS Sign off status: Completed true * Provider: Genie Hodges DNP STRAW HAT BRIM RAISER OPERATOR-C Date: 0 12/04/2024 Generated for Paul hernandez/Sowmya/Bharti on: 0 04/03/2025 09:03 AM CDT History and Physical Notes * HPI (History of Present Illness) Category Sub-Category Detail Notes Category Not es *Introduction HPI: Tejas Hirsch, a 63-year-old male with past [...]
--- OUTSIDE RECORDS SUMMARY | 2025-04-03 09:03 | XMS_ITS | Encounter Summary ---
Author Organization [facility] Address [address] [place] [address] Care Team Providers Care Sandblast Operator Name Role Phone Hamida De La Torre PA-C Primary Care Provider [phone] Encounter Details Date Type Department Care Team (Late st Contact Info) Description 02/18/2025 [employer] Message Enc [facility] Family Medicine [facility] [address] [facility] [address] [place] [address] Cierra Barnes, NEO [address] [place] [address] TEJAS HIRSCH Social History Tobacco Use Types [...] Date Recorded Patient Health Questionnaire-2 Score 0 01/29/2025 Sex and Gender Information Value Date Recorded Sex Assigned at Male 06/29/2019 11:55 AM CDT Legal Sex Male 5:32 PM CDT Gender Identity Male 06/29/2019 11:55 AM CDT Sexual Orientation Straight 08/03/2019 9: 19 AM CDT documented as of this encounter Progress Notes * Miranda Atkinson - 02/18/2025 2:38 PM CDT He doesn't have to sign, we can take a verbal. Complete an Authorization for Disclosure of Health Information form for all requests. If the request comes through a phone call, the form should be completed but does not need to be signed. documented in this encounter Plan of Treatment Upcoming Encounters Date Type Department Care Team (Late st Contact Info) Description 05/16/2025 1:20 PM CDT Office Visit [facility] Medical [facility] Family Medicine - [place] [address] [facility] [address] [place] [phone] Cierra Barnes NP [address] [place] [address] documented as of this encounter Visit Diagnoses Not on filedocumented in this encounter Additional Health Concerns Assessment Noted Time PHQ-9 Depression Total Score: 13 021 12:48 PM CDT documented as of this encounter Care Teams Sandblast Operator Relationship Specialty Start Date End Date Hamida De La Torre PA-C [address] [place] [address] PCP - General PHYSICIAN MEDICAL ASSEMBLER 01/18/25 documented as of this encounter
--- OUTSIDE RECORDS SUMMARY | 2025-04-03 09:03 | XMS_ITS | Encounter Summary ---
Author Organization [facility] Address [address] [place] [address] Care Team Providers Care Review Nurse Name Role Phone Chana Mann RN Unavailable Hamida De La Torre-C Primary Care Provider [phone] Encounter Details Date Type Department Care Team (Late st Contact Info) Description 09/15/2023 [employer] Message Enc [facility] Medical Group Family Medicine - [place] [address] [facility] [address] [place] [phone] Cierra Barnes, NEO [address] [place] [address] tejas matthews Social History Tobacco Use Types Packs/Day [...] Description 05/16/2025 1:20 PM CDT Office Visit [facility] Medical Group Family Medicine - [place] [address] [facility] [address] [place] [address] Cierra Barnes NP [address] [place] [address] documented as of this encounter Visit Diagnoses Not on filedocumented in this encounter Additional Health Concerns Assessment Noted Time PHQ-9 Depression Total Score: 13 021 12:48 PM CDT documented as of this encounter Care Teams Review Nurse Relationship Specialty Start Date End Date Hamida De La Torre PA-C [address] [place] [phone] PCP - General PHYSICIAN SAMPLER OVENS 01/18/25 Chana Mann, RN [address] [place] [address] Creative Services Director (Ambulatory) REGISTERED NURSE 10/23/24 11/07/24 documented as of this encounter
--- OUTSIDE RECORDS SUMMARY | 2025-04-03 09:03 | XMS_ITS ---
Author Organization [facility] ([address]) Address [address] [place] [address] Care Team Providers Care Stick Inserter Name Role Phone Cierra Barnes Primary Care Provider Unavailab Merlyn Thakkar [phone] REASON FOR VISIT Allergy Benefits/OOP Information Encounters Encounter Location Date Provider Diagnosis [address] [address] 12/02/2024 Merlyn Hodges Plan Of Treatment No Information Progress Notes * Tejas HIRSCHDOB:1960 (63 yo M)Acc No.[id number]:12/02/2024 Patient: Tejas IRVING :1960 A ge:63 Y S ex:Male Address:[address] [facility], [place] [address] * true * Date: Generated for Printi ng/Faxing/eTransmitting on: 0 04/03/2025 09:02 AM CDT
--- OUTSIDE RECORDS SUMMARY | 2025-04-03 09:03 | XMS_ITS | Encounter Summary ---
Author Organization [facility] Address [address] [place] [address] Care Team Providers Care Vendette Name Role Phone Chana Mann RN Unavailable [phone] Hamida De La Torre PA-C Primary Care Provider [phone] Encounter Details Date Type Department Care Team (Late st Contact Info) Description 03/08/2023 [employer] Message Enc [facility] Medical Group Family Medicine [facility] [address] [facility] [address] [place] [phone] Cierra Barnes NP [address] [place] [address] tejas matthews Social History Tobacco Use Types [...] 11:55 AM CDT Sexual Orientation Straight 08/03/2019 9 :19 AM CDT COVID-19 Exposure Response Date Recorded [...] Medical Group Family Medicine - [place] [address] [facility] [address] [place] [address] Cierra Barnes NP [address] [place] [address] documented as of this encounter Visit Diagnoses Not on filedocumented in this encounter Additional Health Concerns Assessment Noted Time PHQ-9 Depression Total Score: 13 021 12:48 PM CDT documented as of this encounter Care Teams Vendette Relationship Specialty Start Date End Date Hamida De La Torre PADengC [address] [place] [address] PCP - General PHYSICIAN CHAINSTITCH TUNNEL ELASTIC OPERATOR 01/18/25 Chana Mann, RN [address] [place] [address] Construction Specialist (Ambulatory) REGISTERED NURSE 10/23/24 11/07/24 documented as of this encounter
--- OUTSIDE RECORDS SUMMARY | 2025-04-03 09:03 | XMS_ITS | Encounter Summary ---
Author Organization [facility] Address [address] [place] [address] Care Team Providers Care Allergy Physician Name Role Phone Chana Mann RN Unavailable [phone] Hamida De La Torre-C Primary Care Provider [phone] Encounter Details Date Type Department Care Team (Late st Contact Info) Description 04/12/2023 [employer] Message Enc [facility] Medical Group Family Medicine - [place] [address] [facility] [address] [place] [address] Cierra Barnes, NEO [address] [place] [address] [place] [address] tejas matthews Social History Tobacco Use Types [...] [facility] Medical [facility] Family Medicine - [place] [address] [address] Cierra Barnes NP [address] [place] [address] documented as of this encounter Visit Diagnoses Not on filedocumented in this encounter Additional Health Concerns Assessment Noted Time PHQ-9 Depression Total Score: 13 021 12:48 PM CDT documented as of this encounter Care Teams Allergy Physician Relationship Specialty Start Date End Date Hamida De La Torre PA-C [address] [place] [address] PCP - General PHYSICIAN MILL HOUSE SUPERVISOR 01/18/25 Chana Mann, RN [address] [place] [address] Rate Engineer (Ambulatory) REGISTERED NURSE 10/23/24 11/07/24 documented as of this encounter
--- OUTSIDE RECORDS SUMMARY | 2025-04-03 09:03 | XMS_ITS | Encounter Summary ---
Author Organization [facility] Address [address] [place] [address] Care Team Providers Care Diesel Service Technician Name Role Phone Rosalba Mancilla APNP Unavailable [phone] Kayli Berry MD Primary Care Provider [phone] Chana Mann RN Unavailable [phone] Hamida De La Torre PA-C Primary Care Provider [phone] Encounter Details Date Type Department Care Team (Late st Contact Info) Description 07/23/2020 [employer] Message Enc [facility] Medical Group Family & Internal Medicine [address] [address] Nitin, [facility] Provider Social History Tobacco Use Types [...] Description 05/16/2025 1:20 PM CDT Office Visit [facility] Medical Group Family Medicine - [place] [address] [facility] [address] [place] [address] Cierra Barnes, ASSEMBLER CAMPER [address] [place] [address] documented as of this encounter Visit Diagnoses Not on filedocumented in this encounter Additional Health Concerns Infection Onset Date Last Indicated Resolved Time COVID-19 Rule Out 12/09/2020 12/09/2020 12/10/2020 12:16 PM SECURITY GUARDS DISPATCHER COVID-19 Rule Out 12/27/2020 12/27/2020 12/28/2020 4:56 PM SECURITY GUARDS DISPATCHER COVID-19 Rule Out 03/03/2021 03/03/2021 03/03/2021 3:11 PM CDT documented as of this encounter Care Teams Diesel Service Technician Relationship Specialty Start Date End Date Rosalba Mancilla APNP [address] [place] [address] PCP - Med Group - MSSP Attributed Provider 08/21/17 11/20/22 Kayli Berry MD [address] [place] [address] PCP - General INTERNAL MEDICINE 07/21/20 01/18/22 Hamida De La Torre PA-C [address] [place] [phone] PCP - General PHYSICIAN COREMAKING MACHINE OPERATOR 01/18/25 Chana Mann, RN [facility] [place] [address] Drier Feeder (Ambulatory) REGISTERED NURSE 10/23/24 11/07/24 documented as of this encounter
--- OUTSIDE RECORDS SUMMARY | 2025-04-03 09:03 | XMS_ITS | Encounter Summary ---
Author Organization [facility] Address [address] [place] [address] Care Team Providers Care Malt House Loader Name Role Phone Chana Mann RN Unavailable [phone] Hamida De La Torre-C Primary Care Provider [phone] Encounter Details Date Type Department Care Team (Late st Contact Info) Description 04/19/2023 [email or web address] Message Enc [facility] Medical Group Family Medicine - [place] [address] [facility] [address] [place] [phone] Cierra Barnes, NEO [address] [place] [address] [place] [address] tejas matthews Social History Tobacco Use Types [...] Office Visit [facility] Medical Group Family Medicine - [place] [address] [address] Cierra Barnes NP [address] [place] [address] documented as of this encounter Visit Diagnoses Not on filedocumented in this encounter Additional Health Concerns Assessment Noted Time PHQ-9 Depression Total Score: 13 021 12:48 PM CDT documented as of this encounter Care Teams Malt House Loader Relationship Specialty Start Date End Date Hamida De La Torre PA-C [address] [place] [phone] PCP - General PHYSICIAN REPEATER CHIEF 01/18/25 Chana Mann, RN [address] [place] [address] Social Media Director (Ambulatory) REGISTERED NURSE 10/23/24 11/07/24 documented as of this encounter
--- OUTSIDE RECORDS SUMMARY | 2025-04-03 09:03 | XMS_ITS | Encounter Summary ---
Author Organization [facility] Address [address] [place] [address] Care Team Providers Care Packing Attendant Name Role Phone Chana Mann RN Unavailable [phone] Hamida De La Torre-Imani Primary Care Provider [phone] Reason for Visit * Reason Onset Date Comments Pre-visit Gap Closure 02/23/2023 Encounter Details Date Type Department Care Team (Late st Contact Info) Description 02/23/2023 Patient Outreach [facility] Family Medicine - [place] [address] [facility] [place] [address] Bret Bhandari MA Pre-visit Gap [...] Description 05/16/2025 1:20 PM CDT Office Visit [facility] Medical Group Family Medicine - [place] [address] [facility] [address] [place] [address] Cierra Barnes NP [address] [place], [place] [address] documented as of this encounter Visit Diagnoses Not on filedocumented in this encounter Additional Health Concerns Assessment Noted Time PHQ-9 Depression Total Score: 13 021 12:48 PM CDT documented as of this encounter Care Teams Packing Attendant Relationship Specialty Start Date End Date Hamida De La Torre PA-C [address] [place] [phone] PCP - General PHYSICIAN PATTERN VAULT CLERK 01/18/25 Chana Mann, RN [address] [place] [address] Manager Community Outreach (Ambulatory) REGISTERED NURSE 10/23/24 11/07/24 documented as of this encounter
--- OUTSIDE RECORDS SUMMARY | 2025-04-03 09:03 | XMS_ITS | Encounter Summary ---
Author Organization [facility] Address [address] [place] [address] Care Team Providers Care Fire Control Assistant Name Role Phone Ghada Enamorado NP Primary Care Provider Rosalba Calles APNP Unavailable [phone] Kayli Berry MD Primary Care Provider [phone] Chana Mann RN Unavailable [phone] Hamida De La TorreC Primary Care Provider [phone] Encounter Details Date Type Department Care Team (Late st Contact Info) Description 12/27/2019 MyChart Message Enc [facility] Medical Group Family & Internal Medicine [address] [address] Anali Paniagua MD RE: Test [...] [facility] Family Medicine - [place] [address] [facility] [address] [place] [address] Cierra Barnes, NEO [address] [place] [address] documented as of this encounter Visit Diagnoses Not on filedocumented in this encounter Additional Health Concerns Infection Onset Date Last Indicated Resolved Time COVID-19 Rule Out 12/09/2020 12/09/2020 12/10/2020 12:16 PM ASSEMBLER TRACTOR COVID-19 Rule Out 12/27/2020 12/27/2020 12/28/2020 4:56 PM ASSEMBLER TRACTOR COVID-19 Rule Out 03/03/2021 03/03/2021 03/03/2021 3:11 PM CDT documented as of this encounter Care Teams Fire Control Assistant Relationship Specialty Start Date End Date Ghada Enamorado NP PCP - General Nurse Practitioner Family 07/09/19 07/20/20 Rosalba Mancilla APNP [address] [place] [address] PCP - Med Group - MSSP Attributed Provider 08/21/17 11/20/22 Kayli Berry MD [address] [place] [address] PCP - General INTERNAL MEDICINE 07/21/20 01/18/22 Hamida De La Torre PA-C [address] [place] [phone] PCP - General PHYSICIAN WATER ENGINEER 01/18/25 Chana Mann, RN [facility] [place] [address] Awning Maker (Ambulatory) REGISTERED NURSE 10/23/24 11/07/24 documented as of this encounter
--- OUTSIDE RECORDS SUMMARY | 2025-04-03 09:03 | XMS_ITS | Encounter Summary ---
Author Organization [facility] Healthcare Address [address] [place] [address] Care Team Providers Care Bottom Turner Name Role Phone Chioma Arias NP Primary Care Provider [phone] Cierra Barnes MD Primary Care Provider [phone] Encounter Details Date Type Department Care Team (Late st Contact Info) Description 02/08/2023 Telephone [facility] [address] [place] [address] Shannon Rizzo, FAYE Social History Tobacco Use Types Packs/Day Years Used Date Smoking Tobacco: Some Days Cigars Smokeless Tobacco: Never Sex and Gender Information Value Date Recorded Sex Assigned at Not on file Legal Sex Male 7:38 PM HEADMASTER/MISTRESS Gender Identity Not on file Sexual Orientation Not on file documented as of this encounter Plan of Treatment Not on file documented as of this encounter Visit Diagnoses Not on filedocumented in this encounter Care Teams Bottom Turner Relationship Specialty Start Date End Date Chioma Arias NP PCP - General Nurse Practitioner 01/11/23 07/19/24 Cierra Barnes MD PCP - General Nurse Practitioner 07/20/24 documented as of this encounter
--- OUTSIDE RECORDS SUMMARY | 2025-04-03 09:03 | XMS_ITS | Encounter Summary ---
Author Organization [facility] Address [address] [place] [address] Care Team Providers Care Purchasing Supervisor Name Role Phone Ghada Enamorado NP Primary Care Provider Ghada Joseph NP Primary Care Provider Rosalba Calles APNP Unavailable [phone] Kayli Berry MD Primary Care Provider [phone] Chana Mann RN Unavailable [phone] Hamida De La Torre PA-C Primary Care Provider [phone] Encounter Details Date Type Department Care Team (Late st Contact Info) Description 05/27/2019 MyChart Message Enc [facility] Medical Group Family & Internal Medicine [address] [address] Ghada Enamorado NP RE: Medication [...] [facility] Family Medicine - [place] [address] [facility] [address] [place] [address] Cierra Barnes, NEO [address] [place] [address] documented as of this encounter Visit Diagnoses Not on filedocumented in this encounter Additional Health Concerns Infection Onset Date Last Indicated Resolved Time COVID-19 Rule Out 12/09/2020 12/09/2020 12/10/2020 12:16 PM PEER COUNSELOR COVID-19 Rule Out 12/27/2020 12/27/2020 12/28/2020 4:56 PM PEER COUNSELOR COVID-19 Rule Out 03/03/2021 03/03/2021 03/03/2021 3:11 PM CDT documented as of this encounter Care Teams Purchasing Supervisor Relationship Specialty Start Date End Date Ghada Enamorado NP PCP - General Nurse Practitioner Family 07/05/19 07/08/19 Ghada Enamorado NP PCP - General Nurse Practitioner Family 07/09/19 07/20/20 Rosalba Mancilla APNP [address] [place] [address] PCP - Med Group - MSSP Attributed Provider 08/21/17 11/20/22 Kayli Berry MD [address] [place] [address] PCP - General INTERNAL MEDICINE 07/21/20 01/18/22 Hamida De La Torre, PADengC [address] [place] [phone] PCP - General PHYSICIAN MANAGER OF FINANCIAL PLANNING 01/18/25 Chana Mann, RN [address] [place] [address] Fisher Purse Seine (Ambulatory) REGISTERED NURSE 10/23/24 11/07/24 documented as of this encounter
--- OUTSIDE RECORDS SUMMARY | 2025-04-03 09:04 | XMS_ITS | Encounter Summary ---
Author Organization [facility] Address [address] [place] [address] Care Team Providers Care Field Artillery Senior Sergeant Name Role Phone Rosalba Mancilla APNP Unavailable [phone] Kayli Berry MD Primary Care Provider [phone] Chana Mann RN Unavailable [phone] Hamida De La Torre PA-C Primary Care Provider [phone] Encounter Details Date Type Department Care Team (Late st Contact Info) Description 02/18/[address] [facility] [address] [place], [place] [phone] Lisa Aquino MD [address] [facility] [address] [place], [place] [phone] Social History Tobacco Use Types Packs/Day Years [...] [facility] Family Medicine - [place] [address] [facility] [address] [place] [phone] Cierra Barnes, NEO [address] [place] [address] [place], [place] [address] documented as of this encounter Visit Diagnoses Diagnosis Preop testing- Primary Preoperative examination, unspecified documented in this encounter Additional Health Concerns Infection Onset Date Last Indicated Resolved Time COVID-19 Rule Out 03/03/2021 03/03/2021 03/03/2021 3:11 PM CDT documented as of this encounter Care Teams Field Artillery Senior Sergeant Relationship Specialty Start Date End Date Rosalba Mancilla APNP [address] [place] [address] PCP - Med Group - MSSP Attributed Provider 08/21/17 11/20/22 Kayli Berry MD [address] [place] [address] PCP - General INTERNAL MEDICINE 07/21/20 01/18/22 Hamida De La Torre PA-C [address] [place] [phone] PCP - General PHYSICIAN CLOTH SECONDS SORTER 01/18/25 Chana Mann RN [address] [place] [address] Hiv Counselor (Ambulatory) REGISTERED NURSE 10/23/24 11/07/24 documented as of this encounter
--- OUTSIDE RECORDS SUMMARY | 2025-04-03 09:04 | XMS_ITS | Encounter Summary ---
Author Organization [facility] Address [address] [place] [address] Care Team Providers Care Clinical Services Assistant Name Role Phone Ghada Enamorado NP Primary Care Provider Ghada Joseph NP Primary Care Provider Rosalba Calles APNP Unavailable [phone] Kayli Berry MD Primary Care Provider [phone] Chana Mann RN Unavailable [phone] Hamida De La Torre PA-C Primary Care Provider [phone] Encounter Details Date Type Department Care Team (Late st Contact Info) Description 05/10/2019 Feebbo Message Enc [facility] [address] [place] [address] Nitin, [facility] Provider RE:XR results Social History Tobacco Use [...] Description 05/16/2025 1:20 PM CDT Office Visit [facility] Medical Group Family Medicine - [place] [address] [facility] [address] [place] [address] Cierra Barnes, JEWEL HOLE GAUGER [address] [place] [address] documented as of this encounter Visit Diagnoses Not on filedocumented in this encounter Additional Health Concerns Infection Onset Date Last Indicated Resolved Time COVID-19 Rule Out 12/09/2020 12/09/2020 12/10/2020 12:16 PM PAINTING TECHNICIAN COVID-19 Rule Out 12/27/2020 12/27/2020 12/28/2020 4:56 PM PAINTING TECHNICIAN COVID-19 Rule Out 03/03/2021 03/03/2021 03/03/2021 3:11 PM CDT documented as of this encounter Care Teams Clinical Services Assistant Relationship Specialty Start Date End Date Ghada Enamorado NP PCP - General Nurse Practitioner Family 07/05/19 07/08/19 Ghada Enamorado NP PCP - General Nurse Practitioner Family 07/09/19 07/20/20 Rosalba Mancilla APNP [address] [place] [address] PCP - Med Group - MSSP Attributed Provider 08/21/17 11/20/22 Kayli Berry MD [address] [place] [address] PCP - General INTERNAL MEDICINE 07/21/20 01/18/22 Hamida De La Torre PADengC [address] [place] [phone] PCP - General PHYSICIAN INDUSTRIAL ECONOMIST 01/18/25 Chana Mann, RN [address] [place] [address] Pin Puller (Ambulatory) REGISTERED NURSE 10/23/24 11/07/24 documented as of this encounter
--- OUTSIDE RECORDS SUMMARY | 2025-04-03 09:04 | XMS_ITS | Encounter Summary ---
Author Organization [facility] Address [address] [place] [address] Care Team Providers Care Policy Value Calculator Name Role Phone Rosalba Mancilla APNP Unavailable [phone] Kayli Berry MD Primary Care Provider [phone] Chana Mann RN Unavailable [phone] Hamida De La Torre PA-C Primary Care Provider [phone] Encounter Details Date Type Department Care Team (Late st Contact Info) Description 11/28/2020 Open Garden Message Enc [facility] Medical Group Family & Internal Medicine [address] [address] Nitin, [facility] Provider Results Social History Tobacco Use Types [...] COVID-19? No / Unsure 11/28/2020 2:25 PM FISH ROE TECHNICIAN documented as of this encounter Plan of Treatment Upcoming Encounters Date Type Department Care Team (Late st Contact Info) Description 05/16/2025 1:20 PM CDT Office Visit [facility] Medical Group Family Medicine - [place] [address] [facility] [address] [place] [address] Cierra Barnes, REINFORCED IRONWORKER [address] [place] [address] documented as of this encounter Visit Diagnoses Not on filedocumented in this encounter Additional Health Concerns Infection Onset Date Last Indicated Resolved Time COVID-19 Rule Out 12/09/2020 12/09/2020 12/10/2020 12:16 PM FISH ROE TECHNICIAN COVID-19 Rule Out 12/27/2020 12/27/2020 12/28/2020 4:56 PM FISH ROE TECHNICIAN COVID-19 Rule Out 03/03/2021 03/03/2021 03/03/2021 3:11 PM CDT documented as of this encounter Care Teams Policy Value Calculator Relationship Specialty Start Date End Date Rosalba Mancilla APNP [address] [place] [address] PCP - Med Group - MSSP Attributed Provider 08/21/17 11/20/22 Kayli Berry MD [address] [place] [address] PCP - General INTERNAL MEDICINE 07/21/20 01/18/22 Hamida De La Torre PA-C [address] [place] [phone] PCP - General PHYSICIAN CONTACT LENS CURVE GRINDER 01/18/25 Chana Mann, RN [address] [place] [address] Mulling Machine Operator (Ambulatory) REGISTERED NURSE 10/23/24 11/07/24 documented as of this encounter
--- OUTSIDE RECORDS SUMMARY | 2025-04-03 09:04 | XMS_ITS | Encounter Summary ---
Author Organization [facility] Address [address] [place] [address] Care Team Providers Care Vessel Traffic Officer Name Role Phone Chana Mann RN Unavailable [phone] Hamida De La Torre-C Primary Care Provider [phone] Encounter Details Date Type Department Care Team (Late st Contact Info) Description 07/22/2024 Emerging Threatst Message Enc [facility] Medical Group Family Medicine - [place] [address] [facility] [address] [place] [phone] Cierra Barnes NP [address] [place] [address] [place] [address] tejas matthews Social History Tobacco Use Types [...] Description 05/16/2025 1:20 PM CDT Office Visit [facility] Medical Group Family Medicine - [place] [address] [facility] [address] [place] [address] Cierra Barnes, COMMUNITY SERVICE WORKER [address] [place] [address] [place], [place] [address] documented as of this encounter Visit Diagnoses Not on filedocumented in this encounter Additional Health Concerns Assessment Noted Time PHQ-9 Depression Total Score: 13 021 12:48 PM CDT documented as of this encounter Care Teams Vessel Traffic Officer Relationship Specialty Start Date End Date Hamida De La Torre PA-C [address] [place] [phone] PCP - General PHYSICIAN DESIGN INSERTER 01/18/25 Chana Mann, RN [address] [place] [address] Distribution Engineering Technologist (Ambulatory) REGISTERED NURSE 10/23/24 11/07/24 documented as of this encounter
--- OUTSIDE RECORDS SUMMARY | 2025-04-03 09:04 | XMS_ITS | Referral Summary ---
Author Organization [address] Address [address] [place] [phone] Care Team Providers Care Oxyacetylene Welder Name Role Phone Cierra Barnes MD Primary Care Provider [phone] Encounters Date Type Department Care Team Description 03/29/2025 Orders Only [facility] [address] [place] [phone] Enzo Wick MD 02/01/2025 Telephone [facility] [address] [place] [address] Polly Marquez MA 01/18/2025 1:00 PM BLACK POWDER GLAZING OPERATOR Office Visit [facility] [address] [place] [phone] Yuliet Maradiaga, NEO Memory loss; Dizziness and giddiness from Last 3 Months Allergies No known active allergies Medications albuterol HFA (PROVENTIL HFA,VENTOLIN HFA,PROAIR HFA) 90 mcg/actuation inhaler TAKE 2 PUFFS BY MOUTH EVERY 4 HOURS NEEDED 1 Active rosuvastatin (CRESTOR) 20 mg tablet TAKE 1 TABLET BY MOUTH NIGHTLY AT BEDTIME 1 Active vitamin E 90 mg (200 unit) capsule Take 1 capsule (200 Units total) by mouth daily 3 Active calcitRIOL (ROCALTROL) 0.25 mcg capsule TAKE 1 CAPSULE BY MOUTH EVERY OTHER DAY 2 Active aspirin 325 mg tablet Take 1 tablet (325 mg total) by mouth daily 3 Active cetirizine (ZyrTEC) 10 mg tablet Take 1 tablet (10 mg total) by mouth daily Active losartan (COZAAR) 25 mg tablet Take 1 tablet (25 mg total) by mouth daily 2 Active amLODIPine (NORVASC) 5 mg tablet Take 1 tablet (5 mg total) by mouth daily 2 Active tamsulosin (FLOMAX) 0.4 mg extended release capsule Take 1 capsule (0.4 mg total) by mouth nightly 3 Active vitamin B-12 1,000 mcg tablet Take 1 tablet (1,000 mcg total) by mouth once a week 3 Active donepeziL (ARICEPT) 10 mg tablet Take half tablet by mouth once a day for two weeks, then one tablet once a day 30 tablet 5 5 Active memantine (NAMENDA) 10 mg tabletIndicatio ns:Moderate to Severe Alzheimer's Type Dementia Take 1 tablet (10 mg total) by mouth 2 (two) times a day 60 tablet 11 5 03/29/20 26 Active memantine (NAMENDA) 5 mg tabletIndicatio ns:Moderate to Severe Alzheimer's Type Dementia Take 2 tablets (10 mg total) by mouth 2 (two) times a day Take half tablet po bid for two weeks, then one tablet po bid 120 tablet 11 5 03/29/20 25 Discontinu ed(Reorder ) Active Problems Problem Noted Date Diagnosed Date Memory loss 01/06/2023 Dizziness and giddiness 05/26/2021 Neck mass 05/26/2021 Social History Tobacco Use Types Packs/Day Years Used Date Smoking Tobacco: Some Days Cigars Smokeless Tobacco: Never Tobacco Cessation:Ready to Q uit: Not Asked; Counseling Given: Not Answered Personal Safety Answer Date Recorded Have you ever been in or are you currently in a harmful physical or emotional relationship or is someone making you feel afraid or unsafe? Denies 02/14/2023 Sex and Gender Information Value Date Recorded Sex Assigned at Not on file Legal Sex Male 7:38 PM BLACK POWDER GLAZING OPERATOR Gender Identity Not on file Sexual Orientation Not on file Last Filed Vital Signs Vital Sign Reading Time Taken Comments Blood Pressure 119/75 01/18/2025 12:55 PM BLACK POWDER GLAZING OPERATOR Pulse 81 01/18/2025 12:55 PM BLACK POWDER GLAZING OPERATOR Temperature 37.6 C (99.6 F) 02/14/2023 6:06 PM CDT Respiratory Rate 18 11/07/2023 1:07 PM BLACK POWDER GLAZING OPERATOR Oxygen Saturation 96% 01/18/2025 12:55 PM BLACK POWDER GLAZING OPERATOR Inhaled Oxygen Concentration - - Weight 71.9 kg (158 lb 9.6 oz) 01/18/2025 12:55 PM BLACK POWDER GLAZING OPERATOR Height 175.3 cm (5' 9.02 ) 01/18/2025 12:[address] Body Mass Index 23.41 01/18/2025 12:55 PM BLACK POWDER GLAZING OPERATOR Plan of Treatment Not on file Insurance [place] [address] [place] [address] [place] Advance Directives For more information, please contact: [phone] * Full Code (Latest Code Status on File) Date Activated Date Inactivated Comments 02/09/2023 7:52 AM 02/10/2023 4:37 AM Care Teams Oxyacetylene Welder Relationship Specialty Start Date End Date Cierra Barnes MD PCP - General Nurse Practitioner 07/20/24
--- OUTSIDE RECORDS SUMMARY | 2025-04-03 09:04 | XMS_ITS | Encounter Summary ---
Author Organization [facility] Address [address] [place] [address] Care Team Providers Care Nursing Home Assistant Name Role Phone Ghada Enamorado NP Primary Care Provider Ghada Joseph NP Primary Care Provider Rosalba Calles APNP Unavailable [phone] Kayli Berry MD Primary Care Provider [phone] Chana Mann RN Unavailable [phone] Hamida De La Torre PA-C Primary Care Provider [phone] Encounter Details Date Type Department Care Team (Late st Contact Info) Description 04/28/2019 Abstract [facility] CONVERSION [address] [place] [address] , Yeyo Angel MD Social History Tobacco [...] Description 05/16/2025 1:20 PM CDT Office Visit [facility] Medical Group Family Medicine - [place] [address] [facility] [address] [place] [address] Cierra Barnes, NEO [address] [place] [address] documented as of this encounter Visit Diagnoses Not on filedocumented in this encounter Additional Health Concerns Infection Onset Date Last Indicated Resolved Time COVID-19 Rule Out 12/09/2020 12/09/2020 12/10/2020 12:16 PM POLE FRAMER COVID-19 Rule Out 12/27/2020 12/27/2020 12/28/2020 4:56 PM POLE FRAMER COVID-19 Rule Out 03/03/2021 03/03/2021 03/03/2021 3:11 PM CDT documented as of this encounter Care Teams Nursing Home Assistant Relationship Specialty Start Date End Date Ghada Enamorado NP PCP - General Nurse Practitioner Family 07/05/19 07/08/19 Ghada Enamorado NP PCP - General Nurse Practitioner Family 07/09/19 07/20/20 Rosalba Mancilla APNP [address] [place] [address] PCP - Med Group - MSSP Attributed Provider 08/21/17 11/20/22 Kayli Berry MD [address] [place] [address] PCP - General INTERNAL MEDICINE 07/21/20 01/18/22 Hamida De La Torre, PA-C [address] [place] [phone] PCP - General PHYSICIAN CUSTOMS MANAGER 01/18/25 Chana Mann, RN [address] [place] [address] Rim Roller Operator (Ambulatory) REGISTERED NURSE 10/23/24 11/07/24 documented as of this encounter
--- OUTSIDE RECORDS SUMMARY | 2025-04-03 09:04 | XMS_ITS | Encounter Summary ---
Author Organization [facility] Address [address] [place] [address] Care Team Providers Care Bleach Packer Name Role Phone Chana Mann RN Unavailable [phone] Hamida De La Torre-C Primary Care Provider [phone] Encounter Details Date Type Department Care Team (Late st Contact Info) Description 09/20/2023 [place] Custom Framing Message Enc [facility] Medical Group Family Medicine - [place] [address] [facility] [address] [place] [phone] Cierra Barnes, NEO [address] [place] [address] tejas matthews Social History Tobacco Use Types [...] Description 05/16/2025 1:20 PM CDT Office Visit [facility] Medical Group Family Medicine - [place] [address] [facility] [address] [place] [address] Cierra Barnes NP [address] [place] [address] [place] [address] documented as of this encounter Visit Diagnoses Not on filedocumented in this encounter Additional Health Concerns Assessment Noted Time PHQ-9 Depression Total Score: 13 021 12:48 PM CDT documented as of this encounter Care Teams Bleach Packer Relationship Specialty Start Date End Date Hamida De La Torre PA-C [address] [place] [phone] PCP - General PHYSICIAN EGG CASER 01/18/25 Chana Mann, RN [address] [place] [address] Yarn Handler (Ambulatory) REGISTERED NURSE 10/23/24 11/07/24 documented as of this encounter
--- OUTSIDE RECORDS SUMMARY | 2025-04-03 09:04 | XMS_ITS | Encounter Summary ---
Author Organization [facility] Address [address] [place] [address] Care Team Providers Care Psychologist Developmental Name Role Phone Hamida De La Torre PA-C Primary Care Provider [phone] Encounter Details Date Type Department Care Team (Late st Contact Info) Description 12/28/2024 Client24 Message Enc [facility] Medical Group Family Medicine [facility] [address] [facility] [address] [place] [address] Cierra Barnes, NEO [address] [place] [address] ashwin [email or web address] Social History Tobacco Use Types Packs/Day [...] Description 05/16/2025 1:20 PM CDT Office Visit [facility] Medical Group Family Medicine - [place] [address] [facility] [address] [place] [address] Cierra Barnes, NEO [address] [place] [address] documented as of this encounter Visit Diagnoses Not on filedocumented in this encounter Additional Health Concerns Assessment Noted Time PHQ-9 Depression Total Score: 13 021 12:48 PM CDT documented as of this encounter Care Teams Psychologist Developmental Relationship Specialty Start Date End Date Hamida De La Torre PA-C [address] [place] [phone] PCP - General PHYSICIAN COMPOSITION FLOOR SETTER 01/18/25 documented as of this encounter
--- OUTSIDE RECORDS SUMMARY | 2025-04-03 09:04 | XMS_ITS | Encounter Summary ---
Author Organization [facility] Address [address] [place] [address] Care Team Providers Care Porcelain Turner Name Role Phone Chana Mann RN Unavailable [phone] Hamida De La Torre-C Primary Care Provider [phone] Encounter Details Date Type Department Care Team (Late st Contact Info) Description 08/03/2024 CCS Environmentalt Message Enc [facility] Medical Group Family Medicine [facility] [address] [facility] [address] [place] [phone] Cierra Barnes NP [address] [place] [address] tejas matthews Social History Tobacco Use Types [...] AM CDT documented as of this encounter Functional Status * Calculated C-SSRS Risk Score (Lifetime/Recent) Answer Date of Assessment Author Status No Risk Indicated 08/04/2024 7:13 PM CDT Gema Cruz RN Active * [place] Suicide Severity Rating Scale (Screener/Recent Self-Report) Question Answer Date of Assessment Author Status 1. Wish to be (Past 1 Month) No 08/04/2024 7:13 PM CDT Gema Cruz RN Activ e 2. Non-Specific Active Suicidal Thoughts (Past 1 Month) No 08/04/2024 7:13 PM CDT Gema Cruz RN Activ e 6. Suicidal Behavior (Lifetime) No 08/04/2024 7:13 PM CDT Gema Cruz RN Activ e documented as of this encounter Progress Notes * Dilcia Alvarez MD - 08/06/2024 8:24 AM CDT Noted. documented in this encounter Plan of Treatment Upcoming Encounters Date Type Department Care Team (Late st Contact Info) Description 05/16/2025 1:20 PM CDT Office Visit [facility] Medical Group Family Medicine - [place] [address] [address] Cierra Barnes NP [address] [place] [address] documented as of this encounter Visit Diagnoses Not on filedocumented in this encounter Additional Health Concerns Assessment Noted Time PHQ-9 Depression Total Score: 13 021 12:48 PM CDT documented as of this encounter Care Teams Porcelain Turner Relationship Specialty Start Date End Date Hamida De La Torre PA-C [address] [place] [phone] PCP - General PHYSICIAN CLINICAL PHYSICIAN ASSISTANT 01/18/25 Chana Mann RN [address] [place] [address] Step Down Nurse (Ambulatory) REGISTERED NURSE 10/23/24 11/07/24 documented as of this encounter
--- OUTSIDE RECORDS SUMMARY | 2025-04-03 09:04 | XMS_ITS | Encounter Summary ---
Author Organization [facility] Address [address] [place] [address] Care Team Providers Care Customer Servicer Name Role Phone Chana Mann RN Unavailable [phone] Hamida De La Torre-C Primary Care Provider [phone] Encounter Details Date Type Department Care Team (Late st Contact Info) Description 07/13/2024 [email or web address] Message Enc [facility] Medical Group Family Medicine - [place] [address] [facility] [address] [place] [address] [phone] Cierra Barnes NP [address] [place] [address] TEJAS HIRSCH Social History Tobacco Use Types [...] [facility] - [place] [address] [facility] [address] [place] [address] Cierra Barnes, SORTING MACHINE OPERATOR [address] [place], [place] [address] documented as of this encounter Visit Diagnoses Not on filedocumented in this encounter Additional Health Concerns Assessment Noted Time PHQ-9 Depression Total Score: 13 021 12:48 PM CDT documented as of this encounter Care Teams Customer Servicer Relationship Specialty Start Date End Date Hamida De La Torre PA-C [address] [place] [phone] PCP - General PHYSICIAN MATERIAL HANDLING CREW SUPERVISOR 01/18/25 Chana Mann, RN [address] [place] [address] Gambling Cashier (Ambulatory) REGISTERED NURSE 10/23/24 11/07/24 documented as of this encounter
--- OUTSIDE RECORDS SUMMARY | 2025-04-03 09:04 | XMS_ITS | Clinical Summary ---
Author Organization [facility] Address [address] [place] [address] Care Team Providers Care Turpentine Distiller Name Role Phone Chioma Arias BERTO Primary Care Provider [phone] Source Comments [facility],non-owned Affiliates and Associated Physician Practices is amultiple site organization consisting of ambulatory clinics and hospital sitesin [place], [place], [place] and [place]. This disclosure is being madepursuant to the Care Everywhere program and may not contain all information available regarding this patient. Last updated 18.[facility] Allergies No known active allergies Medications * Be aware that medications may not be up to date on this document. Alwaysverify current medications with the patient. naproxen (Naprosyn) 500 MG tablet Take 1 [...] Assigned at Male 09/12/2022 10:54 PM CDT Legal Sex Male 11:01 AM HOSPITALITY SPECIALIST Gender Identity Male 09/12/2022 10:54 PM CDT [...] VACCINE (3 - season) 2024 04/08/2021, 03/03/2021 DEPRESSION SCREENING 11/21/2024 INFLUENZA VACCINE (Season Ended) 2025 09/14/2022, 10/01/2021, 08/25/2020, Additional history exists Respiratory Syncytial Virus (RSV) Vaccine Pt: or [...] complete this topic MENINGOCOCCAL (Group B) VACCINE SHARED DECISION-MAKING Aged Out No longer eligible based on patient's age to complete this topic MENINGOCOCCAL GROUPS A/C/Y/W VACCINE Aged Out No longer eligible based on patient's age to complete this topic Insurance MEDICAID - OUT OF STATE Member Subscriber Plan / Payer (Ef fective for All Dates) Name:Tejas Hirsch Jr. Relation to Subscriber:Self Name:TEJAS HIRSCH Payer ID:Not on file Group ID:Not on file Type:Medicaid Address: [address] [address] AETNA MEDICARE ADV MEDICAID [facility] Care Teams Turpentine Distiller Relationship Specialty Start Date End Date Chioma Arias APRN-CNP [address] [phone] PCP - General Nurse Practitioner Family 09/12/22
--- OUTSIDE RECORDS SUMMARY | 2025-04-03 09:04 | XMS_ITS | Patient Health Record ---
Author Organization [facility] ([address]) Address [address] [place] [address] Care Team Providers Care Unhairing Machine Operator Name Role Phone Cierra Barnes Primary Care Provider UnavailMerlyn Mike Unavailable [phone] Allergies No Known Allergies Results Component Value Reference Range Notes C1 INHIBITOR, FUNCTIONAL Reviewed date:12/10/2024 09:57:26 AM Interpretation:Normal Performing Lab:[facility], [facility], [address], [place], [place], Michael Patterson M.D.,PhD Notes/Report: NON-FASTING; NON-FASTING C1 ESTERASE INHIBITOR, FUNCTIONAL 98 >=68 % Reference Range: > or = 68%: Normal 41-67%: Equivocal < or = 40%: Abnormal Less than 40% of the reference functional activity indicates a likely diagnosis of hereditary angioedema or acquired C1 Inhibitor deficiency. For additional information, please refer to: http://education.Responsible City/faq/FAQ54 (This link is being provided for informational/ educational purposes only.) C1 INHIBITOR, PROTEIN Reviewed date:12/10/2024 09:57:02 AM Interpretation:Normal Performing Lab:[facility], [facility], [address], [place], [place], Michael Patterson M.D.,PhD Notes/Report: NON-FASTING; NON-FASTING C1 ESTERASE INHIBITOR, PROTEIN 30 21-39 mg/dL A normal C1 esterase inhibitor protein level does not rule out the possibility of a functional C1 esterase inhibitor deficiency. Consider further testing of C1 esterase inhibitor functional activity, if clinically indicated. COMPLEMENT COMPONENT C4C Reviewed date:12/10/2024 09:57:38 AM Interpretation:Normal Performing Lab:[facility], [facility], [address], [place], [address] Nathan Nuñez MD Notes/Report: NON-FASTING; NON-FASTING COMPLEMENT COMPONENT C4C 28 15-53 mg/dL COMPLEMENT, TOTAL (CH50) Reviewed date:12/10/2024 09:57:13 AM Interpretation:Normal Performing Lab:[facility], [address], [place], [address] Nathan Nuñez MD Notes/Report: NON-FASTING; NON-FASTING COMPLEMENT, TOTAL (CH50) 57 31-60 U/mL TRYPTASE Reviewed date:10/02/2024 05:09:14 PM Interpretation:Normal Performing Lab:[facility], [address] [facility] , [place], [address] Michael Patterson M.D.,PhD Notes/Report: NON-FASTING TRYPTASE 1.2 <11.0 mcg/L The Tryptase test, fluorescent enzyme immunoassay (FEIA), measures both the Alpha and Beta forms of Tryptase. Measuring both forms of Tryptase increases sensitivity for the diagnosis of mastocytosis, and mast cell degranulation as a cause of anaphylaxis. ANTINUCLEAR ANTIBODIES TITER AND PATTERN Reviewed date:08/21/2024 02:40:20 PM Interpretation:Abnormal Performing Lab:[facility], [address], [place], [address] Nathan Nuñez MD Notes/Report: NON-FASTING; NON-FASTING; NON-FASTING; [...] NuMA-like International Consensus on BINU Patterns (https://doi.org/10.1515 /jgoq-0224-2690) SM AND SM/DIESEL ENGINE ENGINEER ANTIBODIES Reviewed date:08/21/2024 02:38:13 PM Interpretation:Normal Performing Lab:[facility], [facility], [address] [place], [address] Nathan Nuñez MD Notes/Report: NON-FASTING; NON-FASTING; NON-FASTING; NON-FASTING FASTING:YES FASTING: YES SM ANTIBODY <1.0 NEG <1.0 NEG AI SM/DIESEL ENGINE ENGINEER ANTIBODY <1.0 NEG <1.0 NEG AI BINU IFA SCREEN W/REFL TO TIT ER/PATTERN,IFA(REFL) Reviewed date:08/21/2024 02:41:50 PM Interpretation:Abnormal Performing Lab:[facility], [address] [place], [address] Nathan Nuñez MD Notes/Report: NON-FASTING; NON-FASTING; NON-FASTING; [...] indicated. For additional information, please refer to http://education.Sport Universal Process/faq/ZMY285 (This link is being provided for informational/ educational purposes only.) CBC (INCLUDES DIFF/PLT) Reviewed date:08/21/2024 02:37:13 PM Interpretation:Abnormal Performing Lab:[facility], [address] , [place], [address] Nathan Nuñez Notes/Report: NON-FASTING; NON-FASTING; NON-FASTING; NON-FASTING FASTING:YES FASTING: YES WHITE BLOOD CELL COUNT 9.6 3.8-10.8 Thousand/uL RED BLOOD CELL COUNT 5.20 4.20-5.80 Million/uL HEMOGLOBIN 15.7 13.2-17.1 g/dL HEMATOCRIT 49.6 38.5-50.0 % MCV 95.4 80.0-100.0 fL MCH 30.2 27.0-33.0 pg MCHC 31.7 32.0-36.0 g/dL RDW 13.2 11.0-15.0 % PLATELET COUNT 189 140-400 Thousand/uL MPV 9.6 7.5-12.5 fL ABSOLUTE NEUTROPHILS 7085 6626-8993 cells/uL ABSOLUTE LYMPHOCYTES 7831 294-1496 cells/uL ABSOLUTE MONOCYTES 739 200-950 cells/uL ABSOLUTE EOSINOPHILS 58 15-500 cells/uL ABSOLUTE BASOPHILS 48 0-200 cells/uL NEUTROPHILS 73.8 LYMPHOCYTES 17.4 MONOCYTES 7.7 EOSINOPHILS 0.6 BASOPHILS 0.5 TSH W/REFLEX TO FT4 Reviewed date:08/21/2024 02:37:31 PM Interpretation:Normal Performing Lab:[facility], [address] [place], [address] [facility] Notes/Report: NON-FASTING; NON-FASTING; NON-FASTING; NON-FASTING FASTING:YES FASTING: YES TSH W/REFLEX TO FT4 2.49 0.40-4.50 mIU/L TRYPTASE Reviewed date:08/21/2024 02:37:21 PM Interpretation:Normal Performing Lab:[facility], [address] [facility] , [place], [address] Michael Patterson M.D.,PhD Notes/Report: NON-FASTING; NON-FASTING; NON-FASTING; NON-FASTING FASTING:YES FASTING: YES TRYPTASE 1.4 <11.0 mcg/L The Tryptase test, fluorescent enzyme immunoassay (FEIA), measures both the Alpha and Beta forms of Tryptase. Measuring both forms of Tryptase increases sensitivity for the diagnosis of mastocytosis, and mast cell degranulation as a cause of anaphylaxis. COMPREHENSIVE METABOLIC PANE L Reviewed date:08/21/2024 02:36:49 PM Interpretation:Normal Performing Lab:[facility], [address] [place], [address] [facility] Notes/Report: NON-FASTING; NON-FASTING; NON-FASTING; NON-FASTING FASTING:YES FASTING: YES GLUCOSE 90 65-99 mg/dL Fasting reference interval UREA NITROGEN (BUN) 8 7-25 mg/dL CREATININE 0.75 0.70-1.35 mg/dL EGFR 103 > OR = 60 mL/min/1.73m2 BUN/CREATININE RATIO SEE NOTE: - (calc) Not Reported: BUN and Creatinine are [...] nts Influenza Unknown 01/02/2023 Administered [facility] NOC Tdap Unknown 05/22/2018 Administered Portal Infor mation Social History Tobacco Use: Social History Observation Description Date Details (start date - stop date) Former Smoker NA - NA Tobacco Control (Standard) Question Answer Notes Tobacco use: Former smoker How long has it been since you last smoked? 1-5 years Problems Problem Type SNOMED Code ICD Code Onset Dates Problem Status W/U Status Risk Notes Problem Chronic allergic conjunctivitis (53041315) Other chronic allergic conjunctivitis (H10.45) Active confirmed Problem Essential hypertension (47009146) Essential (primary) hypertension (I10) Active confirmed Problem Allergic rhinitis caused by pollen (disorder) (09883142) Allergic rhinitis due to pollen (J30.1) Active confirmed Problem Allergic rhinitis (69625230) Other allergic rhinitis (J30.89) Active confirmed Problem Pruritus (994435074) Pruritus, unspecified (L29.9) Active confirmed Problem Allergic rhinitis caused by animal hair and dander (472570077249775) Allergic rhinitis due to animal (cat) (dog) hair and dander (J30.81) Active confirmed Vital Signs Blood pressure diastolic 89 mm Hg 12/04/2024 Oximetry 97 % 12/04/2024 Height 69 in 12/04/2024 Blood pressure systolic 170 mm Hg 12/04/2024 Weight 161 lbs 12/04/2024 BMI 23.77 kg/m2 12/04/2024 Encounters Encounter Location Date Provider Diagnosis [facility] [address] [place] [address] 08/07/2024 Merlyn Hodges [facility] [address] [place] [address] 12/02/2024 Merlyn Hodges [facility] [address] [place] [address] 08/06/2024 Merlyn Hodges Allergic rhinitis du e to pollen J30.1 ; Pruritus, unspecified L29.9 ; Allergic rhinitis due to animal (cat) (dog) hair and dander J30.81 ; Other allergic rhinitis J30.89 ; Shortness of breath R06.02 and Essential (primary) hypertension I10 [facility] [address] [place] [address] 09/11/2024 Merlyn Hodges Pruritus, unspecifie d L29.9 ; Localized swelling, mass and lump, head R22.0 ; Allergic rhinitis due to pollen J30.1 ; Allergic rhinitis due to animal (cat) (dog) hair and dander J30.81 ; Other allergic rhinitis J30.89 ; Shortness of breath R06.02 and Essential (primary) hypertension I10 [facility] [address] [place] [address] 12/04/2024 Merlyn Hodges Pruritus, unspecifie d L29.9 [...] serial checks and follow-up with PCP 09/11/2024 Other 10/09/2024 Other 12/04/2024 Other 08/06/2024 Other Plan Of Treatment No Information Insurance Providers Payer Name Payer Address Payer Phone Subscriber Number Group Number Insured Name Patient Relationship to Insured Coverage Start Date Coverage End Date Aetna Medicare [address] [place] [address] [id number] Tejas Barksdale Self - patient is the [...]
--- OUTSIDE RECORDS SUMMARY | 2025-04-03 09:04 | XMS_ITS | Encounter Summary ---
Author Organization [facility] Address [address] [place] [address] Care Team Providers Care Shrimp Boat Captain Name Role Phone Hamida De La Torre PA-C Primary Care Provider [phone] Encounter Details Date Type Department Care Team (Late st Contact Info) Description 11/30/2024 [employer] Message Enc [facility] Medical Group Family Medicine [facility] [address] [facility] [address] [place] [address] Cierra Barnes NP [address] [place] [address] Tejas Matthews Social History Tobacco Use Types [...] 12:52 PM CST Yes that is fine TIER * Annelise Son MA - 11/30/2024 12:26 PM CST Ok to order blood pressure monitor? TIER documented in this encounter Plan of Treatment Upcoming Encounters Date Type Department Care Team (Late st Contact Info) Description 05/16/2025 1:20 PM CDT Office Visit [facility] Medical Group Family Medicine - [place] [address] [facility] [address] [place] [phone] Cierra Barnes NP [address] [place] [address] documented as of this encounter Visit Diagnoses Not on filedocumented in this encounter Additional Health Concerns Assessment Noted Time PHQ-9 Depression Total Score: 13 021 12:48 PM CDT documented as of this encounter Care Teams Shrimp Boat Captain Relationship Specialty Start Date End Date Hamida De La Torre PA-C [address] [place] [phone] PCP - General PHYSICIAN EXECUTIVE ADMIN 01/18/25 documented as of this encounter
--- OUTSIDE RECORDS SUMMARY | 2025-04-03 09:04 | XMS_ITS | Clinical Summary ---
Author Organization [address] Address [address] [place] [address] Care Team Providers Care Training Intern Name Role Phone Cierra Barnes MD Primary Care Provider [phone] Allergies No known active allergies Medications albuterol [...] Dizziness and giddiness 05/26/2021 Neck mass 05/26/2021 Encounters Date Type Department Care Team Description 03/29/2025 Orders Only [facility] [address] [place] [address] [address] [place] [address] Enzo Wick MD 02/01/2025 Telephone [facility] [address] [place] [phone] Polly Marquez MA 01/18/2025 1:00 PM PROMOTIONAL ADVERTISING ASSISTANT Office Visit [facility] [address] [place] [phone] Yuliet Maradiaga NP Memory loss; Dizziness and giddiness from Last 3 Months Surgical History Surgery Date Site/Laterality Comments HAND [...] on file Legal Sex Male 7:38 PM PROMOTIONAL ADVERTISING ASSISTANT Gender Identity Not on file Sexual Orientation Not on file Obstetrics History Last Filed Vital Signs Vital Sign Reading Time Taken Comments Blood Pressure 119/75 01/18/2025 12:55 PM PROMOTIONAL ADVERTISING ASSISTANT Pulse 81 01/18/2025 12:55 PM PROMOTIONAL ADVERTISING ASSISTANT Temperature 37.6 C (99.6 F) 02/14/2023 6:06 PM CDT Respiratory Rate 18 11/07/2023 1:07 PM PROMOTIONAL ADVERTISING ASSISTANT Oxygen Saturation 96% 01/18/2025 12:55 PM PROMOTIONAL ADVERTISING ASSISTANT Inhaled Oxygen Concentration - - Weight 71.9 kg (158 lb 9.6 oz) 01/18/2025 12:55 PM PROMOTIONAL ADVERTISING ASSISTANT Height 175.3 cm (5' 9.02 ) 01/18/2025 12:[address] Body Mass Index 23.41 01/18/2025 12:55 PM PROMOTIONAL ADVERTISING ASSISTANT Plan of Treatment Health Maintenance Due Date Last Done Comments Colon Cancer Screening-Colonoscopy 1960 Depression Screening 1960 Hepatitis C Screening 1960 Prostate Cancer Screening-PSA 1962 Hepatitis B Screening 1980 Regular Well Visit/Exam 18-64 1980 Covid-19 Vaccine (5 - 2023-2 5 season) 2024 01/02/2023, 03/19/2022, 04/08/2021, Additional history exists Pneumococcal vaccine <65 (3 of 3 - PCV20 or PCV21) 09/12/2024 09/12/2019, 01/23/2019 DTaP/Tdap/Td Vaccine (2 - Td or Tdap) 05/22/2028 05/22/2018 Zoster Vaccine Completed 07/17/2019, 05/17/2019 Influenza Vaccine Completed 08/16/2024, , 01/02/2023, Additional history exists Insurance AETNA [facility] * Guarantor: ByronTejas Dyana Account Type Relation to Patient Date of Phone Billing Address Personal/Family Self [address] [address] [facility] Advance Directives For more information, please contact: [phone] * Full Code (Latest Code Status on File) Date Activated Date Inactivated Comments 02/09/2023 7:52 AM 02/10/2023 4:37 AM Care Teams Training Intern Relationship Specialty Start Date End Date Cierra Barnes MD PCP - General Nurse Practitioner 07/20/24
--- OUTSIDE RECORDS SUMMARY | 2025-04-03 09:04 | XMS_ITS | Encounter Summary ---
Author Organization [facility] Address [address] [place] [address] Care Team Providers Care Asian Studies Program Chair Name Role Phone Ghada Enamorado NP Primary Care Provider Ghada Joseph NP Primary Care Provider Rosalba Calles APNP Unavailable [phone] Kayli Berry MD Primary Care Provider [phone] Chana Mann RN Unavailable [phone] Hamida De La Torre PA-C Primary Care Provider [phone] Encounter Details Date Type Department Care Team (Late st Contact Info) Description 01/26/2019 MyChart Message Enc [facility] DEPARTMENT [address] [place] [address] Nitin, [facility] Provider Lab Work Social History Tobacco Use [...] [facility] Family Medicine - [place] [address] [facility] [address] [place] [address] Cierra Barnes, NEO [address] [place] [address] documented as of this encounter Visit Diagnoses Not on filedocumented in this encounter Additional Health Concerns Infection Onset Date Last Indicated Resolved Time COVID-19 Rule Out 12/09/2020 12/09/2020 12/10/2020 12:16 PM SCHOOL SUPERVISOR COVID-19 Rule Out 12/27/2020 12/27/2020 12/28/2020 4:56 PM SCHOOL SUPERVISOR COVID-19 Rule Out 03/03/2021 03/03/2021 03/03/2021 3:11 PM CDT documented as of this encounter Care Teams Asian Studies Program Chair Relationship Specialty Start Date End Date Ghada Enamorado NP PCP - General Nurse Practitioner Family 07/05/19 07/08/19 Ghada Enamorado NP PCP - General Nurse Practitioner Family 07/09/19 07/20/20 Rosalba Mancilla APNP [address] [place] [address] PCP - Med Group - MSSP Attributed Provider 08/21/17 11/20/22 Kayli Berry MD [address] [place] [address] PCP - General INTERNAL MEDICINE 07/21/20 01/18/22 Hamida De La Torre PA-C [address] [place] [phone] PCP - General PHYSICIAN PHYSICAL FITNESS TRAINER 01/18/25 Chana Mann, RN [address] [place] [address] Diesel Service Technician (Ambulatory) REGISTERED NURSE 10/23/24 11/07/24 documented as of this encounter
--- OUTSIDE RECORDS SUMMARY | 2025-04-03 09:04 | XMS_ITS | Encounter Summary ---
Author Organization [facility] Address [address] [place] [address] Care Team Providers Care Health And Safety Coordinator Name Role Phone Rosalba Mancilla APNP Unavailable [phone] Kayli Berry MD Primary Care Provider [phone] Chana Mann RN Unavailable [phone] Hamida De La Torre PA-C Primary Care Provider [phone] Encounter Details Date Type Department Care Team (Late st Contact Info) Description 12/03/[address] [facility] [address] [place], [place] [id number] Lisa Aquino MD [address] [facility] [address] [place] [address] Social History Tobacco Use Types [...] COVID-19? No / Unsure 12/04/2020 12:47 PM CRIB PAD MAKER documented as of this encounter Plan of Treatment Upcoming Encounters Date Type Department Care Team (Late st Contact Info) Description 05/16/2025 1:20 PM CDT Office Visit [facility] Family Medicine - [place] [address] [facility] [address] [place] [address] Cierra Barnes, NEO [address] [place], [place] [address] documented as of this encounter Results * PRE-SURGICAL/PRE-PROCEDURE CORONAVIRUS (COVID 19) (12/09/2020 1:03 PM CRIB PAD MAKER) CORONAVIRUS SARS COV 2 PCR (RESP) NOT DETECTED NOT DETECTED 12/10/2020 12:16 PM CRIB PAD MAKER [facility] Comment: A Not Detected (negative) test [...] providers and patients using the following websites: https://www.CanoP.com/home/Covid-19/HCP/NAAT/fact-sheet2 https://www.[employer].Local Marketers/home/Covid-19/Patients/NAAT/ fact-sheet2 This test has been authorized by the FDA under an Emergency Use Authorization (EUA) for use by authorized laboratories. Due to the current public health emergency, [facility] is receiving a high volume of samples [...] about COVID-19 can be found at the [employer] website: www.[employer] Mark[employer]/Covid19. Test performed at [facility] [place] [address] [place] [address] Director: CASSY RIOS DO,MPH FIRST TEST YES 12/09/2020 12:53 PM [facility] EMPLOYED IN HEALTHCARE NO 12/09/2020 12:53 PM [facility] SYMPTOMATIC DEFINED BY CDC NO 12/09/2020 12:53 PM [facility] DATE OF SYMPTOM ONSET NON-APPLICABLE 12/09/2020 1:09 PM [facility] HOSPITALIZATION STATUS NO 12/09/2020 12:53 PM [facility] PATIENT IN ICU NO 12/09/2020 12:53 PM [facility] RESIDENT OF [facility] NO 12/09/2020 12:53 PM [facility] NO 12/09/2020 1:09 PM [facility] PATIENT'S RACE WHITE OR 12/09/2020 12:53 PM [facility] ETHNICITY NONHISPANIC 12/09/2020 12:53 PM [facility] SOURCE (QST) NASOPHARYNGEAL SWAB 12/09/2020 12:53 PM [facility] NASOPHARYNGEAL SWAB / Unknown 12/09/2020 1:03 PM CRIB PAD MAKER us Lisa Aquino MD MICROBIOLOGY - GENERAL ORDER ZIYAD Final Result [facility] [address] [place] [address], [place] [phone] [facility] [address] [place] [address], documented in this encounter Visit Diagnoses Diagnosis Preop testing- Primary Preoperative examination, unspecified documented in this encounter Additional Health Concerns Infection Onset Date Last Indicated Resolved Time COVID-19 Rule Out 12/09/2020 12/09/2020 12/10/2020 12:16 PM CRIB PAD MAKER COVID-19 Rule Out 12/27/2020 12/27/2020 12/28/2020 4:56 PM CRIB PAD MAKER COVID-19 Rule Out 03/03/2021 03/03/2021 03/03/2021 3:11 PM CDT documented as of this encounter Care Teams Health And Safety Coordinator Relationship Specialty Start Date End Date Rosalba Mancilla APNP [facility] [place] [address] PCP - Med Group - MSSP Attributed Provider 08/21/17 11/20/22 Kayli Berry MD [address] [place] [address] PCP - General INTERNAL MEDICINE 07/21/20 01/18/22 Hamida De La Torre, PADengC [address] [place] [address] PCP - General PHYSICIAN PHYSICAL THERAPIST AIDE 01/18/25 Chana Mann, RN [address] [place] [address] Tenter Feeder (Ambulatory) REGISTERED NURSE 10/23/24 11/07/24 documented as of this encounter
--- OUTSIDE RECORDS SUMMARY | 2025-04-03 09:04 | XMS_ITS | Encounter Summary ---
Author Organization [facility] Address [address] [place] [address] Care Team Providers Care Shoe Worker Name Role Phone Rosalba Mancilla APNP Unavailable [phone] Kayli Berry MD Primary Care Provider [phone] Chana Mann RN Unavailable [phone] Hamida De La Torre PA-C Primary Care Provider [phone] Encounter Details Date Type Department Care Team (Late st Contact Info) Description 12/24/[address] [facility] [address] [place], [place] [phone] Martínez Franco MD [address] [place], [place] [phone] Social History Tobacco Use Types Packs/Day Years [...] COVID-19? No / Unsure 12/27/2020 7:45 AM DEVELOPMENTAL EDUCATION INSTRUCTOR documented as of this encounter Plan of Treatment Upcoming Encounters Date Type Department Care Team (Late st Contact Info) Description 05/16/2025 1:20 PM CDT Office Visit [facility] Family Medicine - [place] [address] [facility] [address] [place] [address] Cierra Barnes, NEO [address] [place] [address] [place], [place] [address] documented as of this encounter Results * PRE-SURGICAL/PRE-PROCEDURE CORONAVIRUS (COVID 19) (12/27/2020 7:59 AM DEVELOPMENTAL EDUCATION INSTRUCTOR) CORONAVIRUS SARS COV 2 PCR (RESP) NOT DETECTED NOT DETECTED 12/28/2020 4:56 PM DEVELOPMENTAL EDUCATION INSTRUCTOR [facility] Comment: A Not Detected (negative) test result [...] providers and patients using the following websites: https://www.[employer].com/home/Covid-19/HCP/NAAT/fact-sheet2 https://www.[employer].com/home/Covid-19/Patients/NAAT/ fact-sheet2 This test has been authorized by the FDA under an Emergency Use Authorization (EUA) for use by authorized laboratories. Due to the current public health emergency, [facility] is receiving a high volume of samples [...] about COVID-19 can be found at the [facility] website: www.[employer]./Covid19. Test performed at [facility] [address] [place] [address] Director: CASSY RIOS DO,MPH FIRST TEST NO 12/27/2020 7:46 AM [facility] EMPLOYED IN HEALTHCARE NO 12/27/2020 7:46 AM [facility] SYMPTOMATIC DEFINED BY CDC UNKNOWN 12/27/2020 7:46 AM [facility] DATE OF SYMPTOM ONSET UNKNOWN 12/27/2020 9:23 AM [facility] HOSPITALIZATION STATUS NO 12/27/2020 7:46 AM [facility] PATIENT IN ICU NO 12/27/2020 7:46 AM [facility] RESIDENT OF [facility] NO 12/27/2020 7:46 AM [facility] UNKNOWN 12/27/2020 9:23 AM [facility] PATIENT'S RACE WHITE OR 12/27/2020 7:46 AM [facility] ETHNICITY NONHISPANIC 12/27/2020 7:46 AM [facility] SOURCE (QST) NASOPHARYNGEAL SWAB 12/27/2020 7:46 AM [facility] NASOPHARYNGEAL SWAB / Unknown 12/27/2020 7:59 AM DEVELOPMENTAL EDUCATION INSTRUCTOR us Martínez Franco MD MICROBIOLOGY - GENERAL ORDERABL ES Final Result [facility] [address] [place] [address], [place] [phone] [facility] [address] [place] [address], documented in this encounter Visit Diagnoses Diagnosis Preop testing- Primary Preoperative examination, unspecified documented in this encounter Additional Health Concerns Infection Onset Date Last Indicated Resolved Time COVID-19 Rule Out 12/27/2020 12/27/2020 12/28/2020 4:56 PM DEVELOPMENTAL EDUCATION INSTRUCTOR COVID-19 Rule Out 03/03/2021 03/03/2021 03/03/2021 3:11 PM CDT documented as of this encounter Care Teams Shoe Worker Relationship Specialty Start Date End Date Rosalba Mancilla APNP [address] [place] [address] PCP - Med Group - MSSP Attributed Provider 08/21/17 11/20/22 Kayli Berry MD [address] [place] [address] PCP - General INTERNAL MEDICINE 07/21/20 01/18/22 Hamida De La Torre, PA-C [address] [place] [address] PCP - General PHYSICIAN LIVE IN HOUSEKEEPER 01/18/25 Chana Mann, RN [address] [place] [address] Servicing Manager (Ambulatory) REGISTERED NURSE 10/23/24 11/07/24 documented as of this encounter
--- OUTSIDE RECORDS SUMMARY | 2025-04-03 09:04 | XMS_ITS | Encounter Summary ---
Author Organization [facility] Address [address] [place] [address] Care Team Providers Care Boiler Service Technician Name Role Phone Ken Sosa MD Primary Care Provider Miriam Goyal Primary Care Provider [phone] Ghada Enamorado NP Primary Care Provider Ghada Joseph CHILD CARE Primary Care Provider Rosalba Calles APNP Unavailable [phone] Kayli Berry MD Primary Care Provider [phone] Chana Mann RN Unavailable [phone] Hamida De La Torre PA-C Primary Care Provider [phone] Encounter Details Date Type Department Care Team (Latest Contact Info) Description 07/18/2018 Abstract [facility] Miriam Adame FNP [address] [place] [address] Social History Tobacco Use Types Packs/Day Years [...] [facility] - [place] [address] [facility] [address] [place] [address] Cierra Barnes NP [address] [place] [address] documented as of this encounter Visit Diagnoses Not on filedocumented in this encounter Additional Health Concerns Infection Onset Date Last Indicated Resolved Time COVID-19 Rule Out 12/09/2020 12/09/2020 12/10/2020 12:16 PM BEAMER HELPER COVID-19 Rule Out 12/27/2020 12/27/2020 12/28/2020 4:56 PM BEAMER HELPER COVID-19 Rule Out 03/03/2021 03/03/2021 03/03/2021 3:11 PM CDT documented as of this encounter Care Teams Boiler Service Technician Relationship Specialty Start Date End Date Ken Sosa MD PCP - General 07/20/16 10/04/18 Miriam Adame FNP [address] [place] [address] PCP - General FAMILY PRACTICE 10/05/18 01/16/19 Ghada Enamorado NP [address] [place] [address] PCP - General Nurse Practitioner Family 07/05/19 07/08/19 Ghada Enamorado NP [address] [place] [address] PCP - General Nurse Practitioner Family 07/09/19 07/20/20 Rosalba Mancilla APNP [address] [place] [address] PCP - Med Group - MSSP Attributed Provider 08/21/17 11/20/22 Kayli Berry MD [address] [place] [address] PCP - General INTERNAL MEDICINE 07/21/20 01/18/22 Hamida De La Torre PA-C [address] [place] [phone] PCP - General PHYSICIAN MOTOR AND GENERATOR ASSEMBLER 01/18/25 Chana Mann RN [address] [place] [address] Junior Project Coordinator (Ambulatory) REGISTERED NURSE 10/23/24 11/07/24 documented as of this encounter
--- OUTSIDE RECORDS SUMMARY | 2025-04-03 09:04 | XMS_ITS | Encounter Summary ---
Author Organization [facility] Address [address] [place] [address] Care Team Providers Care Milling/Polishing Operator Name Role Phone Chana Mann RN Unavailable [phone] Hamida De La Torre-C Primary Care Provider [phone] Encounter Details Date Type Department Care Team (Late st Contact Info) Description 08/03/2024 THE FASHIONt Message Enc [facility] Family Medicine [facility] [address] [facility] [address] [place] [id number] Cierra Barnes NP [address] [place] [address] tejas matthews Social History Tobacco Use Types [...] PM CDT Gema Cruz RN Active * Garnavillo Suicide Severity Rating Scale (Screener/Recent Self-Report) Question [...] [facility] - [place] [address] [address] Cierra Barnes NP [address] [place] [address] documented as of this encounter Visit Diagnoses Not on filedocumented in this encounter Additional Health Concerns Assessment Noted Time PHQ-9 Depression Total Score: 13 021 12:48 PM CDT documented as of this encounter Care Teams Milling/Polishing Operator Relationship Specialty Start Date End Date Hamida De La Torre PA-C [address] [place] [phone] PCP - General PHYSICIAN SPA RECEPTIONIST 01/18/25 Chana Mann RN [address] [place] [address] Surgical Territory Manager (Ambulatory) REGISTERED NURSE 10/23/24 11/07/24 documented as of this encounter
--- OUTSIDE RECORDS SUMMARY | 2025-04-03 09:05 | XMS_ITS ---
Author Organization [facility] [place] ([address]) Address [address] [place] [address] Care Team Providers Care Facilities Administrator Name Role Phone Cierra Barnes Primary Care Provider Unavailab Merlyn Thakkar Unavailable [phone] REASON FOR VISIT ARC follow-up Encounters Encounter Location Date Provider Diagnosis [facility] [address] [place] [address] 10/29/2024 Merlyn Hodges Plan Of Treatment No Information Progress Notes * Tejas HIRSCHDOB:1960 (64 yo M)Acc No.[id number]:10/29/2024 Progress Notes Patient: Tejas IRVING Provider: QIAN Kennedy :1960 A ge:63 Y S ex:Male Date:10/29/2024 Address:[address] [facility], [place], [place] Pcp:Cierra Barnes Subjective: * Chief Complaints: * 1 . ARC follow-up. * Medical History: Objective: * Vitals: Assessment: Plan: * Treatment: * Billing Information: * Visit Code: * Procedure Codes: * Electronic signature of Merlyn Hodges DNP, FNP-C on 04/03/2025 at 09:04 AM CDT Sign off status: Pending * Provider: QIAN KennedyP-C Date: 1 12/30/2023 Generated for Paul hernandez/Sowmya/Bharti on: 0 04/03/2025 09:04 AM CDT
--- OUTSIDE RECORDS SUMMARY | 2025-04-03 09:05 | XMS_ITS | Clinical Summary ---
Author Organization [facility] Address [address] [place] [address] Care Team Providers Care Hands Hanger Name Role Phone Hamida De La Torre PA-C Primary Care Provider [phone] Allergies No known active allergies Medications vitamin B-12 (CYANOCOBALAMIN) (CYANOCOBALAMIN) 1000 mcg tabletIndications:B 12 deficiency Take 1 tablet (1,000 mcg total) by mouth once a week. 90 tablet 1 3 Active vitamin D3 (CHOLECALCIFEROL) 25 mcg tabletIndications:V itamin D deficiency Take 1 tablet (25 mcg total) by mouth daily. 90 tablet 1 3 Active vitamin C (ASCORBIC ACID) 500 MG tabletIndications:V itamin C deficiency Take 1 tablet (500 mg total) by mouth daily. 90 tablet 1 4 Active acetaminophen-codei ne (TYLENOL #4) 300-60 MG tablet Take 1 tablet by mouth daily. 4 Active memantine (NAMENDA) 10 MG tablet Take 1 tablet (10 mg total) by mouth 2 (two) times daily. 4 Active donepezil (ARICEPT) 10 MG Tab Take 1 tablet (10 mg total) by mouth nightly at bedtime. 4 Active aspirin (CVS ASPIRIN) 325 MG tabletIndications:H ypertension, unspecified type,Kidney stone Take 1 tablet (325 mg total) by mouth daily. Resume in 1 week 90 tablet 4 Active tamsulosin (FLOMAX) 0.4 MG CapIndications:Urin ruma frequency,Kidney stone Take 1 capsule (0.4 mg total) by mouth nightly at bedtime. 90 capsule 4 Active amLODIPine (NORVASC) 5 MG tabletIndications:H ypertension, unspecified type Take 1 tablet by mouth once daily 90 tablet 1 5 Active rosuvastatin (CRESTOR) 20 MG tabletIndications:H yperlipidemia, unspecified hyperlipidemia type TAKE 1 TABLET BY MOUTH NIGHTLY AT BEDTIME 90 tablet 1 5 Active Blood Pressure Monitoring DeviceIndications:H ypertension, unspecified type Use to monitor blood pressure daily 1 each 5 Active losartan (COZAAR) 25 MG tabletIndications:H ypertension, unspecified type Take 1 tablet by mouth once daily 90 tablet 1 5 Active albuterol sulfate HFA 108 (90 Base) MCG/ACT inhalerIndications: Shortness of breath on exertion Inhale 2 puffs into the lungs every 4 (four) hours as needed. 9 g 1 5 Active cetirizine (ZYRTEC) 10 MG tabletIndications:S easonal allergies Take 1 tablet (10 mg total) by mouth daily. 90 tablet 1 5 Active mirabegron ER (MYRBETRIQ) 25 MG 24 hr tablet Take 1 tablet (25 mg total) by mouth daily. Active ondansetron (ZOFRAN) 4 MG tabletIndications:N ausea and vomiting, unspecified vomiting type Take 1 tablet (4 mg total) by mouth every 8 (eight) hours as needed. 20 tablet 5 Active ondansetron (ZOFRAN-ODT) 4 MG disintegrating tabletIndications:N ausea Take 1 tablet (4 mg total) by mouth every 8 (eight) hours as needed for Nausea. 20 tablet 5 Active famotidine (PEPCID) 20 MG tabletIndications:E pigastric discomfort Take 1 tablet by mouth twice daily 60 tablet 2 5 Active Active Problems Problem Noted Date Diagnosed [...] MRI. Assessment & Plan (09/26/2019 10:32 AM BURLING AND JOINING SUPERVISOR): Exam unremarkable. No sensory deficits. No effusion. Will try changing meloxicam to naproxen and can take dose prior to going to bed as reports symptoms mostly in evening. Explained needs to stop meloxicam. If no improvement may be more restless leg symptoms given timing. BPPV (benign paroxysmal positional vertigo) 01/2018 Dupuytren's contracture 08/23/2018 Thyroiditis 08/23/2018 Assessment & Plan (01/04/2020 12:40 PM BURLING AND JOINING SUPERVISOR): Repeat TSH today Hand dermatitis 05/31/2018 Low [...] 07/16/2016 Assessment & Plan (01/04/2020 12:40 PM BURLING AND JOINING SUPERVISOR): Con't current regimen. Will get BMP. Insomnia 07/16/2016 Resolved Problems Problem Noted Date Diagnosed Date Resolved Date Nausea 07/01/2021 03/03/2023 Lymph node enlargement 06/26/201801/23 Wears glasses 07/16/2016 08/01/2020 Encounters Date Type Department Care Team Description 02/18/2025 MyChart Message Enc [facility] [place] [id number] [facility] [address] [place] [address] Cierra Barnes NP JOSEPH ECKERTHART 02/01/2025 7:13 PM CDT - 02/01/2025 9:26 PM CDT Emergency [facility] [place] [address] Meño La MD,PHD Weakness Discharge Disposition: Home or Self Care (Routine Discharge) 02/01/2025 Travel 01/29/2025 11:00 AM CDT Office Visit [facility] [address] [facility] [address] [place] [address] Cierra Barnes NP ER F/U (Patient presents for an ER follow up from 01/18/25, nausea, vomiting, chest pain, Dx with Panniculitis. ) 01/29/2025 Travel 01/18/2025 3:45 PM BURLING AND JOINING SUPERVISOR - 01/18/2025 6:36 PM BURLING AND JOINING SUPERVISOR Emergency [facility] Emergency [place] [address] Raffy Hernandez MD Vomiting; Pleuritic Chest Pain Discharge Disposition: Home or Self Care (Routine Discharge) 01/18/2025 Travel from Last 3 Months Immunizations Immunization Administration Dates Next Due Fluzone (IIV3, Trivalent, 0. 5 ML Prefilled Syringe) 08/16/2024 Fluzone 6 Months+ Quad (0.5 mL Prefilled Syringe) 09/19/2023,10/01/2021,08/25/2020,2018 Influenza (Generic) 08/23/2021 Influenza Adult (Generic) 01/02/2023,08/23/2018, 11/26/2016 MODERNA COVID-19 (12+) MRNA, LNP-S, PF, 100 MCG/ 0.5 ML DOSE 04/08/2021,03/03/2021 PFIZER COVID-19 (NOLASCO CAP), MRNA, LNP-S, PF, 30 MCG/0.3 ML SHANNAN-SUCROSE, IM 03/19/2022 PFIZER COVID-19 BIVALENT (12 +) mRNA, LNP-S, PF, 30 MCG/0.3 ML DOSE 01/02/2023 Pneumococcal (Pneumovax 23) 01/23/2019 Pneumococcal (Prevnar 13) 09/12/2019 Shingrix 09/26/2024, 4,07/17/2019,2018 Tdap (Boostrix) 05/22/2018 Tdap (Generic) 05/22/2018 Family [...] Sign Reading Time Taken Comments Blood Pressure 140/94 02/01/2025 7:03 PM CDT Pulse 84 02/01/2025 7:03 PM CDT Temperature 36.6 C (97.9 F) 02/01/2025 7:03 PM CDT Respiratory Rate 18 02/01/2025 7:03 PM CDT Oxygen Saturation 99% 02/01/2025 7:03 PM CDT Inhaled Oxygen Concentration - - Weight 70.2 kg (154 lb 12.2 oz) 02/01/2025 7:03 PM CDT Height 175.3 cm (5' 9 ) 02/01/2025 7:03 PM CDT Body Mass Index 22.85 02/01/2025 7:03 PM CDT Plan of Treatment Upcoming Encounters Date Type Department Care Team (Late st Contact Info) Description 05/16/2025 1:20 PM CDT Office Visit [facility] Medical [facility] Family Medicine - Danish [address] [facility] [address] [place] [address] Cierra Barnes NP [address] [place] [address] Health Maintenance Due Date Last Done Comments RSV Immunization or 60+ Years (1 - Risk 60-74 years 1-dose series) 2022 Pneumococcal Vaccine: 50+ Years (3 of 3 - PCV20 or PCV21) 09/12/2024 09/12/2019, 01/23/2019 Annual Physical 05/01/2025 05/01/2024, 03/03/2023 DTaP, Tdap and Td Vaccines (3 - Td or Tdap) 05/22/2028 05/22/2018, 05/22/2018 Colorectal Cancer Screening Colonoscopy (10 Years) 12/12/2030 12/12/2020, 12/12/2020 Hepatitis C Completed 03/10/2023, 06/23, 07/20/2016 COVID-19 Vaccine Completed 07/24/2024, 10/2023, 03/19/2022, Additional history exists Zoster Vaccines Completed 09/26/2024, 01/2024, 07/17/2019, Additional history exists PHQ-2 (Physician [place]) Completed 01/29/2025 Meningococcal B Vaccine Aged Out No l onger eligible based on patient's age to complete this topic Meningococcal Vaccine Aged Out No theresa delma eligible based on patient's age to complete this topic RSV Immunizations Under 20 Months Aged Out No longer eligible based on patient's age to complete this topic Medical Devices Explanted Type Area Cargo Supervisor Device Identifier Shelf Expiration Date Model / Serial / Lot Stent Ureteral 6fr 26cm Pigtl Crv Taper Tip Bldr Mrk - [id number] Implanted:Qty : 1 on 10/23/2024 by Baltazar Flaherty MD at [facility] Explanted:Qty : 1 on 11/06/2024 by Baltazar Flaherty MD at [facility] Stent Left: [address] YOYO DELANEY [id number] 06/27/2027 [id number] Procedures Procedure Name Priority Date/Time Associated Diagnosis Comments MAGNESIUM STAT 02/01/2025 7:21 PM CDT LIPASE STAT 02/01/2025 7:21 PM CDT TROPONIN, QUANT STAT 02/01/2025 7:21 PM CDT COMPREHENSIVE METABOLIC PANEL STAT 02/01/2025 7:21 PM CDT CBC W/DIFF AUTOMATED STAT 02/01/2025 7:21 PM CDT ECG 12-LEAD Routine 02/01/2025 7:18 PM CDT HC URINALYSIS AUTO W/O MICRO STAT 02/01/2025 7:17 PM CDT CTA CHEST+CT ABD+PEL W CON STAT 01/18/2025 4:39 PM BURLING AND JOINING SUPERVISOR ECG 12-LEAD Routine 01/18/2025 4:20 PM BURLING AND JOINING SUPERVISOR LIPASE STAT 01/18/2025 4:00 PM BURLING AND JOINING SUPERVISOR TROPONIN, QUANT STAT 01/18/2025 4:00 PM BURLING AND JOINING SUPERVISOR COMPREHENSIVE METABOLIC PANEL STAT 01/18/2025 4:00 PM BURLING AND JOINING SUPERVISOR CBC W/DIFF AUTOMATED STAT 01/18/2025 4:00 PM BURLING AND JOINING SUPERVISOR HEPATITIS C ANTIBODY W/RFX TO HCV RNA Routine 03/10/2023 10:33 AM CDT COLONOSCOPY GENERIC (SCAN ORDER) Routine 12/12/2020 from Last 3 Months or Most Recently Relevant to Health Maintenance Results * (ABNORMAL) COMPREHENSIVE METABOLIC PANEL (02/01/2025 7:21 PM CDT) Only the most recent of2 resultswithin the time period is included. GLUCOSE 117(H) 70 - 99 MG/DL 02/01/2025 8:02 PM CDT [facility] BUN 14 7 - 18 MG/DL 02/01/2025 8:02 PM CDT [facility] CREATININE S/P/B 0.85 0.7 - 1.3 MG/DL 02/01/2025 8:02 PM CDT [facility] SODIUM S/P/B 138 136 - 145 MMOL/L 02/01/2025 8:02 PM CDT [facility] POTASSIUM S/P/B 3.7 3.5 - 5.1 MMOL/L 02/01/2025 8:02 PM CDT [facility] CHLORIDE S/P/B 104 97 - 115 MMOL/L 02/01/2025 8:02 PM CDT [facility] CO2 31.4 21 - 32 MMOL/L 02/01/2025 8:02 PM CDT [facility] CALCIUM S/P/B 9.5 8.5 - 10.1 MG/DL 02/01/2025 8:02 PM CDT [facility] BILIRUBIN TOTAL S/P/B 0.6 0.2 - 1.2 MG/DL 02/01/2025 8:02 PM CDT [facility] Comment: THIS ASSAY IS NOT RECOMMENDED FOR PATIENTS UNDERGOING TREATMENT WITH ELTROMBOPAG DUE TO THE POTENTIAL FOR FALSELY ELEVATED RESULTS. TOTAL PROTEIN S/P/B 7.5 6.4 - 8.2 G/DL 02/01/2025 8:02 PM CDT [facility] ALBUMIN S/P/B 4.0 3.4 - 5.0 G/DL 02/01/2025 8:02 PM CDT [facility] AST 18 15 - 37 U/L 02/01/2025 8:02 PM CDT [facility] ALT 29 16 - 60 U/L 02/01/2025 8:02 PM CDT [facility] ALKALINE PHOSPHATASE S/P/B 123 50 - 136 U/L 02/01/2025 8:02 PM CDT [facility] ANION GAP 2.6 2 - 10 MMOL/L 02/01/2025 8:02 PM CDT [facility] BUN CREATININE RATIO 16.4 6 - 26 02/01/2025 8:02 PM CDT [facility] A/G RATIO 1.1 1.0 - 2.0 RATIO 02/01/2025 8:02 PM CDT [facility] GFR ESTIMATE >90 >90 ML/MIN/1.7 3 M2 02/01/2025 8:02 PM CDT [facility] Comment: NOTE: eGFR is not calculated for patients <18 years of age or gender unknown. This is an estimated GFR calculation using the new CKD EPI creatinine equation without race and so does not require a correction factor for race. This estimated GFR should not be used for calculating drug doses. 02/01/2025 7:21 PM CDT [facility] Final Resul t [facility] [address] [place] [address], [place] [phone] * (ABNORMAL) CBC W/DIFF AUTOMATED (02/01/2025 7:21 PM CDT) Only the most recent of2 resultswithin the time period is included. WBC 9.41 4.5 - 11.0 x10'3/uL 02/01/2025 7:37 PM CDT [facility] RBC 5.44 4.70 - 6.10 x10'6/uL 02/01/2025 7:37 PM CDT [facility] HGB 16.1 14.0 - 18.0 G/DL 02/01/2025 7:37 PM CDT [facility] HCT 47.8 43.0 - 54.0 % 02/01/2025 7:37 PM CDT [facility] MCV 87.9 80.0 - 94.0 FL 02/01/2025 7:37 PM CDT [facility] MCH 29.6 27.0 - 31.0 PG 02/01/2025 7:37 PM CDT [facility] MCHC 33.7 32.0 - 36.0 G/DL 02/01/2025 7:37 PM CDT [facility] RDW 11.8 11.5 - 14.5 % 02/01/2025 7:37 PM CDT [facility] PLT 209 130 - 400 x10'3/uL 02/01/2025 7:37 PM CDT [facility] MPV 9.2(L) 9.3 - 12.2 FL 02/01/2025 7:37 PM CDT [facility] DIFFERENTIAL TYPE AUTOMATED DIFFERENTIAL 02/01/2025 7:37 PM CDT [facility] NEUTROPHILS % 73.0 % 02/01/2025 7:37 PM CDT [facility] LYMPHOCYTES % 17.0 % 02/01/2025 7:37 PM CDT [facility] MONOCYTES % 8.3 % 02/01/2025 7:37 PM CDT [facility] EOSINOPHILS 1.0 % 02/01/2025 7:37 PM CDT [facility] BASOPHILS 0.4 % 02/01/2025 7:37 PM CDT [facility] IMMATURE GRANS % 0.3 % 02/02/20 7:37 PM CDT [facility] ABS. NEUTROPHILS 6.87 1.80 - 7.70 x10'3/uL 02/01/2025 7:37 PM CDT [facility] ABS. LYMPHOCYTES 1.60 1.00 - 4.80 x10'3/uL 02/01/2025 7:37 PM CDT [facility] ABS. MONOCYTES 0.78 0.30 - 0.82 x10'3/uL 02/01/2025 7:37 PM CDT [facility] ABS. EOSINOPHILS 0.09 0.04 - 0.54 x10'3/uL 02/01/2025 7:37 PM CDT [facility] ABS. BASOPHILS 0.04 0.01 - 0.08 x10'3/uL 02/01/2025 7:37 PM CDT [facility] ABS. IMMATURE GRANULOCYTES 0.03 0.00 - 0.49 x10'3/uL 02/01/2025 7:37 PM CDT [facility] 02/01/2025 7:21 PM CDT [facility] Final Resul t Performing Organization Address [facility] Co de Phone Number [facility] [address] [place] [address], [place] [phone] * TROPONIN, QUANT (02/01/2025 7:21 PM CDT) Only the most recent of2 resultswithin the time period is included. TROPONIN I HIGH SENSITIVITY 7 <79 ng/L 02/01/2025 8:02 PM CDT [facility] Comment: HIGH DOSES OF BIOTIN, TROPONIN-SPECIFIC AUTOANTIBODIES, AND ANTIBODY THERAPY CONTAINING HAMA MAY INTERFERE WITH THIS TEST RESULT. CORRELATION TO CLINICAL HISTORY AND PRESENTATION RECOMMENDED. 02/01/2025 7:21 PM CDT [facility] Final Resul t Performing Organization Address City/[facility]/ZIP Co de Phone Number [facility] [address] [place] [address], [place] [phone] * MAGNESIUM (02/01/2025 7:21 PM CDT) Pathologist [facility] MAGNESIUM 2.4 1.8 - 2.4 MG/DL 02/01/2025 8:02 PM CDT [facility] 02/01/2025 7:21 PM CDT [facility] Final Resul t Performing Organization Address City/[facility]/ZIP Co de Phone Number [facility] [address] [place] [address], [place] [phone] * LIPASE (02/01/2025 7:21 PM CDT) Only the most recent of2 resultswithin the time period is included. LIPASE 23 13 - 75 UNITS/L 02/01/2025 8:02 PM CDT [facility] 02/01/2025 7:21 PM CDT [facility] Final Resul t Performing Organization Address City/[facility] Co de Phone Number [facility] [address] [place] [address], [place] [phone] * ECG 12 lead (02/01/2025 7:18 PM CDT) Only the most recent of2 resultswithin the time period is included. 02/01/2025 7:18 PM CDT Narrative [facility] ([facility]) RAD - 02/03/2025 9:10 AM CDT [address] Test Date: 2025-02-01 Pat Name: TEJAS HIRSCH Department: 41 Room: [facility] Gender: Male Android Framework Developer: [id number] : 1960 Requested By: YADI MUNGUIA Order Number: [id number] [place] MD: Marcos Zelaya Measurements Intervals [place] Rate: 69 P: 73 [place]: 159 QRS: 34 QRSD: 93 T: 58 QT: 375 QTc: 404 Interpretive Statements SINUS RHYTHM Compared to ECG 01/18/2025 16:20:33 T-wave abnormality no longer present No ischemic changes Preliminary EKG Interpretation by ABNER Shahid Procedure Note Marcos Zelaya MD - 02/03/[address] Test Date: 2025-02-01 Pat Name: TEJAS HIRSCH Department: 41 Room: [facility] Gender: Male Android Framework Developer: [id number] : 1960 Requested By: YADI MUNGUIA Order Number: [id number] [place] MD: Marcos Zelaya Measurements Intervals [place] Rate: 69 P: 73 [place]: 159 QRS: 34 QRSD: 93 T: 58 QT: 375 QTc: 404 Interpretive Statements SINUS RHYTHM Compared to ECG 01/18/2025 16:20:33 T-wave abnormality no longer present No ischemic changes Preliminary EKG Interpretation by ABNER Shahid us [facility] ECG ORDERABLES Final Resul t [facility] ([facility]) RAD * (ABNORMAL) URINALYSIS (02/01/2025 7:17 PM CDT) SPECIMEN TYPE URINE CLEAN CATCH 02/01/2025 7:26 PM CDT [facility] COLOR (U) YELLOW 02/01/2025 7:41 PM CDT [facility] TRANSPARENCY CLEAR 02/01/2025 7:41 PM CDT [facility] SPECIFIC GRAVITY (U) 1.027 1.001 - 1.030 02/01/2025 7:41 PM CDT [facility] U PH 6.0 5.0 - 9.0 02/01/2025 7:41 PM CDT [facility] LEUKOCYTES (U) 25(A) NEGATIVE 02/01/2025 7:41 PM CDT [facility] NITRITES NEGATIVE NEGATIVE 02/01/2025 7:41 PM CDT [facility] PROTEIN RANDOM (U) 20 <30 MG/DL 02/01/2025 7:41 PM CDT [facility] GLUCOSE (U) NORMAL NORMAL MG/DL 02/01/2025 7:41 PM CDT [facility] KETONES MG/DL (U) 10(A) NEGATIVE MG/DL 02/01/2025 7:41 PM CDT [facility] UROBILINOGEN 8.0(A) NORMAL MG/DL 02/01/2025 7:41 PM CDT [facility] BILIRUBIN (U) NEGATIVE NEGATIVE MG/DL 02/01/2025 7:41 PM CDT [facility] BLOOD (U) NEGATIVE NEGATIVE 02/01/2025 7:41 PM CDT [facility] MUCUS RARE /LPF 02/01/2025 7:41 PM CDT [facility] WBC/HPF 5 <6 /HPF 02/01/2025 7:41 PM CDT [facility] RBC/HPF 5 <6 /HPF 02/01/2025 7:41 PM CDT [facility] URINE SPECIMEN OBTAINED BY CLEAN CATCH PROCEDURE / Unknown 02/01/2025 7:17 PM CDT us [facility]INE ORDERABLES Final Resu lt [facility] [address] [place] [address], [place] [phone] * CTA CHEST+CT ABD+PEL W CON (01/18/2025 4:39 PM BURLING AND JOINING SUPERVISOR) Anatomical Region Laterality Modality Abdomen, Chest Computed Tomogra phy 01/18/2025 5:34 PM BURLING AND JOINING SUPERVISOR Impressions [id number]|2025-04-03 09:04:00|2025-04-03 09:03:00|XMS_ITS|BKG DAEMON|External Medical Summaries|[id number]|" Encounter Summary Created on: April 03, 2025 Tejas Hirsch Jr. : 1960 Sex: Male Author Organization [facility] Address [facility] [place] [address] Care Team Providers Care Hands Hanger Name Role Phone Rosalba Mancilla Rito JACOBSNP Unavailable [phone] Kayli Berry MD Primary Care Provider [phone] Chana aMnn RN Unavailable [phone] Hamida De La Torre PA-C Primary Care Provider [phone] Encounter Details Date Type Department Care Team (Late st Contact Info) Description 04/28/2021 Netstoryt Message Enc [facility] [address] [place] [address] [place] [address] [place], [place] [phone] RE: Question Social History Tobacco Use Types [...] [facility] [address] [facility] [address] [place] [address] Cierra Barnes, NEO [address] [place] [address] documented as of this encounter Visit Diagnoses Not on filedocumented in this encounter Care Teams Hands Hanger Relationship Specialty Start Date End Date Rosalba Mancilla APNP [address] [place] [address] PCP - Med Group - MSSP Attributed Provider 08/21/17 11/20/22 Kayli Berry MD [address] [place] [address] PCP - General INTERNAL MEDICINE 07/21/20 01/18/22 Hamida De La Torre PA-C [address] [place] [phone] PCP - General PHYSICIAN MAXILLOFACIAL SURGEON 01/18/25 Chana Mann, RN [address] [place], [place] [address] Field Applications Specialist (Ambulatory) REGISTERED NURSE 10/23/24 11/07/24 documented as of this encounter "
--- OUTSIDE RECORDS SUMMARY | 2025-04-03 09:05 | XMS_ITS | Continuity of Care Document ---
Author Organization [facility] Address [address] [place] [address] [address] [place] [address] Phone Care Team Providers Care Coin Machine Service Repairer Name Role Phone Aniyah REYNOSO, Roni Unavailable Unavaila ble Allergies, Adverse Reactions, Alerts Substance Reaction Status Criticality No Known allergies Procedures Procedure Date POSTOP FOLLOW-UP VISIT REVISION OF IRIS POSTOP FOLLOW-UP VISIT POSTOP FOLLOW-UP VISIT REVISION OF IRIS OFFICE/OUTPATIENT VISIT, [facility] Advance Directives Directive Yes / No Effective [...] Provider Providers Copied on Encounter [facility], [address] [place] [address] [address], [place], [place], [id number], [place] tel:[phone] [facility]OTT No Information 1 Aniyah Tamayo. [address] [facility], [address], [place], [place], [id number], [place]. tel:[phone] [facility], [address] [place] [address] [address], [place], [place], [id number], tel:[phone] [facility] No Information 1 Krishnasamy Roni. [address], [place], [place], [id number], [place]. tel:[phone] [facility], [address] [place] [address], [id number], tel:[phone] [facility] ORQUIDE[facility] MOTT No Information 1 Krishnasamy Roni. [address], [place], [place], [id number], [place]. tel:[phone] [facility], [address] [place] [address], [id number], tel:[phone] [facility] [place] No Information 1 Krishnasamy Roni. [address], [place], [place], [id number], [place]. tel:[phone] OFFICE/OUTPA TIENT VISIT, [facility], [address] [place] [address], [id number], tel:[phone] [facility] ORQUIDEA MOTT Acute angle-closure glaucomaAnatom ical narrow angle borderline glaucomaHyperm etropia 1 Krishnasamy Roni. [address], [place], [place], [id number], [place]. tel:[phone] Family History Family Member Type Diagnosis Age At Onset No Information Payers Payer name Insurance type Covered democrat ID Mukul moss(s) [facility] CI [id number] Social History Type Description Quantity Date Captured Comments Alcohol Use Details Unknown Caffeine Use Details Unknown Tobacco Use Status No Information Smoking Status No Information Sex Male Chief Complaint And Reason For Visit No Information Reason For Referral Reason For Referral No Information History Of Present Illness Encounter Date Complaint History Of Prese nt Illness No Information Functional Status Date Functional Assessmen t No Information Instructions Date Instruction Additional Infor mation Hyperopia, OU -high rx with possible mild refractive amblyopia, ou. - Observe Related to Hyperopia Anatomical narrow an gle borderline glaucoma, OU - PI necessary. Discussed risks, benefits, and alternatives. Related to Anatomical narrow angle borderline glaucoma Assessments Type Assessment Date No Information Patient Care Teams Name Effective Dates (start - stop) Status Members No Information
--- OUTSIDE RECORDS SUMMARY | 2025-04-03 09:05 | XMS_ITS | Clinical Summary ---
Author Organization [facility] Address [address] [place] [address] Phone Care Team Providers Care Precision Inspector Name Role Phone Unavailable Primary Care Provider [...] MEDICARE PART A HOSPITAL ONLY [facility]
--- NOTE | 2025-04-03 12:52 | REHSTMBS ---
Assessment and note entered by Krissy Terry, MINE SHIFTER Modified Barium Swallow Evaluation Feeding Type Recommended Oral Food Consistency Soft and Bite Size, Level 6 Liquid Consistency Thin (0) ST Clinical Summary The pt was seen for an OP MBS due to complaints of choking and having a knot in his throat - pointed to the R side. He stated that changing the type of milk he drinks has helped. Pt sees neuro, denied h/o of CVA, but stated he has memory loss; denied h/o pneumonia. Cursory oral motor exam revealed normal labial and lingual musculature in regards to ROM and strength. Pt is edentulous but reported he is able to eat a regular diet. The pt was seated for a lateral view and was presented with 5 ml thin liquid via a spoon, pudding consistency barium via a spoon, pieces of cracker coated with barium pudding via a spoon, and uncontrolled trials of thin liquid via a cup and a straw. The oral stages were WFL for liquids and pudding but with the solids, he did not adequately masticate the solid trials as it was noted that he swallowed whole pieces. The pharyngeal stage was WFL; reduced tongue base retraction was exhibited due to vallecular residue but it was cleared with I dry swallows. Flash laryngeal penetration occurred as well with the uncontrolled trials of thin liquids but it was cleared without risk for aspiration. Impressions: mild dysphagia with slightly reduced tongue base retraction and slightly tight cricopharyngeal muscle; but at this time it appears the pt is able to clear contents. No aspiration occurred. Recommendation; written instructions were given to the pt due to his reported memory loss to extra dry swallow between bites, small sips and bites, and chew food well or opt for a soft diet.
== END 2025-04-03 08:57 | disposition home or self-care (01) ==
PROVIDERS: PCP Family Medicine; Visit Provider Nurse Practitioner
DX: R13.10 Dysphagia, unspecified (principal); R13.12 Dysphagia, oropharyngeal phase
CPT/HCPCS: 92611

== ENCOUNTER 2025-04-19 07:19 | Observation (INO) | payer MEDICARE, MEDICAID, SELFPAY ==
[2025-04-19] VITALS (11 sets, daily range): BP systolic 130–164; BP diastolic 69–117; PULSE 66–85; RESP 14–20; TEMP 36.2–36.5; O2SAT 94–98; BMI 23.9
--- NOTE | ~2025-04-19 | XR_ITS ---
EXAMINATION: XR sm bowel follow through WS DATE: 04/19/2025 16:11 INDICATION: Small bowel obstruction TECHNIQUE: [employer] radiograph(s) of the abdomen was/were obtained. Water-soluble oral contrast was admi nistered, and sequential radiographs of the abdomen were obtained until oral contrast was noted to be in the proximal colon. COMPARISON: None. FINDINGS: Transit time from the stomach to proximal colon was approximately 45 minutes. There is normal caliber and mucosal fold pattern throughout the small bowel. Heterotopic ossification with rim calcification in the left upper quadrant. Bones are unremarkable. There are some excreted contrast in the bladder from the earlier contrast-enhanced CT. IMPRESSION: 1. Normal small bowel follow-through. Reviewed, dictated and finalized at location A.
--- NOTE | ~2025-04-19 | XR_ITS ---
EXAMINATION: XR abdomen obstructive series DATE: 04/20/2025 08:45 INDICATION: Partial small bowel obstruction TECHNIQUE: Supine and upright views of the abdomen. FINDINGS: Small bowel series dated 04/19/2025 The visualized lung parenchyma is normal.. There is a nonobstructive bowel gas pattern. Gas and stool are seen throughout the colon to the level of the rectum. There is no free air. There is residual c ontrast throughout the colon and bladder. IMPRESSION: 1. No acute abdominal abnormality. No evidence for obstruction. Reviewed, dictated and finalized at location A.
--- NOTE | ~2025-04-19 | CT_ITS ---
EXAMINATION: CT abdomen pelvis w con DATE: 04/19/2025 09:12 INDICATION: Abdominal distention TECHNIQUE: Computed tomography (CT) of the abdomen and pelvis was performed with 100 mL Omnipaque-350 intravenous contrast. Automated exposure control and iterative reconstruction technique were employe d. The dose-length product was 281.83 mGy-cm. COMPARISON: 05/18/2024 FINDINGS: Mild bibasilar atelectasis. Heart size is normal. No pericardial or pleural effusion. Liver, gallblad william, spleen, pancreas, bilateral adrenal glands and left kidney are normal. 9 mm right renal cyst. Th e appendix is not visualized. No pericecal inflammatory change to suggest acute appendicitis. There i s fluid and scattered pseudo feces scattered throughout the midportion of the small bowel. The bowel does not appear frankly dilated however there is additional pseudo feces at an abrupt transition poin t in the right lower quadrant with complete decompression of the more distal jejunum which is suggest iker of an early or partial small bowel obstruction. There are a few sigmoid diverticula without adjac ent from trace stranding to suggest diverticulitis. Bladder is normal. Prostatic calcifications. Trac e amount of ascites in the deep pelvis. No abscess or free intraperineal gas. No pathologically enlar ged abdominal or pelvic lymphadenopathy. Mild lumbar and lower thoracic spondylosis. IMPRESSION: 1. Fluid and scattered pseudo feces throughout multiple loops of central small bowel which although n ot frankly dilated demonstrates an abrupt transition point to decompressed distal small bowel in the right lower quadrant which nonetheless raises suspicion for an early or partial small bowel obstructi on. Reviewed, dictated and finalized at location A. IMPRESSION: 1. Fluid and scattered pseudo feces throughout multiple loops of central small bowel which although not frankly dilated demonstrates an abrupt transition poin t to decompressed distal small bowel in the right lower quadrant which nonethel ess raises suspicion for an early or partial small bowel obstruction.
--- OUTSIDE RECORDS SUMMARY | 2025-04-19 07:23 | XMS_ITS | Encounter Summary ---
Author Organization [facility] Healthcare Address [address] [place] [address] Care Team Providers Care Electronics Design Engineer Name Role Phone Chioma Arias NP Primary Care Provider [phone] [phone] Cierra Barnes MD Primary Care Provider +1- [phone] Encounter Details Date Type Department Care Team (Late st Contact Info) Description 02/08/2023 Telephone [facility] [address] [place] [address] Shnanon Rizzo, FAYE Social History Tobacco Use Types Packs/Day Years Used Date Smoking Tobacco: Some Days Cigars Smokeless Tobacco: Never Sex and Gender Information Value Date Recorded Sex Assigned at Not on file Legal Sex Male 7:38 PM CHEF DE FROID Gender Identity Not on file Sexual Orientation Not on file documented as of this encounter Plan of Treatment Not on file documented as of this encounter Visit Diagnoses Not on filedocumented in this encounter Care Teams Electronics Design Engineer Relationship Specialty Start Date End Date Chioma Arias NP PCP - General Nurse Practitioner 01/11/23 07/19/24 Cierra Barnes MD PCP - General Nurse Practitioner 07/20/24 documented as of this encounter
--- OUTSIDE RECORDS SUMMARY | 2025-04-19 07:23 | XMS_ITS | Patient Health Record ---
Author Organization [facility] [place] ([address]) Address [address] [place] [address] Care Team Providers Care Merchandising Intern Name Role Phone Cierra Barnes Primary Care Provider UnavailMerlyn Mike Unavailable [phone] Allergies No Known Allergies Results Component Value Reference Range Notes ANTINUCLEAR ANTIBODIES TITER AND PATTERN Reviewed date:08/21/2024 02:40:20 PM Interpretation:Abnormal Performing Lab:[facility], [facility], [address], [place], [address] Nathan Nuñez MD Notes/Report: NON-FASTING; NON-FASTING; NON-FASTING; [...] NuMA-like International Consensus on BINU Patterns (https://doi.org/10.1515 /wyac-6597-4505) SM AND SM/METALLOGRAPHY TEACHER ANTIBODIES Reviewed date:08/21/2024 02:38:13 PM Interpretation:Normal Performing Lab:[place], [facility], [address] [place], [address] Nathan Nuñez MD Notes/Report: NON-FASTING; NON-FASTING; NON-FASTING; NON-FASTING FASTING:YES FASTING: YES SM ANTIBODY <1.0 NEG <1.0 NEG AI SM/METALLOGRAPHY TEACHER ANTIBODY <1.0 NEG <1.0 NEG AI BINU IFA SCREEN W/REFL TO TIT ER/PATTERN,IFA(REFL) Reviewed date:08/21/2024 02:41:50 PM Interpretation:Abnormal Performing Lab:[facility], [address] [place], [address] Nathan Nuñez MD Notes/Report: NON-FASTING; NON-FASTING; NON-FASTING; [...] indicated. For additional information, please refer to http://education.VoiceGem/faq/KMN389 (This link is being provided for informational/ educational purposes only.) CBC (INCLUDES DIFF/PLT) Reviewed date:08/21/2024 02:37:13 PM Interpretation:Abnormal Performing Lab:[facility], [address], [place], [address] Nathan Nuñez Notes/Report: NON-FASTING; NON-FASTING; NON-FASTING; NON-FASTING FASTING:YES FASTING: YES WHITE BLOOD CELL COUNT 9.6 3.8-10.8 Thousand/uL RED BLOOD CELL COUNT 5.20 4.20-5.80 Million/uL HEMOGLOBIN 15.7 13.2-17.1 g/dL HEMATOCRIT 49.6 38.5-50.0 % MCV 95.4 80.0-100.0 fL MCH 30.2 27.0-33.0 pg MCHC 31.7 32.0-36.0 g/dL RDW 13.2 11.0-15.0 % PLATELET COUNT 189 140-400 Thousand/uL MPV 9.6 7.5-12.5 fL ABSOLUTE NEUTROPHILS 7085 8511-6174 cells/uL ABSOLUTE LYMPHOCYTES 9071 424-1159 cells/uL ABSOLUTE MONOCYTES 739 200-950 cells/uL ABSOLUTE EOSINOPHILS 58 15-500 cells/uL ABSOLUTE BASOPHILS 48 0-200 cells/uL NEUTROPHILS 73.8 LYMPHOCYTES 17.4 MONOCYTES 7.7 EOSINOPHILS 0.6 BASOPHILS 0.5 TSH W/REFLEX TO FT4 Reviewed date:08/21/2024 02:37:31 PM Interpretation:Normal Performing Lab:, [facility], [address] [place], [address] [facility] Notes/Report: NON-FASTING; NON-FASTING; NON-FASTING; NON-FASTING FASTING:YES FASTING: YES TSH W/REFLEX TO FT4 2.49 0.40-4.50 mIU/L TRYPTASE Reviewed date:08/21/2024 02:37:21 PM Interpretation:Normal Performing Lab:[facility], [address] [facility] , [place], [address] Michael Patterson M.D.,PhD Notes/Report: NON-FASTING; NON-FASTING; NON-FASTING; NON-FASTING FASTING:YES FASTING: YES TRYPTASE 1.4 <11.0 mcg/L The Tryptase test, fluorescent enzyme immunoassay (FEIA), measures both the Alpha and Beta forms of Tryptase. Measuring both forms of Tryptase increases sensitivity for the diagnosis of mastocytosis, and mast cell degranulation as a cause of anaphylaxis. COMPREHENSIVE METABOLIC PANE L Reviewed date:08/21/2024 02:36:49 PM Interpretation:Normal Performing Lab:, [facility], [address] [place], [address] [facility] Notes/Report: NON-FASTING; NON-FASTING; NON-FASTING; NON-FASTING FASTING:YES FASTING: YES GLUCOSE 90 65-99 mg/dL Fasting reference interval UREA NITROGEN (BUN) 8 7-25 mg/dL CREATININE 0.75 0.70-1.35 mg/dL EGFR 103 > OR = 60 mL/min/1.73m2 BUN/CREATININE RATIO SEE NOTE: 6-22 (calc) Not Reported: BUN and Creatinine are [...] 18 10-35 U/L ALT 17 9-46 U/L TRYPTASE Reviewed date:10/02/2024 05:09:14 PM Interpretation:Normal Performing Lab:[facility], [address], [place], [place], Michael Patterson M.D.,PhD Notes/Report: NON-FASTING TRYPTASE 1.2 <11.0 mcg/L The Tryptase test, fluorescent enzyme immunoassay (FEIA), measures both the Alpha and Beta forms of Tryptase. Measuring both forms of Tryptase increases sensitivity for the diagnosis of mastocytosis, and mast cell degranulation as a cause of anaphylaxis. COMPLEMENT COMPONENT C4C Reviewed date:12/10/2024 09:57:38 AM Interpretation:Normal Performing Lab:[facility], [address] [place], [address] Nathan Nuñez MD Notes/Report: NON-FASTING; NON-FASTING COMPLEMENT COMPONENT C4C 28 15-53 mg/dL COMPLEMENT, TOTAL (CH50) Reviewed date:12/10/2024 09:57:13 AM Interpretation:Normal Performing Lab:[facility], [address] [place], [address] Nathan Nuñez MD Notes/Report: NON-FASTING; NON-FASTING COMPLEMENT, TOTAL (CH50) 57 31-60 U/mL C1 INHIBITOR, PROTEIN Reviewed date:12/10/2024 09:57:02 AM Interpretation:Normal Performing Lab:[facility], [address], [place], [place], Michael Patterson M.D.,PhD Notes/Report: NON-FASTING; NON-FASTING C1 ESTERASE INHIBITOR, PROTEIN 30 21-39 mg/dL A normal C1 esterase inhibitor protein level does not rule out the possibility of a functional C1 esterase inhibitor deficiency. Consider further testing of C1 esterase inhibitor functional activity, if clinically indicated. C1 INHIBITOR, FUNCTIONAL Reviewed date:12/10/2024 09:57:26 AM Interpretation:Normal Performing Lab:[facility], [facility], [address], [place], [address] Michael Patterson M.D.,PhD Notes/Report: NON-FASTING; NON-FASTING C1 ESTERASE INHIBITOR, FUNCTIONAL 98 >=68 % Reference Range: > or = 68%: Normal 41-67%: Equivocal < or = 40%: Abnormal Less than 40% of the reference functional activity indicates a likely diagnosis of hereditary angioedema or acquired C1 Inhibitor deficiency. For additional information, please refer to: http://Wish Upon A Hero.Sleek Africa Magazine/faq/FAQ54 (This link is being provided for informational/ educational purposes only.) Reason For Referral No Information Medications Medication [...] Vaccine Route Administration Date Status Comme nts NOC Tdap Unknown 05/22/2018 Administered Portal Infor mation Influenza Unknown 01/02/2023 Administered Portal Infor mation Social History Tobacco [...] Status Risk Notes Problem Chronic allergic conjunctivitis (45641630) Other chronic allergic conjunctivitis (H10.45) Active confirmed Problem Essential hypertension (09257372) Essential (primary) hypertension (I10) Active confirmed Problem Allergic rhinitis caused by pollen (disorder) (37069470) Allergic rhinitis due to pollen (J30.1) Active confirmed Problem Allergic rhinitis (83939343) Other allergic rhinitis (J30.89) Active confirmed Problem Pruritus (811505897) Pruritus, unspecified (L29.9) Active confirmed Problem Allergic rhinitis caused by animal hair and dander (998375121662192) Allergic rhinitis due to animal (cat) (dog) hair and dander (J30.81) Active confirmed Vital Signs Blood pressure diastolic 89 mm Hg 12/04/2024 Oximetry 97 % 12/04/2024 Height 69 in 12/04/2024 Blood pressure systolic 170 mm Hg 12/04/2024 Weight 161 lbs 12/04/2024 BMI 23.77 kg/m2 12/04/2024 Encounters Encounter Location Date Provider Diagnosis [facility] [address] [place] [address] 08/06/2024 Merlyn Hodges Allergic rhinitis du e to pollen J30.1 ; Pruritus, unspecified L29.9 ; Allergic rhinitis due to animal (cat) (dog) hair and dander J30.81 ; Other allergic rhinitis J30.89 ; Shortness of breath R06.02 and Essential (primary) hypertension I10 [facility] [address] [place] [address] 09/11/2024 Merlyn Hodges Pruritus, unspecifie d L29.9 ; Localized swelling, mass and lump, head R22.0 ; Allergic rhinitis due to pollen J30.1 ; Allergic rhinitis due to animal (cat) (dog) hair and dander J30.81 ; Other allergic rhinitis J30.89 ; Shortness of breath R06.02 and Essential (primary) hypertension I10 [facility] [address] [place] [address] 12/04/2024 Merlyn Hodges Pruritus, unspecifie d L29.9 ; Localized swelling, mass and lump, head R22.0 ; Allergic rhinitis due to pollen J30.1 ; Allergic rhinitis due to animal (cat) (dog) hair and dander J30.81 ; Other allergic rhinitis J30.89 ; Shortness of breath R06.02 and Essential (primary) hypertension I10 [facility] [address] [place] [address] 08/07/[address] [facility] [address] [place] [address] 12/02/2024 Merlyn Hodges Assessments Encounter Date Diagnosis [...] states this occurs once in a blue guarddao. He states he previously discussed this with [...] Coverage End Date [employer] Medicare [address] [place] [address] [id number] Tejas [place] Self - patient is the [...]
--- OUTSIDE RECORDS SUMMARY | 2025-04-19 07:23 | XMS_ITS ---
Author Organization [facility] [place] ([address]) Address [address] [place] [address] Care Team Providers Care Cargo Router Name Role Phone Cierra Barnes Primary Care Provider Unavailab Merlyn Thakkar Unavailable [phone] REASON FOR VISIT ARC follow-up Encounters Encounter Location Date Provider Diagnosis [facility] [address] [place] [address] 10/29/2024 Merlyn Hodges Plan Of Treatment No Information Progress Notes * Tejas HIRSCHDOB:1960 (64 yo M)Acc No.[id number]:10/29/2024 Progress Notes Patient: Tejas IRVING Provider: QIAN Kennedy :1960 A ge:63 Y S ex:Male Date:10/29/2024 Address:[address], [address], [place], [place] Pcp:Cierra Barnes Subjective: * Chief Complaints: * 1 . ARC follow-up. * Medical History: Objective: * Vitals: Assessment: Plan: * Treatment: * Billing Information: * Visit Code: * Procedure Codes: * Electronic signature of Merlyn Hodges DNP, FNP-C on 04/19/2025 at 07:23 AM CDT Sign off status: Pending * Provider: QIAN KennedyP-C Date: 1 12/30/2023 Generated for Paul hernandez/Sowmya/Bharti on: 0 04/19/2025 07:23 AM CDT
--- OUTSIDE RECORDS SUMMARY | 2025-04-19 07:24 | XMS_ITS | Clinical Summary ---
Author Organization [facility] Address [address] [place] [address] Care Team Providers Care Spa Experience Coordinator Name Role Phone Chioma Arias BERTO Primary Care Provider [phone] [phone] Source Comments [facility],non-owned Affiliates and Associated Physician Practices is amultiple site organization consisting of ambulatory clinics and hospital sitesin [place], [place], [place] and [place]. This disclosure is being madepursuant to the Care Everywhere program and may not contain all information available regarding this patient. Last updated 18.[facility] Allergies No known active allergies Medications * [...] PM CDT Legal Sex Male 11:01 AM RELIEF MANAGER Gender Identity Male 09/12/2022 10:54 PM CDT [...] 1:57 PM CDT Height 175.3 cm (5' 9) 09/23/2022 1:57 PM CDT Body Mass Index [...] file Group ID:Not on file Type:Medicaid Address: [address] [address] A[facility]NA [facility]ICARE ADV MEDICAID [facility] Care Teams Spa Experience Coordinator Relationship Specialty Start Date End Date Chioma Arias APRN-CNP [address] [address] PCP - General Nurse Practitioner Family 09/12/22
--- OUTSIDE RECORDS SUMMARY | 2025-04-19 07:24 | XMS_ITS | Clinical Summary ---
Author Organization [facility] Address [address] [address] Phone Care Team Providers Care Construction Technician Name Role Phone Unavailable Primary Care Provider [...] 3:08 PM CDT Height 175.3 cm (5' 9) 06/21/2015 3:08 PM CDT Body Mass Index [...] MEDICARE PART A HOSPITAL ONLY AETNA O [facility]
--- OUTSIDE RECORDS SUMMARY | 2025-04-19 07:24 | XMS_ITS | Continuity of Care Document ---
Author Organization [facility] Address [address] [place] [address] [address] [place] [address] Phone Care Team Providers Care Light Bulb Replacer Name Role Phone Aniyah REYNOSO, Roni Unavailable Unavaila ble Allergies, Adverse Reactions, Alerts Substance Reaction Status Criticality No Known allergies Procedures Procedure Date POSTOP FOLLOW-UP VISIT REVISION OF IRIS POSTOP FOLLOW-UP VISIT POSTOP FOLLOW-UP VISIT REVISION OF IRIS OFFICE/OUTPATIENT VISIT, [facility] Advance Directives Directive Yes / [...] Provider Providers Copied on Encounter [facility], [address] [place] [address] [address], [place], [place], [id number], [place] tel:[phone] OPH CONSULT ORQUIDEA MOTT No Information 1 Aniyah Tamayo. [address] [facility], [address], [place], [place], [id number], [place]. tel:[phone] [facility], [address] [place] [address] [address], [place], [place], [id number], tel:[phone] [facility] No Information 1 Krishnasamy Roni. [address], [address], [place], [place], [id number], [place]. tel:[phone] [facility], [address] [place] [address], [id number], tel:[phone] OPH CONSULT ORQUIDEA MOTT No Information 1 Krishnasamy Roni. [address], [address], [place], [place], [id number], [place]. tel:[phone] [facility], [address] [place] [address], [id number], tel:[phone] [facility] No Information 1 Krishnasamy Roni. [address], [address], [place], [place], [id number], [place]. tel:[phone] OFFICE/OUTPA TIENT VISIT, [facility], [address] [place] [address], [id number], tel:[phone] OPH CONSULT ORQUIDEA MOTT Acute angle-closure glaucomaAnatom ical narrow angle borderline glaucomaHyperm etropia 1 Krishnasamy Roni. [address], [place], [place], [id number], [place]. tel:[phone] Family History Family Member Type Diagnosis Age At Onset No Information Payers Payer name Insurance type Covered libertarian ID Mukul moss(s) [facility] CI [id number] Social History Type Description Quantity Date Captured [...]
--- OUTSIDE RECORDS SUMMARY | 2025-04-19 07:24 | XMS_ITS | Referral Summary ---
Author Organization [address] Address [address] [place] [address] Care Team Providers Care Dry Kiln Worker Name Role Phone Cierra Barnes MD Primary Care Provider +1- [phone] Encounters Date Type Department Care Team Description 03/29/2025 Orders Only [facility] [address] [place] [address] Enzo Wick MD 02/01/2025 Telephone [facility] [address] [place] [address] Polly Marquez MA 01/18/2025 1:00 PM WELT EDGE ROUNDER Office Visit [facility] [address] [place] [address] Yuliet Maradiaga, NEO Memory loss; Dizziness and [...] on file Legal Sex Male 7:38 PM WELT EDGE ROUNDER Gender Identity Not on file Sexual Orientation Not on file Last Filed Vital Signs Vital Sign Reading Time Taken Comments Blood Pressure 119/75 01/18/2025 12:55 PM WELT EDGE ROUNDER Pulse 81 01/18/2025 12:55 PM WELT EDGE ROUNDER Temperature 37.6 C (99.6 F) 02/14/2023 6:06 PM CDT Respiratory Rate 18 11/07/2023 1:07 PM WELT EDGE ROUNDER Oxygen Saturation 96% 01/18/2025 12:55 PM WELT EDGE ROUNDER Inhaled Oxygen Concentration - - Weight 71.9 kg (158 lb 9.6 oz) 01/18/2025 12:55 PM WELT EDGE ROUNDER Height 175.3 cm (5' 9.02) 01/18/2025 12:[address] Body Mass Index 23.41 01/18/2025 12:55 PM WELT EDGE ROUNDER Plan of Treatment Not on file Insurance [place] [address] [address] [place] [address] IDIN Advance Directives For more information, please contact: [phone] * Full Code (Latest Code Status on File) Date Activated Date Inactivated Comments 02/09/2023 7:52 AM 02/10/2023 4:37 AM Care Teams Dry Kiln Worker Relationship Specialty Start Date End Date Cierra Barnes MD PCP - General Nurse Practitioner 07/20/24
--- OUTSIDE RECORDS SUMMARY | 2025-04-19 07:24 | XMS_ITS | Clinical Summary ---
Author Organization [address] Address [address] [place] [address] Care Team Providers Care Fuel Cell Repairer Name Role Phone Cierra Barnes MD Primary Care Provider [phone]- [phone] Allergies No known active allergies Medications albuterol [...] Department Care Team Description 03/29/2025 Orders Only [facility] [address] [place] [address] [address] [place] [address] Enzo Wick MD 02/01/2025 Telephone [facility] [address] [place] [address] Polly Marquez MA 01/18/2025 1:00 PM NATURAL GAS ENGINEER Office Visit [facility] [address] [place] [address] Yuliet Maradiaga NP Memory loss; Dizziness and [...] on file Legal Sex Male 7:38 PM NATURAL GAS ENGINEER Gender Identity Not on file Sexual Orientation Not on file Obstetrics History Last Filed Vital Signs Vital Sign Reading Time Taken Comments Blood Pressure 119/75 01/18/2025 12:55 PM NATURAL GAS ENGINEER Pulse 81 01/18/2025 12:55 PM NATURAL GAS ENGINEER Temperature 37.6 C (99.6 F) 02/14/2023 6:06 PM CDT Respiratory Rate 18 11/07/2023 1:07 PM NATURAL GAS ENGINEER Oxygen Saturation 96% 01/18/2025 12:55 PM NATURAL GAS ENGINEER Inhaled Oxygen Concentration - - Weight 71.9 kg (158 lb 9.6 oz) 01/18/2025 12:55 PM NATURAL GAS ENGINEER Height 175.3 cm (5' 9.02) 01/18/2025 12:[address] Body Mass Index 23.41 01/18/2025 12:55 PM NATURAL GAS ENGINEER Plan of Treatment Health Maintenance Due Date [...] , 01/02/2023, Additional history exists Insurance AETNA [facility] * Guarantor: ByronTejas Dyana Account Type Relation to Patient Date of Phone Billing Address Personal/Family Self [address] [address] [facility] Advance Directives For more information, please contact: [phone] * Full Code (Latest Code Status on File) Date Activated Date Inactivated Comments 02/09/2023 7:52 AM 02/10/2023 4:37 AM Care Teams Fuel Cell Repairer Relationship Specialty Start Date End Date Cierra Barnes MD PCP - General Nurse Practitioner 07/20/24
--- OUTSIDE RECORDS SUMMARY | 2025-04-19 07:24 | XMS_ITS ---
Author Organization [facility] ([address]) Address [address] [place] [address] Care Team Providers Care Army Senior Officer Name Role Phone Cierra Barnes Primary Care Provider Unavailab Merlyn Thakkar Unavailable [phone] REASON FOR VISIT Generalized pruritus ongoing for years. No history of rashes. Now following skincare regimen and taking Zyrtec BID with some noted benefit. Today reported a few episodes of knot in my throat., ARC follow-up: ImmunoCaps ordered by PCP. Taking daily Zyrtec., Chronic lower airways symptoms concerning for possible asthma, occasional shortness of breath with activity. Started on ICS with PCP, recently underwent PFT. Medications Medication SIG (Take, Route, Frequency, Duration) Notes Start Date End Date Status Famotidine 20 MG 1 tablet Orally Twic e a day for 30 days Active Montelukast Sodium 10 MG 1 tablet Orally Once a day for 30 days Active Cetirizine HCl 10 MG 1 tablet Orally Twi ce a day for 30 days Active Albuterol Sulfate HFA 108 (90 Base) MCG/ACT 1 puff as needed Inhalation every 4 hrs Active EPINEPHrine 0.3 MG/0.3ML as directed Inj ection as directed for 30 days Active Aspirin 81 MG 1 tablet Orally Once a day Active Memantine HCl 10 MG 1 tablet Orally Once a day Active Vanicream - as directed Externally Active amLODIPine Besylate 5 MG 1 tablet Orally Once a day Active Losartan Potassium 25 MG 1 tablet Orally Once a day Active Donepezil HCl 10 MG 1 tablet at bedtime Orally Once a day Active Calcitriol 0.25 MCG 1 capsule Orally Thr ee times a Week Active Acetaminophen 500 MG 1 capsule as needed Orally every 6 hrs Active Iron (Ferrous Sulfate) 325 (65 Fe) MG 1 tablet Orally Three times a Week Active Vitamin C 500 MG as directed Orally Active Vitamin B12 1000 MCG 1 tablet Orally Onc e a day Active Encounters Encounter Location Date Provider Diagnosis [facility] [address] [place] [address] 10/09/2024 Merlyn Hodges Pruritus, unspecifie d L29.9 ; Localized swelling, mass and lump, head R22.0 ; Allergic rhinitis due to pollen J30.1 ; Allergic rhinitis due to animal (cat) (dog) hair and dander J30.81 ; Other allergic rhinitis J30.89 ; Shortness of breath R06.02 and Essential (primary) hypertension I10 Assessments Encounter Date Diagnosis (ICD Code) Assessment Notes Treatment Notes Treatment Clinical Notes Section Notes 10/09/2024 Pruritus, unspecified (ICD-10 - L29.9) Frankie presents [...] 4 weeks for further evaluation and management 10/09/2024 Localized swelling, mass and lump, head (ICD-10 [...] the ER for evaluation, he voiced understanding 10/09/2024 Allergic rhinitis due to pollen (ICD-10 - [...] unable to hold antihistamines at this time 10/09/2024 Allergic rhinitis due to animal (cat) (dog) hair and dander (ICD-10 - J30.81) Follow allergen avoidance, meds and consider SCIT as an adjunctive treatment to current regimen 10/09/2024 Other allergic rhinitis (ICD-10 - J30.89) Follow allergen avoidance, meds and consider SCIT as an adjunctive treatment to current regimen 10/09/2024 Shortness of breath (ICD-10 - R06.02) Frankie [...] ICS or ICS/LABA pending review of PFT 10/09/2024 Essential (primary) hypertension (ICD-10 - I10) BP elevated today without symptoms of urgency or emergency. Continue serial checks and follow-up with PCP 10/09/2024 Other Plan Of Treatment Medication Medication Name Sig Start Date Stop Date Notes Famotidine 20 MG 1 tablet Orally Twic e a day for 30 days Montelukast Sodium 10 MG 1 tablet Orally Once a day for 30 days Cetirizine HCl 10 MG 1 tablet Orally Twi ce a day for 30 days Albuterol Sulfate HFA 108 (9 0 Base) MCG/ACT 1 puff as needed Inhalation every 4 hrs EPINEPHrine 0.3 MG/0.3ML as directed Inj ection as directed for 30 days Vanicream - as directed Externally Treatment Notes [...] management Localized swelling, mass and lump, head Today Tejas reports a handful of episodes [...] the ER for evaluation, he voiced understanding Allergic rhinitis due to pollen Frankie presents [...] and Management Progress Notes * Tejas HIRSCHDOB:1960 (64 yo M)Acc No.[id number]:10/09/2024 Progress Notes Patient: Tejas IRVING Provider: QIAN Kennedy-Imani :1960 A ge:63 Y S ex:Male Date:10/09/2024 Address:[address] [place] [address], [facility] [address] Pcp:Cierra Barnes Subjective: * Chief Complaints: * 1 . Generalized pruritus ongoing for years. No history of rashes. Now following skincare regimen and taking Zyrtec BID with some noted benefit. Today reported a few episodes of knot in my throat.. 2. ARC follow-up: ImmunoCaps ordered by PCP. Taking daily Zyrtec.. 3. Chronic lower airways symptoms concerning for possible asthma, occasional shortness of breath with activity. Started on ICS with PCP, recently underwent PFT.. * HPI: * Introduction: HPI: Valeriy house Frankie Hirsch, a 63-year-old male withpast medical history significant for memory loss, hypertension, and hypercholesterolemia,who returns for laboratory review. He returns in consultationwith his PCP, NEO Barnes. He is alone for today's visit. Frankie presented last visit withcomplaints of generalized pruritus ongoing for a few years. He denies skinchanges, stating I just itch. He is now using Vanicream products with daily moisturization. He is taking Zyrtec BID, which he does feel is beneficial, however pruritus has continued. Today reports he has had a few episodes of knot in my throat. He states this occurs once in a blue guardado. He denies family history of swelling, no photos to review. Laboratory work ordered last visit that showed positive BINU screening, otherwise unremarkable. He denies history of autoimmune condition, does report his sister has lupus. Valeriy english also reports upper airway symptoms concerning foruncontrolled atopic disease. His PCP recently ordered aeroallergen ImmunoCaps that showed positive resultsto various seasonal and perennial allergens. Frankie reports occasional nasalcongestion and drainage. He has two dogs in his home. He has never received allergenimmunotherapy. A dditionally, Frankie reports occasional shortness of breath.Symptoms primarily occur with activity, such as climbing stairs. He wasrecently started on an ICS by his PCP, however Frankie admits to using thisas-needed. He recently had a PFT completed, results are not available forreview. He denies history of hospitalizations due to lower airway symptoms. Joehas a history of memory loss, managed by [...] history, otherwise unremarkable. * Medical History: * Medications: T aking Vanicream - Ointment as directed Externally , Taking Cetirizine HCl 10 MG Tablet 1 tablet Orally Twice a day , Taking Albuterol Sulfate HFA 108 (90 Base) MCG/ACT Aerosol Solution 1 puff as needed Inhalation every 4 hrs , Taking Vitamin B12 1000 MCG Tablet Extended Release 1 tablet Orally Once a day , Taking Iron (Ferrous Sulfate) 325 (65 Fe) MG Tablet 1 tablet Orally Three times a Week , Taking Vitamin C 500 MG Capsule as directed Orally , Taking Calcitriol 0.25 MCG Capsule 1 capsule Orally Three times a Week , Taking Acetaminophen 500 MG Capsule 1 capsule as needed Orally every 6 hrs , Taking Donepezil HCl 10 MG Tablet 1 tablet at bedtime Orally Once a day , Taking Memantine HCl 10 MG Tablet 1 tablet Orally Once a day , Taking Aspirin 81 MG Tablet Delayed Release 1 tablet Orally Once a day , Taking amLODIPine Besylate 5 MG Tablet 1 tablet Orally Once a day , Taking Losartan Potassium 25 MG Tablet 1 tablet Orally Once a day , Taking Famotidine 20 MG Tablet 1 tablet Orally Twice a day , Taking Montelukast Sodium 10 MG Tablet 1 tablet Orally Once a day , Taking EPINEPHrine 0.3 MG/0.3ML Solution Auto-injector as directed Injection as directed Objective: * Vitals: * Examination: G eneral examination: General appearance: p leasant, well-developed, well-nourished, male, i n no apparent distress, speaking in full sentences. HEENT: c onjunctiva are normal bilaterally, TMs without evidence of acute infection, turbinates 1+ swollen and pale inferiorly bilaterally, clear rhinorrhea is present, no polyps noted, no septal perforation, posterior oropharynx is clear without exudates, erythema on pharyngeal wall, no exudates, no tongue swelling, and uvula is midline. Oral cavity: n ormal, no lesions. Breasts [...] L ocalized swelling, mass and lump, head Start EPINEPHrine Solution Auto-injector, 0.3 MG/0.3ML, as directed, Injection, as directed, 30 days, 1, Refills 0. Notes: Today Tejas reports a handful of episodes [...] the ER for evaluation, he voiced understanding 3. A llergic rhinitis due to pollen [...] and follow-up with PCP * Procedure Codes: 9 6160 PT-FOCUSED HLTH RISK ASSMT, G8427 DOC MEDS VERIFIED W/[place], [address] Merlyn Hodges - Incident-to * Preventive Medicine: Counseling: D iet a s tolerated. E xercise C onsider GEORGE use PRN, prior to exercise as per the asthma action plan. M edication instruction: Jared atc for side effects of prescribed medications. E ducation: G ENERAL EDUCATION: Our staff [...] TO ALTERNATIVE / PRIMARY CARE PROVIDER: R eferral to general practitioner * Follow Up: 4 Weeks (Reason: Evaluation and Management) * Billing Information: * Visit Code: 54737 Office Visit, Est Pt., Level 4. Modifiers: 25 * Procedure Codes: 69282 PT-FOCUSED HLTH RISK ASSMT. G8427 DOC MEDS VERIFIED W/[place]. [address] Merlyn Hodges - Incident-to. * Electronic signature of Merlyn Hodges DNP, PATTERNMAKER-C on 04/19/2025 at 07:23 AM CDT Sign off status: Pending * Provider: Genie Hodges DNP PATTERNMAKER-C Date: 1 12/09/2023 Generated for Paul hernandez/Sowmya/eTdulce on: 0 04/19/2025 07:23 AM CDT History and Physical Notes * HPI (History of Present Illness) Category Sub-Category Detail Notes Category Not es *Introduction HPI: Tejas Hirsch, a 63-year-old male with past medical history significant for memory loss, hypertension, and hypercholesterolemia, who returns for laboratory review. He returns in consultation with his PCP, NEO Barnes. He is alone for today's visit. Frankie presented last visit with complaints of generalized pruritus ongoing for a few years. He denies skin changes, stating I just itch. He is now using Vanicream products with daily moisturization. He is taking Zyrtec BID, which he does feel is beneficial, however pruritus has continued. Today reports he has had a few episodes of knot in my throat. He states this occurs once in a blue guardado. He denies family history of swelling, no photos to review. Laboratory work ordered last visit that showed positive BINU screening, otherwise unremarkable. He denies history of autoimmune condition, does report his sister has lupus. Frankie also reports upper airway symptoms concerning [...] Not es General examination HEENT: conjunctiva are normal bilaterally, TMs without evidence of acute infection, turbinates 1+ swollen and pale inferiorly bilaterally, clear rhinorrhea is present, no polyps noted, no septal perforation, posterior oropharynx is clear without exudates, erythema on pharyngeal wall, no exudates, no tongue swelling, and uvula is midline Heart: RRR, S1-S2, no murmu rs, no [...]
[2025-04-19 07:46] LABS: Add Urine Microscopic? YES; Appearance Urine Clear (Clear); Bacteria Urine None Seen /hpf; Bilirubin Urine Negative (Negative); Blood Urine Negative (Negative); Color Urine Yellow (Yellow); Glucose Urine UA Negative (Negative); Ketones Urine Negative (Negative); Leukocyte Esterase Ur Negative LEU/UL (Negative); Nitrate Urine Negative (Negative); Non Pathogenic Casts 0-2; Protein Urine Trace mg/dL (Negative); RBC Urine 0-2 /hpf (0-2); Specific Grav Ur 1.018 (1.001-1.035); Squamous Epithelial Cell Urine None Seen /hpf (Few); WBC Urine 0-5 /hpf (0-3); pH Urine 6.5 (5.0-9.0)
[2025-04-19 07:48] LABS: Basophils Absolute Auto 0.1 K/mm3 (0.0-0.1); Basophils Percent Auto 0.7 % (0.2-1.2); Eosinophils Absolute Auto 0.3 K/mm3 (0-0.3); Eosinophils Percent Auto 3.6 % (0-4.4); Hematocrit 48.1 % (42.0-52.0); Immature Granulocyte Absolute 0.02 K/mm3 (0.00-0.031); Immature Granulocyte Percent A 0.3 % (0-0.5); Lymphocytes Percent Auto 39.6 % (18.3-44.2); Mean Corpuscular HGB Conc 33.3 g/dl (32-36); Mean Corpuscular Hemoglobin 29.3 pg (26-34); Mean Corpuscular Volume 87.9 fl (80-100); Mean Platelet Volume 8.9 fl (7.4-10.4); Monocytes Absolute Auto 0.8 K/mm3 (0.1-0.6); Monocytes Percent Auto 9.9 % (2.6-8.5); Neutrophils Absolute Auto 3.5 K/mm3 (1.3-6.7); Neutrophils Percent Auto 45.9 % (45.5-73.1); Platelet Count Result 201 k/mm3 (150-375); Red Blood Count 5.47 M/mm3 (4.6-6.20); Red Cell Distribution Width 12.3 % (11.5-14.5); White Blood Count 7.6 K/mm3 (4.5-10.0)
[2025-04-19 07:49] LABS: Alanine Aminotransferase 21 U/L (6-50); Albumin Level 4.6 g/dL (3.5-5.1); Alkaline Phosphatase 85 U/L (38-126); Anion Gap 7 mmol/L (4-12); Aspartate Amino Transferase 31 U/L (17-59); Bilirubin,Total 0.7 mg/dL (0.2-1.3); Blood Urea Nitrogen 9 mg/dL (9-20); Calcium 9.1 mg/dL (8.4-10.2); Carbon Dioxide 26 mmol/L (22-30); Chloride 105 mmol/L (98-107); Estimated CRCL calculation 104 ml/min; Estimated Glomerular Filt Rate > 60; Glucose 104 mg/dL (65-110); Lipase 57 U/L (23-300); Potassium 3.7 mmol/L (3.4-5.0); Sodium 138 mmol/L (137-145)
--- OUTSIDE RECORDS SUMMARY | 2025-04-19 08:37 | XMS_ITS | Clinical Summary ---
Author Organization [facility] Address [address] [place] [address] Phone Care Team Providers Care Websphere Consultant Name Role Phone Unavailable Primary Care Provider [...] MEDICARE PART A HOSPITAL ONLY AETNA O [facility]
--- OUTSIDE RECORDS SUMMARY | 2025-04-19 08:37 | XMS_ITS | Continuity of Care Document ---
Author Organization [facility] Address [address] [place] [address] [address] [place] [address] Phone Care Team Providers Care Rivet Spinner Name Role Phone Aniyah REYNOSO, Roni Unavailable Unavaila ble Allergies, Adverse Reactions, Alerts Substance Reaction Status Criticality No Known allergies Procedures Procedure Date POSTOP FOLLOW-UP VISIT REVISION OF IRIS POSTOP FOLLOW-UP VISIT POSTOP FOLLOW-UP VISIT REVISION OF IRIS OFFICE/OUTPATIENT VISIT, [facility] Advance Directives Directive Yes / [...] Provider Providers Copied on Encounter [facility], [address] [place] [address] [address], [place], [place], [id number], [place] tel:[phone] OPH CONSULT ORQUIDEA MOTT No Information 1 Aniyah Tamayo. [address], [address], [place], [place], [id number], [place]. tel:[phone] [facility], [address] [place] [address] [address], [place], [place], [id number], tel:[phone] [facility] No Information 1 Krishnasamy Roni. [address], [address], [place], [place], [id number], [place]. tel:[phone] [facility], [address] [place] [address], [id number], tel:[phone] OPH CONSULT ORQUIDEA MOTT No Information 1 Krishnasamy Roni. [address], [address], [place], [place], [id number], [place]. tel:[phone] [facility], [address] [place] [address], [id number], tel:[phone] [facility] No Information 1 Krishnasamy Roni. [address], [address], [place], [place], [id number], [place]. tel:[phone] OFFICE/OUTPA TIENT VISIT, [facility], [address] [place] [address], [id number], tel:[phone] OPH CONSULT ORQUIDEA MOTT Acute angle-closure glaucomaAnatom ical narrow angle borderline glaucomaHyperm etropia 1 Krishnasamy Roni. [address], [address], [place], [place], [id number], [place]. tel:[phone] Family History Family Member Type Diagnosis Age At Onset No Information Payers Payer name Insurance type Covered libertarian ID Mukul moss(s) [facility] CI [id number] Social History Type Description Quantity Date Captured [...]
--- OUTSIDE RECORDS SUMMARY | 2025-04-19 08:37 | XMS_ITS | Clinical Summary ---
Author Organization [facility] Address [address] [place] [address] Care Team Providers Care Scaffold Worker Name Role Phone Chioma Arias BERTO Primary Care Provider [phone] Source Comments [facility],non-owned Affiliates and Associated Physician Practices is amultiple site organization consisting of ambulatory clinics and hospital sitesin [place], [place], [place] and [place]. This disclosure is being madepursuant to the Care Everywhere program and may not contain all information available regarding this patient. Last updated 18.[facility] Allergies No known active allergies Medications * [...] PM CDT Legal Sex Male 11:01 AM DEBURRER STRIP Gender Identity Male 09/12/2022 10:54 PM CDT [...] file Group ID:Not on file Type:Medicaid Address: [address] [id number] A[facility]NA MEDICARE ADV MEDICAID [facility] Care Teams Scaffold Worker Relationship Specialty Start Date End Date Chioma Arias APRN-CNP [address] [address] PCP - General Nurse Practitioner Family 09/12/22
--- OUTSIDE RECORDS SUMMARY | 2025-04-19 08:37 | XMS_ITS | Clinical Summary ---
Author Organization [address] Address [address] [place] [address] Care Team Providers Care Deputy Director Of Finance Name Role Phone Cierra Barnes MD Primary Care Provider [phone] Allergies No known active allergies Medications albuterol [...] Department Care Team Description 03/29/2025 Orders Only [facility] [address] [place] [address] [address] [place] [address] Enzo Wick MD 02/01/2025 Telephone [facility] [address] [place] [address] Polly Marquez MA 01/18/2025 1:00 PM STORAGE ARCHITECT Office Visit [facility] [address] [place] [address] Yuliet Maradiaga NP Memory loss; Dizziness and [...] on file Legal Sex Male 7:38 PM STORAGE ARCHITECT Gender Identity Not on file Sexual Orientation Not on file Obstetrics History Last Filed Vital Signs Vital Sign Reading Time Taken Comments Blood Pressure 119/75 01/18/2025 12:55 PM STORAGE ARCHITECT Pulse 81 01/18/2025 12:55 PM STORAGE ARCHITECT Temperature 37.6 C (99.6 F) 02/14/2023 6:06 PM CDT Respiratory Rate 18 11/07/2023 1:07 PM STORAGE ARCHITECT Oxygen Saturation 96% 01/18/2025 12:55 PM STORAGE ARCHITECT Inhaled Oxygen Concentration - - Weight 71.9 kg (158 lb 9.6 oz) 01/18/2025 12:55 PM STORAGE ARCHITECT Height 175.3 cm (5' 9.02) 01/18/2025 12:[address] Body Mass Index 23.41 01/18/2025 12:55 PM STORAGE ARCHITECT Plan of Treatment Health Maintenance Due Date [...] , 01/02/2023, Additional history exists Insurance AETNA [facility] * Guarantor: ByronTejas Dyana Account Type Relation to Patient Date of Phone Billing Address Personal/Family Self [address] [address] [facility] Advance Directives For more information, please contact: [phone] * Full Code (Latest Code Status on File) Date Activated Date Inactivated Comments 02/09/2023 7:52 AM 02/10/2023 4:37 AM Care Teams Deputy Director Of Finance Relationship Specialty Start Date End Date Cierra Barnes MD PCP - General Nurse Practitioner 07/20/24
--- OUTSIDE RECORDS SUMMARY | 2025-04-19 08:37 | XMS_ITS | Encounter Summary ---
Author Organization [facility] Address [address] [place] [address] Care Team Providers Care Slinger Sequins Name Role Phone Chioma Arias NP Primary Care Provider [phone] Cierra Barnes MD Primary Care Provider [phone]- [phone] Encounter Details Date Type Department Care Team (Late st Contact Info) Description 02/08/2023 Telephone [facility] [address] [place] [address] Shannon Rizzo, FAYE Social History Tobacco Use Types Packs/Day Years Used Date Smoking Tobacco: Some Days Cigars Smokeless Tobacco: Never Sex and Gender Information Value Date Recorded Sex Assigned at Not on file Legal Sex Male 7:38 PM UNIT OPERATOR Gender Identity Not on file Sexual Orientation Not on file documented as of this encounter Plan of Treatment Not on file documented as of this encounter Visit Diagnoses Not on filedocumented in this encounter Care Teams Slinger Sequins Relationship Specialty Start Date End Date Chioma Arias NP PCP - General Nurse Practitioner 01/11/23 07/19/24 Cierra Barnes MD PCP - General Nurse Practitioner 07/20/24 documented as of this encounter
--- OUTSIDE RECORDS SUMMARY | 2025-04-19 08:37 | XMS_ITS | Referral Summary ---
Author Organization [address] Address [address] [place] [address] Care Team Providers Care Triage Specialist Name Role Phone Cierra Barnes MD Primary Care Provider [phone]- [phone] Encounters Date Type Department Care Team Description 03/29/2025 Orders Only [facility] [address] [place] [address] Enzo Wick MD 02/01/2025 Telephone [facility] [address] [place] [phone] Polly Marquez MA 01/18/2025 1:00 PM RESIN PAINTER Office Visit [facility] [address] [place] [address] Yuliet Maradiaga, NEO Memory loss; Dizziness and [...] on file Legal Sex Male 7:38 PM RESIN PAINTER Gender Identity Not on file Sexual Orientation Not on file Last Filed Vital Signs Vital Sign Reading Time Taken Comments Blood Pressure 119/75 01/18/2025 12:55 PM RESIN PAINTER Pulse 81 01/18/2025 12:55 PM RESIN PAINTER Temperature 37.6 C (99.6 F) 02/14/2023 6:06 PM CDT Respiratory Rate 18 11/07/2023 1:07 PM RESIN PAINTER Oxygen Saturation 96% 01/18/2025 12:55 PM RESIN PAINTER Inhaled Oxygen Concentration - - Weight 71.9 kg (158 lb 9.6 oz) 01/18/2025 12:55 PM RESIN PAINTER Height 175.3 cm (5' 9.02) 01/18/2025 12:[address] Body Mass Index 23.41 01/18/2025 12:55 PM RESIN PAINTER Plan of Treatment Not on file Insurance [place] [place] [address] [employer] Advance Directives For more information, please contact: [phone] * Full Code (Latest Code Status on File) Date Activated Date Inactivated Comments 02/09/2023 7:52 AM 02/10/2023 4:37 AM Care Teams Triage Specialist Relationship Specialty Start Date End Date Cierra Barnes MD PCP - General Nurse Practitioner 07/20/24
--- NOTE | 2025-04-19 09:34 | ED_ITS ---
HPI - Abdominal Pain General Chief Complaint: Abdominal Pain Stated Complaint: abd pain Time Seen by Provider: 04/19/25 07:39 History of Present Illness HPI narrative: Patient is a 64-year-old male who presents ER with epigastric pain. Began last night and has progressed through the morning. No fevers or chills. Has had some vomiting. Feels bloated. No history of bowel obstruction. He did have a bowel movement today. No alleviating factors. Related Data Home Medications ?Medication ?Instructions ?Recorded ?Confirmed ?Last Taken ?Type aspirin 81 mg chewable tablet 324 mg PO DAILY 11/05/19 04/19/25 06/19/24 History cetirizine 10 mg tablet 10 mg PO DAILY 09/14/20 04/19/25 06/19/24 History cholecalciferol (vitamin D3) 25 25 mcg PO DAILY 09/14/20 04/19/25 06/19/24 History mcg (1,000 unit) capsule (Vitamin D3) acetaminophen 325 mg capsule 325 mg PO BID PRN fever or pain 02/19/25 04/19/25 Unknown History donepezil 10 mg tablet 10 mg PO DAILY 02/19/25 04/19/25 Unknown History memantine 10 mg tablet (Namenda) 10 mg PO BID 02/19/25 04/19/25 Unknown History mirabegron 25 mg tablet,extended 25 mg PO DAILY 02/19/25 04/19/25 Unknown History release 24 hr (Myrbetriq) vitamin B12 1,000 mcg-folic acid 1 anthony sublingual BID 02/19/25 04/19/25 Unknown History 400 mcg sublingual lozenge losartan 25 mg tablet 25 mg PO DAILY 03/26/25 04/19/25 Unknown History rosuvastatin 20 mg tablet 20 mg PO HS 04/19/25 04/19/25 Unknown History Allergies Allergy/AdvReac Type Severity Reaction Status Date / Time Seafood Allergy Intermediate Itching Uncoded 03/26/25 13:27 Review of Systems 2 Review of Systems: All systems reviewed & are unremarkable except as noted in HPI and below Constitutional: Constitutional: Reports no additional constitutional complaints ENT: Reports system reviewed and no additional complaints, except as documented Cardiovascular: Cardiovascular: Reports no additional cardiovascular complaints Gastrointestinal: Gastrointestinal: Reports no additional gastrointestinal complaints Musculoskeletal: Musculoskeletal: Reports no additional musculoskeletal complaints Integumentary/Breasts: Skin/Breast: Reports system reviewed and no additional complaints, except as docu PMFSH Past Medical History Medical History (Updated 04/19/25 @ 16:03 by Meera Salguero PA-C) Hypertension Iron deficiency Hypothyroidism Kidney stones Overactive bladder Cognitive dysfunction Acquired scoliosis Hyperlipidemia Surgical History Surgical History (Updated 04/19/25 @ 16:01 by Meera Salguero PA-C) History of appendectomy Family History Family History Sibling Family history of thyroid disease Mother Family history of osteoporosis Hypertension Family history of chronic obstructive pulmonary disease Father Hypertension Cerebrovascular accident Social History Social History (Updated 04/19/25 @ 16:02 by Meera Salguero PA-C) Social History: Surrogate medical decision maker: mendez Cunningham. Code status: Full code. Smoking status: Never smoker Tobacco type: cigarettes Alcohol intake: never Substance use: never Substance use type: does not use Do You Feel Safe in your Home?: Yes Lack of Transportation: No Lack of Food: Never True Current Housing: I Have Housing Concerned About Future Housing: No Difficulty Paying Gas/Electric Bills: No Difficulty Paying for Meds: No Currently Unemployed: No Education: Grade School Difficulty w/ Childcare or Family Care: No Additional living arrangements comments: Lives alone in [place]. Additional occupation/education comments: Disabled. Spiritual care concerns: No Exam 2 Narrative: GENERAL: Well-appearing, well-nourished, and in no acute distress. HEAD: Normocephalic, atraumatic. ENT: Mucous membranes moist. NECK: Supple. CHEST: Clear to auscultation. No respiratory distress. HEART: Regular rate and rhythm. Normal peripheral pulses. ABDOMEN: Bilateral upper quadrant pain with distension. EXTREMITIES: Normal range of motion. No edema. SKIN: Warm, dry, no rash. NEURO: Alert and oriented x3. PSYCH: Normal mood and affect. Course Course Emergency Course: Patient resting comfortably. Informed of results. General surgery consult, admit to the hospitalist service for observation. No G-tube at this time. Vital Signs Vital signs: Vital Signs Temperature 97.6 F 04/19/25 07:23 Pulse Rate 85 04/19/25 07:23 Respiratory Rate 16 04/19/25 07:23 Blood Pressure 163/117 H 04/19/25 07:23 Pulse Oximetry 98 04/19/25 07:23 Oxygen Delivery Room Air 04/19/25 07:23 Temperature 97.2 F L 04/19/25 16:26 Pulse Rate 79 04/19/25 16:26 Respiratory Rate 18 04/19/25 16:26 Blood Pressure 147/95 H 04/19/25 16:26 Pulse Oximetry 96 04/19/25 16:26 Oxygen Delivery Room Air 04/19/25 07:23 MDM - Abdominal Pain Lab Data 04/19/25 07:33 04/19/25 07:33 Labs: Lab Results 04/19/25 Range/Units 07:33 WBC 7.6 (4.5-10.0) K/mm3 RBC 5.47 (4.6-6.20) M/mm3 Hgb 16.0 (14.0-18.0) g/dL Hct 48.1 (42.0-52.0) % MCV 87.9 (80-100) fl MCH 29.3 (26-34) pg MCHC 33.3 (32-36) g/dl RDW 12.3 (11.5-14.5) % Plt Count 201 (150-375) k/mm3 MPV 8.9 (7.4-10.4) fl Immature Gran % (Auto) 0.3 (0-0.5) % Neut % (Auto) 45.9 (45.5-73.1) % Lymph % (Auto) 39.6 (18.3-44.2) % Lipscomb % (Auto) 9.9 H (2.6-8.5) % Eos % (Auto) 3.6 (0-4.4) % Baso % (Auto) 0.7 (0.2-1.2) % Lymph # (Auto) 3.00 (0.9-3.2) K/mm3 Lipscomb # (Auto) 0.8 H (0.1-0.6) K/mm3 Eos # (Auto) 0.3 (0-0.3) K/mm3 Baso # (Auto) 0.1 (0.0-0.1) K/mm3 Abs Immat Gran (auto) 0.02 (0.00-0.031) K/mm3 Absolute Neuts (auto) 3.5 (1.3-6.7) K/mm3 Absolute Nucleated RBC 0.000 (0.0-0.012) K/mm3 Nucleated RBC % 0.0 (0.0-0.2) % Sodium 138 (137-145) mmol/L Potassium 3.7 (3.4-5.0) mmol/L Chloride 105 (98-107) mmol/L Carbon Dioxide 26 (22-30) mmol/L Anion Gap 7 (4-12) mmol/L BUN 9 D (9-20) mg/dL Creatinine 0.63 L (0.7-1.3) mg/dL Estim Creat Clear Calc 104 ml/min Estimated GFR > 60 (59 - ) Glucose 104 (65-110) mg/dL Calcium 9.1 (8.4-10.2) mg/dL Total Bilirubin 0.7 (0.2-1.3) mg/dL AST 31 (17-59) U/L ALT 21 (6-50) U/L Alkaline Phosphatase 85 (38-126) U/L Total Protein 8.0 (6.3-8.2) g/dL Albumin 4.6 (3.5-5.1) g/dL Lipase 57 (23-300) U/L Urine Color Yellow (Yellow) Urine Appearance Clear (Clear) Urine pH 6.5 (5.0-9.0) Ur Specific [place] 1.018 (1.001-1.035) Urine Protein Trace (Negative) mg/dL Urine Glucose (UA) Negative (Negative) mg/dL Urine Ketones Negative (Negative) mg/dL Ur Blood (Man) Negative (Negative) Urine Nitrate Negative (Negative) Urine Bilirubin Negative (Negative) Urine Urobilinogen 1.0 (<2.0) mg/dL Leukocyte Esterase Rfl Negative (Negative) GAGE/UL Urine RBC 0-2 (0-2) /hpf Urine WBC 0-5 (0-3) /hpf Ur Squamous Epith Cells None seen (Few) /hpf Urine Bacteria None seen /hpf Urine Casts 0-2 Imaging Data Radiologist's impression: ITS Impressions Abdomen/Pelvis CT 04/19/25 09:31 IMPRESSION: 1. Fluid and scattered pseudo feces throughout multiple loops of central small bowel which although not frankly dilated demonstrates an abrupt transition point to decompressed distal small bowel in the right lower quadrant which nonetheless raises suspicion for an early or partial small bowel obstruction. Small Bowel X-Ray 04/19/25 16:44 IMPRESSION: 1. Normal small bowel follow-through. Discharge Plan Discharge Clinical Impression: Bowel obstruction Patient Disposition: Still a Patient Condition: Stable
--- NOTE | 2025-04-19 10:20 | P.CONGS_ITS ---
Assessment and Plan Assessment and plan (1) Hx of appendectomy: Code(s): Z90.49 - Acquired absence of other specified parts of digestive tract Status: Acute (2) Partial small bowel obstruction: Code(s): K56.600 - Partial intestinal obstruction, unspecified as to cause Status: Acute Assessment and Plan: Patient presented to the ED with abdominal pain that started around 0100 last night. Possible nausea and vomiting (not confirmed). No changes in bowel or bladder habits. Normal WBC count. CT scan suspicious for early or partial small bowel obstruction. Maintain NPO status. Consider NG tube decompression or small bowel series. History of Present Illness Consult details Consult date: 04/19/25 Narrative: Patient is a 64-year-old male who presented to the ER with lower abdominal pain that started last night around 0100. Pain was constant and progressed through the morning. Patient did not report any nausea or vomiting, but also may not be the best historian as ED provider note states that he had been vomiting. Last bowel movement this morning. No history of bowel obstruction. Abdominal surgical history includes appendectomy. No fever, chills, lightheadedness, or any other complaints at this time. CT scan demonstrated Fluid and scattered pseudo feces throughout multiple loops of central small bowel which although not frankly dilated demonstrates an abrupt transition point to decompressed distal small bowel in the right lower quadrant which nonetheless raises suspicion for an early or partial small bowel obstruction. [facility] Past Medical History Medical History Overactive bladder Essential hypertension Urticaria Cognitive dysfunction Acquired scoliosis Hx of renal calculi Hyperlipidemia Hypertension Family History Family History Sibling Family history of thyroid disease Mother Family history of osteoporosis Hypertension Family history of chronic obstructive pulmonary disease Father Hypertension Cerebrovascular accident Social History Social History Smoking status: Former smoker Tobacco type: cigarettes Alcohol intake: never Substance use: never Substance use type: does not use Do You Feel Safe in your Home?: Yes Lack of Transportation: No Lack of Food: Never True Current Housing: I Have Housing Concerned About Future Housing: No Difficulty Paying Gas/Electric Bills: No Difficulty Paying for Meds: No Currently Unemployed: No Education: Grade School Difficulty w/ Childcare or Family Care: No Living arrangements: alone Gender identity (if verbalized by the patient): Male Spiritual care concerns: No Meds Home Medications and Allergies Home Medications ?Medication ?Instructions ?Recorded ?Confirmed ?Type aspirin 81 mg chewable tablet 81 mg PO DAILY 11/05/19 04/05/25 History cetirizine 10 mg tablet 10 mg PO DAILY 09/14/20 04/05/25 History cholecalciferol (vitamin D3) 25 25 mcg PO DAILY 09/14/20 04/05/25 History mcg (1,000 unit) capsule (Vitamin D3) acetaminophen 325 mg capsule 325 mg PO BID PRN 02/19/25 04/05/25 History donepezil 10 mg tablet 10 mg PO DAILY 02/19/25 04/05/25 History epinephrine 0.3 mg/0.3 mL 0.3 mg subcut ONCE 02/19/25 04/05/25 History injection syringe ferrous sulfate 325 mg (65 mg 325 mg PO DAILY 02/19/25 04/05/25 History iron) tablet (Iron (ferrous sulfate)) memantine 10 mg tablet (Namenda) 10 mg PO BID 02/19/25 04/05/25 History mirabegron 25 mg tablet,extended 25 mg PO DAILY 02/19/25 04/05/25 History release 24 hr (Myrbetriq) ondansetron 4 mg disintegrating 4 mg PO Q8H 02/19/25 04/05/25 History tablet vitamin B12 1,000 mcg-folic acid anthony sublingual 02/19/25 04/05/25 History 400 mcg sublingual lozenge levothyroxine 25 mcg tablet 25 mcg PO DAILY #30 tabs 03/26/25 04/05/25 Rx (Synthroid) losartan 25 mg tablet 25 mg PO DAILY 03/26/25 04/05/25 History tamsulosin 0.4 mg capsule 0.4 mg PO QHS #90 caps 03/26/25 04/05/25 Rx amlodipine 5 mg tablet 5 mg PO DAILY #90 tabs 03/27/25 04/05/25 Rx rosuvastatin 20 mg tablet 20 mg PO DAILY #90 tabs 03/27/25 04/05/25 Rx albuterol sulfate 90 mcg/actuation 1 puff inhalation Q4H PRN 04/01/25 04/05/25 Rx aerosol inhaler (Ventolin HFA) shortness of breath or wheezing #6.7 grams Allergies Allergy/AdvReac Type Severity Reaction Status Date / Time Seafood Allergy Intermediate Itching Uncoded 03/26/25 13:27 Vital Signs Vital Signs - 24 hr 04/19/25 07:23 04/19/25 08:01 04/19/25 08:31 Temperature 97.6 F Pulse Rate 85 77 71 Respiratory Rate 16 20 14 Blood Pressure 163/117 H 142/94 H 130/93 H Pulse Oximetry 98 95 94 Oxygen Delivery Room Air 04/19/25 09:01 04/19/25 09:15 04/19/25 09:31 Temperature Pulse Rate 73 72 71 Respiratory Rate 15 20 20 Blood Pressure 144/92 H 146/69 H 147/95 H Pulse Oximetry 97 97 96 Oxygen Delivery Exam 2 GI: Inspection: non-distended GI Palp: Yes Soft to palpation, Yes Tenderness to palpation present (GI) (mild diffuse tenderness throughout lower abdomen) and No Guarding due to palpation present (GI) Results Labs 04/19/25 07:33 04/19/25 07:33 Labs: Abnormal lab results 04/19/25 Range/Units 07:33 Collier % (Auto) 9.9 H (2.6-8.5) % [place]lier # (Auto) 0.8 H (0.1-0.6) K/mm3 Creatinine 0.63 L (0.7-1.3) mg/dL Diabetes panel 04/19/25 Range/Units 07:33 Sodium 138 (137-145) mmol/L Potassium 3.7 (3.4-5.0) mmol/L Chloride 105 (98-107) mmol/L Carbon Dioxide 26 (22-30) mmol/L BUN 9 D (9-20) mg/dL Creatinine 0.63 L (0.7-1.3) mg/dL Glucose 104 (65-110) mg/dL Calcium 9.1 (8.4-10.2) mg/dL AST 31 (17-59) U/L ALT 21 (6-50) U/L Alkaline Phosphatase 85 (38-126) U/L Total Protein 8.0 (6.3-8.2) g/dL Albumin 4.6 (3.5-5.1) g/dL Calcium panel 04/19/25 Range/Units 07:33 Calcium 9.1 (8.4-10.2) mg/dL Albumin 4.6 (3.5-5.1) g/dL Pituitary panel 04/19/25 Range/Units 07:33 Sodium 138 (137-145) mmol/L Potassium 3.7 (3.4-5.0) mmol/L Chloride 105 (98-107) mmol/L Carbon Dioxide 26 (22-30) mmol/L BUN 9 D (9-20) mg/dL Creatinine 0.63 L (0.7-1.3) mg/dL Glucose 104 (65-110) mg/dL Calcium 9.1 (8.4-10.2) mg/dL Adrenal panel 04/19/25 Range/Units 07:33 Sodium 138 (137-145) mmol/L Potassium 3.7 (3.4-5.0) mmol/L Chloride 105 (98-107) mmol/L Carbon Dioxide 26 (22-30) mmol/L BUN 9 D (9-20) mg/dL Creatinine 0.63 L (0.7-1.3) mg/dL Glucose 104 (65-110) mg/dL Calcium 9.1 (8.4-10.2) mg/dL Total Bilirubin 0.7 (0.2-1.3) mg/dL AST 31 (17-59) U/L ALT 21 (6-50) U/L Alkaline Phosphatase 85 (38-126) U/L Total Protein 8.0 (6.3-8.2) g/dL Albumin 4.6 (3.5-5.1) g/dL All other labs normal.
[2025-04-19] MEDS: SODIUM CHLORIDE 0.9% IV 1,000 ML 125 ML IV CONT (14:07)
[2025-04-19] MEDS: ONDANSETRON INJ 4 MG/2 ML VIAL IV PUSH (14:07)
[2025-04-19] MEDS: MORPHINE SULFATE (*CRX) 2 MG/ML INJ IV PUSH ×2 (14:07→17:31)
--- NOTE | 2025-04-19 15:55 | PM.IMHP ---
H&P: HPI History of Present Illness Date/Time: 04/19/25 16:30 Chief Complaint: Abdominal pain. Narrative: This is a very pleasant 64-year-old male with history of appendectomy, cognitive impairment with mild memory loss, hypertension, hyperlipidemia, hypothyroidism, overactive bladder, and benign prostatic hyperplasia who presented to the emergency department via private vehicle with complaints of abdominal pain. He developed severe, cramping pain throughout his abdomen at about 01:30 with associated bloating and nausea. It seemed to ease up somewhat after admission to the floor and he has had several soft bowel movements since that time and is currently without discomfort. He is tolerating a liquid diet at this time and is feeling back to his usual self. He has never had similar symptoms and he denies sick contacts. He also denies fever, chills, sweats, vomiting, melena, and hematochezia. In the ED: Blood pressure was 163/117 are arrival; the remainder of his vital signs were stable. CMP, CBC, and urinalysis were unremarkable. CT of the abdomen and pelvis showed findings suspicious for early or partial small-bowel obstruction. He is being admitted in this setting for close monitoring. Review of Systems Review of Systems: 12 systems were reviewed and are negative except for as per HPI. [facility] Past Medical History Medical History (Updated 04/19/25 @ 16:03 by Meera Salguero PA-C) Hypertension Iron deficiency Hypothyroidism Kidney stones Overactive bladder Cognitive dysfunction Acquired scoliosis Hyperlipidemia Surgical History Surgical History (Updated 04/19/25 @ 16:01 by Meera Salguero PA-C) History of appendectomy Family History Family History Sibling Family history of thyroid disease Mother Family history of osteoporosis Hypertension Family history of chronic obstructive pulmonary disease Father Hypertension Cerebrovascular accident Social History Social History (Updated 04/19/25 @ 16:02 by Meera Salguero PA-C) Social History: Surrogate medical decision maker: mendez Cunningham. Code status: Full code. Smoking status: Never smoker Tobacco type: cigarettes Alcohol intake: never Substance use: never Substance use type: does not use Do You Feel Safe in your Home?: Yes Lack of Transportation: No Lack of Food: Never True Current Housing: I Have Housing Concerned About Future Housing: No Difficulty Paying Gas/Electric Bills: No Difficulty Paying for Meds: No Currently Unemployed: No Education: Grade School Difficulty w/ Childcare or Family Care: No Additional living arrangements comments: Lives alone in [place]. Additional occupation/education comments: Disabled. Spiritual care concerns: No Meds Home Medications and Allergies Home Medications ?Medication ?Instructions ?Recorded ?Confirmed ?Type aspirin 81 mg chewable tablet 324 mg PO DAILY 11/05/19 04/19/25 History cetirizine 10 mg tablet 10 mg PO DAILY 09/14/20 04/19/25 History cholecalciferol (vitamin D3) 25 25 mcg PO DAILY 09/14/20 04/19/25 History mcg (1,000 unit) capsule (Vitamin D3) acetaminophen 325 mg capsule 325 mg PO BID PRN fever or pain 02/19/25 04/19/25 History donepezil 10 mg tablet 10 mg PO DAILY 02/19/25 04/19/25 History memantine 10 mg tablet (Namenda) 10 mg PO BID 02/19/25 04/19/25 History mirabegron 25 mg tablet,extended 25 mg PO DAILY 02/19/25 04/19/25 History release 24 hr (Myrbetriq) vitamin B12 1,000 mcg-folic acid 1 anthony sublingual BID 02/19/25 04/19/25 History 400 mcg sublingual lozenge levothyroxine 25 mcg tablet 25 mcg PO DAILY #30 tabs 03/26/25 04/19/25 Rx (Synthroid) losartan 25 mg tablet 25 mg PO DAILY 03/26/25 04/19/25 History tamsulosin 0.4 mg capsule 0.4 mg PO QHS #90 caps 03/26/25 04/19/25 Rx amlodipine 5 mg tablet 5 mg PO DAILY #90 tabs 03/27/25 04/19/25 Rx albuterol sulfate 90 mcg/actuation 1 puff inhalation Q4H PRN 04/01/25 04/19/25 Rx aerosol inhaler (Ventolin HFA) shortness of breath or wheezing #6.7 grams rosuvastatin 20 mg tablet 20 mg PO HS 04/19/25 04/19/25 History Allergies Allergy/AdvReac Type Severity Reaction Status Date / Time Seafood Allergy Intermediate Itching Uncoded 03/26/25 13:27 Vital Signs Vital Signs - 24 hr 04/19/25 07:23 04/19/25 08:01 04/19/25 08:31 Temperature 97.6 F Pulse Rate 85 77 71 Respiratory Rate 16 20 14 Blood Pressure 163/117 H 142/94 H 130/93 H Pulse Oximetry 98 95 94 Oxygen Delivery Room Air 04/19/25 09:01 04/19/25 09:15 04/19/25 09:31 Temperature Pulse Rate 73 72 71 Respiratory Rate 15 20 20 Blood Pressure 144/92 H 146/69 H 147/95 H Pulse Oximetry 97 97 96 Oxygen Delivery 04/19/25 10:04 04/19/25 10:45 04/19/25 11:35 Temperature Pulse Rate 71 72 66 Respiratory Rate 17 17 16 Blood Pressure 164/111 H 150/98 H 157/97 H Pulse Oximetry 96 96 94 Oxygen Delivery Exam Narrative: General: Nontoxic-appearing male in the semi-Cano position in bed in no distress. Weight: 73.6 kg. BMI: 24.0. HEENT: PERRL, EOMI. Sclera anicteric. Edentulous. Moist mucous membranes. Neck: Supple. Respiratory: Lungs are clear to auscultation bilaterally. Cardiovascular: Regular rate and rhythm with S1-S2. Gastrointestinal: Abdomen is soft, nontender, and slightly distended with hypoactive bowel sounds. No tenderness to palpation on my exam. No guarding or rebound tenderness. Skin: Warm and dry. Extremities: No cyanosis, clubbing, or edema. Radial and pedal pulses intact. Neurological: Alert. Cranial nerves 2-12 are grossly intact. No gross focal deficits to casual conversation. Psychiatric: Pleasant and cooperative with appropriate mood and affect. He is in good spirits. H&P: Results Labs Labs: Short CBC 04/19/25 Range/Units 07:33 WBC 7.6 (4.5-10.0) K/mm3 Hgb 16.0 (14.0-18.0) g/dL Hct 48.1 (42.0-52.0) % Plt Count 201 (150-375) k/mm3 BMP 04/19/25 07:33 Sodium 138 Potassium 3.7 Chloride 105 Carbon Dioxide 26 BUN 9 D Creatinine 0.63 L Glucose 104 Calcium 9.1 Liver Function 04/19/25 Range/Units 07:33 Total Bilirubin 0.7 (0.2-1.3) mg/dL AST 31 (17-59) U/L ALT 21 (6-50) U/L Alkaline Phosphatase 85 (38-126) U/L Albumin 4.6 (3.5-5.1) g/dL Urine 04/19/25 Range/Units 07:33 Urine Color Yellow (Yellow) Urine Appearance Clear (Clear) Urine pH 6.5 (5.0-9.0) Ur Specific [place] 1.018 (1.001-1.035) Urine Protein Trace (Negative) mg/dL Urine Glucose (UA) Negative (Negative) mg/dL Imaging Abdomen/Pelvis CT 04/19/25 09:31 IMPRESSION: 1. Fluid and scattered pseudo feces throughout multiple loops of central small bowel which although not frankly dilated demonstrates an abrupt transition point to decompressed distal small bowel in the right lower quadrant which nonetheless raises suspicion for an early or partial small bowel obstruction. Assessment and Plan Assessment and plan (1) Partial small bowel obstruction: Code(s): K56.600 - Partial intestinal obstruction, unspecified as to cause Status: Acute (2) Hypertension: Code(s): I10 - Essential (primary) hypertension Status: Acute (3) Hyperlipidemia: Code(s): E78.5 - Hyperlipidemia, unspecified Status: Acute (4) Hypothyroidism: Code(s): E03.9 - Hypothyroidism, unspecified Status: Acute (5) Overactive bladder: Code(s): N32.81 - Overactive bladder Status: Acute Plan The patient presented to the emergency department with complaints of bloating and nausea since this morning as detailed in HPI. Labs, imaging, EKG, and all reports were personally reviewed. CT scan shows findings of partial small-bowel obstruction. He is not actively nauseated or vomiting thus will hold on NG tube at this time. In fact his symptoms seem to be improving after having several small bowel movements. Start clear liquids. Continue serial abdominal exams. Analgesics and antiemetics are available as needed. Blood pressures have been running high, likely due to discomfort and the fact that he did not take his medications today. Chronic medical conditions without acute issues include hyperlipidemia, hypothyroidism, and overactive bladder. His home medications will be reviewed and resumed as appropriate. Findings and treatment plan were discussed with the patient. Questions were solicited and answered to satisfaction. The patient's medical management will be taken over by the hospitalist team in a.m. Quality VTE Prophylaxis VTE prophylaxis: pharmacologic ordered The patient has been admitted under observation status. Hospitalist [facility] Advance Care Plan I have confirmed that the patient's Advanced Care Plan is present, code status is documented, or surrogate decision maker is listed in patient medical record.: Yes Medication Reconciliation I have utilized all available resources to obtain, update and review the patients current medications (includes all prescriptions, OTC, herbals, cannabis, and nutritional supplements).: Yes
--- NOTE | 2025-04-19 16:15 | ADMGEN ---
This patient, Tejas Matthews Jr., was admitted to 3 [facility] Surg Room 301-01. Patient/family oriented to hospital policies and general routines including ID bracelet, bed and alarms, visiting hours, pain management, procedures, bathroom and other care routines, personal items, smoking policy, room service/diet, and visiting hours. Information on how to activate the Rapid Response Team has been discussed. Patient/Family are encouraged to report perceived risks to care and to ask questions if they do not understand what they are told or what they should do.
[2025-04-19] MEDS: MEMANTINE 10 MG TABLET PO (20:44)
[2025-04-19] MEDS: DONEPEZIL HCL 10 MG TABLET PO (20:44)
[2025-04-19] MEDS: TAMSULOSIN HCL 0.4 MG CAPSULE PO (20:44)
[2025-04-19] MEDS: ROSUVASTATIN 20 MG TABLET PO (20:44)
[2025-04-20 04:23] VITALS: BP 138/72; PULSE 69; RESP 18; TEMP 36.6; O2SAT 95
[2025-04-20] MEDS: SODIUM CHLORIDE 0.9% IV 1,000 ML 125 ML IV CONT ×2 (04:28→09:46)
[2025-04-20] MEDS: LEVOTHYROXINE SODIUM 25 MCG TABLET PO (06:13)
[2025-04-20 06:16] LABS: Anion Gap 7 mmol/L (4-12); Blood Urea Nitrogen 13 mg/dL (9-20); Calcium 8.9 mg/dL (8.4-10.2); Carbon Dioxide 25 mmol/L (22-30); Chloride 109 mmol/L (98-107); Estimated CRCL calculation 91 ml/min; Estimated Glomerular Filt Rate > 60; Glucose 99 mg/dL (65-110); Magnesium 2.4 mg/dL (1.6-2.3); Potassium 3.9 mmol/L (3.4-5.0); Sodium 141 mmol/L (137-145)
[2025-04-20] MEDS: MIRABEGRON 25 MG ER TABLET PO (09:45)
[2025-04-20] MEDS: MEMANTINE 10 MG TABLET PO (09:45)
[2025-04-20] MEDS: LORATADINE 10 MG TABLET PO (09:45)
[2025-04-20] MEDS: ASPIRIN 81 MG CHEWABLE TABLET 324 MG PO (09:45)
[2025-04-20] MEDS: LOSARTAN POTASSIUM 25 MG TABLET PO (09:45)
[2025-04-20] MEDS: amLODIPine BESYLATE 5 MG TABLET PO (09:45)
--- NOTE | 2025-04-20 13:11 | PM.DS ---
DS: Admitting Diagnosis Discharge Date 04/20/2025 Admitting Diagnosis abdominal pain DS: Discharge Diagnosis Discharge Diagnosis (1) Partial small bowel obstruction: Code(s): K56.600 - Partial intestinal obstruction, unspecified as to cause Status: Acute (2) Hypertension: Code(s): I10 - Essential (primary) hypertension Status: Acute (3) Hyperlipidemia: Code(s): E78.5 - Hyperlipidemia, unspecified Status: Acute (4) Hypothyroidism: Code(s): E03.9 - Hypothyroidism, unspecified Status: Acute (5) Overactive bladder: Code(s): N32.81 - Overactive bladder Status: Acute DS: Summary Hospital Course Hospital Course: The patient presented to the emergency department with complaints of bloating and nausea since this morning as detailed in HPI. Labs, imaging, EKG, and all reports were personally reviewed. CT scan shows findings of partial small-bowel obstruction. He is not actively nauseated or vomiting thus will hold on NG tube at this time. In fact his symptoms seem to be improving after having several small bowel movements. Start clear liquids. Continue serial abdominal exams. Analgesics and antiemetics are available as needed. Blood pressures have been running high, likely due to discomfort and the fact that he did not take his medications today. Chronic medical conditions without acute issues include hyperlipidemia, hypothyroidism, and overactive bladder. His home medications will be reviewed and resumed as appropriate.pt seen by surgery md the next day looks like partial sbo secondary to adhesions ok to dc today pt tolerating diet and passing gas and bowel movements. sp water soluble bowel series Status at Discharge Cognitive/behavioral status at discharge: stable Time Spent with Patient Time attestation: Total time spent providing and/or coordinating discharge services:55 minutes Exam Narrative: General: Nontoxic-appearing male in the semi-Cano position in bed in no distress. Weight: 73.6 kg. BMI: 24.0. HEENT: PERRL, EOMI. Sclera anicteric. Edentulous. Moist mucous membranes. Neck: Supple. Respiratory: Lungs are clear to auscultation bilaterally. Cardiovascular: Regular rate and rhythm with S1-S2. Gastrointestinal: Abdomen is soft, nontender, and slightly distended with hypoactive bowel sounds. No tenderness to palpation on my exam. No guarding or rebound tenderness. Skin: Warm and dry. Extremities: No cyanosis, clubbing, or edema. Radial and pedal pulses intact. Neurological: Alert. Cranial nerves 2-12 are grossly intact. No gross focal deficits to casual conversation. Psychiatric: Pleasant and cooperative with appropriate mood and affect. He is in good spirits. GI: Inspection: non-distended Other: Abdomen is soft and nondistended. No tenderness to palpation. Exam is benign. DS: Data Data Completed and Pending Labs on day of discharge: Labs from last 24 hours 04/20/25 05:16 Sodium 141 Potassium 3.9 Chloride 109 H Carbon Dioxide 25 Anion Gap 7 BUN 13 Creatinine 0.73 Estim Creat Clear Calc 91 Estimated GFR > 60 Glucose 99 Calcium 8.9 Magnesium 2.4 H TSH (Reflex) 1.690 Discharge Plan Discharge Attending physician on discharge: Winnie Greenberg Consulting providers: Micha Bullock; Lashonda Segura; Meera Salguero; Jose Maria Granda; Shreyas Cook Discharging Clinician: Winnie Greenberg Anticipated Discharge Date/Time: 04/20/25 13:09 Patient Disposition: Home Activity: as tolerated Diet: low fiber Patient Instructions: Antibiotic Form Patient Language: Pashto Stand Alone Forms: General Discharge Information Follow-up/Referrals: Tonia Thomas DO [Primary Care Provider] - Micha Bullock MD [Physician] - (Follow-up Dr. Bullock in the office only as needed. No scheduled follow-up necessary.) Discharge Medications: Continued aspirin 81 mg tablet,chewable 324 mg PO DAILY mirabegron [Myrbetriq] 25 mg tablet extended release 24 hr 25 mg PO DAILY vitamin V86-adoyi acid 1,000-400 mcg lozenge 1 anthony sublingual BID acetaminophen 325 mg capsule 325 mg PO BID PRN (Reason: fever or pain) donepezil 10 mg tablet 10 mg PO DAILY memantine [Namenda] 10 mg tablet 10 mg PO BID losartan 25 mg tablet 25 mg PO DAILY tamsulosin 0.4 mg capsule 0.4 mg PO QHS Qty: 90 1RF levothyroxine [Synthroid] 25 mcg tablet 25 mcg PO DAILY Qty: 30 2RF Rx Instructions: Take 1 tablet in the morning on an empty stomach, at least 30 before food. Do not administer within 4 hours of iron-containing products. rosuvastatin 20 mg tablet 20 mg PO HS cetirizine 10 mg tablet 10 mg PO DAILY cholecalciferol (vitamin D3) [Vitamin D3] 25 mcg (1,000 unit) Capsule 25 mcg PO DAILY amlodipine 5 mg tablet 5 mg PO DAILY Qty: 90 1RF albuterol sulfate [Ventolin HFA] 90 mcg/actuation HFA aerosol inhaler 1 puff inhalation Q4H PRN (Reason: shortness of breath or wheezing) Qty: 6.7 0RF Date of admission: 04/19/25 13:45 Primary Care Provider: Tonia Thomas Admitting Provider: Bradley Stevens Attending physician on admission: Winnie Greenberg Condition: Stable
--- NOTE | 2025-04-20 13:56 | WPDPN ---
Progress Note: A&P Assessment and Plan (1) Partial small bowel obstruction: Code(s): K56.600 - Partial intestinal obstruction, unspecified as to cause Status: Acute Assessment and Plan: Partial small-bowel obstruction which may have been due to adhesions since he has had a prior open appendectomy. That has now resolved. Small-bowel series contrast reached the colon in 45minutes. His abdomen is benign today. I think can be discharged from a general surgery standpoint. Disposition as per hospitalist service. Patient will not need to follow up with me in the office unless he has further problems with small-bowel obstructions. Subjective Date/time seen: 04/20/25 13:56 Interval history: Patient doing well today. Had multiple bowel movements yesterday after his water-soluble small bowel series. That has now slowed down this morning. Eating solid food this morning without difficulty. No nausea or vomiting. Denies any abdominal pain. Exam GI: Other: Abdomen is soft and nondistended. No tenderness to palpation. Exam is benign. Objective Data Vital Signs Vital Signs: Vital Signs - 24 hr 04/19/25 16:26 04/19/25 20:12 04/20/25 04:23 Temperature 36.2 C L 36.5 C 36.6 C Pulse Rate 79 77 69 Respiratory Rate 18 16 18 Blood Pressure 147/95 H 148/91 H 138/72 Pulse Oximetry 96 96 95 Intake/Output Intake/Output: Intake & Output 04/17/25 04/18/25 04/19/25 04/20/25 23:59 23:59 23:59 23:59 Intake Total 2690.5 Balance 2690.5 Meds/Results Medications: Active Medications Generic Name Dose Route Start Last Admin Trade Name Freq PRN Reason Stop Dose Admin Acetaminophen 325 mg 04/19/25 16:55 Acetaminophen 325 Mg Tablet PO BID PRN fever or mild pain Albuterol 1 puff 04/19/25 16:55 Albuterol Sulfate (*Sp) Aerosol 1 Puff INHALATION Q4HRT PRN SOB/wheezing Amlodipine Besylate 5 mg 04/20/25 09:00 04/20/25 09:45 Amlodipine Besylate 5 Mg Tablet PO 5 mg DAILY MARY ANN Administration Aspirin 324 mg 04/20/25 09:00 04/20/25 09:45 Aspirin 81 Mg Chewable Tablet PO 324 mg DAILY MARY ANN Administration Donepezil HCl 10 mg 04/19/25 21:00 04/19/25 20:44 Donepezil Hcl 10 Mg Tablet PO 10 mg HS MARY ANN Administration Enoxaparin Sodium 40 mg 04/20/25 09:00 04/20/25 09:48 Enoxaparin 40 Mg/0.4 Ml Syringe SUB-Q Not Given DAILY [facility] Sodium Chloride 1,000 mls @ 125 mls/hr 04/19/25 13:45 04/20/25 09:46 Normal Saline Iv IV CONT 125 mls/hr .Q8H MARY ANN Administration Levothyroxine Sodium 25 mcg 04/20/25 06:30 04/20/25 06:13 Levothyroxine Sodium 25 Mcg Tablet PO 25 mcg DAILY@0630 MARY ANN Administration Loratadine 10 mg 04/20/25 09:00 04/20/25 09:45 Loratadine 10 Mg Tablet PO 10 mg QAM MARY ANN Administration Losartan Potassium 25 mg 04/20/25 09:00 04/20/25 09:45 Losartan Potassium 25 Mg Tablet PO 25 mg DAILY MARY ANN Administration Memantine 10 mg 04/19/25 21:00 04/20/25 09:45 Memantine 10 Mg Tablet PO 10 mg Q12HR MARY ANN Administration Mirabegron 25 mg 04/20/25 09:00 04/20/25 09:45 Mirabegron 25 Mg Er Tablet PO 25 mg DAILY MARY ANN Administration Morphine Sulfate 2 mg 04/19/25 13:44 04/19/25 17:31 Morphine Sulfate (*Crx) 2 Mg/Ml Inj IV PUSH 2 mg Q2H PRN Administration Pain Rated 7-10 Ondansetron HCl 4 mg 04/19/25 16:05 Ondansetron Inj 4 Mg/2 Ml Vial IV PUSH Q6H PRN Nausea And Vomiting Rosuvastatin Calcium 20 mg 04/19/25 21:00 04/19/25 20:44 Rosuvastatin 20 Mg Tablet PO 20 mg HS MARY ANN Administration Tamsulosin HCl 0.4 mg 04/19/25 21:00 04/19/25 20:44 Tamsulosin Hcl 0.4 Mg Capsule PO 0.4 mg QHS MARY ANN Administration Radiology Results: ITS Impressions Abdomen/Pelvis CT 04/19/25 09:31 IMPRESSION: 1. Fluid and scattered pseudo feces throughout multiple loops of central small bowel which although not frankly dilated demonstrates an abrupt transition point to decompressed distal small bowel in the right lower quadrant which nonetheless raises suspicion for an early or partial small bowel obstruction. Small Bowel X-Ray 04/19/25 16:44 IMPRESSION: 1. Normal small bowel follow-through. Abdomen X-Ray 04/20/25 08:48 IMPRESSION: 1. No acute abdominal abnormality. No evidence for obstruction. Labs Labs: Laboratory Results - last 24 hr 04/20/25 05:16 Sodium 141 Potassium 3.9 Chloride 109 H Carbon Dioxide 25 Anion Gap 7 BUN 13 Creatinine 0.73 Estim Creat Clear Calc 91 Estimated GFR > 60 Glucose 99 Calcium 8.9 Magnesium 2.4 H TSH (Reflex) 1.690
[2025-04-20 14:00] VITALS: BP 148/82; PULSE 89; RESP 16; TEMP 36.3; O2SAT 96
== END 2025-04-20 14:30 | disposition home or self-care (01) ==
LOC: ANHED 13:44 → ANH3MEDSUR 04-20 13:10
PROVIDERS: Physician Assistant; Admitting Provider Internal Medicine; Emergency Provider Emergency Medicine; PCP Family Medicine; Visit Provider Family Medicine
DX: K56.600 Partial intestinal obstruction, unspecified as to cause (principal); I10 Essential (primary) hypertension; E03.9 Hypothyroidism, unspecified; E78.5 Hyperlipidemia, unspecified; G31.84 Mild cognitive impairment of uncertain or unknown etiology; N32.81 Overactive bladder; N40.0 Benign prostatic hyperplasia without lower urinary tract symptoms; Z90.49 Acquired absence of other specified parts of digestive tract; Z87.891 Personal history of nicotine dependence; Z79.51 Long term (current) use of inhaled steroids; Z79.82 Long term (current) use of aspirin
CPT/HCPCS: 36415; 74019; 74177; 74250; 80048; 80053; 81001; 83690; 83735; 84443; 85025; 96361; 96374; 96376; 99285; A9270; G0378; J2270; J2405; J7030; Q9967

== ENCOUNTER 2025-05-08 11:57 | Outpatient (RCR) | payer MEDICARE, MEDICAID, SELFPAY ==
--- NOTE | 2025-05-08 13:05 | OPREHPOC ---
Outpatient Therapy Plan of Care This is a Multidisciplinary Plan of Care that may contain components documented by all disciplines (PT, OT, and ST.) ST Problem 1 ST Problem #[address] Goal 1 Goal / Goal Update The patient will participate in home programming to improve carry over/generalization of skills to home environment. Target Visit [address] Problem #[address] Goal 1 Goal / Goal Update Dysphagia 1. The patient will use compensatory dysphagia strategies for a soft diet, alternate bites/drinks , and repeat swallow 90% minimal cues 2. The patient will complete swallow exercises for Zee and Saad techniques with 85% minimal cues 3. The patient will be provided a HEP. Target Visit 10
--- NOTE | 2025-05-08 13:05 | STOPEVAL1 ---
Assessment and note entered by Suly Blackburn CATTLE BRANDER Evaluation Information Assessment Status Evaluation Diagnosis R13.10 R13.12 ICD-10 Condition Codes (ST) Dysphagia, oropharyngeal phase R13.12 Reported Pain Level Pain Score 0: Self Report Assessment ST Clinical Summary The patient is a 64 year old male referred from a swallow evaluation secondary to noted mild dysphagia on an outpatient MBS completed 04/03/25. Results indicated mild dysphagia with flashed penetration due to reduced tongue base retraction and slightly tight cricopharyngeal muscle. The patient was able to clear residual at that time with a repeat dry swallow. Dysphagia strategies recommended included: Soft Diet due to dentition, small bites and drinks, and a extra repeat swallow . Outpatient speech therapy recommended to provide additional instruction in techniques due to patient reported memory loss at times impacts ability to recall techniques. The patient was presented trials today of puree/ applesauce texture, soft cracker consistency, and thin liquid via cup. Oral Stage: Timely oral transit across consistencies without noted oral residual. Some extra tie to masticate solids. Pharyngeal Stage: timely swallow initiation without outward clinical signs of aspiration. Reviewed techniques and practiced with trials for improved carry over. Recommended 1. Soft diet 2. Alternate bites and drinks 3. Repeat Swallow. Exercises provided for tongue base retraction and Cricopharyngeal function These treatments will address the objective and functional deficits as defined above. The patient will be advanced safely and appropriately in order for the patient to progress towards his/her prior level of function. Additional exercises will be introduced and as well as a comprehensive home exercise program upon discharge, if needed, ?to ensure carryover of functional gains achieved in the clinic. This treatment plan has been reviewed and agreement upon by the patient.
== END 2025-05-29 14:03 | disposition home or self-care (01) ==
LOC: ANHST 11:57
PROVIDERS: PCP Family Medicine; Visit Provider Otolaryngology
DX: R13.10 Dysphagia, unspecified (principal); R13.12 Dysphagia, oropharyngeal phase
CPT/HCPCS: 92526; 92610

== ENCOUNTER 2025-05-28 11:49 | Outpatient (CLI) | payer MEDICARE, MEDICAID, SELFPAY ==
--- NOTE | ~2025-05-28 | XR_ITS ---
Right wrist Technique: PA, oblique, lateral, and ulnar deviation views were obtained. Clinical History: Pain Findings: No acute fracture or dislocation is seen. Osseous alignment is anatomic. Joint spaces are p reserved. Soft tissues are unremarkable. Impression: Unremarkable right wrist radiographs. Reviewed, dictated and finalized at location . Impression: Unremarkable right wrist radiographs.
--- OUTSIDE RECORDS SUMMARY | 2025-05-28 11:55 | XMS_ITS | Encounter Summary ---
Author Organization [facility] Address [address] [place] [address] Care Team Providers Care Associate Professor Of Church Music Name Role Phone Chana Mann RN Unavailable [phone] Hamida De La Torre PA-C Primary Care Provider [phone] Encounter Details Date Type Department Care Team (Late st Contact Info) Description 03/08/2023 [employer] Message Enc [facility] Family Medicine [facility] [address] [facility] [address] [place] [address] [phone] Cierra Barnes NP [address] [place] [address] [place] [address] tejas matthews Social History Tobacco Use Types [...] documented as of this encounter Care Teams Associate Professor Of Church Music Relationship Specialty Start Date End Date Hamida De La Torre PA-C [address] [place] [phone] PCP - General PHYSICIAN HOSPITAL SUPERINTENDENT 01/18/25 Chana Mann RN [address] [place], [place] [phone] Student Development Coordinator (Ambulatory) REGISTERED NURSE 10/23/24 11/07/24 documented as of this encounter
--- OUTSIDE RECORDS SUMMARY | 2025-05-28 11:55 | XMS_ITS | Encounter Summary ---
Author Organization [facility] Address [address] [place] [address] Care Team Providers Care Personal Financial Counselor Name Role Phone Hamida De La Torre PA-C Primary Care Provider [phone] Encounter Details Date Type Department Care Team (Late st Contact Info) Description 12/28/2024 [employer] Message Enc [facility] Medical Group Family Medicine [facility] [address] [facility] [address] [place] [address] Cierra Barnes, NEO [address] [place] [address] [place] [address] ashwin mustafa Social History Tobacco Use Types [...] documented as of this encounter Care Teams Personal Financial Counselor Relationship Specialty Start Date End Date Hamida De La Torre PA-C [address] [place] [phone] PCP - General PHYSICIAN CHILDHOOD DEVELOPMENT TEACHER 01/18/25 documented as of this encounter
--- OUTSIDE RECORDS SUMMARY | 2025-05-28 11:55 | XMS_ITS | Encounter Summary ---
Author Organization [facility] Healthcare Address [address] [place] [address] Care Team Providers Care Powerbuilder Name Role Phone Chioma Arias NP Primary Care Provider [phone] Cierra Barnes MD Primary Care Provider [phone] Encounter Details Date Type Department Care Team (Late st Contact Info) Description 02/08/2023 Telephone [facility] [address] [place] [address] Shannon Rizzo, FAYE Social History Tobacco Use Types Packs/Day Years Used Date Smoking Tobacco: Some Days Cigars Smokeless Tobacco: Never Sex and Gender Information Value Date Recorded Sex Assigned at Not on file Legal Sex Male 7:38 PM PUBLIC HEALTH CLINICAL NURSE SPECIALIST Gender Identity Not on file Sexual Orientation Not on file documented as of this encounter Plan of Treatment Not on file documented as of this encounter Visit Diagnoses Not on filedocumented in this encounter Care Teams Powerbuilder Relationship Specialty Start Date End Date Chioma Arias NP PCP - General Nurse Practitioner 01/11/23 07/19/24 Cierra Barnes MD PCP - General Nurse Practitioner 07/20/24 documented as of this encounter
--- OUTSIDE RECORDS SUMMARY | 2025-05-28 11:55 | XMS_ITS | Encounter Summary ---
Author Organization [facility] Address [address] [place] [address] Care Team Providers Care Editorial Intern Name Role Phone Ghada Enamorado NP Primary Care Provider Ghada Joseph NP Primary Care Provider Rosalba Calles APNP Unavailable [phone] Kayli Berry MD Primary Care Provider [phone] Chana Mann RN Unavailable [phone] Hamida De La Torre PA-C Primary Care Provider [phone] Encounter Details Date Type Department Care Team (Late st Contact Info) Description 05/27/2019 MyChart Message Enc [facility] Medical Group Family & Internal Medicine [address] [phone] Ghada Enamorado NP RE: Medication [...] Rule Out 12/09/2020 12/09/2020 12/10/2020 12:16 PM MATERIAL DISTRIBUTOR COVID-19 Rule Out 12/27/2020 12/27/2020 12/28/2020 4:56 PM MATERIAL DISTRIBUTOR COVID-19 Rule Out 03/03/2021 03/03/2021 03/03/2021 3:11 PM CDT documented as of this encounter Care Teams Editorial Intern Relationship Specialty Start Date End Date Ghada Enamorado NP PCP - General Nurse Practitioner Family 07/05/19 07/08/19 Ghada Enamorado NP PCP - General Nurse Practitioner Family 07/09/19 07/20/20 Rosalba Mancilla APNP [address] [place] [address] PCP - Med Group - MSSP Attributed Provider 08/21/17 11/20/22 Kayli Berry MD [address] [place] [address] PCP - General INTERNAL MEDICINE 07/21/20 01/18/22 Hamida De La Torre PA-C [address] [place] [phone] PCP - General PHYSICIAN METAL BONDING WORKER 01/18/25 Chana Mann, RN [address] [place] [address] Knotting Machine Operator (Ambulatory) REGISTERED NURSE 10/23/24 11/07/24 documented as of this encounter
--- OUTSIDE RECORDS SUMMARY | 2025-05-28 11:55 | XMS_ITS | Encounter Summary ---
Author Organization [facility] Address [address] [place] [address] Care Team Providers Care Academic Vice President Name Role Phone Ghada Enamorado NP Primary Care Provider Rosalba Calles APNP Unavailable [phone] Kayli Berry MD Primary Care Provider [phone] Chana Mann RN Unavailable [phone] Hamida De La TorreC Primary Care Provider [phone] Encounter Details Date Type Department Care Team (Late st Contact Info) Description 12/27/2019 MyChart Message Enc [facility] Medical Group Family & Internal Medicine [address] [address] Anali Paniagua MD RE: Test [...] Rule Out 12/09/2020 12/09/2020 12/10/2020 12:16 PM CHIEF COMPLIANCE OFFICER COVID-19 Rule Out 12/27/2020 12/27/2020 12/28/2020 4:56 PM CHIEF COMPLIANCE OFFICER COVID-19 Rule Out 03/03/2021 03/03/2021 03/03/2021 3:11 PM CDT documented as of this encounter Care Teams Academic Vice President Relationship Specialty Start Date End Date Ghada Enamorado NP PCP - General Nurse Practitioner Family 07/09/19 07/20/20 Rosalba Mancilla APNP [address] [place] [phone] PCP - Med Group - MSSP Attributed Provider 08/21/17 11/20/22 Kayli Berry MD [address] [place] [phone] PCP - General INTERNAL MEDICINE 07/21/20 01/18/22 Hamida De La Torre, PADengC [address] [place] [phone] PCP - General PHYSICIAN AMPHIBIOUS OPERATIONS OFFICER 01/18/25 Chana Mann, RN [address] [place] [address] Print Shop Stenographer (Ambulatory) REGISTERED NURSE 10/23/24 11/07/24 documented as of this encounter
--- OUTSIDE RECORDS SUMMARY | 2025-05-28 11:55 | XMS_ITS | Encounter Summary ---
Author Organization [facility] Address [address] [place] [address] Care Team Providers Care Senior Clinical Data Coordinator Name Role Phone Hamida De La Torre PA-C Primary Care Provider [phone] Encounter Details Date Type Department Care Team (Late st Contact Info) Description 02/18/2025 [employer] Message Enc [facility] Medical Group Family Medicine [facility] [address] [facility] [address] [place] [address] Cierra Barnes, NEO [address] [place] [address] TEJAS HIRSCH Social History Tobacco Use Types [...] documented in this encounter Plan of Treatment Not on file documented as of this encounter Visit Diagnoses Not on filedocumented in this encounter Additional Health Concerns Assessment Noted Time PHQ-9 Depression Total Score: 13 021 12:48 PM CDT documented as of this encounter Care Teams Senior Clinical Data Coordinator Relationship Specialty Start Date End Date Hamida De La Torre PA-C [address] [place] [phone] PCP - General PHYSICIAN MARKET RESEARCH SENIOR PROJECT MANAGER 01/18/25 documented as of this encounter
--- OUTSIDE RECORDS SUMMARY | 2025-05-28 11:55 | XMS_ITS | Encounter Summary ---
Author Organization [facility] Address [address] [place] [address] Care Team Providers Care Program Production Specialist Name Role Phone Chana Mann RN Unavailable [phone] Hamida De La Torre-C Primary Care Provider [phone] Encounter Details Date Type Department Care Team (Late st Contact Info) Description 04/19/2023 Xercise4less Message Enc [facility] Family Medicine - [place] [address] [facility] [address] [place] [address] [id number] Cierra Barnes, NEO [address] [place] [address] [place] [address] tejas matthews Social History Tobacco Use Types [...] documented as of this encounter Care Teams Program Production Specialist Relationship Specialty Start Date End Date Hamida De La Torre PADengC [address] [place] [address] PCP - General PHYSICIAN BOILERMAKER 01/18/25 Chana Mann RN [address] [place] [address] Hepatology Physician (Ambulatory) REGISTERED NURSE 10/23/24 11/07/24 documented as of this encounter
--- OUTSIDE RECORDS SUMMARY | 2025-05-28 11:55 | XMS_ITS ---
Author Organization [facility] [place] ([address]) Address [address] [place] [address] Care Team Providers Care Automotive Electrical Helper Name Role Phone Cierra Barnes Primary Care Provider Unavailab Merlyn Thakkar Unavailable [phone] REASON FOR VISIT Generalized pruritus ongoing for [...] MG 1 tablet Orally Twic e a day; Duration: 30 days Active Montelukast Sodium 10 MG 1 tablet Orally Once a day; Duration: 30 days Active Cetirizine HCl 10 MG 1 tablet Orally Twi ce a day; Duration: 30 days Active Albuterol Sulfate HFA 108 (90 Base) MCG/ACT 1 puff as needed Inhalation every 4 hrs Active EPINEPHrine 0.3 MG/0.3ML as directed Inj ection as directed; Duration: 30 days Active Aspirin 81 MG 1 [...] Active Encounters Encounter Location Date Provider Diagnosis [facility] [address] [place] [address] 10/09/2024 Merlyn Hodges Pruritus, unspecifie d L29.9 [...] MG 1 tablet Orally Twic e a day; Duration: 30 days Montelukast Sodium 10 MG 1 tablet Orally Once a day; Duration: 30 days Cetirizine HCl 10 MG 1 tablet Orally Twi ce a day; Duration: 30 days Albuterol Sulfate HFA 108 (9 0 Base) MCG/ACT 1 puff as needed Inhalation every 4 hrs EPINEPHrine 0.3 MG/0.3ML as directed Inj ection as directed; Duration: 30 days Vanicream - as directed Externally [...] Notes * Tejas HIRSCHDOB:1960 (64 yo M)Acc No.[id number]:10/09/2024 Progress Notes Patient: Tejas IRVING Provider: QIAN Kennedy :1960 A ge:63 Y S ex:Male Date:10/09/2024 Address:[address] [place], [place] [id number] Pcp:Cierra Barnes Subjective: * Chief Complaints: * [...] G8427 DOC MEDS VERIFIED W/[place], [address] Merlyn Hodges - Incident-to * Preventive Medicine: Counseling: D iet a s tolerated. E xercise C onsider GEORGE use PRN, prior to exercise as per the asthma action plan. M edication instruction: W atch for side effects of prescribed medications. E [...] Management) * Billing Information: * Visit Code: 71690 Office Visit, Est Pt., Level 4. Modifiers: 25 * Procedure Codes: 26657 PT-FOCUSED HLTH RISK ASSMT. G8427 DOC MEDS VERIFIED W/[place]. [address] Merlyn Hodges - Incident-to. * Electronic signature of Merlyn Hodges DNP, FNP-C on 05/28/2025 at 11:55 AM CDT Sign off status: Pending * Provider: QIAN Kennedy Date: 1 12/09/2023 Generated for Paul hernandez/Sowmya/eTransmitting on: 0 05/28/2025 11:55 AM CDT History and Physical Notes * [...]
--- OUTSIDE RECORDS SUMMARY | 2025-05-28 11:55 | XMS_ITS | Encounter Summary ---
Author Organization [facility] Address [address] [place] [address] Care Team Providers Care Prescription Clerk Lenses Name Role Phone Chana Mann RN Unavailable [phone] Hamida De La Torre-C Primary Care Provider [phone] Encounter Details Date Type Department Care Team (Late st Contact Info) Description 04/12/2023 Exclusive Networks Message Enc [facility] Medical [facility] Family Medicine - [place] [address] [facility] [address] [place] [address] [phone] Cierra Barnes, NEO [address] [place] [address] tejas matthews Social History Tobacco Use Types [...] documented as of this encounter Care Teams Prescription Clerk Lenses Relationship Specialty Start Date End Date Hamida De La Torre PADengC [address] [place] [address] PCP - General PHYSICIAN PEDIATRIC UROLOGIST 01/18/25 Chana Mann RN [address] [place] [address] Radiology Special Procedure Tech (Ambulatory) REGISTERED NURSE 10/23/24 11/07/24 documented as of this encounter
--- OUTSIDE RECORDS SUMMARY | 2025-05-28 11:55 | XMS_ITS | Encounter Summary ---
Author Organization [facility] Address [address] [place] [address] Care Team Providers Care Meat Carver Name Role Phone Rosalba Mancilla APNP Unavailable [phone] Kayli Berry MD Primary Care Provider [phone] Chana Mann RN Unavailable [phone] Hamida De La Torre PA-C Primary Care Provider [phone] Encounter Details Date Type Department Care Team (Late st Contact Info) Description 07/23/2020 [employer] Message Enc [facility] Medical Group Family & Internal Medicine [address] [address] [place], [facility] Provider Lab Results Social [...] Rule Out 12/09/2020 12/09/2020 12/10/2020 12:16 PM PHYTOCHEMISTRY PROFESSOR COVID-19 Rule Out 12/27/2020 12/27/2020 12/28/2020 4:56 PM PHYTOCHEMISTRY PROFESSOR COVID-19 Rule Out 03/03/2021 03/03/2021 03/03/2021 3:11 PM CDT documented as of this encounter Care Teams Meat Carver Relationship Specialty Start Date End Date Rosalba Mancilla APNP [address] [place] [address] PCP - Med Group - MSSP Attributed Provider 08/21/17 11/20/22 Kayli Berry MD [address] [place] [address] PCP - General INTERNAL MEDICINE 07/21/20 01/18/22 Hamida De La Torre, PADengC [address] [place] [address] PCP - General PHYSICIAN FILING AND POLISHING SUPERVISOR 01/18/25 Chana Mann, RN [address] [place] [address] Kids Club Attendant (Ambulatory) REGISTERED NURSE 10/23/24 11/07/24 documented as of this encounter
--- OUTSIDE RECORDS SUMMARY | 2025-05-28 11:55 | XMS_ITS | Clinical Summary ---
Author Organization [address] Address [address] [place] [address] Care Team Providers Care Bag Repairer Name Role Phone Cierra Barnes MD Primary Care Provider [phone] Allergies No known active allergies Medications albuterol [...] tablet once a day 30 tablet 5 01/18/2025 Active memantine (NAMENDA) 10 mg tabletIndicatio ns:Moderate to Severe Alzheimer's Type Dementia Take 1 tablet (10 mg total) by mouth 2 (two) times a day 60 tablet 11 03/29/2025 Active Active Problems Problem Noted Date Diagnosed Date Memory loss 01/06/2023 Dizziness and giddiness 05/26/2021 Neck mass 05/26/2021 Encounters Date Type Department Care Team Description 03/29/[address] [facility] [address] [facility] [address] [place] [address] Enzo Wick MD from Last 3 Months Surgical History Surgery [...] on file Legal Sex Male 7:38 PM MACHINE CLOTH TRIMMER Gender Identity Not on file Sexual Orientation Not on file Obstetrics History Last Filed Vital Signs Vital Sign Reading Time Taken Comments Blood Pressure 119/75 01/18/2025 12:55 PM MACHINE CLOTH TRIMMER Pulse 81 01/18/2025 12:55 PM MACHINE CLOTH TRIMMER Temperature 37.6 C (99.6 F) 02/14/2023 6:06 PM CDT Respiratory Rate 18 11/07/2023 1:07 PM MACHINE CLOTH TRIMMER Oxygen Saturation 96% 01/18/2025 12:55 PM MACHINE CLOTH TRIMMER Inhaled Oxygen Concentration - - Weight 71.9 kg (158 lb 9.6 oz) 01/18/2025 12:55 PM MACHINE CLOTH TRIMMER Height 175.3 cm (5' 9.02) 01/18/2025 12:[address] Body Mass Index 23.41 01/18/2025 12:55 PM MACHINE CLOTH TRIMMER Plan of Treatment Health Maintenance Due Date Last Done Comments Colon Cancer Screening-Colonoscopy 1960 Depression Screening 1960 Hepatitis C Screening 1960 Prostate Cancer Screening-PSA 1960 Hepatitis B Screening 1980 Regular Well Visit/Exam 18-64 1980 Covid-19 Vaccine (5 - 2023-2 5 season) 2024 01/02/2023, 03/19/2022, 04/08/2021, Additional history exists Pneumococcal vaccine <65 (3 of 3 - PCV20 or PCV21) 09/12/2024 09/12/2019, 01/23/2019 Influenza Vaccine (#1) 2025 , 09/19/2023, 01/02/2023, Additional history exists DTaP/Tdap/Td Vaccine (2 - Td or Tdap) 05/22/2028 05/22/2018 Zoster Vaccine Completed 07/17/2019, 05/17/2019 Insurance [facility] [email or web address] IDPA IDPA Advance Directives For more information, please contact: [phone] * Full Code (Latest Code Status on File) Date Activated Date Inactivated Comments 02/09/2023 7:52 AM 02/10/2023 4:37 AM Care Teams Bag Repairer Relationship Specialty Start Date End Date Cierra Barnes MD PCP - General Nurse Practitioner 07/20/24
--- OUTSIDE RECORDS SUMMARY | 2025-05-28 11:55 | XMS_ITS | Referral Summary ---
Author Organization [address] Address [address] [place] [address] Care Team Providers Care Radiology Physician Assistant Name Role Phone Cierra Barnes MD Primary Care Provider [phone] Encounters Date Type Department Care Team Description 03/29/2025 Orders Only [facility] [address] [place] [address] [address] [place] [address] Enzo Wick MD from Last 3 Months Allergies No known [...] on file Legal Sex Male 7:38 PM JEWELRY SALES Gender Identity Not on file Sexual Orientation Not on file Last Filed Vital Signs Vital Sign Reading Time Taken Comments Blood Pressure 119/75 01/18/2025 12:55 PM JEWELRY SALES Pulse 81 01/18/2025 12:55 PM JEWELRY SALES Temperature 37.6 C (99.6 F) 02/14/2023 6:06 PM CDT Respiratory Rate 18 11/07/2023 1:07 PM JEWELRY SALES Oxygen Saturation 96% 01/18/2025 12:55 PM JEWELRY SALES Inhaled Oxygen Concentration - - Weight 71.9 kg (158 lb 9.6 oz) 01/18/2025 12:55 PM JEWELRY SALES Height 175.3 cm (5' 9.02) 01/18/2025 12:[address] Body Mass Index 23.41 01/18/2025 12:55 PM JEWELRY SALES Plan of Treatment Not on file Insurance [facility] ADVANTRA [facility] [employer] IDPA [facility] [employer]TRA IDPA Advance Directives For more information, please contact: [phone] * Full Code (Latest Code Status on File) Date Activated Date Inactivated Comments 02/09/2023 7:52 AM 02/10/2023 4:37 AM Care Teams Radiology Physician Assistant Relationship Specialty Start Date End Date Cierra Barnes MD PCP - General Nurse Practitioner 07/20/24
--- OUTSIDE RECORDS SUMMARY | 2025-05-28 11:55 | XMS_ITS | Encounter Summary ---
Author Organization [facility] Address [address] [place] [address] Care Team Providers Care Clay Miller Name Role Phone Rosalba Mancilla APNP Unavailable [phone] Kayli Berry MD Primary Care Provider [phone] Chana Mann RN Unavailable [phone] Hamida De La Torre PA-C Primary Care Provider [phone] Encounter Details Date Type Department Care Team (Late st Contact Info) Description 07/23/2020 [employer] Message Enc [facility] Medical [facility] Family & Internal Medicine [address] [address] [place], [facility] Provider Social History Tobacco Use Types Packs/Day [...] Rule Out 12/09/2020 12/09/2020 12/10/2020 12:16 PM BUNDLE WRAPPER COVID-19 Rule Out 12/27/2020 12/27/2020 12/28/2020 4:56 PM BUNDLE WRAPPER COVID-19 Rule Out 03/03/2021 03/03/2021 03/03/2021 3:11 PM CDT documented as of this encounter Care Teams Clay Miller Relationship Specialty Start Date End Date Rosalba Mancilla APNP [address] [place] [address] PCP - Med Group - MSSP Attributed Provider 08/21/17 11/20/22 Kayli Berry MD [address] [place] [address] PCP - General INTERNAL MEDICINE 07/21/20 01/18/22 Hamida De La Torre, PA-C [address] [place] [address] PCP - General PHYSICIAN TRAIN ELECTRONIC TECHNICIAN 01/18/25 Chana Mann, RN [address] [place], [place] [address] Land Commissioner (Ambulatory) REGISTERED NURSE 10/23/24 11/07/24 documented as of this encounter
--- OUTSIDE RECORDS SUMMARY | 2025-05-28 11:55 | XMS_ITS | Encounter Summary ---
Author Organization [facility] Address [address] [place] [address] Care Team Providers Care Wedding Florist Name Role Phone Chana Mann RN Unavailable [phone] Hamida De La Torre-Imani Primary Care Provider [phone] Reason for Visit * Reason Onset Date Comments Pre-visit Gap Closure 02/23/2023 Encounter Details Date Type Department Care Team (Late st Contact Info) Description 02/23/2023 Patient Outreach [facility] Medical [facility] Family Medicine - [place] [address] [facility] [place] [address] Bret Bhandari MA Pre-visit Gap [...] documented as of this encounter Care Teams Wedding Florist Relationship Specialty Start Date End Date Hamida De La Torre PA-C [address] [place] [address] PCP - General PHYSICIAN SILICA DRY PRESS HELPER 01/18/25 Chana Mann, RN [address] [place] [address] Java Programmer (Ambulatory) REGISTERED NURSE 10/23/24 11/07/24 documented as of this encounter
--- OUTSIDE RECORDS SUMMARY | 2025-05-28 11:55 | XMS_ITS | Encounter Summary ---
Author Organization [facility] Address [address] [place] [address] Care Team Providers Care Equipment Superintendent Name Role Phone Chana Mann RN Unavailable [phone] Hamida De La Torre-C Primary Care Provider [phone] Encounter Details Date Type Department Care Team (Late st Contact Info) Description 09/15/2023 [employer] Message Enc [facility] Medical Group Family Medicine - [place] [address] [facility] [address] [place] [address] Cierra Barnes NP [address] [place] [address] [place] [address] tejas matthews Social History Tobacco Use Types [...] documented as of this encounter Care Teams Equipment Superintendent Relationship Specialty Start Date End Date Hamida De La Torre PADengC [address] [place] [address] PCP - General PHYSICIAN TELEVISION PARTS TESTER 01/18/25 Chana Mann, RN [address] [place], [place] [address] Lens Mold Setter (Ambulatory) REGISTERED NURSE 10/23/24 11/07/24 documented as of this encounter
--- OUTSIDE RECORDS SUMMARY | 2025-05-28 11:55 | XMS_ITS | Encounter Summary ---
Author Organization [facility] Address [address] [place] [address] Care Team Providers Care Bird Raiser Name Role Phone Ghada Enamorado NP Primary Care Provider Rosalba Calles APNP Unavailable [phone] Kayli Berry MD Primary Care Provider [phone] Chana Mann RN Unavailable [phone] Hamida De La TorreC Primary Care Provider [phone] Encounter Details Date Type Department Care Team (Late st Contact Info) Description 09/17/2019 [employer]ive [employer] Message Enc [employer] DEPARTMENT [address] [place] [address] Mychart, [facility] Provider Lab results Social History Tobacco Use [...] Rule Out 12/09/2020 12/09/2020 12/10/2020 12:16 PM PROTOTYPE SPECIAL BUILD COVID-19 Rule Out 12/27/2020 12/27/2020 12/28/2020 4:56 PM PROTOTYPE SPECIAL BUILD COVID-19 Rule Out 03/03/2021 03/03/2021 03/03/2021 3:11 PM CDT documented as of this encounter Care Teams Bird Raiser Relationship Specialty Start Date End Date Ghada Enamorado NP PCP - General Nurse Practitioner Family 07/09/19 07/20/20 Rosalba Mancilla APNP [address] [place] [address] PCP - Med Group - MSSP Attributed Provider 08/21/17 11/20/22 Kayli Berry MD [address] [place] [address] PCP - General INTERNAL MEDICINE 07/21/20 01/18/22 Hamida De La Torre, PA-C [address] [place] [address] PCP - General PHYSICIAN TOP SCREW 01/18/25 Chana Mann, RN [address] [place] [address] Field Artillery Fire Control Man (Ambulatory) REGISTERED NURSE 10/23/24 11/07/24 documented as of this encounter
--- OUTSIDE RECORDS SUMMARY | 2025-05-28 11:56 | XMS_ITS ---
Author Organization [facility] ([address]) Address [address] [place] [address] Care Team Providers Care Cargo And Container Inspector Name Role Phone Cierra Barnes Primary Care Provider Unavailab Merlyn Thakkar Unavailable [phone] REASON FOR VISIT ARC follow-up Encounters Encounter Location Date Provider Diagnosis [facility] [address] [place] [address] 10/29/2024 Merlyn Hodges Plan Of Treatment No Information Progress Notes * Tejas HIRSCHDOB:1960 (64 yo M)Acc No.[id number]:10/29/2024 Progress Notes Patient: Tejas IRVING Provider: QIAN Kennedy :1960 A ge:63 Y S ex:Male Date:10/29/2024 Address:[address] [facility], [place], [place] Pcp:Cierra Barnes Subjective: * Chief Complaints: * 1 . ARC follow-up. * Medical History: Objective: * Vitals: Assessment: Plan: * Treatment: * Billing Information: * Visit Code: * Procedure Codes: * Electronic signature of Merlyn Hodges DNP, FNP-C on 05/28/2025 at 11:56 AM CDT Sign off status: Pending * Provider: QIAN KennedyP-C Date: 1 12/30/2023 Generated for Paul hernandez/Sowmya/Bharti on: 0 05/28/2025 11:56 AM CDT
--- OUTSIDE RECORDS SUMMARY | 2025-05-28 11:56 | XMS_ITS | Clinical Summary ---
Author Organization [facility] Address [address] [place] [address] Care Team Providers Care Scout Leaser Name Role Phone Hamida De La Torre PA-C Primary Care Provider [phone]- [phone] Allergies No known active allergies Medications vitamin [...] MRI. Assessment & Plan (09/26/2019 10:32 AM MATERIAL DAMAGE ADJUSTER): Exam unremarkable. No sensory deficits. No effusion. Will try changing meloxicam to naproxen and can take dose prior to going to bed as reports symptoms mostly in evening. Explained needs to stop meloxicam. If no improvement may be more restless leg symptoms given timing. BPPV (benign paroxysmal positional vertigo) 01/2018 Dupuytren's contracture 08/23/2018 Thyroiditis 08/23/2018 Assessment & Plan (01/04/2020 12:40 PM MATERIAL DAMAGE ADJUSTER): Repeat TSH today Hand dermatitis 05/31/2018 Low [...] 07/16/2016 Assessment & Plan (01/04/2020 12:40 PM MATERIAL DAMAGE ADJUSTER): Con't current regimen. Will get BMP. Insomnia 07/16/2016 Resolved Problems Problem Noted Date Diagnosed Date Resolved Date Nausea 07/01/2021 03/03/2023 Lymph node enlargement 06/26/201801/23 Wears glasses 07/16/2016 08/01/2020 Immunizations Immunization Administration Dates Next Due Fluzone [...] 7:03 PM CDT Height 175.3 cm (5' 9) 02/01/2025 7:03 PM CDT Body Mass Index 22.85 02/01/2025 7:03 PM CDT Plan of Treatment Health Maintenance [...] 01/2024, 07/17/2019, Additional history exists PHQ-2 (Physician [place]) Completed 01/29/2025 Meningococcal B Vaccine Aged Out No l onger eligible based on patient's age to complete this topic Meningococcal Vaccine Aged Out No theresa delma eligible based on patient's age to complete this topic RSV Immunizations Under 20 Months Aged Out No longer eligible based on patient's age to complete this topic Medical Devices Explanted Type Area Ride Attendant Device Identifier Shelf Expiration Date Model / Serial / Lot Stent Ureteral 6fr 26cm Pigtl Crv Taper Tip Bldr Mrk - [id number] Implanted:Qty : 1 on 10/23/2024 by Baltazar Flaherty MD at [facility] Explanted:Qty : 1 on 11/06/2024 by Baltazar Flaherty MD at [facility] Stent Left: [employer] DELANEY [id number] 06/27/2027 [id number] Procedures Procedure Name Priority Date/Time Associated Diagnosis Comments HEPATITIS C ANTIBODY W/RFX TO HCV RNA Routine 03/10/2023 10:33 AM CDT COLONOSCOPY GENERIC (SCAN ORDER) Routine 12/12/2020 from Last 3 Months or Most Recently Relevant to Health Maintenance Results * HEPATITIS C ANTIBODY W/RFX TO HCV RNA (03/10/2023 10:33 AM CDT) HEPATITIS C AB NON-REACT SABA NON-REACT SABA [facility] SIGNAL TO CUTOFF 0.06 <1.00 [facility] Comment: HCV antibody was non-reactive. There is no laboratory evidence of HCV infection. In most cases, no further action is required. However, if recent HCV exposure is suspected, a test for HCV RNA (test code 65143) is suggested. For additional information please refer to http://education.[employer]/faq/MJI20x9 (This link is being provided for informational/ educational purposes only.) 03/10/2023 10:3 3 AM CDT 03/10/2023 10:35 AM CDT Narrative [facility] - 03/11/2023 3:39 PM CDT FASTING:YES FASTING: YES Resulting Agency Comment Performing Organization Information: Site ID: [place] Name: [employer] Address: [address] [facility] [place] [address] Director: Nathan Nuñez MD us Cierra Barnes NP LABORATORY Final Res ult Performing Organization Address [facility] Co de Phone Number [facility] [address] [place] [address], * COLONOSCOPY (12/12/2020) us Documents Scanned SCANNING Final Result Performing Organization Address [facility] Co de Phone Number [facility] from Last 3 Months or Most Recently Relevant to Health Maintenance Insurance [employer] Advance Directives * Full Code (Latest Code Status on File) Date Activated Date Inactivated Comments 10/23/2024 12:12 AM 10/23/2024 4:25 PM Care Teams Scout Leaser Relationship Specialty Start Date End Date Hamida De La Torre PA-C [address] [place] [address] PCP - General PHYSICIAN HEALTH CARE TECHNICIAN 01/18/25
--- OUTSIDE RECORDS SUMMARY | 2025-05-28 11:56 | XMS_ITS | Patient Health Record ---
Author Organization [facility] [place] ([address]) Address [address] [facility] [address] [place] [address] Care Team Providers Care Capture Manager Name Role Phone Cierra Barnes Primary Care Provider Unavailab Merlyn Thakkar Unavailable [phone] Allergies No Known Allergies Results Component Value Reference Range Notes COMPREHENSIVE METABOLIC PANE L Reviewed date:08/21/2024 02:36:49 PM Interpretation:Normal Performing Lab:, [facility], [address], [place], [address] [facility] Notes/Report: NON-FASTING; NON-FASTING; NON-FASTING; NON-FASTING [...] 18 10-35 U/L ALT 17 9-46 U/L CBC (INCLUDES DIFF/PLT) Reviewed date:08/21/2024 02:37:13 PM Interpretation:Abnormal Performing Lab:[facility], [address] [facility] , [place], [address] [facility] Notes/Report: NON-FASTING; NON-FASTING; NON-FASTING; NON-FASTING FASTING:YES FASTING: YES WHITE BLOOD CELL COUNT 9.6 3.8-10.8 Thousand/uL RED BLOOD CELL COUNT 5.20 4.20-5.80 Million/uL HEMOGLOBIN 15.7 13.2-17.1 g/dL HEMATOCRIT 49.6 38.5-50.0 % MCV 95.4 80.0-100.0 fL MCH 30.2 27.0-33.0 pg MCHC 31.7 32.0-36.0 g/dL RDW 13.2 11.0-15.0 % PLATELET COUNT 189 140-400 Thousand/uL MPV 9.6 7.5-12.5 fL ABSOLUTE NEUTROPHILS 7085 3877-1474 cells/uL ABSOLUTE LYMPHOCYTES 6661 233-1631 cells/uL ABSOLUTE MONOCYTES 739 200-950 cells/uL ABSOLUTE EOSINOPHILS 58 15-500 cells/uL ABSOLUTE BASOPHILS 48 0-200 cells/uL NEUTROPHILS 73.8 LYMPHOCYTES 17.4 MONOCYTES 7.7 EOSINOPHILS 0.6 BASOPHILS 0.5 TRYPTASE Reviewed date:08/21/2024 02:37:21 PM Interpretation:Normal Performing Lab:Kailey [facility], [address] [facility] , [place], [address] Michael Patterson M.D.,PhD Notes/Report: NON-FASTING; NON-FASTING; NON-FASTING; NON-FASTING FASTING:YES FASTING: YES TRYPTASE 1.4 <11.0 mcg/L The Tryptase test, fluorescent enzyme immunoassay (FEIA), measures both the Alpha and Beta forms of Tryptase. Measuring both forms of Tryptase increases sensitivity for the diagnosis of mastocytosis, and mast cell degranulation as a cause of anaphylaxis. TSH W/REFLEX TO FT4 Reviewed date:08/21/2024 02:37:31 PM Interpretation:Normal Performing Lab:, [facility], [address], [place], [address] Nathan Nuñez Notes/Report: NON-FASTING; NON-FASTING; NON-FASTING; NON-FASTING FASTING:YES FASTING: YES TSH W/REFLEX TO FT4 2.49 0.40-4.50 mIU/L BINU IFA SCREEN W/REFL TO TIT ER/PATTERN,IFA(REFL) Reviewed date:08/21/2024 02:41:50 PM Interpretation:Abnormal Performing Lab:FRANK [facility], [address], [place], [address] Nathan Nuñez MD Notes/Report: NON-FASTING; NON-FASTING; NON-FASTING; [...] indicated. For additional information, please refer to http://education.Razz/faq/TTE639 (This link is being provided for informational/ educational purposes only.) SM AND SM/FIRE WATCHMAN ANTIBODIES Reviewed date:08/21/2024 02:38:13 PM Interpretation:Normal Performing Lab:[facility], [address], [place], [address] Nathan Nuñez MD Notes/Report: NON-FASTING; NON-FASTING; NON-FASTING; NON-FASTING FASTING:YES FASTING: YES SM ANTIBODY <1.0 NEG <1.0 NEG AI SM/FIRE WATCHMAN ANTIBODY <1.0 NEG <1.0 NEG AI ANTINUCLEAR ANTIBODIES TITER AND PATTERN Reviewed date:08/21/2024 02:40:20 PM Interpretation:Abnormal Performing Lab:[facility], [address], [place], [address] Nathan Nuñez MD Notes/Report: NON-FASTING; NON-FASTING; NON-FASTING; [...] NuMA-like International Consensus on BINU Patterns (https://doi.org/10.1515 /wfxx-2905-1773) TRYPTASE Reviewed date:10/02/2024 05:09:14 PM Interpretation:Normal Performing Lab:[facility]AN [facility], [address], [place], [place], Michael Patterson M.D.,PhD Notes/Report: NON-FASTING TRYPTASE 1.2 <11.0 mcg/L The Tryptase test, fluorescent enzyme immunoassay (FEIA), measures both the Alpha and Beta forms of Tryptase. Measuring both forms of Tryptase increases sensitivity for the diagnosis of mastocytosis, and mast cell degranulation as a cause of anaphylaxis. COMPLEMENT COMPONENT C4C Reviewed date:12/10/2024 09:57:38 AM Interpretation:Normal Performing Lab:FRANK, [facility], [address] [place], [address] Nathan Nuñez MD Notes/Report: NON-FASTING; NON-FASTING COMPLEMENT COMPONENT C4C 28 15-53 mg/dL C1 INHIBITOR, FUNCTIONAL Reviewed date:12/10/2024 09:57:26 AM Interpretation:Normal Performing Lab:[facility], [address], [place], [place], Michael Patterson M.D.,PhD Notes/Report: NON-FASTING; NON-FASTING C1 ESTERASE INHIBITOR, FUNCTIONAL 98 >=68 % Reference Range: > or = 68%: Normal 41-67%: Equivocal < or = 40%: Abnormal Less than 40% of the reference functional activity indicates a likely diagnosis of hereditary angioedema or acquired C1 Inhibitor deficiency. For additional information, please refer to: http://education.[employer]/faq/FAQ54 (This link is being provided for informational/ educational purposes only.) COMPLEMENT, TOTAL (CH50) Reviewed date:12/10/2024 09:57:13 AM Interpretation:Normal Performing Lab:[place], [facility], [address], [place], [address] Nathan Nuñez MD Notes/Report: NON-FASTING; NON-FASTING COMPLEMENT, TOTAL (CH50) 57 31-60 U/mL C1 INHIBITOR, PROTEIN Reviewed date:12/10/2024 09:57:02 AM Interpretation:Normal Performing Lab:[facility], [address] , [place], [address] Michael Patterson M.D.,PhD Notes/Report: NON-FASTING; NON-FASTING C1 ESTERASE INHIBITOR, PROTEIN 30 21-39 mg/dL A normal C1 esterase inhibitor protein level does not rule out the possibility of a functional C1 esterase inhibitor deficiency. Consider further testing of C1 esterase inhibitor functional activity, if clinically indicated. Reason For Referral No Information Medications Medication [...] Once a day; Duration: 30 days Active Vitamin B12 1000 MCG 1 tablet Orally Onc e a day Active EPINEPHrine 0.3 MG/0.3ML as directed Inj ection as directed; Duration: 30 days Active Iron (Ferrous Sulfate) 325 [...] nts Influenza Unknown 01/02/2023 Administered [employer] NOC Tdap Unknown 05/22/2018 Administ[employer] Social History Tobacco Use: Social History Observation Description Date Details (start date - stop date) Former Smoker NA - NA Tobacco Control (Standard) Question Answer Notes Tobacco use: Former smoker How long has it been since you last smoked? 1-5 years Problems Problem Type SNOMED Code ICD Code Onset Dates Problem Status W/U Status Risk Notes Problem Chronic allergic conjunctivitis (74346167) Other chronic allergic conjunctivitis (H10.45) Active confirmed Problem Essential hypertension (93595744) Essential (primary) hypertension (I10) Active confirmed Problem Allergic rhinitis caused by pollen (disorder) (10422848) Allergic rhinitis due to pollen (J30.1) Active confirmed Problem Allergic rhinitis (89423363) Other allergic rhinitis (J30.89) Active confirmed Problem Pruritus (663465201) Pruritus, unspecified (L29.9) Active confirmed Problem Allergic rhinitis caused by animal hair and dander (998904668952757) Allergic rhinitis due to animal (cat) (dog) hair and dander (J30.81) Active confirmed Vital Signs Oximetry 97 % 12/04/2024 Blood pressure diastolic 89 mm Hg 12/04/2024 Height 69 in 12/04/2024 Blood pressure systolic 170 mm Hg 12/04/2024 Weight 161 lbs 12/04/2024 BMI 23.77 kg/m2 12/04/2024 Encounters Encounter Location Date Provider Diagnosis [facility] [address] [place] [address] 08/06/2024 Merlyn Hodges Allergic rhinitis du e to pollen J30.1 ; Pruritus, unspecified L29.9 ; Allergic rhinitis due to animal (cat) (dog) hair and dander J30.81 ; Other allergic rhinitis J30.89 ; Shortness of breath R06.02 and Essential (primary) hypertension I10 [facility] [address] [place] [address] 09/11/2024 Merlyn Hodges Pruritus, unspecifie d L29.9 ; Localized swelling, mass and lump, head R22.0 ; Allergic rhinitis due to pollen J30.1 ; Allergic rhinitis due to animal (cat) (dog) hair and dander J30.81 ; Other allergic rhinitis J30.89 ; Shortness of breath R06.02 and Essential (primary) hypertension I10 [facility] [address] [place] [address] 12/04/2024 Merlyn Hodges Pruritus, unspecifie d L29.9 ; Localized swelling, mass and lump, head R22.0 ; Allergic rhinitis due to pollen J30.1 ; Allergic rhinitis due to animal (cat) (dog) hair and dander J30.81 ; Other allergic rhinitis J30.89 ; Shortness of breath R06.02 and Essential (primary) hypertension I10 [facility] [address] [place] [address] 08/07/2024 Merlyn Hodges [facility] [address] [place] [address] 12/02/2024 Merlyn Hodges Assessments Encounter Date Diagnosis [...] recent PFT, records requested again. - Continue GOERGE as-needed. After further discussion with Frankie it [...] Coverage End Date [employer] [address] [place] [address] [id number] Tejas Barksdale Self - patient is the [...]
--- OUTSIDE RECORDS SUMMARY | 2025-05-28 11:56 | XMS_ITS | Encounter Summary ---
Author Organization [facility] Address [address] [place] [address] Care Team Providers Care Door Closer Name Role Phone Chana Mann RN Unavailable [phone] Hamida De La Torre-C Primary Care Provider [phone] Encounter Details Date Type Department Care Team (Late st Contact Info) Description 09/20/2023 [place] Message Enc [facility] Medical Group Family Medicine - [place] [address] [facility] [address] [place] [address] 690954 Cierra Barnes NP [address] [place] [address] [place] [address] tejas matthews Social History Tobacco Use Types [...] documented as of this encounter Care Teams Door Closer Relationship Specialty Start Date End Date Hamida De La Torre PADengC [address] [place] [address] PCP - General PHYSICIAN RESERVATIONS MANAGER 01/18/25 Chana Mann, RN [address] [place], [place] [address] Application Penetration Tester (Ambulatory) REGISTERED NURSE 10/23/24 11/07/24 documented as of this encounter
--- OUTSIDE RECORDS SUMMARY | 2025-05-28 11:56 | XMS_ITS | Encounter Summary ---
Author Organization [facility] Address [address] [place] [address] Care Team Providers Care Cable Puller Name Role Phone Chana Mann RN Unavailable [phone] Hamida De La Torre-C Primary Care Provider [phone] Encounter Details Date Type Department Care Team (Late st Contact Info) Description 07/22/2024 CCS Environmentalt Message Enc [facility] Medical Group Family Medicine - [place] [address] [facility] [address] [place] [address] [phone] Cierra Barnes NP [address] [place] [address] tejas matthews Social History Tobacco Use Types [...] documented as of this encounter Care Teams Cable Puller Relationship Specialty Start Date End Date Hamida De La Torre PA-C [address] [place] [phone] PCP - General PHYSICIAN HIGH SCHOOL DIRECTOR 01/18/25 Chana Mann, RN [address] [place] [address] Food And Beverage Manager (Ambulatory) REGISTERED NURSE 10/23/24 11/07/24 documented as of this encounter
--- OUTSIDE RECORDS SUMMARY | 2025-05-28 11:56 | XMS_ITS | Encounter Summary ---
Author Organization [facility] Address [address] [place] [address] Care Team Providers Care Tripe Finisher Name Role Phone Ken Sosa MD Primary Care Provider Miriam Goyal Primary Care Provider [phone] Ghada Enamorado NP Primary Care Provider Ghada Joseph ARTILLERY OFFICER Primary Care Provider Rosalba Calles APNP Unavailable [phone] Kayli Berry MD Primary Care Provider [phone] Chana Mann RN Unavailable [phone] Hamida De La Torre PA-C Primary Care Provider [phone] Encounter Details Date Type Department Care Team (Latest Contact Info) Description 07/18/2018 Abstract [facility] Medical Group Miriam Adame FNP [address] [place] [address] Social History Tobacco Use Types Packs/Day Years [...] Rule Out 12/09/2020 12/09/2020 12/10/2020 12:16 PM WIRE FRAME MAKER COVID-19 Rule Out 12/27/2020 12/27/2020 12/28/2020 4:56 PM WIRE FRAME MAKER COVID-19 Rule Out 03/03/2021 03/03/2021 03/03/2021 3:11 PM CDT documented as of this encounter Care Teams Tripe Finisher Relationship Specialty Start Date End Date Ken Sosa MD PCP - General 07/20/16 10/04/18 Miriam Adame FNP [address] [place] [address] PCP - General FAMILY PRACTICE 10/05/18 01/16/19 Ghada Enamorado NP [address] [place] [address] PCP - General Nurse Practitioner Family 07/05/19 07/08/19 Ghada Enamorado NP [address] [place] [address] PCP - General Nurse Practitioner Family 07/09/19 07/20/20 Rosalba Mancilla APNP [address] [place] [address] PCP - Med Group - [facility] Attributed Provider 08/21/17 11/20/22 Kayli Berry MD [address] [place] [address] PCP - General INTERNAL MEDICINE 07/21/20 01/18/22 Hamida De La Torre PADengC [address] [place] [phone] PCP - General PHYSICIAN MACHINE FASTENER 01/18/25 Chana Mann, RN [address] [place] [address] Histopathologist (Ambulatory) REGISTERED NURSE 10/23/24 11/07/24 documented as of this encounter
--- OUTSIDE RECORDS SUMMARY | 2025-05-28 11:56 | XMS_ITS | Encounter Summary ---
Author Organization [facility] Address [address] [place] [address] Care Team Providers Care Ornamenter Hand Name Role Phone Rosalba Mancilla APNP Unavailable [phone] Kayli Berry MD Primary Care Provider [phone] Chana Mann RN Unavailable [phone] Hamida De La Torre PA-C Primary Care Provider [phone] Encounter Details Date Type Department Care Team (Late st Contact Info) Description 02/18/[address] [facility] [address] [place], [place] [phone] Lisa Aquino MD [address] [facility] [address] [place], [place] [phone] Social History Tobacco Use Types Packs/Day Years [...] documented as of this encounter Care Teams Ornamenter Hand Relationship Specialty Start Date End Date Rosalba Mancilla APNP [address] [place] [address] PCP - Med Group - MSSP Attributed Provider 08/21/17 11/20/22 Kayli Berry MD [address] [place] [address] PCP - General INTERNAL MEDICINE 07/21/20 01/18/22 Hamida De La Torre PADengC [address] [place] [address] PCP - General PHYSICIAN HAND VIOLIN MAKER 01/18/25 Chana Mann, RN [address] [place] [address] Generator Assembler (Ambulatory) REGISTERED NURSE 10/23/24 11/07/24 documented as of this encounter
--- OUTSIDE RECORDS SUMMARY | 2025-05-28 11:56 | XMS_ITS | Encounter Summary ---
Author Organization [facility] Address [address] [place] [address] Care Team Providers Care Medical Coding Instructor Name Role Phone Rosalba Mancilla APNP Unavailable [phone] Kayli Berry MD Primary Care Provider [phone] Chana Mann RN Unavailable [phone] Hamida De La Torre PA-C Primary Care Provider [phone] Encounter Details Date Type Department Care Team (Late st Contact Info) Description 12/24/[address] [facility] [address] [place], [place] [phone] Martínez Franco MD [address] [place], [place] [phone] Social History Tobacco Use Types Packs/Day Years [...] COVID-19? No / Unsure 12/27/2020 7:45 AM TRACK REPAIR SUPERVISOR documented as of this encounter Plan of Treatment Not on file documented as of this encounter Results * PRE-SURGICAL/PRE-PROCEDURE CORONAVIRUS (COVID 19) (12/27/2020 7:59 AM TRACK REPAIR SUPERVISOR) CORONAVIRUS SARS COV 2 PCR (RESP) NOT DETECTED NOT DETECTED 12/28/2020 4:56 PM TRACK REPAIR SUPERVISOR [facility] Comment: A Not Detected (negative) test result [...] providers and patients using the following websites: https://www.[employer] Oy.com/home/Covid-19/HCP/NAAT/fact-sheet2 https://www.[employer]merge Studio/home/Covid-19/Patients/NAAT/ fact-sheet2 This test has been authorized by the FDA under an Emergency Use Authorization (EUA) for use by authorized laboratories. Due to the current public health emergency, [facility] is receiving a high volume of samples [...] about COVID-19 can be found at the [facility] website: www.[employer].com/Covid19. Test performed at [facility] [address] [place] [address] Director: CASSY RIOS DO,MPH FIRST TEST NO 12/27/2020 7:46 AM TRACK REPAIR SUPERVISOR [facility] EMPLOYED IN HEALTHCARE NO 12/27/2020 7:46 AM TRACK REPAIR SUPERVISOR [facility] SYMPTOMATIC DEFINED BY CDC UNKNOWN 12/27/2020 7:46 AM TRACK REPAIR SUPERVISOR [facility] DATE OF SYMPTOM ONSET UNKNOWN 12/27/2020 9:23 AM TRACK REPAIR SUPERVISOR [facility] HOSPITALIZATION STATUS NO 12/27/2020 7:46 AM TRACK REPAIR SUPERVISOR [facility] PATIENT IN ICU NO 12/27/2020 7:46 AM TRACK REPAIR SUPERVISOR [facility] RESIDENT OF [facility] NO 12/27/2020 7:46 AM TRACK REPAIR SUPERVISOR [facility] UNKNOWN 12/27/2020 9:23 AM TRACK REPAIR SUPERVISOR [facility] PATIENT'S RACE WHITE OR 12/27/2020 7:46 AM TRACK REPAIR SUPERVISOR [facility] ETHNICITY NONHISPANIC 12/27/2020 7:46 AM TRACK REPAIR SUPERVISOR [facility] SOURCE (QST) NASOPHARYNGEAL SWAB 12/27/2020 7:46 AM TRACK REPAIR SUPERVISOR [facility] NASOPHARYNGEAL SWAB / Unknown 12/27/2020 7:59 AM TRACK REPAIR SUPERVISOR us Martínez Franco MD MICROBIOLOGY - GENERAL ORDERABL ES Final Result [facility] [address] [place] [address], [place] [phone] [facility] [address] [place] [address], documented in this encounter Visit Diagnoses Diagnosis Preop testing- Primary Preoperative examination, unspecified documented in this encounter Additional Health Concerns Infection Onset Date Last Indicated Resolved Time COVID-19 Rule Out 12/27/2020 12/27/2020 12/28/2020 4:56 PM TRACK REPAIR SUPERVISOR COVID-19 Rule Out 03/03/2021 03/03/2021 03/03/2021 3:11 PM CDT documented as of this encounter Care Teams Medical Coding Instructor Relationship Specialty Start Date End Date Rosalba Mancilla APNP [facility] [place] [address] PCP - Med Group - MSSP Attributed Provider 08/21/17 11/20/22 Kayli Berry MD [address] [place] [address] PCP - General INTERNAL MEDICINE 07/21/20 01/18/22 Hamida De La Torre, PADengC [address] [place] [phone] PCP - General PHYSICIAN PULP REFINER OPERATOR 01/18/25 Chana Mann, RN [address] [place] [address] Desktop Publishing Specialist (Ambulatory) REGISTERED NURSE 10/23/24 11/07/24 documented as of this encounter
--- OUTSIDE RECORDS SUMMARY | 2025-05-28 11:56 | XMS_ITS | Encounter Summary ---
Author Organization [facility] Address [address] [place] [address] Care Team Providers Care Ship Rigger Name Role Phone Rosalba Mancilla APNP Unavailable [phone] Kayli Berry MD Primary Care Provider [phone] Chana Mann RN Unavailable [phone] Hamida De La Torre PA-C Primary Care Provider [phone] Encounter Details Date Type Department Care Team (Late st Contact Info) Description 11/28/2020 RetAPPs Message Enc [facility] Medical Group Family & Internal Medicine [address] [address] [place], [facility] Provider Results Social History Tobacco Use Types [...] COVID-19? No / Unsure 11/28/2020 2:25 PM HVAC INSTALLER documented as of this encounter Plan of Treatment Not on file documented as of this encounter Visit Diagnoses Not on filedocumented in this encounter Additional Health Concerns Infection Onset Date Last Indicated Resolved Time COVID-19 Rule Out 12/09/2020 12/09/2020 12/10/2020 12:16 PM HVAC INSTALLER COVID-19 Rule Out 12/27/2020 12/27/2020 12/28/2020 4:56 PM HVAC INSTALLER COVID-19 Rule Out 03/03/2021 03/03/2021 03/03/2021 3:11 PM CDT documented as of this encounter Care Teams Ship Rigger Relationship Specialty Start Date End Date Rosalba Mancilla APNP [address] [place] [address] PCP - Med Group - MSSP Attributed Provider 08/21/17 11/20/22 Kayli Berry MD [address] [place] [address] PCP - General INTERNAL MEDICINE 07/21/20 01/18/22 Hamida De La Torre, PADengC [address] [place] [phone] PCP - General PHYSICIAN TERADATA SOLUTION ARCHITECT 01/18/25 Chana Mann, RN [address] [place] [address] Doughnut Machine Operator Helper (Ambulatory) REGISTERED NURSE 10/23/24 11/07/24 documented as of this encounter
--- OUTSIDE RECORDS SUMMARY | 2025-05-28 11:56 | XMS_ITS | Encounter Summary ---
Author Organization [facility] Address [address] [place] [address] Care Team Providers Care Label Pinker Name Role Phone Hamida De La Torre PA-C Primary Care Provider [phone] Encounter Details Date Type Department Care Team (Late st Contact Info) Description 11/30/2024 waygum Message Enc [facility] Medical Group Family Medicine [facility] [address] [facility] [address] [place] [address] Cierra Barnes NP [address] [place] [address] [place] [address] Tejas Matthews Social History Tobacco Use Types [...] 12:52 PM CST Yes that is fine RVISOR TOY ASSEMBLY * Annelise Son MA - 11/30/2024 12:26 PM CST Ok to order blood pressure monitor? RVISOR TOY ASSEMBLY documented in this encounter Plan of Treatment Not on file documented as of this encounter Visit Diagnoses Not on filedocumented in this encounter Additional Health Concerns Assessment Noted Time PHQ-9 Depression Total Score: 13 021 12:48 PM CDT documented as of this encounter Care Teams Label Pinker Relationship Specialty Start Date End Date Hamida De La Torre PA-C [address] [place] [phone] PCP - General PHYSICIAN CERTIFIED DIETARY MANAGER 01/18/25 documented as of this encounter
--- OUTSIDE RECORDS SUMMARY | 2025-05-28 11:56 | XMS_ITS | Encounter Summary ---
Author Organization [facility] Address [address] [place] [address] Care Team Providers Care Specialty Food Products Supervisor Name Role Phone Chana Mann RN Unavailable [phone] Hamida De La Torre-C Primary Care Provider [phone] Encounter Details Date Type Department Care Team (Late st Contact Info) Description 08/03/2024 ShopSueyt Message Enc [facility] Medical Group Family Medicine [facility] [address] [facility] [address] [place] [phone] Cierra Barnes NP [address] [address] [place] [address] tejas matthews Social History Tobacco Use Types [...] PM CDT Gema Cruz RN Active * [place] Suicide Severity Rating Scale (Screener/Recent Self-Report) Question Answer Date of Assessment Author Status 1. Wish to be (Past 1 Month) No 08/04/2024 7:13 PM CDT Gema Cruz RN Activ e 2. Non-Specific Active Suicidal Thoughts (Past 1 Month) No 08/04/2024 7:13 PM CDT Gema Cruz, FAYE Activ e 6. Suicidal Behavior (Lifetime) No [...] documented as of this encounter Care Teams Specialty Food Products Supervisor Relationship Specialty Start Date End Date Hamida De La Torre PA-C [address] [place] [address] PCP - General PHYSICIAN HOME CARE ADMINISTRATOR 01/18/25 Chana Mann RN [address] [place], [place] [address] Supercharge Repair Supervisor (Ambulatory) REGISTERED NURSE 10/23/24 11/07/24 documented as of this encounter
--- OUTSIDE RECORDS SUMMARY | 2025-05-28 11:56 | XMS_ITS | Clinical Summary ---
Author Organization [facility] Statusly Address [address] [place] [address] Care Team Providers Care Tail End Rider Name Role Phone Chioma Arias BERTO Primary Care Provider [phone] Source Comments [facility] Statusly,non-owned Affiliates and Associated Physician Practices is amultiple site organization consisting of ambulatory clinics and hospital sitesin [place], [place], [place] and [place]. This disclosure is being madepursuant to the Care Everywhere program and may not contain all information available regarding this patient. Last updated 18.[facility] Allergies No known active allergies Medications * [...] PM CDT Legal Sex Male 11:01 AM AIRCRAFT SEAT UPHOLSTERER Gender Identity Male 09/12/2022 10:54 PM CDT [...] 04/08/2021, 03/03/2021 DEPRESSION SCREENING 11/21/2024 INFLUENZA VACCINE (#1) 2025 2, 10/01/2021, 08/25/2020, Additional history exists Respiratory Syncytial [...] file Group ID:Not on file Type:Medicaid Address: [address] [address] A[facility]NA MEDICARE ADV MEDICAID [facility] Care Teams Tail End Rider Relationship Specialty Start Date End Date Chioma Arias APRN-CNP [address] [address] PCP - General Nurse Practitioner Family 09/12/22
--- OUTSIDE RECORDS SUMMARY | 2025-05-28 11:56 | XMS_ITS | Encounter Summary ---
Author Organization [facility] Address [address] [place] [address] Care Team Providers Care Sharples Machine Operator Name Role Phone Chana Mann RN Unavailable [phone] Hamida De La Torre-C Primary Care Provider [phone] Encounter Details Date Type Department Care Team (Late st Contact Info) Description 08/03/2024 Reach Prost Message Enc [facility] Medical Group Family Medicine [facility] [address] [facility] [address] [place] [address] 634114 Cierra Barnes NP [address] [place] [address] tejas matthews Social History Tobacco Use Types [...] PM CDT Gema Cruz RN Active * [place] Suicide Severity Rating Scale (Screener/Recent Self-Report) Question [...] documented as of this encounter Care Teams Sharples Machine Operator Relationship Specialty Start Date End Date Hamida De La Torre PA-C [address] [place] [address] PCP - General PHYSICIAN SWITCHBOARD AND CONTROL ROOM OPERATOR 01/18/25 Chana Mann RN [address] [place], [place] 198444 Mending Carrier (Ambulatory) REGISTERED NURSE 10/23/24 11/07/24 documented as of this encounter
--- OUTSIDE RECORDS SUMMARY | 2025-05-28 11:56 | XMS_ITS | Encounter Summary ---
Author Organization [facility] Address [address] [place] [address] Care Team Providers Care Food Checkers And Cashiers Supervisor Name Role Phone Ghada Enamorado NP Primary Care Provider Ghada Joseph NP Primary Care Provider Rosalba Calles APNP Unavailable [phone] Kayli Berry MD Primary Care Provider [phone] Chana Mann RN Unavailable [phone] Hamida De La Torre PA-C Primary Care Provider [phone]- [phone] Encounter Details Date Type Department Care Team (Late st Contact Info) Description 01/26/2019 MyChart Message Enc [facility] DEPARTMENT [address] [place] [address] Nitin, [facility] Provider Lab Work Social History Tobacco Use [...] Rule Out 12/09/2020 12/09/2020 12/10/2020 12:16 PM MAIL CLERK COVID-19 Rule Out 12/27/2020 12/27/2020 12/28/2020 4:56 PM MAIL CLERK COVID-19 Rule Out 03/03/2021 03/03/2021 03/03/2021 3:11 PM CDT documented as of this encounter Care Teams Food Checkers And Cashiers Supervisor Relationship Specialty Start Date End Date Ghada Enamorado NP PCP - General Nurse Practitioner Family 07/05/19 07/08/19 Ghada Enamorado NP PCP - General Nurse Practitioner Family 07/09/19 07/20/20 Rosalba Mancilla APNP [address] [place] [address] PCP - Med Group - MSSP Attributed Provider 08/21/17 11/20/22 Kayli Berry MD [address] [place] [address] PCP - General INTERNAL MEDICINE 07/21/20 01/18/22 Hamida De La Torre, PA-C [address] [place] [address] PCP - General PHYSICIAN COMMUNITY RELATIONS POLICE LIEUTENANT 01/18/25 Chana Mann, RN [address] [place] [address] Furnace Mechanic Helper (Ambulatory) REGISTERED NURSE 10/23/24 11/07/24 documented as of this encounter
--- OUTSIDE RECORDS SUMMARY | 2025-05-28 11:56 | XMS_ITS | Encounter Summary ---
Author Organization [facility] Address [address] [place] [address] Care Team Providers Care Indirect Sales Representative Name Role Phone Rosalba Mancilla APNP Unavailable [phone] Kayli Berry MD Primary Care Provider [phone] Chana Mann RN Unavailable [phone] Hamida De La Torre PA-C Primary Care Provider [phone] Encounter Details Date Type Department Care Team (Late st Contact Info) Description 12/03/[address] [facility] [address] [place], [place] [phone] Lisa Aquino MD [address] [facility] [address] [place] [address] Social History Tobacco Use Types [...] COVID-19? No / Unsure 12/04/2020 12:47 PM CELL ASSEMBLY PINNER documented as of this encounter Plan of Treatment Not on file documented as of this encounter Results * PRE-SURGICAL/PRE-PROCEDURE CORONAVIRUS (COVID 19) (12/09/2020 1:03 PM CELL ASSEMBLY PINNER) CORONAVIRUS SARS COV 2 PCR (RESP) NOT DETECTED NOT DETECTED 12/10/2020 12:16 PM CELL ASSEMBLY PINNER [facility] Comment: A Not Detected (negative) test [...] providers and patients using the following websites: https://www.[employer].com/home/Covid-19/HCP/NAAT/fact-sheet2 https://www.[employer].VivaSmart/home/Covid-19/Patients/NAAT/ fact-sheet2 This test has been authorized by the FDA under an Emergency Use Authorization (EUA) for use by authorized laboratories. Due to the current public health emergency, [facility] is receiving a high volume of samples [...] about COVID-19 can be found at the [employer] website: www.[employer].VivaSmart/Covid19. Test performed at [facility] [employer] [facility] [address] [place] [address] Director: CASSY RIOS DO,MPH FIRST TEST YES 12/09/2020 12:53 PM CELL ASSEMBLY PINNER [facility] EMPLOYED IN HEALTHCARE NO 12/09/2020 12:53 PM CELL ASSEMBLY PINNER [facility] SYMPTOMATIC DEFINED BY CDC NO 12/09/2020 12:53 PM CELL ASSEMBLY PINNER [facility] DATE OF SYMPTOM ONSET NON-APPLICABLE 12/09/2020 1:09 PM CELL ASSEMBLY PINNER [facility] HOSPITALIZATION STATUS NO 12/09/2020 12:53 PM CELL ASSEMBLY PINNER [facility] PATIENT IN ICU NO 12/09/2020 12:53 PM CELL ASSEMBLY PINNER [facility] RESIDENT OF [facility] NO 12/09/2020 12:53 PM CELL ASSEMBLY PINNER [facility] NO 12/09/2020 1:09 PM CELL ASSEMBLY PINNER [facility] PATIENT'S RACE WHITE OR 12/09/2020 12:53 PM CELL ASSEMBLY PINNER [facility] ETHNICITY NONHISPANIC 12/09/2020 12:53 PM CELL ASSEMBLY PINNER [facility] SOURCE (QST) NASOPHARYNGEAL SWAB 12/09/2020 12:53 PM CELL ASSEMBLY PINNER [facility] NASOPHARYNGEAL SWAB / Unknown 12/09/2020 1:03 PM CELL ASSEMBLY PINNER us Lisa Aquino MD MICROBIOLOGY - GENERAL ORDER ZIYAD Final Result [facility] [address] [place] [address], [facility] [address] [place] [address], documented in this encounter Visit Diagnoses Diagnosis Preop testing- Primary Preoperative examination, unspecified documented in this encounter Additional Health Concerns Infection Onset Date Last Indicated Resolved Time COVID-19 Rule Out 12/09/2020 12/09/2020 12/10/2020 12:16 PM CELL ASSEMBLY PINNER COVID-19 Rule Out 12/27/2020 12/27/2020 12/28/2020 4:56 PM CELL ASSEMBLY PINNER COVID-19 Rule Out 03/03/2021 03/03/2021 03/03/2021 3:11 PM CDT documented as of this encounter Care Teams Indirect Sales Representative Relationship Specialty Start Date End Date Rosalba Mancilla APNP [address] [place] [address] PCP - Med Group - MSSP Attributed Provider 08/21/17 11/20/22 Kayli Berry MD [address] [place] [address] PCP - General INTERNAL MEDICINE 07/21/20 01/18/22 Hamida De La Torre, PA-C [address] [place] [phone] PCP - General PHYSICIAN COMPLAINT COORDINATOR 01/18/25 Chana Mann, RN [address] [place], [place] [address] Movie Producer (Ambulatory) REGISTERED NURSE 10/23/24 11/07/24 documented as of this encounter
--- OUTSIDE RECORDS SUMMARY | 2025-05-28 11:56 | XMS_ITS | Clinical Summary ---
Author Organization [facility] Address [address] [facility] [address] [place] [address] Phone Care Team Providers Care Motion Picture Scene Builder Name Role Phone Unavailable Primary Care Provider [...] (1 of 2) 2012 INFLUENZA VACCINE (#1) 2025 RSV VACCINE (60+ or ) (1 - 1-dose 75+ series) 2037 Insurance MEDICARE PART A HOSPITAL ONLY AETNA [facility]
--- OUTSIDE RECORDS SUMMARY | 2025-05-28 11:56 | XMS_ITS | Encounter Summary ---
Author Organization [facility] Address [address] [place] [address] Care Team Providers Care Proposition Player Name Role Phone Rosalba Mancilla APNP Unavailable [phone] Kayli Berry MD Primary Care Provider [phone] Chana Mann RN Unavailable [phone] Hamida De La Torre PA-C Primary Care Provider [phone] Encounter Details Date Type Department Care Team (Late st Contact Info) Description 04/28/2021 Ventivat Message Enc [facility] Medical [facility] [address] [facility] [address] [place], [place] [phone] [place] [address] [place] [address] RE: Question Social History Tobacco [...] on filedocumented in this encounter Care Teams Proposition Player Relationship Specialty Start Date End Date Rosalba Mancilla APNP [address] [place] [address] PCP - Med Group - MSSP Attributed Provider 08/21/17 11/20/22 Kayli Berry MD [address] [place] [address] PCP - General INTERNAL MEDICINE 07/21/20 01/18/22 Hamida De La Torre PADengC [address] [place] [address] PCP - General PHYSICIAN TECHNICAL SUPPORT SPECIALIST 01/18/25 Chana Mann RN [address] [place] [address] Tmd Teacher (Ambulatory) REGISTERED NURSE 10/23/24 11/07/24 documented as of this encounter
--- OUTSIDE RECORDS SUMMARY | 2025-05-28 11:56 | XMS_ITS | Encounter Summary ---
Author Organization [facility] Address [address] [place] [address] Care Team Providers Care Recruitment Coordinator Name Role Phone Ghada Enamorado NP Primary Care Provider Ghada Joseph NP Primary Care Provider Rosalba Calles APNP Unavailable [phone] Kayli Berry MD Primary Care Provider [phone] Chana Mann RN Unavailable [phone] Hamida De La Torre PA-C Primary Care Provider [phone] Encounter Details Date Type Department Care Team (Late st Contact Info) Description 04/28/2019 Abstract [facility] CONVERSION [address] [facility] [address] , [employer]version[employer] Social History Tobacco Use Types Packs/Day Years [...] Rule Out 12/09/2020 12/09/2020 12/10/2020 12:16 PM ESCALATOR OPERATOR COVID-19 Rule Out 12/27/2020 12/27/2020 12/28/2020 4:56 PM ESCALATOR OPERATOR COVID-19 Rule Out 03/03/2021 03/03/2021 03/03/2021 3:11 PM CDT documented as of this encounter Care Teams Recruitment Coordinator Relationship Specialty Start Date End Date Ghada Enamorado NP PCP - General Nurse Practitioner Family 07/05/19 07/08/19 Ghada Enamorado NP PCP - General Nurse Practitioner Family 07/09/19 07/20/20 Rosalba Mancilla APNP [facility] [place] [address] PCP - Med Group - MSSP Attributed Provider 08/21/17 11/20/22 Kayli Berry MD [address] [place] [address] PCP - General INTERNAL MEDICINE 07/21/20 01/18/22 Hamida De La Torre, KVNGC [address] [place] [phone] PCP - General PHYSICIAN INGOT CAR OPERATOR 01/18/25 Chana Mann, RN [address] [place], [place] 414264 Hunting And Fishing Guide (Ambulatory) REGISTERED NURSE 10/23/24 11/07/24 documented as of this encounter
--- OUTSIDE RECORDS SUMMARY | 2025-05-28 11:56 | XMS_ITS | Encounter Summary ---
Author Organization [facility] Address [address] [place] [address] Care Team Providers Care Director Speech And Hearing Name Role Phone Chana Mann RN Unavailable Hamida De La Torre-C Primary Care Provider [phone] Encounter Details Date Type Department Care Team (Late st Contact Info) Description 07/13/2024 [employer] Message Enc [facility] Medical Group Family Medicine - [place] [address] [facility] [address] [place] [address] [phone] Cierra Barnes NP [address] [place] [address] [place] [address] TEJAS HIRSCH Social History Tobacco Use Types [...] documented as of this encounter Care Teams Director Speech And Hearing Relationship Specialty Start Date End Date Hamida De La Torre PA-C [address] [place] [phone] PCP - General PHYSICIAN DEPLOYMENT ENGINEER 01/18/25 Chana Mann, RN [address] [place] [address] Asphalt Paving Superintendent (Ambulatory) REGISTERED NURSE 10/23/24 11/07/24 documented as of this encounter
--- OUTSIDE RECORDS SUMMARY | 2025-05-28 11:56 | XMS_ITS | Encounter Summary ---
Author Organization [facility] Address [address] [place] [address] Care Team Providers Care Customer Services Coordinator Name Role Phone Ghada Enamorado NP Primary Care Provider Ghada Joseph NP Primary Care Provider Rosalba Calles APNP Unavailable [phone] Kayli Berry MD Primary Care Provider [phone] Chana Mann RN Unavailable [phone] Hamida De La Torre PA-C Primary Care Provider [phone] Encounter Details Date Type Department Care Team (Late st Contact Info) Description 05/10/2019 [employer] Message Enc [employer] DEPARTMENT [address] [place] [address] Nitin, [facility] Provider RE:XR results Social History [...] Rule Out 12/09/2020 12/09/2020 12/10/2020 12:16 PM SURGICAL SERVICES ASST COVID-19 Rule Out 12/27/2020 12/27/2020 12/28/2020 4:56 PM SURGICAL SERVICES ASST COVID-19 Rule Out 03/03/2021 03/03/2021 03/03/2021 3:11 PM CDT documented as of this encounter Care Teams Customer Services Coordinator Relationship Specialty Start Date End Date Ghada Enamorado NP PCP - General Nurse Practitioner Family 07/05/19 07/08/19 Ghada Enamorado NP PCP - General Nurse Practitioner Family 07/09/19 07/20/20 Rsoalba Mancilla APNP [address] [place] [address] PCP - Med Group - MSSP Attributed Provider 08/21/17 11/20/22 Kayli Berry MD [address] [place] [address] PCP - General INTERNAL MEDICINE 07/21/20 01/18/22 Hamida De La Torre, PA-C [address] [place] [phone] PCP - General PHYSICIAN COSMETOLOGY INSTRUCTOR 01/18/25 Chana Mann, RN [address] [place] [address] Volunteer Patient Representative (Ambulatory) REGISTERED NURSE 10/23/24 11/07/24 documented as of this encounter
== END 2025-05-28 11:50 | disposition home or self-care (01) ==
PROVIDERS: PCP Family Medicine; Visit Provider Family Medicine
DX: M25.531 Pain in right wrist (principal)
CPT/HCPCS: 73110

== ENCOUNTER 2025-08-12 12:17 | Outpatient (CLI) | payer MEDICARE, SELFPAY ==
--- NOTE | ~2025-08-12 | XR_ITS ---
EXAMINATION: XR chest 2V 08/12/2025 13:03 INDICATION: Pruritus PROCEDURE: 2 view chest COMPARISON: 06/20/2023 FINDINGS: The lungs are clear. The cardiomediastinal silhouette is within normal limits. There are no pleural effusions. There is no pneumothorax suspected. IMPRESSION: 1: NO ACUTE CARDIOPULMONARY DISEASE. Reviewed, dictated and finalized at location O.
--- NOTE | ~2025-08-12 | US_ITS ---
BILATERAL LOWER EXTREMITY VENOUS DUPLEX Clinical History: M79.661 - Pain in right lower leg . Comparison: None. Technique: Grayscale, color, duplex/spectral Doppler sonography bilateral lower extremities. Findings: Bilateral common femoral, femoral, popliteal, and calf veins compressible and color Doppler patent. Normal augmentation with distal compression. No internal echoes. IMPRESSION: 1. No DVT either leg. Reviewed, dictated and finalized at location R. IMPRESSION: 1. No DVT either leg.
--- OUTSIDE RECORDS SUMMARY | 2025-08-12 12:58 | XMS_ITS | Encounter Summary ---
Author Organization [facility] Address [address] [place] [address] Care Team Providers Care Field Cashier Name Role Phone Ghada Enamorado NP Primary Care Provider Rosalba Calles APNP Unavailable [phone] Kayli Berry MD Primary Care Provider [phone] Chana Mann RN Unavailable [phone] Hamida De La TorreC Primary Care Provider [phone] Encounter Details Date Type Department Care Team (Late st Contact Info) Description 09/17/2019 [employer] Message Enc [employer] DEPARTMENT [address] [place] [address] Mychart, [facility] Provider Lab results Social History Tobacco Use [...] Rule Out 12/09/2020 12/09/2020 12/10/2020 12:16 PM TABLE COVER FOLDER COVID-19 Rule Out 12/27/2020 12/27/2020 12/28/2020 4:56 PM TABLE COVER FOLDER COVID-19 Rule Out 03/03/2021 03/03/2021 03/03/2021 3:11 PM CDT documented as of this encounter Care Teams Field Cashier Relationship Specialty Start Date End Date Ghada Enamorado NP PCP - General Nurse Practitioner Family 07/09/19 07/20/20 Rosalba Mancilla APNP [address] [place] [address] PCP - Med Group - MSSP Attributed Provider 08/21/17 11/20/22 Kayli Berry MD [address] [place] [address] PCP - General INTERNAL MEDICINE 07/21/20 01/18/22 Hamida De La Torre, PA-C [address] [place] [phone] PCP - General PHYSICIAN STORAGE ADMINISTRATOR 01/18/25 Chana Mann, RN [address] [place] [address] Heel Seat Pounder (Ambulatory) REGISTERED NURSE 10/23/24 11/07/24 documented as of this encounter
--- OUTSIDE RECORDS SUMMARY | 2025-08-12 12:58 | XMS_ITS | Encounter Summary ---
Author Organization [facility] Address [address] [place] [address] Care Team Providers Care Ground Transportation Operator Name Role Phone Hamida De La Torre PA-C Primary Care Provider [phone] Encounter Details Date Type Department Care Team (Late st Contact Info) Description 02/18/2025 DEUS Message Enc [facility] Medical Group Family Medicine [facility] [address] [facility] [address] [place] [address] Cierra Barnes, NEO [address] [place] [address] [place] [address] TEJAS HIRSCH Social History Tobacco Use Types [...] documented as of this encounter Care Teams Ground Transportation Operator Relationship Specialty Start Date End Date Hamida De La Torre PA-C [address] [place] [phone] PCP - General PHYSICIAN CONTROL AREA OPERATOR 01/18/25 documented as of this encounter
--- OUTSIDE RECORDS SUMMARY | 2025-08-12 12:58 | XMS_ITS | Encounter Summary ---
Author Organization [facility] Address [address] [place] [address] Care Team Providers Care Automobile Sales Representative Name Role Phone Chana Mann RN Unavailable [phone] Hamida De La Torre-C Primary Care Provider [phone] Encounter Details Date Type Department Care Team (Late st Contact Info) Description 04/12/2023 Datalot Message Enc [facility] Medical Group Family Medicine - [place] [address] [facility] [address] [place] [phone] Cierra Barnes, NEO [address] [place] [address] [place] [address] tejas matthews Social History Tobacco Use Types [...] documented as of this encounter Care Teams Automobile Sales Representative Relationship Specialty Start Date End Date Hamida De La Torre PADengC [address] [place] [phone] PCP - General PHYSICIAN QUALITY ASSURANCE CLERK 01/18/25 Chana Mann RN [address] [place] [address] Boiler Shop Mechanic (Ambulatory) REGISTERED NURSE 10/23/24 11/07/24 documented as of this encounter
--- OUTSIDE RECORDS SUMMARY | 2025-08-12 12:58 | XMS_ITS | Encounter Summary ---
Author Organization [facility] Address [address] [place] [address] Care Team Providers Care Physician/Internist Name Role Phone Chana Mann RN Unavailable Hamida De La Torre-Imani Primary Care Provider [phone] Reason for Visit * Reason Onset Date Comments Pre-visit Gap Closure 02/23/2023 Encounter Details Date Type Department Care Team (Late st Contact Info) Description 02/23/2023 Patient Outreach [facility] Medical Group Family Medicine - [place] [address] [facility] [place] [address] Bret Bhandari MA Pre-visit Gap [...] documented as of this encounter Care Teams Physician/Internist Relationship Specialty Start Date End Date Hamida De La Torre PA-C [address] [place] [phone] PCP - General PHYSICIAN ADJUSTMENT SUPERVISOR 01/18/25 Chana Mann, RN [address] [place] [address] Director Of Pupil Personnel Program (Ambulatory) REGISTERED NURSE 10/23/24 11/07/24 documented as of this encounter
--- OUTSIDE RECORDS SUMMARY | 2025-08-12 12:58 | XMS_ITS | Encounter Summary ---
Author Organization [facility] Address [address] [place] [address] Care Team Providers Care Public Area Supervisor Name Role Phone Ghada Enamorado NP Primary Care Provider Rosalba Calles APNP Unavailable [phone] Kayli Berry MD Primary Care Provider [phone] Chana Mann RN Unavailable [phone] Hamida De La TorreC Primary Care Provider [phone] Encounter Details Date Type Department Care Team (Late st Contact Info) Description 12/27/2019 MyChart Message Enc [facility] Medical Group Family & Internal Medicine [address] [address] Anali Paniagua MD RE: Test [...] Rule Out 12/09/2020 12/09/2020 12/10/2020 12:16 PM SUPERVISOR PAINTING SHIPYARD COVID-19 Rule Out 12/27/2020 12/27/2020 12/28/2020 4:56 PM SUPERVISOR PAINTING SHIPYARD COVID-19 Rule Out 03/03/2021 03/03/2021 03/03/2021 3:11 PM CDT documented as of this encounter Care Teams Public Area Supervisor Relationship Specialty Start Date End Date Ghada Enamorado NP PCP - General Nurse Practitioner Family 07/09/19 07/20/20 Rosalba Mancilla APNP [address] [place] [address] PCP - Med Group - MSSP Attributed Provider 08/21/17 11/20/22 Kayli Berry MD [address] [place] [address] PCP - General INTERNAL MEDICINE 07/21/20 01/18/22 Hamida De La Torre, PADengC [address] [place] [phone] PCP - General PHYSICIAN JANITOR 01/18/25 Chana Mann, RN [address] [place] [address] Plugger Man (Ambulatory) REGISTERED NURSE 10/23/24 11/07/24 documented as of this encounter
--- OUTSIDE RECORDS SUMMARY | 2025-08-12 12:58 | XMS_ITS | Encounter Summary ---
Author Organization [facility] Address [address] [place] [address] Care Team Providers Care Shell Reprint Operator Name Role Phone Chana Mann RN Unavailable [phone] Hamida De La Torre PA-C Primary Care Provider [phone] Encounter Details Date Type Department Care Team (Late st Contact Info) Description 03/08/2023 Ads Click Message Enc [facility] Medical Group Family Medicine [facility] [address] [facility] [place] [address] [place] [address] [phone] Cierra Barnes NP [address] [place] [address] [place] [address] tejas matthews Social History Tobacco Use Types [...] documented as of this encounter Care Teams Shell Reprint Operator Relationship Specialty Start Date End Date Hamida De La Torre PA-C [address] [place] [phone] PCP - General PHYSICIAN FISHING WORKER 01/18/25 Chana Mann RN [address] [place], [place] [phone] Licensed Real Estate Broker (Ambulatory) REGISTERED NURSE 10/23/24 11/07/24 documented as of this encounter
--- OUTSIDE RECORDS SUMMARY | 2025-08-12 12:58 | XMS_ITS | Encounter Summary ---
Author Organization [facility] Address [address] [place] [address] Care Team Providers Care Merchandise Pickup/Receiving Associate Name Role Phone Chana Mann RN Unavailable [phone] Hamida De La Torre-C Primary Care Provider [phone] Encounter Details Date Type Department Care Team (Late st Contact Info) Description 04/19/2023 Osmopure Message Enc [facility] Medical Group Family Medicine - [place] [address] [facility] [address] [place] [address] Cierra Barnes, NEO [address] [place] [address] tejas matthews Social History Tobacco Use Types [...] documented as of this encounter Care Teams Merchandise Pickup/Receiving Associate Relationship Specialty Start Date End Date Hamida De La Torre PADengC [address] [place] [phone] PCP - General PHYSICIAN RUFFLER 01/18/25 Chana Mann RN [address] [place] [address] Generator Technician (Ambulatory) REGISTERED NURSE 10/23/24 11/07/24 documented as of this encounter
--- OUTSIDE RECORDS SUMMARY | 2025-08-12 12:58 | XMS_ITS | Encounter Summary ---
Author Organization [facility] Address [address] [place] [address] Care Team Providers Care Sleeve Setter Lockstitch Name Role Phone Chana Mann RN Unavailable [phone] Hamida De La Torre-C Primary Care Provider [phone]- [phone] Encounter Details Date Type Department Care Team (Late st Contact Info) Description 09/15/2023 Raptr Message Enc [facility] Medical Group Family Medicine - [place] [address] [facility] [address] [place] [address] 877104 Cierra Barnes NP [address] [place] [address] [place] [address] tejas matthews Social History Tobacco Use Types [...] documented as of this encounter Care Teams Sleeve Setter Lockstitch Relationship Specialty Start Date End Date Hamida De La Torre PADengC [address] [place] [address] PCP - General PHYSICIAN BUS DRIVER 01/18/25 Chana Mann, RN [address] [place], [place] [address] Cosmetic Chemist (Ambulatory) REGISTERED NURSE 10/23/24 11/07/24 documented as of this encounter
--- OUTSIDE RECORDS SUMMARY | 2025-08-12 12:59 | XMS_ITS | Encounter Summary ---
Author Organization [facility] Address [address] [place] [address] Care Team Providers Care Assistant Finance Manager Name Role Phone Rosalba Mancilla APNP Unavailable [phone] Kayli Berry MD Primary Care Provider [phone] Chana Mann RN Unavailable [phone] Hamida De La Torre PA-C Primary Care Provider [phone]- [phone] Encounter Details Date Type Department Care Team (Late st Contact Info) Description 07/23/2020 Motion Math Message Enc [facility] Medical Group Family & Internal Medicine [address] [address] [facility], [facility] Provider Lab Results Social History Tobacco [...] Rule Out 12/09/2020 12/09/2020 12/10/2020 12:16 PM TEACHERS AIDE COVID-19 Rule Out 12/27/2020 12/27/2020 12/28/2020 4:56 PM TEACHERS AIDE COVID-19 Rule Out 03/03/2021 03/03/2021 03/03/2021 3:11 PM CDT documented as of this encounter Care Teams Assistant Finance Manager Relationship Specialty Start Date End Date Rosalba Mancilla APNP [address] [place] [address] PCP - Med Group - MSSP Attributed Provider 08/21/17 11/20/22 Kayli Berry MD [address] [place] [address] PCP - General INTERNAL MEDICINE 07/21/20 01/18/22 Hamida De La Torre, PADengC [address] [place] [phone] PCP - General PHYSICIAN PROFESSIONAL BASS FISHER 01/18/25 Chana Mann, RN [address] [place] [address] Eye Surgeon (Ambulatory) REGISTERED NURSE 10/23/24 11/07/24 documented as of this encounter
--- OUTSIDE RECORDS SUMMARY | 2025-08-12 12:59 | XMS_ITS | Clinical Summary ---
Author Organization [facility] Address [address] [place] [address] Care Team Providers Care Pattern Worker Name Role Phone Hamida De La Torre PA-C Primary Care Provider [phone] Allergies No known active allergies Medications vitamin [...] blood pressure daily 1 each 5 Active albuterol sulfate HFA 108 (90 [...] twice daily 60 tablet 2 5 Active losartan (COZAAR) 25 MG tabletIndications:H ypertension, unspecified type Take 1 tablet by mouth once daily 90 tablet 5 Active Active Problems Problem Noted Date [...] MRI. Assessment & Plan (09/26/2019 10:32 AM CONSTRUCTION PRODUCER): Exam unremarkable. No sensory deficits. No effusion. Will try changing meloxicam to naproxen and can take dose prior to going to bed as reports symptoms mostly in evening. Explained needs to stop meloxicam. If no improvement may be more restless leg symptoms given timing. BPPV (benign paroxysmal positional vertigo) 01/2018 Dupuytren's contracture 08/23/2018 Thyroiditis 08/23/2018 Assessment & Plan (01/04/2020 12:40 PM CONSTRUCTION PRODUCER): Repeat TSH today Hand dermatitis 05/31/2018 Low [...] 07/16/2016 Assessment & Plan (01/04/2020 12:40 PM CONSTRUCTION PRODUCER): Con't current regimen. Will get BMP. Insomnia [...] 01/2024, 07/17/2019, Additional history exists PHQ-2 (Physician [place]) Completed 01/29/2025 Meningococcal B Vaccine Aged Out No l onger eligible based on patient's age to complete this topic Meningococcal Vaccine Aged Out No theresa delma eligible based on patient's age to complete this topic RSV Immunizations Under 20 Months Aged Out No longer eligible based on patient's age to complete this topic Medical Devices Explanted Type Area Corporate Giving Manager Device Identifier Shelf Expiration Date Model / Serial / Lot Stent Ureteral 6fr 26cm Pigtl Crv Taper Tip Bldr Mrk - [id number] Implanted:Qty : 1 on 10/23/2024 by Baltazar Flaherty MD at [facility] Explanted:Qty : 1 on 11/06/2024 by Baltazar Flaherty MD at [facility] Stent Left: Ureter [employer] DELANEY [id number] 06/27/2027 [id number] Procedures Procedure Name Priority Date/Time Associated Diagnosis Comments HEPATITIS C ANTIBODY W/RFX TO HCV RNA Routine 03/10/2023 10:33 AM CDT COLONOSCOPY GENERIC (SCAN ORDER) Routine 12/12/2020 from Last 3 Months or Most Recently Relevant to Health Maintenance Results * HEPATITIS C ANTIBODY W/RFX TO HCV RNA (03/10/2023 10:33 AM CDT) HEPATITIS C AB NON-REACT SABA NON-REACT SABA [facility] SIGNAL TO CUTOFF 0.06 <1.00 [facility] Comment: HCV antibody was non-reactive. There is no laboratory evidence of HCV infection. In most cases, no further action is required. However, if recent HCV exposure is suspected, a test for HCV RNA (test code 23173) is suggested. For additional information please refer to http://education.BuyRentKenya.com/faq/CZG71d9 (This link is being provided for informational/ educational purposes only.) 03/10/2023 10:3 3 AM CDT 03/10/2023 10:35 AM CDT Narrative [facility] - 03/11/2023 3:39 PM CDT FASTING:YES FASTING: YES Resulting Agency Comment Performing Organization Information: Site ID: [id number] Name: [facility] Address: [address] [place] [address] Director: Nathan Nuñez MD us Cierra Barnes NP LABORATORY Final Res ult Performing Organization Address [facility] Co de Phone Number [facility] Fracture [facility] [address] [facility] [place] [address], * COLONOSCOPY (12/12/2020) us Documents Scanned SCANNING Final Result Performing Organization Address [facility] de Phone Number [facility] ONBASE from Last 3 Months or Most Recently Relevant to Health Maintenance Insurance [employer] Advance Directives * Full Code (Latest Code Status on File) Date Activated Date Inactivated Comments 10/23/2024 12:12 AM 10/23/2024 4:25 PM Care Teams Pattern Worker Relationship Specialty Start Date End Date Hamida De La Torre PA-C [address] [place] [phone] PCP - General PHYSICIAN MEMORIAL DESIGNER 01/18/25
--- OUTSIDE RECORDS SUMMARY | 2025-08-12 12:59 | XMS_ITS | Encounter Summary ---
Author Organization [facility] Address [address] [place] [address] Care Team Providers Care Ski Tow Operator Name Role Phone Chana Mann RN Unavailable [phone] Hamida De La Torre-C Primary Care Provider [phone]- [phone] Encounter Details Date Type Department Care Team (Late st Contact Info) Description 08/03/2024 Boost My Adst Message Enc [facility] Medical Group Family Medicine [facility] [address] [facility] [address] [place] [address] 886704 Cierra Barnes NP [address] [place] [address] [place] [address] tejas matthews Social History Tobacco Use Types [...] PM CDT Gema Cruz RN Active * Morris Suicide Severity Rating Scale (Screener/Recent Self-Report) Question [...] documented as of this encounter Care Teams Ski Tow Operator Relationship Specialty Start Date End Date Hamida De La Torre PA-C [address] [place] [phone] PCP - General PHYSICIAN HOME HEALTH ASSISTANT 01/18/25 Chana Mann RN [address] [place], [place] [phone] Duplicator Punch Operator (Ambulatory) REGISTERED NURSE 10/23/24 11/07/24 documented as of this encounter
--- OUTSIDE RECORDS SUMMARY | 2025-08-12 12:59 | XMS_ITS | Encounter Summary ---
Author Organization [facility] Address [address] [place] [address] Care Team Providers Care Planning Specialist Name Role Phone Chioma Arias NP Primary Care Provider [phone] Cierra Barnes MD Primary Care Provider [phone] Encounter Details Date Type Department Care Team (Late st Contact Info) Description 02/08/2023 Telephone [facility] [address] [place] [address] Shannon Rizzo, FAYE Social History Tobacco Use Types Packs/Day Years Used Date Smoking Tobacco: Some Days Cigars Smokeless Tobacco: Never Sex and Gender Information Value Date Recorded Sex Assigned at Not on file Legal Sex Male 7:38 PM LITERACY SPECIALIST Gender Identity Not on file Sexual Orientation Not on file documented as of this encounter Plan of Treatment Not on file documented as of this encounter Visit Diagnoses Not on filedocumented in this encounter Care Teams Planning Specialist Relationship Specialty Start Date End Date Chioma Arias NP PCP - General Nurse Practitioner 01/11/23 07/19/24 Cierra Barnes MD PCP - General Nurse Practitioner 07/20/24 documented as of this encounter
--- OUTSIDE RECORDS SUMMARY | 2025-08-12 12:59 | XMS_ITS | Encounter Summary ---
Author Organization [facility] Address [address] [place] [address] Care Team Providers Care Garment Supervisor Name Role Phone Hamida De La Torre PA-C Primary Care Provider [phone]- [phone] Encounter Details Date Type Department Care Team (Late st Contact Info) Description 11/30/2024 [employer] Message Enc [facility] Medical Group Family Medicine [facility] [address] [facility] [address] [place] [address] Cierra Barnes NP [address] [place] [address] [place] [address] Tejas Matthews Social History Tobacco Use Types [...] 12:52 PM CST Yes that is fine RATOR INSERTER * Annelise Son MA - 11/30/2024 12:26 PM CST Ok to order blood pressure monitor? RATOR INSERTER documented in this encounter Plan of Treatment Not on file documented as of this encounter Visit Diagnoses Not on filedocumented in this encounter Additional Health Concerns Assessment Noted Time PHQ-9 Depression Total Score: 13 021 12:48 PM CDT documented as of this encounter Care Teams Garment Supervisor Relationship Specialty Start Date End Date Hamida De La Torre PA-C [address] [place] [phone] PCP - General PHYSICIAN MARBLE INSTALLER 01/18/25 documented as of this encounter
--- OUTSIDE RECORDS SUMMARY | 2025-08-12 12:59 | XMS_ITS | Encounter Summary ---
Author Organization [facility] Address [address] [place] [address] Care Team Providers Care Information Technology Specialist Name Role Phone Rosalba Mancilla APNP Unavailable [phone] Kayli Berry MD Primary Care Provider [phone] Chana Mann RN Unavailable [phone] Hamida De La Torre PA-C Primary Care Provider [phone] Encounter Details Date Type Department Care Team (Late st Contact Info) Description 11/28/2020 GAMINSIDE Message Enc [facility] Medical Group Family & Internal Medicine [address] [address] Nitin, [facility] Provider Results Social History Tobacco Use [...] COVID-19? No / Unsure 11/28/2020 2:25 PM SUPERVISOR SPRING UP documented as of this encounter Plan of Treatment Not on file documented as of this encounter Visit Diagnoses Not on filedocumented in this encounter Additional Health Concerns Infection Onset Date Last Indicated Resolved Time COVID-19 Rule Out 12/09/2020 12/09/2020 12/10/2020 12:16 PM SUPERVISOR SPRING UP COVID-19 Rule Out 12/27/2020 12/27/2020 12/28/2020 4:56 PM SUPERVISOR SPRING UP COVID-19 Rule Out 03/03/2021 03/03/2021 03/03/2021 3:11 PM CDT documented as of this encounter Care Teams Information Technology Specialist Relationship Specialty Start Date End Date Rosalba Mancilla APNP [address] [place] [address] PCP - Med Group - MSSP Attributed Provider 08/21/17 11/20/22 Kayli Berry MD [address] [place] [address] PCP - General INTERNAL MEDICINE 07/21/20 01/18/22 Hamida De La Torre, PADengC [address] [place] [phone] PCP - General PHYSICIAN MAT INSPECTOR 01/18/25 Chana Mann, RN [address] [place] [address] Climatology Professor (Ambulatory) REGISTERED NURSE 10/23/24 11/07/24 documented as of this encounter
--- OUTSIDE RECORDS SUMMARY | 2025-08-12 12:59 | XMS_ITS | Encounter Summary ---
Author Organization [facility] Address [address] [place] [address] Care Team Providers Care Dimethylaniline Sulfator Operator Name Role Phone Rosalba Mancilla APNP Unavailable [phone] Kayli Berry MD Primary Care Provider [phone] Chana Mann RN Unavailable [phone] Hamida De La Torre PA-C Primary Care Provider [phone]- [phone] Encounter Details Date Type Department Care Team (Late st Contact Info) Description 12/24/[address] [facility] [address] [place], [place] [phone] Martínez Franco MD [address] [place], [place] [phone] Social History Tobacco Use Types Packs/Day Years [...] COVID-19? No / Unsure 12/27/2020 7:45 AM AUTOMOBILE LOCATOR documented as of this encounter Plan of Treatment Not on file documented as of this encounter Results * PRE-SURGICAL/PRE-PROCEDURE CORONAVIRUS (COVID 19) (12/27/2020 7:59 AM AUTOMOBILE LOCATOR) CORONAVIRUS SARS COV 2 PCR (RESP) NOT DETECTED NOT DETECTED 12/28/2020 4:56 PM AUTOMOBILE LOCATOR [facility] Comment: A Not Detected (negative) test [...] providers and patients using the following websites: https://www.[employer].com/home/Covid-19/HCP/NAAT/fact-sheet2 https://www.[employer].Site Organic/home/Covid-19/Patients/NAAT/ fact-sheet2 This test has been authorized by the FDA under an Emergency Use Authorization (EUA) for use by authorized laboratories. Due to the current public health emergency, [facility] is receiving a high volume of samples [...] about COVID-19 can be found at the [facility] website: www.[employer].com/Covid19. Test performed at [facility] [address] [place] [address] Director: CASSY RIOS DO,MPH FIRST TEST NO 12/27/2020 7:46 AM AUTOMOBILE LOCATOR [facility] EMPLOYED IN HEALTHCARE NO 12/27/2020 7:46 AM AUTOMOBILE LOCATOR [facility] SYMPTOMATIC DEFINED BY CDC UNKNOWN 12/27/2020 7:46 AM AUTOMOBILE LOCATOR [facility] DATE OF SYMPTOM ONSET UNKNOWN 12/27/2020 9:23 AM AUTOMOBILE LOCATOR [facility] HOSPITALIZATION STATUS NO 12/27/2020 7:46 AM AUTOMOBILE LOCATOR [facility] PATIENT IN ICU NO 12/27/2020 7:46 AM AUTOMOBILE LOCATOR [facility] RESIDENT OF [facility] NO 12/27/2020 7:46 AM AUTOMOBILE LOCATOR [facility] UNKNOWN 12/27/2020 9:23 AM AUTOMOBILE LOCATOR [facility] PATIENT'S RACE WHITE OR 12/27/2020 7:46 AM AUTOMOBILE LOCATOR [facility] ETHNICITY NONHISPANIC 12/27/2020 7:46 AM AUTOMOBILE LOCATOR [facility] SOURCE (QST) NASOPHARYNGEAL SWAB 12/27/2020 7:46 AM AUTOMOBILE LOCATOR [facility] NASOPHARYNGEAL SWAB / Unknown 12/27/2020 7:59 AM AUTOMOBILE LOCATOR us Martínez Franco MD MICROBIOLOGY - GENERAL ORDERABL ES Final Result [facility] [address] [place] [address], [place] [phone] [facility] [address] [place] [address], documented in this encounter Visit Diagnoses Diagnosis Preop testing- Primary Preoperative examination, unspecified documented in this encounter Additional Health Concerns Infection Onset Date Last Indicated Resolved Time COVID-19 Rule Out 12/27/2020 12/27/2020 12/28/2020 4:56 PM AUTOMOBILE LOCATOR COVID-19 Rule Out 03/03/2021 03/03/2021 03/03/2021 3:11 PM CDT documented as of this encounter Care Teams Dimethylaniline Sulfator Operator Relationship Specialty Start Date End Date Rosalba Mancilla APNP [facility] [place] [address] PCP - Med Group - MSSP Attributed Provider 08/21/17 11/20/22 Kayli Berry MD [address] [place] [address] PCP - General INTERNAL MEDICINE 07/21/20 01/18/22 Hamida De La Torre, PADengC [address] [place] [phone] PCP - General PHYSICIAN PRODUCTION CONTROL CLERK 01/18/25 Chana Mann, RN [address] [place] [address] Qualitative Executive Researcher (Ambulatory) REGISTERED NURSE 10/23/24 11/07/24 documented as of this encounter
--- OUTSIDE RECORDS SUMMARY | 2025-08-12 12:59 | XMS_ITS | Encounter Summary ---
Author Organization [facility] Address [address] [place] [address] Care Team Providers Care Suppression Crew Leader Name Role Phone Chana Mann RN Unavailable [phone] Hamida De La Torre-C Primary Care Provider [phone] Encounter Details Date Type Department Care Team (Late st Contact Info) Description 09/20/2023 Codenomicon Message Enc [facility] Medical Group Family Medicine - [place] [address] [facility] [address] [place] [address] [phone] Cierra Barnes NP [address] [place] [address] [place] [address] tejas matthews Social History Tobacco Use Types [...] documented as of this encounter Care Teams Suppression Crew Leader Relationship Specialty Start Date End Date Hamida De La Torre PADengC [address] [place] [phone] PCP - General PHYSICIAN TUBE CARRIER 01/18/25 Chana Mann, RN [address] [place], [place] 3440[address] Waiter/Waitress [place] Class (Ambulatory) REGISTERED NURSE 10/23/24 11/07/24 documented as of this encounter
--- OUTSIDE RECORDS SUMMARY | 2025-08-12 12:59 | XMS_ITS | Encounter Summary ---
Author Organization [facility] Address [address] [place] [address] Care Team Providers Care Ball Points Inspector Name Role Phone Rosalba Mancilla APNP Unavailable [phone] Kayli Berry MD Primary Care Provider [phone] Chana Mann RN Unavailable [phone] Hamida De La Torre PA-C Primary Care Provider [phone] Encounter Details Date Type Department Care Team (Late st Contact Info) Description 04/28/2021 Mentor[employer]obt Message Enc [facility] [address] [address] [facility] [address] [place], [place] [phone] [place] [address] [place] [address] RE: Question Social History Tobacco [...] on filedocumented in this encounter Care Teams Ball Points Inspector Relationship Specialty Start Date End Date Rosalba Mancilla APNP [address] [place] [address] PCP - Med Group - MSSP Attributed Provider 08/21/17 11/20/22 Kayli Berry MD [address] [place] [address] PCP - General INTERNAL MEDICINE 07/21/20 01/18/22 Hamida De La Torre PADengC [address] [place] [phone] PCP - General PHYSICIAN PREDATORY ANIMAL TRAPPER 01/18/25 Chana Mann RN [address] [place] [address] Smt Operator (Ambulatory) REGISTERED NURSE 10/23/24 11/07/24 documented as of this encounter
--- OUTSIDE RECORDS SUMMARY | 2025-08-12 12:59 | XMS_ITS | Encounter Summary ---
Author Organization [facility] Address [address] [place] [address] Care Team Providers Care Hotel Recreational Facilities Manager Name Role Phone Ghada Enamorado NP Primary Care Provider Ghada Joseph NP Primary Care Provider Rosalba Calles APNP Unavailable [phone] Kayli Berry MD Primary Care Provider [phone] Cahna Mann RN Unavailable [phone] Hamida De La Torre PA-C Primary Care Provider [phone] Encounter Details Date Type Department Care Team (Late st Contact Info) Description 01/26/2019 MyChart Message Enc [facility] DEPARTMENT [address] [place] [address] Nitin, [facility] Provider Lab Work Social History Tobacco Use [...] Rule Out 12/09/2020 12/09/2020 12/10/2020 12:16 PM MANAGER MOBILITY COVID-19 Rule Out 12/27/2020 12/27/2020 12/28/2020 4:56 PM MANAGER MOBILITY COVID-19 Rule Out 03/03/2021 03/03/2021 03/03/2021 3:11 PM CDT documented as of this encounter Care Teams Hotel Recreational Facilities Manager Relationship Specialty Start Date End Date Ghada Enamorado NP PCP - General Nurse Practitioner Family 07/05/19 07/08/19 Ghada Enamorado NP PCP - General Nurse Practitioner Family 07/09/19 07/20/20 Rosalba Mancilla APNP [address] [place] [address] PCP - Med Group - MSSP Attributed Provider 08/21/17 11/20/22 Kayli Berry MD [address] [place] [address] PCP - General INTERNAL MEDICINE 07/21/20 01/18/22 Hamida De La Torre, PA-C [address] [place] [phone] PCP - General PHYSICIAN GLUER AND WEDGER 01/18/25 Chana Mann, RN [address] [place] [address] Cab Worker (Ambulatory) REGISTERED NURSE 10/23/24 11/07/24 documented as of this encounter
--- OUTSIDE RECORDS SUMMARY | 2025-08-12 12:59 | XMS_ITS | Clinical Summary ---
Author Organization [address] Address [address] [place] [address] Care Team Providers Care Cocktail Waitress Name Role Phone Cierra Barnes MD Primary Care Provider [phone] Allergies No known active allergies Medications albuterol [...] on file Legal Sex Male 7:38 PM QLIKVIEW DEVELOPER Gender Identity Not on file Sexual Orientation Not on file Obstetrics History Last Filed Vital Signs Vital Sign Reading Time Taken Comments Blood Pressure 119/75 01/18/2025 12:55 PM QLIKVIEW DEVELOPER Pulse 81 01/18/2025 12:55 PM QLIKVIEW DEVELOPER Temperature 37.6 C (99.6 F) 02/14/2023 6:06 PM CDT Respiratory Rate 18 11/07/2023 1:07 PM QLIKVIEW DEVELOPER Oxygen Saturation 96% 01/18/2025 12:55 PM QLIKVIEW DEVELOPER Inhaled Oxygen Concentration - - Weight 71.9 kg (158 lb 9.6 oz) 01/18/2025 12:55 PM QLIKVIEW DEVELOPER Height 175.3 cm (5' 9.02) 01/18/2025 12:[address] Body Mass Index 23.41 01/18/2025 12:55 PM QLIKVIEW DEVELOPER Plan of Treatment Health Maintenance Due Date Last Done Comments Colon Cancer Screening-Colonoscopy 1960 Depression Screening 1960 Hepatitis C Screening 1960 Prostate Cancer Screening-PSA 1960 Hepatitis B Screening 1980 Regular Well Visit/Exam 18-64 1980 Pneumococcal vaccine <65 (3 of 3 - PCV20 or PCV21) 09/12/2024 09/12/2019, 01/23/2019 Covid-19 Vaccine (5 - 2024-2 6 season) 2025 01/02/2023, 03/19/2022, 04/08/2021, Additional history exists Influenza Vaccine (#1) 2025 , 09/19/2023, 01/02/2023, Additional history exists DTaP/Tdap/Td Vaccine (2 - Td or Tdap) 05/22/2028 05/22/2018 Zoster Vaccine Completed 07/17/2019, 05/17/2019 Insurance [employer] IDPA * Guarantor: Byron Tejas Dyana Account Type Relation to Patient Date of Phone Billing Address Personal/Family Self [address] [address] [facility] IDPA Advance Directives For more information, please contact: [phone] * Full Code (Latest Code Status on File) Date Activated Date Inactivated Comments 02/09/2023 7:52 AM 02/10/2023 4:37 AM Care Teams Cocktail Waitress Relationship Specialty Start Date End Date Cierra Barnes MD PCP - General Nurse Practitioner 07/20/24
--- OUTSIDE RECORDS SUMMARY | 2025-08-12 12:59 | XMS_ITS | Encounter Summary ---
Author Organization [facility] Address [address] [place] [address] Care Team Providers Care Watch Crystal Grinder Name Role Phone Hamida De La Torre PA-C Primary Care Provider [phone]- [phone] Encounter Details Date Type Department Care Team (Late st Contact Info) Description 12/28/2024 [employer] Message Enc [facility] Medical Group Family Medicine [place] [address] [facility] [address] [place] [address] Cierra Barnes, NEO [address] [place] [address] [place] [address] ashwin mustafa Social History Tobacco Use Types [...] documented as of this encounter Care Teams Watch Crystal Grinder Relationship Specialty Start Date End Date Hamida De La Torre PA-C [address] [place] [address] PCP - General PHYSICIAN INORGANIC CHEMISTRY TEACHER 01/18/25 documented as of this encounter
--- OUTSIDE RECORDS SUMMARY | 2025-08-12 12:59 | XMS_ITS | Encounter Summary ---
Author Organization [facility] Address [address] [place] [address] Care Team Providers Care Branch Operations Manager Name Role Phone Rosalba Mancilla APNP Unavailable [phone] Kayli Berry MD Primary Care Provider [phone] Chana Mann RN Unavailable [phone] Hamida De La Torre PA-C Primary Care Provider [phone]- [phone] Encounter Details Date Type Department Care Team (Late st Contact Info) Description 07/23/2020 [employer] Message Enc [facility] Medical Group Family & Internal Medicine [address] [address] Nitin, [facility] Provider Social History Tobacco Use Types Packs/Day [...] Rule Out 12/09/2020 12/09/2020 12/10/2020 12:16 PM MANUFACTURING PRODUCTION TECHNICIAN COVID-19 Rule Out 12/27/2020 12/27/2020 12/28/2020 4:56 PM MANUFACTURING PRODUCTION TECHNICIAN COVID-19 Rule Out 03/03/2021 03/03/2021 03/03/2021 3:11 PM CDT documented as of this encounter Care Teams Branch Operations Manager Relationship Specialty Start Date End Date Rosalba Mancilla APNP [address] [place] [address] PCP - Med Group - MSSP Attributed Provider 08/21/17 11/20/22 Kayli Berry MD [address] [place] [address] PCP - General INTERNAL MEDICINE 07/21/20 01/18/22 Hamida De La Torre, PA-C [address] [place] [address] PCP - General PHYSICIAN BORDER MEASURER 01/18/25 Chana Mann, RN [address] [place], [place] 3770[address] Flight Controls Engineer (Ambulatory) REGISTERED NURSE 10/23/24 11/07/24 documented as of this encounter
--- OUTSIDE RECORDS SUMMARY | 2025-08-12 12:59 | XMS_ITS | Encounter Summary ---
Author Organization [facility] Address [address] [place] [address] Care Team Providers Care Gas Operations Superintendent Name Role Phone Chana Mann RN Unavailable [phone] Hamida De La Torre-C Primary Care Provider [phone]- [phone] Encounter Details Date Type Department Care Team (Late st Contact Info) Description 08/03/2024 myw[employer] Message Enc [facility] Medical Group Family Medicine [facility] [address] [facility] [address] [place] [phone] Cierra Barnes NP [address] [place] [address] [place] [address] tejas matthews Social History Tobacco Use Types [...] PM CDT Gema Cruz RN Active * [place] Suicide Severity Rating Scale (Screener/Recent Self-Report) Question [...] documented as of this encounter Care Teams Gas Operations Superintendent Relationship Specialty Start Date End Date Hamida De La Torre PA-C [address] [place] [phone] PCP - General PHYSICIAN FINANCIAL AUDITOR 01/18/25 Chana Mann RN [address] [place], [place] [address] Road Grader Operator (Ambulatory) REGISTERED NURSE 10/23/24 11/07/24 documented as of this encounter
--- OUTSIDE RECORDS SUMMARY | 2025-08-12 12:59 | XMS_ITS | Encounter Summary ---
Author Organization [facility] Address [address] [place] [address] Care Team Providers Care Tractor Mechanic Apprentice Name Role Phone Ghada Enamorado NP Primary Care Provider Ghada Joseph NP Primary Care Provider Rosalba Calles APNP Unavailable [phone] Kayli Berry MD Primary Care Provider [phone] Chana Mann RN Unavailable [phone] Hamida De La Torre PA-C Primary Care Provider [phone]- [phone] Encounter Details Date Type Department Care Team (Late st Contact Info) Description 04/28/2019 Abstract [facility] CONVERSION [address] [place] [address] , Yeyo ConversionMD Social History [...] Rule Out 12/09/2020 12/09/2020 12/10/2020 12:16 PM ENVIRONMENTAL GEOLOGIST COVID-19 Rule Out 12/27/2020 12/27/2020 12/28/2020 4:56 PM ENVIRONMENTAL GEOLOGIST COVID-19 Rule Out 03/03/2021 03/03/2021 03/03/2021 3:11 PM CDT documented as of this encounter Care Teams Tractor Mechanic Apprentice Relationship Specialty Start Date End Date Ghada Enamorado NP PCP - General Nurse Practitioner Family 07/05/19 07/08/19 Ghada Enamorado NP PCP - General Nurse Practitioner Family 07/09/19 07/20/20 Rosalba Mancilla APNP [facility] [place] [address] PCP - Med Group - MSSP Attributed Provider 08/21/17 11/20/22 Kayli Berry MD [address] [place] [address] PCP - General INTERNAL MEDICINE 07/21/20 01/18/22 Hamida De La Torre, KVNGC [address] [place] [phone] PCP - General PHYSICIAN FUSE ASSEMBLER 01/18/25 Chana Mann, RN [address] [place], [place] 5814[address] Director Clinical Information Services (Ambulatory) REGISTERED NURSE 10/23/24 11/07/24 documented as of this encounter
--- OUTSIDE RECORDS SUMMARY | 2025-08-12 12:59 | XMS_ITS | Clinical Summary ---
Author Organization [facility] Address [address] [facility] [address] [place] [address] Phone Care Team Providers Care Global Manager Name Role Phone Unavailable Primary Care Provider [...] MEDICARE PART A HOSPITAL ONLY AETNA O [facility]
--- OUTSIDE RECORDS SUMMARY | 2025-08-12 12:59 | XMS_ITS | Encounter Summary ---
Author Organization [facility] Address [address] [place] [address] Care Team Providers Care Delivery Director Name Role Phone Chana Mann RN Unavailable [phone] Hamida De La Torre-C Primary Care Provider [phone]- [phone] Encounter Details Date Type Department Care Team (Late st Contact Info) Description 07/13/2024 ZAP[employer] Message Enc [facility] Medical Group Family Medicine [facility] [address] [facility] [address] [place] [address] [phone] Cierra Barnes NP [address] [place] [address] TEJAS HIRSCH Social History Tobacco Use Types [...] documented as of this encounter Care Teams Delivery Director Relationship Specialty Start Date End Date Hamida De La Torre PA-C [address] [place] [phone] PCP - General PHYSICIAN TUNNEL KILN REPAIRER 01/18/25 Chana Mann, RN [address] [place] [address] Echo Technologist (Ambulatory) REGISTERED NURSE 10/23/24 11/07/24 documented as of this encounter
--- OUTSIDE RECORDS SUMMARY | 2025-08-12 12:59 | XMS_ITS | Encounter Summary ---
Author Organization [facility] Address [address] [place] [address] Care Team Providers Care Light Rail Vehicle Operator Name Role Phone Chana Mann RN Unavailable [phone] Hamida De La Torre-C Primary Care Provider [phone] Encounter Details Date Type Department Care Team (Late st Contact Info) Description 07/22/2024 [employer] Message Enc [facility] Medical Group Family Medicine - [place] [address] [facility] [address] [place] [address] Cierra Barnes NP [address] [place] [address] tejas matthews Social History Tobacco Use Types [...] documented as of this encounter Care Teams Light Rail Vehicle Operator Relationship Specialty Start Date End Date Hamida De La Torre PA-C [address] [place] [phone] PCP - General PHYSICIAN MANAGER UTILIZATION MANAGEMENT 01/18/25 Chana Mann, RN [address] [place] [address] Sash Maker (Ambulatory) REGISTERED NURSE 10/23/24 11/07/24 documented as of this encounter
--- OUTSIDE RECORDS SUMMARY | 2025-08-12 12:59 | XMS_ITS | Encounter Summary ---
Author Organization [facility] Address [address] [place] [address] Care Team Providers Care Pumpman Name Role Phone Ghada Enamorado NP Primary Care Provider Ghada Joseph NP Primary Care Provider Rosalba Calles APNP Unavailable [phone] Kayli Berry MD Primary Care Provider [phone] Chana Mann RN Unavailable [phone] Hamida De La Torre PA-C Primary Care Provider [phone] Encounter Details Date Type Department Care Team (Late st Contact Info) Description 05/10/2019 [employer] Message Enc [facility] [address] [place] [address] Nitin, [facility] Provider RE:XR results Social History [...] Rule Out 12/09/2020 12/09/2020 12/10/2020 12:16 PM HARNESS CUTTER COVID-19 Rule Out 12/27/2020 12/27/2020 12/28/2020 4:56 PM HARNESS CUTTER COVID-19 Rule Out 03/03/2021 03/03/2021 03/03/2021 3:11 PM CDT documented as of this encounter Care Teams Pumpman Relationship Specialty Start Date End Date Ghada Enamorado NP PCP - General Nurse Practitioner Family 07/05/19 07/08/19 Ghada Enamorado NP PCP - General Nurse Practitioner Family 07/09/19 07/20/20 Rosalba Mancilla APNP [address] [place] [address] PCP - Med Group - MSSP Attributed Provider 08/21/17 11/20/22 Kayli Berry MD [address] [place] [address] PCP - General INTERNAL MEDICINE 07/21/20 01/18/22 Hamida De La Torre, PA-C [address] [place] [phone] PCP - General PHYSICIAN FIELD PROPERTY LOSS SPECIALIST 01/18/25 Chana Mann, RN [address] [place] [address] Elevator Erector Helper (Ambulatory) REGISTERED NURSE 10/23/24 11/07/24 documented as of this encounter
--- OUTSIDE RECORDS SUMMARY | 2025-08-12 12:59 | XMS_ITS | Clinical Summary ---
Author Organization [facility] Address [address] [place] [address] Care Team Providers Care Fire Chief Name Role Phone Chioma Arias BERTO Primary Care Provider [phone] Source Comments [facility],non-owned Affiliates and Associated Physician Practices is amultiple site organization consisting of ambulatory clinics and hospital sitesin [place], [place], [place] and [place]. This disclosure is being madepursuant to the Care Everywhere program and may not contain all information available regarding this patient. Last updated 18.[facility] Allergies No known active allergies Medications * [...] PM CDT Legal Sex Male 11:01 AM REHAB DEPARTMENT MANAGER Gender Identity Male 09/12/2022 10:54 PM [...] 2012 ZOSTER VACCINE (1 of 2) 2012 DEPRESSION SCREENING 11/21/2024 COVID-19 VACCINE (3 - 2024- season) 2025 04/08/2021, 03/03/2021 INFLUENZA VACCINE (#1) 2025 2, 10/01/2021, 08/25/2020, [...] Group ID:Not on file Type:Medicaid Address: [address] [id number] MEDICARE ADV MEDICAID [facility] Care Teams Fire Chief Relationship Specialty Start Date End Date Chioma Arias APRN-CNP [address] [address] PCP - General Nurse Practitioner Family 09/12/22
--- OUTSIDE RECORDS SUMMARY | 2025-08-12 12:59 | XMS_ITS | Encounter Summary ---
Author Organization [facility] Address [address] [place] [address] Care Team Providers Care Solar Energy Engineer Name Role Phone Ghada Enamorado NP Primary Care Provider Ghada Joseph NP Primary Care Provider Rosalba Calles APNP Unavailable [phone] Kayli Berry MD Primary Care Provider [phone] Chana Mann RN Unavailable [phone] Hamida De La Torre PA-C Primary Care Provider [phone] Encounter Details Date Type Department Care Team (Late st Contact Info) Description 05/27/2019 MyChart Message Enc [facility] Medical Group Family & Internal Medicine [address] [address] Ghada Enamorado NP RE: Medication [...] Rule Out 12/09/2020 12/09/2020 12/10/2020 12:16 PM ECONOMIC MANAGER COVID-19 Rule Out 12/27/2020 12/27/2020 12/28/2020 4:56 PM ECONOMIC MANAGER COVID-19 Rule Out 03/03/2021 03/03/2021 03/03/2021 3:11 PM CDT documented as of this encounter Care Teams Solar Energy Engineer Relationship Specialty Start Date End Date Ghada Enamorado NP PCP - General Nurse Practitioner Family 07/05/19 07/08/19 Ghada Enamorado NP PCP - General Nurse Practitioner Family 07/09/19 07/20/20 Rosalba Mancilla APNP [address] [place] [address] PCP - Med Group - MSSP Attributed Provider 08/21/17 11/20/22 Kayli Berry MD [address] [place] [address] PCP - General INTERNAL MEDICINE 07/21/20 01/18/22 Hamida De La Torre PA-C [address] [place] [phone] PCP - General PHYSICIAN DNA ANALYST 01/18/25 Chana Mann, RN [address] [place] [address] Generation Engineering Technologist (Ambulatory) REGISTERED NURSE 10/23/24 11/07/24 documented as of this encounter
--- OUTSIDE RECORDS SUMMARY | 2025-08-12 12:59 | XMS_ITS | Encounter Summary ---
Author Organization [facility] Address [address] [place] [address] Care Team Providers Care Automobile Body Worker Name Role Phone Rosalba Mancilla APNP Unavailable [phone] Kayli Berry MD Primary Care Provider [phone] Chana Mann RN Unavailable [phone] Hamida De La Torre PA-C Primary Care Provider [phone] Encounter Details Date Type Department Care Team (Late st Contact Info) Description 02/18/[address] [facility] [address] [place], [place] [phone] Lisa Aquino MD [address] [facility] [address] [address] Social History Tobacco Use Types Packs/Day Years [...] as of this encounter Care Teams Automobile Body Worker Relationship Specialty Start Date End Date Rosalba Mancilla APNP [address] [place] [address] PCP - Med Group - MSSP Attributed Provider 08/21/17 11/20/22 Kayli Berry MD [address] [place] [address] PCP - General INTERNAL MEDICINE 07/21/20 01/18/22 Hamida De La Torre PADengC [address] [place] [phone] PCP - General PHYSICIAN MULTI SENSOR OPERATOR 01/18/25 Chana Mann, RN [address] [place] [address] Top Lift Cutter (Ambulatory) REGISTERED NURSE 10/23/24 11/07/24 documented as of this encounter
--- OUTSIDE RECORDS SUMMARY | 2025-08-12 12:59 | XMS_ITS | Encounter Summary ---
Author Organization [facility] Address [address] [place] [address] Care Team Providers Care Manager Child Name Role Phone Rosalba Mancilla APNP Unavailable [phone] Kayli Berry MD Primary Care Provider [phone] Chana Mann RN Unavailable [phone] Hamida De La Torre PA-C Primary Care Provider [phone] Encounter Details Date Type Department Care Team (Late st Contact Info) Description 12/03/2020 Prep for Procedure [facility] [address] [place], [place] [phone] Lisa Aquino MD [address] [facility] [address] [address] Social History Tobacco Use Types [...] COVID-19? No / Unsure 12/04/2020 12:47 PM WOODYARD CRANE OPERATOR documented as of this encounter Plan of Treatment Not on file documented as of this encounter Results * PRE-SURGICAL/PRE-PROCEDURE CORONAVIRUS (COVID 19) (12/09/2020 1:03 PM WOODYARD CRANE OPERATOR) CORONAVIRUS SARS COV 2 PCR (RESP) NOT DETECTED NOT DETECTED 12/10/2020 12:16 PM WOODYARD CRANE OPERATOR [facility] Comment: A Not Detected (negative) [...] providers and patients using the following websites: https://www.[employer].com/home/Covid-19/HCP/NAAT/fact-sheet2 https://www.[employer].M-Farm/home/Covid-19/Patients/NAAT/ fact-sheet2 This test has been authorized by the FDA under an Emergency Use Authorization (EUA) for use by authorized laboratories. Due to the current public health emergency, [facility] is receiving a high volume of samples [...] about COVID-19 can be found at the [facility] website: www.[employer].com/Covid19. Test performed at [facility] [address] [facility] [place] [address] Director: CASSY RIOS DO,MPH FIRST TEST YES 12/09/2020 12:53 PM WOODYARD CRANE OPERATOR [facility] EMPLOYED IN HEALTHCARE NO 12/09/2020 12:53 PM WOODYARD CRANE OPERATOR [facility] SYMPTOMATIC DEFINED BY CDC NO 12/09/2020 12:53 PM WOODYARD CRANE OPERATOR [facility] DATE OF SYMPTOM ONSET NON-APPLICABLE 12/09/2020 1:09 PM WOODYARD CRANE OPERATOR [facility] HOSPITALIZATION STATUS NO 12/09/2020 12:53 PM WOODYARD CRANE OPERATOR [facility] PATIENT IN ICU NO 12/09/2020 12:53 PM WOODYARD CRANE OPERATOR [facility] RESIDENT OF [facility] NO 12/09/2020 12:53 PM WOODYARD CRANE OPERATOR [facility] NO 12/09/2020 1:09 PM WOODYARD CRANE OPERATOR [facility] PATIENT'S RACE WHITE OR 12/09/2020 12:53 PM WOODYARD CRANE OPERATOR [facility] ETHNICITY NONHISPANIC 12/09/2020 12:53 PM WOODYARD CRANE OPERATOR [facility] SOURCE (QST) NASOPHARYNGEAL SWAB 12/09/2020 12:53 PM WOODYARD CRANE OPERATOR [facility] NASOPHARYNGEAL SWAB / Unknown 12/09/2020 1:03 PM WOODYARD CRANE OPERATOR us Lisa Aquino MD MICROBIOLOGY - GENERAL ORDER ZIYAD Final Result [facility] [address] [place] [address], [place] [phone] [facility] [address] [place] [address], documented in this encounter Visit Diagnoses Diagnosis Preop testing- Primary Preoperative examination, unspecified documented in this encounter Additional Health Concerns Infection Onset Date Last Indicated Resolved Time COVID-19 Rule Out 12/09/2020 12/09/2020 12/10/2020 12:16 PM WOODYARD CRANE OPERATOR COVID-19 Rule Out 12/27/2020 12/27/2020 12/28/2020 4:56 PM WOODYARD CRANE OPERATOR COVID-19 Rule Out 03/03/2021 03/03/2021 03/03/2021 3:11 PM CDT documented as of this encounter Care Teams Manager Child Relationship Specialty Start Date End Date Rosalba Mancilla APNP [address] [place] [address] PCP - Med Group - MSSP Attributed Provider 08/21/17 11/20/22 Kayli Berry MD [address] [place] [address] PCP - General INTERNAL MEDICINE 07/21/20 01/18/22 Hamida De La Torre, PA-C [address] [place] [phone] PCP - General PHYSICIAN RUBBER CURER 01/18/25 Chana Mann, RN [address] [place], [place] [address] Clip Loading Machine Adjuster (Ambulatory) REGISTERED NURSE 10/23/24 11/07/24 documented as of this encounter
--- OUTSIDE RECORDS SUMMARY | 2025-08-12 12:59 | XMS_ITS | Encounter Summary ---
Author Organization [facility] Address [address] [place] [address] Care Team Providers Care Associate Financial Advisor Name Role Phone Ken Sosa MD Primary Care Provider Miriam Goyal Primary Care Provider [phone] Ghada Enamorado NP Primary Care Provider Ghada Joseph COMPLIANCE TECHNICIAN Primary Care Provider Rosalba Calles APNP Unavailable [phone] Kayli Berry MD Primary Care Provider [phone] Chana Mann RN Unavailable [phone] Hamida De La Torre PA-C Primary Care Provider [phone] Encounter Details Date Type Department Care Team (Latest Contact Info) Description 07/18/2018 Abstract [facility] Medical Group Miriam Adame FNP [address] [place] [address] Social History Tobacco Use Types Packs/Day Years [...] Rule Out 12/09/2020 12/09/2020 12/10/2020 12:16 PM PAINT LINE OPERATOR COVID-19 Rule Out 12/27/2020 12/27/2020 12/28/2020 4:56 PM PAINT LINE OPERATOR COVID-19 Rule Out 03/03/2021 03/03/2021 03/03/2021 3:11 PM CDT documented as of this encounter Care Teams Associate Financial Advisor Relationship Specialty Start Date End Date Ken Sosa MD PCP - General 07/20/16 10/04/18 Miriam Adame FNP [address] [place] [address] PCP - General FAMILY PRACTICE 10/05/18 01/16/19 Ghada Enamorado NP [address] [place] [address] PCP - General Nurse Practitioner Family 07/05/19 07/08/19 Ghada Enamorado NP [address] [place] [address] PCP - General Nurse Practitioner Family 07/09/19 07/20/20 Rosalba Mancilla APNP [address] [place] [address] PCP - Med Group - MSSP Attributed Provider 08/21/17 11/20/22 Kayli Berry MD [address] [place] [address] PCP - General INTERNAL MEDICINE 07/21/20 01/18/22 Hamida De La Torre PADengC [address] [place] [phone] PCP - General PHYSICIAN MANAGER STAR 01/18/25 Chana Mann, RN [address] [place] [address] Wiping Rag Washer (Ambulatory) REGISTERED NURSE 10/23/24 11/07/24 documented as of this encounter
[2025-08-12 14:00] LABS: Hematocrit 44.3 % (42.0-52.0); Hemoglobin 14.9 g/dL (14.0-18.0); Immature Granulocyte Percent A 0.2 % (0-0.5); Lymphocytes Absolute Auto 1.77 K/mm3 (0.9-3.2); Mean Corpuscular HGB Conc 33.6 g/dl (32-36); Mean Corpuscular Hemoglobin 29.7 pg (26-34); Mean Corpuscular Volume 88.2 fl (80-100); Nucleated Red Blood Cells Absolute Auto 0.000 K/mm3 (0.0-0.012); Nucleated Red Blood Cells Perc 0.0 % (0.0-0.2); Platelet Count Result 164 k/mm3 (150-375); Red Blood Count 5.02 M/mm3 (4.6-6.20); White Blood Count 5.7 K/mm3 (4.5-10.0)
[2025-08-12 14:08] LABS: Alanine Aminotransferase 26 U/L (6-50); Albumin Level 4.5 g/dL (3.5-5.1); Alkaline Phosphatase 79 U/L (38-126); Anion Gap 7 mmol/L (4-12); Aspartate Amino Transferase 29 U/L (17-59); Bilirubin,Total 0.9 mg/dL (0.2-1.3); Blood Urea Nitrogen 14 mg/dL (9-20); Calcium 8.9 mg/dL (8.4-10.2); Carbon Dioxide 26 mmol/L (22-30); Chloride 106 mmol/L (98-107); Estimated Glomerular Filt Rate > 60; Glucose 100 mg/dL (65-110); Potassium 3.7 mmol/L (3.4-5.0); Sodium 139 mmol/L (137-145); Total Protein 7.5 g/dL (6.3-8.2)
[2025-08-12 14:25] LABS: Free T4 Free Thyroxine 1.23 ng/dL (0.78-2.19)
[2025-08-12 14:44] LABS: Thyroid Stimulating Hormone < 0.015 uIU/mL (0.465-4.680)
[2025-08-13 14:08] LABS: ANA by IFA Rfx Titer/Pattern Positive (.)
== END 2025-08-12 12:18 | disposition home or self-care (01) ==
PROVIDERS: PCP Family Medicine; Visit Provider Family Medicine
DX: L29.89 Other pruritus (principal)
CPT/HCPCS: 36415; 71046; 80048; 80076; 84439; 84443; 85025; 86038; 93970

== ENCOUNTER 2025-10-23 14:01 | Outpatient (CLI) | payer MEDICARE, SELFPAY ==
--- NOTE | ~2025-10-23 | XR_ITS ---
XR cervical spine 4-5V Indication: Facet arthropathy Comparison: None Findings: No fracture identified, no subluxation with flexion-extension. Moderate loss of disc height C3-4 C4-5. Soft tissues unremarkable Impression: No acute abnormality. Reviewed, dictated and finalized at location P. L[facility] DEVELOPER Impression: No acute abnormality.
== END 2025-10-23 14:02 | disposition home or self-care (01) ==
LOC: MICIMG 14:02
PROVIDERS: PCP Nurse Practitioner Family; Visit Provider Nurse Practitioner Family
DX: R29.890 Loss of height (principal); M47.812 Spondylosis without myelopathy or radiculopathy, cervical region
CPT/HCPCS: 72050

== ENCOUNTER 2025-10-24 14:00 | Outpatient (CLI) | payer MEDICARE, SELFPAY ==
--- NOTE | ~2025-10-24 | US_ITS ---
EXAMINATION: US thyroid DATE: 10/24/2025 14:35 INDICATION: Hypothyroidism TECHNIQUE: Multiple ultrasound images of the thyroid were obtained. COMPARISON: None. FINDINGS: The right thyroid lobe measures 3.7 x 1.5 x 1.3 cm. The left thyroid lobe measures 3.9 x 1.4 x 1.0 cm. Thyroid isthmus measures 2-3 mm in maximal thickness. There is diffuse heterogeneous decreased parenchymal axis with coarsened echotexture and diffuse increased vascular flow on color Doppler with typical appearance for thyroiditis. No discrete nodules identified. IMPRESSION: 1. Diffusely hypoechoic thyroid with coarsened echotexture and diffuse increased vascular flow on color Doppler suggestive of thyroiditis. No discrete thyroid nodules identified. Reviewed, dictated and finalized at location A. [facility] DEVELOPER IMPRESSION: 1. Diffusely hypoechoic thyroid with coarsened echotexture and diffuse increase d vascular flow on color Doppler suggestive of thyroiditis. No discrete thyroid nodules identified.
== END 2025-10-24 14:01 | disposition home or self-care (01) ==
PROVIDERS: PCP Family Medicine; Visit Provider Family Medicine
DX: E03.9 Hypothyroidism, unspecified (principal)
CPT/HCPCS: 76536